=== PATIENT | male | born 1985 | race American Indian/Alaskan Native ===

== ENCOUNTER 2016-09-18 06:46 | Inpatient (IN) | payer OTHER ==
[2016-09-18] MEDS ORDERED: NACL 0.9% 1000 ML 1,000 ML IV ONE ×3 (07:58→08:48)
[2016-09-18 08:32] LABS: Hemoglobin 17.2 gm/dl (11.8-15.2); Mean Corpuscular HGB Conc 33 % (32-34); Mean Corpuscular Volume 79 fl (84-94); Platelet Count 262 K/mm3 (140-440); Red Blood Count 6.72 M/mm3 (3.65-5.03)
[2016-09-18 08:34] LABS: Mean Corpuscular Hemoglobin 26 pg (28-32); White Blood Count 23.6 K/mm3 (4.5-11.0)
[2016-09-18 08:44] LABS: Albumin 4.9 g/dL (3.9-5); Albumin/Globulin Ratio 1.2 %; BUN/Creatinine Ratio 4.68; Bilirubin,Total 0.2 mg/dL (0.1-1.2); Calcium 7.3 mg/dL (8.4-10.2)
[2016-09-18 08:48] LABS: Potassium 8.4 mmol/L (3.6-5.0)
[2016-09-18] MEDS ORDERED: CALCIUM GLUCONATE 1,000 MG in NACL 0.9% 100 ML IV ONE (08:48)
[2016-09-18] MEDS ORDERED: D50W (25GM) IV ONE (08:48)
--- NOTE | 2016-09-18 09:19 | Emergency Department Report ---
ED General Adult HPI - General Chief complaint: Altered Mental Status Stated complaint: WEAKNESS, POSSIBLE STROKE Time Seen by Provider: 09/18/16 07:57 Source: patient, EMS Mode of arrival: Stretcher Limitations: Other - History of Present Illness Initial comments: 31-year-old male presents to the emergency department via EMS after being found on the floor of his bathroom this morning by his roommate. Patient states that "I had a stroke last night". Patient states that he was not able to move his arms or his legs. He states he was lying on the floor all night. At this time, the patient states he is able to move all his extremities. He is complaining of pain in his right thigh. He denies taking any medications. There are no other complaints. -: Gradual, During the night Location: right, lower extremity Radiation: non-radiation Severity scale (0 -10): 10 Quality: aching Consistency: constant Improves with: none Worsens with: none Associated Symptoms: denies other symptoms Treatments Prior to Arrival: none - Related Data Home Medications Medication Instructions Recorded Confirmed Last Taken Benztropine [Cogentin] 2 mg PO DAILY 09/18/16 09/18/16 Unknown Haloperidol [Haldol] 2 mg PO DAILY 09/18/16 09/18/16 Unknown Hydroxyzine HCl [hydrOXYzine] 50 mg PO DAILY 09/18/16 09/18/16 Unknown Allergies Allergy/AdvReac Type Severity Reaction Status Date / Time No Known Allergies Allergy Unverified 09/18/16 07:50 ED Review of Systems ROS: Stated complaint: WEAKNESS, POSSIBLE STROKE Other details as noted in HPI Comment: All other systems reviewed and negative Musculoskeletal: as per HPI, myalgia ED Past Medical Hx - Past Medical History Previous Medical History?: Yes Hx Psychiatric Treatment: Yes (BIPOLAR SCHIZOPHRENIC) - Surgical History Past Surgical History?: No - Family History Family history: no significant - Social History Smoking Status: Current Every Day Smoker Substance Use Type: None - Medications Home Medications: Home Medications Medication Instructions Recorded Confirmed Last Taken Type Benztropine [Cogentin] 2 mg PO DAILY 09/18/16 09/18/16 Unknown History Haloperidol [Haldol] 2 mg PO DAILY 09/18/16 09/18/16 Unknown History Hydroxyzine HCl [hydrOXYzine] 50 mg PO DAILY 12/28/16 12/28/16 Unknown History ED Physical Exam - General Limitations: Other General appearance: alert, in no apparent distress - Head Head exam: Present: atraumatic, normocephalic - Eye Eye exam: Present: normal appearance, PERRL, EOMI - ENT ENT exam: Present: normal exam, normal orophraynx, mucous membranes moist - Neck Neck exam: Present: normal inspection, full ROM. Absent: tenderness - Respiratory Respiratory exam: Present: normal lung sounds bilaterally. Absent: respiratory distress - Cardiovascular Cardiovascular Exam: Present: regular rate, normal rhythm, normal heart sounds - GI/Abdominal GI/Abdominal exam: Present: soft, normal bowel sounds. Absent: distended, tenderness - Extremities Exam Extremities exam: Present: normal inspection, full ROM. Absent: tenderness - Back Exam Back exam: Present: normal inspection, full ROM. Absent: tenderness - Neurological Exam Neurological exam: Present: alert, oriented X3. Absent: motor sensory deficit - Skin Skin exam: Present: warm, dry, intact ED Course Vital Signs 09/18/16 09/18/16 09/18/16 07:44 08:00 09:12 Temperature 98.2 F Pulse Rate 89 88 Respiratory 16 16 Rate Blood Pressure 97/63 Blood Pressure 119/74 [Left] O2 Sat by Pulse 89 97 97 Oximetry ED Medical Decision Making - Lab Data Result diagrams: 09/18/16 08:08 09/18/16 08:08 - EKG Data -: EKG Interpreted by Me EKG shows normal: sinus rhythm, axis, intervals, QRS complexes, ST-T waves Rate: tachycardia - EKG Data When compared to previous EKG there are: previous EKG unavailable Interpretation: other (sinus tachycardia otherwise normal ECG) - Medical Decision Making Laboratory results reviewed and discussed with the patient. Patient appears to be in rhabdomyolysis with acute renal failure and hyperkalemia. Patient has been given IV calcium, IV insulin/glucose, and additional IV fluids. I have spoken with Dr. Avelar, nephrology. Vascular surgery will be consulted for Vas-Cath placement. Patient is to be admitted by the hospitalist. - Differential Diagnosis bipolar disorder, drug intoxication, rhabdomyolysis Critical Care Time: Yes Critical care time in (mins) excluding proc time.: 45 Critical care attestation.: If time is entered above; I have spent that time in minutes in the direct care of this critically ill patient, excluding procedure time. Critical Care Time: The high probability of a clinically significant, sudden or life threatening deterioration of the renal system(s) required my full and direct attention, intervention and personal management. The aggregate critical care time was 45 minutes. This time is in addition to time spent performing reported procedures but includes the following: [x] Data Review and interpretation [x] Patient assessment and monitoring of vital signs [x] Documentation [x] Medication orders and management ED Disposition Clinical Impression: Acute renal failure due to rhabdomyolysis, Hyperkalemia Rhabdomyolysis Qualifiers: Rhabdomyolysis type: non-traumatic Qualified Code(s): M62.82 - Rhabdomyolysis Disposition: OP ADMITTED IP TO THIS HOSP Is pt being admited?: Yes Condition: Stable Time of Disposition: 09:05
--- NOTE | 2016-09-18 09:39 | Admit Criteria Form ---
Admission Criteria Documentation: HYPONATREMIA; HYPERNATREMIA; HYPOKALEMIA; HYPERKALEMIA; HYPOCALCEMIA; HYPERCALCEMIA Clinical Indications for Inpatient Care (Place 'X' for any and all applicable criteria): Ongoing inpatient care may be indicated for ANY ONE of the following [G](1)(2)(3 )(5): [ ]I. Hyponatremia with ANY ONE of the following: [ ]a) Sodium less than 130 mEq/L (mmol/L) (new) (6)(22) [ ]b) Sodium less than 135 mEq/L (mmol/L) with ANY ONE of the following: [ ]i) Severe medical etiology requiring inpatient management (eg, heart failure, hypovolemia) [ ]ii) Altered mental status [ ]iii) Seizures [ ]II. Hypernatremia with ANY ONE of the following: [ ]a) Sodium greater than 155 mEq/L (mmol/L) [ ]b) Sodium greater than 150 mEq/L (mmol/L) with ANY ONE of the following: [ ] i) Altered mental status [ ]ii) Seizures [ ]iii) Severe medical etiology (eg, hypovolemia, diabetes insipidus) [ ]iv) Severe weakness [ ]v) Severe medical etiology (eg, hemolysis, infection, drug overdose) [ ]III. Hypokalemia with ANY ONE of the following: [ ]a) Potassium less than 2.5 mEq/L (mmol/L) despite outpatient and emergency treatment [ ]b) Potassium less than 3.0 mEq/L (mmol/L) with ANY ONE of the following: [ ]i) Weakness [ ]ii) Cardiac abnormality (eg, arrhythmia, conduction disturbance) [ ]iii) Cardiac ischemia [ ]iv) Ileus [ ]v) Ongoing medical cause requiring inpatient management. ( e.g., acute renal wasting, SIADH) [ ]vi) Other severe symptoms [ X] IV. Hyperkalemia with ANY ONE of the following: [X ]a) Potassium greater than 6.5 mEq/L (mmol/L) [ ]b) Potassium greater than 5 mEq/L (mmol/L) with ANY ONE of the following: [ ]i) Severe ECG findings [H] [ ]ii) Acute worsening of renal failure (creatinine greater than 2.5 mg/dL (221 micromoles/L) or significant elevation for age and size) [ ] V. Hypocalcemia with ANY ONE of the following: [ ]a) Calcium less than 7 mg/dL (1.75 mmol/L) despite outpatient and emergency treatment(19) [ ]b) Calcium less than 8 mg/dL (2 mmol/L) with significant symptoms or findings; examples include: [ ]i) Cardiac abnormality (eg, arrhythmia or conduction disturbance) [ ]ii) Altered mental status [ ]iii) Seizures [ ]iv) Breathing difficulty [ ]v) Muscle spasms [ ]. Hypercalcemia with ANY ONE of the following: [ ]a) Calcium greater than 14 mg/dL (3.5 mmol/L) [ ]b) Calcium greater than 12 mg/dL (3 mmol/L) with ANY ONE of the following: [ ]i) Significant dehydration or hypovolemia as indicated by ANY ONE of the following(2): [ ]1. Clinically significant dehydration as indicated by ANY ONE of the following: [ ]A. Acute loss of weight from baseline (5% of body weight in adults, 9% in pediatric patients) [ ]B. Hemodynamic instability [ ]C. Acute renal failure [ ]D. Serum sodium greater than 150 mEq/L (mmol/L) [ ]2) Dehydration that is persistent indicated by ALL of the following: [ ]A. Oral rehydration therapy not tolerated or insufficient to adequately correct dehydration [ ]B. Appropriate intravenous treatment (eg, fluids ) does not readily correct dehydration ie, after 12 to 24 hours of treatment) [ ]ii) Significant symptoms or findings; examples include: [ ]1) Altered mental status [ ]2) Cardiac abnormality (eg, arrhythmia, conduction disturbance) [ ]3) Cardiac abnormality (eg, arrhythmia, conduction disturbance) The original [employer] [facility] content created by [employer] has been revised. The portions of the content which have been revised are identified through the use of italic text or in bold, and [facility] has neither reviewed nor approved the modified material. All other unmodified content is copyright [facility] [employer] Please see references footnoted in the original [facility] [employer] edition 2016 Admission Criteria Met: Yes
[2016-09-18] MEDS ORDERED: DULCOLAX PR PRN (10:12)
[2016-09-18 10:42] LABS: Basophils % (Manual) 0 % (0.0-1.8); Blastocytes % (Manual) 0 %; Eosinophils % (Manual) 0 % (0.0-4.3)
[2016-09-18 10:43] LABS: Diff Status Complete; RBC Morphology Normal
[2016-09-18] MEDS ORDERED: NACL 0.9% 1000 ML 1,000 ML IV SCH (11:00)
[2016-09-18] MEDS ORDERED: NACL 0.9% 1000 ML 1,000 ML ONE (11:07)
--- NOTE | 2016-09-18 11:33 | Cat Scan Report ---
CT HEAD WITHOUT CONTRAST: HISTORY: Right lower extremity weakness, CVA. Serial contiguous axial images were obtained through the cranium. Intravenous contrast material was not administered. The ventricles are normal in size and appearance. There is no mass effect or midline shift. No areas of abnormally increased or decreased attenuation are seen. No mass lesion is seen. The mastoid air cells and visualized portions of the sinuses are normal. IMPRESSION: Cranial CT scan within normal limits. If CVA is highly suspected, MRI is recommended.
[2016-09-18] MEDS ORDERED: NACL 0.9% 1000 ML 100 ML IV PRN ×2 (12:35→15:36)
--- NOTE | 2016-09-18 12:47 | Consultation ---
History of Present Illness - Reason for Consult Consult date: 09/18/16 acute renal failure, hyperkalemia, metabolic acidosis Requesting physician: BETHEL DREW - History of Present Illness 31-year-old male presents to the emergency department via EMS after being found on the floor of his bathroom this morning by his roommate. Patient states that "I had a stroke last night". Patient states that he was not able to move his arms or his legs. He states he was lying on the floor all night. At this time, the patient states he is able to move all his extremities. He is complaining of pain in his right thigh. He denies taking any medications. There are no other complaints. Past History Past Medical History: other (schizophrenia) Past Surgical History: No surgical history Social history: lives with family Family history: no significant family history Medications and Allergies Allergies Allergy/AdvReac Type Severity Reaction Status Date / Time No Known Allergies Allergy Unverified 09/18/16 07:50 Home Medications Medication Instructions Recorded Confirmed Last Taken Type Benztropine [Cogentin] 2 mg PO DAILY 09/18/16 09/18/16 Unknown History Haloperidol [Haldol] 2 mg PO DAILY 09/18/16 09/18/16 Unknown History Hydroxyzine HCl [hydrOXYzine] 50 mg PO DAILY 09/18/16 09/18/16 Unknown History Active Meds: Active Medications Bisacodyl (Dulcolax) 10 mg NE QDAY PRN PRN Reason: Constipation unrelieved by MOM Sodium Chloride (Nacl 0.9% 1000 Ml) 1,000 mls @ 250 mls/hr IV ONCE ONE Stop: 09/18/16 12:47 Last Admin: 09/18/16 11:44 Dose: 250 mls/hr Sodium Chloride (Nacl 0.9% 1000 Ml) 100 mls @ 999 mls/hr IV TINA PRN PRN Reason: Hypotension Sodium Bicarbonate 150 meq/ (Dextrose) 1,150 mls @ 125 mls/hr IV DIRECT SY Ondansetron HCl (Zofran) 4 mg IV Q4H PRN PRN Reason: N/V unrelieved by Reglan Review of Systems Constitutional: fatigue, weakness, malaise Musculoskeletal: low back pain, leg numbness/tingling, muscle weakness, muscle cramps, myalgias Exam - Vital Signs Vital signs: Vital Signs Temp Pulse Resp BP Pulse Ox 98.2 F 89 16 97/63 89 09/18/16 07:44 09/18/16 07:44 09/18/16 07:44 09/18/16 07:44 09/18/16 07:44 - Physical Exam Narrative exam: - General Limitations: Other General appearance: alert, in no apparent distress - Head Head exam: Present: atraumatic, normocephalic - Eye Eye exam: Present: normal appearance, PERRL, EOMI - ENT ENT exam: Present: normal exam, normal orophraynx, mucous membranes moist - Neck Neck exam: Present: normal inspection, full ROM. Absent: tenderness - Respiratory Respiratory exam: Present: normal lung sounds bilaterally. Absent: respiratory distress - Cardiovascular Cardiovascular Exam: Present: regular rate, normal rhythm, normal heart sounds - GI/Abdominal GI/Abdominal exam: Present: soft, normal bowel sounds. Absent: distended, tenderness - Extremities Exam Extremities exam: Present: normal inspection, decrease ROM. diffuse tenderness - Back Exam Back exam: Present: normal inspection, full ROM. Absent: tenderness - Neurological Exam Neurological exam: Present: alert, oriented X3. Absent: motor sensory deficit - Skin Skin exam: Present: warm, dry, intact Results - Lab Results 09/18/16 08:08 09/18/16 08:08 Most recent lab results Calcium 7.3 mg/dL (8.4-10.2) L 09/18/16 08:08 Assessment and Plan Impression: * Hyperkalemia * Acute Rhabdo * Muscle weakness * Elevated LFTS * Acidosis * Schizophrenia Plan: * place in ICU * emergent hemodailysis * Low k bath with dialysis * lytes daily * add bicarbonate gtt * daily ck levels and monitor renal function * strict i/os * avoid nephrotoxins * critical care one hr
[2016-09-18] MEDS ORDERED: HEPARIN 10,000 UNITS/10 ML ONE (13:20)
[2016-09-18] MEDS ORDERED: ANCEF/STERILE WATER 2 GM/20 ML 20 ML IV ONE (13:20)
[2016-09-18] MEDS ORDERED: SUBLIMAZE ONE (13:20)
[2016-09-18] MEDS ORDERED: VERSED ONE (13:20)
[2016-09-18] MEDS ORDERED: HEPARIN/NS 5000 UNIT/500ML(CATH LAB) 500 ML IR ONE (13:20)
[2016-09-18] MEDS ORDERED: XYLOCAINE 2% INFILTRATI ONE (13:21)
--- NOTE | 2016-09-18 14:20 | Event Note ---
Date: 09/18/16 31 year old male with rhabdomyloysis with request for vascath for dialysis. Brought to animal laboratory technician for vascath placement.
--- NOTE | 2016-09-18 14:38 | Operative Report ---
Operative Report Operative Report: Operative note: Date: 09/18/2016 Preoperative diagnosis: Rhabdomyolysis Postoperative diagnosis: Same. Operation: Right internal jugular Vas-Cath insertion Surgeon: Yue Guzman. Asst.: None Anesthesia: Local with moderate sedation EBL: Minimal Findings: None Indications: 31-year-old male with history of schizophrenia, thin with his rhabdomyolysis and blood work showing CPK of more than 100,000, blood potassium of 8. Patient was explained risks and benefits of placing a dialysis catheter and he chose to proceed. Operative details: Patient was brought to the Hearing Aid Assembly Supervisor, prepped and draped right neck in a sterile fashion. After timeout performed and all team members in the agreement right femoral vein was accessed under ultrasound guidance with micropuncture needle and exchanged for micropuncture sheath. J wire was advanced in the right internal jugular vein and advanced into IVC under fluoroscopic guidance. Skin incision was made with 11 blade and serially dilated with subsequent insertion of Vas-Cath catheter 11.5 Fr 15cm in length. Ports were checked for good flow, flushed with saline and locked with 1.4 mL of heparin. Catheter was secured in place with 3-0 silk stitches and sterile dressing applied. He tolerated the procedure well.
[2016-09-18 15:31] LABS: Calcium 6.6 mg/dL (8.4-10.2); Chloride 99.9 mmol/L (98-107)
--- NOTE | 2016-09-18 15:32 | History and Physical Report ---
History of Present Illness Date of examination: 09/18/16 Date of admission: 09/18/16 10:12 Chief complaint: I think I had a stroke History of present illness: Patient is a 31-year-old male with past medical history significant for bipolar disorder, who presents to the emergency department via EMS after being found on the floor of his bathroom this morning by his roommate. Patient states that "I had a stroke last night". Patient states that he was not able to move his arms or his legs. He states he was lying on the floor all night. Initially it appears he was unable to move his right lower extremity was subsequently this improved. He is unable to give me any information as to his medical history except that he states he takes some bipolar medication but does not recall the medicines. He does not recall events that led him to the floor. He denies any alcohol or tobacco use. Although later subsequent he said he sometimes drinks. He denies any seizure- like activity. But again is unable to state how he got to the floor. No other family members available to give any more information. In the ER was noted to have a significantly elevated potassium and creatinine kinase are positive for emergency dialysis required. At this time again as stated he is able to move all his extremities. At this time denies any nausea, chest pain, diarrhea, fever, chills, melena bright red blood per rectum. He denies taking any medications. There are no other complaints. ROS Constitutional: No fever, fatigue or weight loss. Skin: No rash. Eyes: No recent vision problems or eye pain. ENT: No congestion, ear pain, or sore throat. Endocrine: No thyroid problems. Cardiovascular: No chest pain. Respiratory: No cough, shortness of breath, congestion, or wheezing. Gastrointestinal: No abdominal pain, nausea, vomiting, or diarrhea. Genitourinary: No dysuria. Musculoskeletal: No joint swelling. Neurologic: No seizures. But initially in the legs and then it was the right leg. Hematologic: No unusual bruising or bleeding. Psychiatric: No psychiatric problems, hallucinations or depression. All other systems reviewed and otherwise negative. Past History Past Medical History: other (schizophrenia) Past Surgical History: No surgical history Social history: lives with family Family history: no significant family history Medications and Allergies Allergies Allergy/AdvReac Type Severity Reaction Status Date / Time No Known Allergies Allergy Unverified 09/18/16 07:50 Home Medications Medication Instructions Recorded Confirmed Last Taken Type Benztropine [Cogentin] 2 mg PO DAILY 09/18/16 09/18/16 Unknown History Haloperidol [Haldol] 2 mg PO DAILY 09/18/16 09/18/16 Unknown History Hydroxyzine HCl [hydrOXYzine] 50 mg PO DAILY 09/18/16 09/18/16 Unknown History Active Meds: Active Medications Bisacodyl (Dulcolax) [address] QDAY PRN PRN Reason: Constipation unrelieved by MOM Sodium Chloride (Nacl 0.9% 1000 Ml) 100 mls @ 999 mls/hr IV TINA PRN PRN Reason: Hypotension Sodium Bicarbonate 150 meq/ (Dextrose) 1,150 mls @ 125 mls/hr IV DIRECT SY Ondansetron HCl (Zofran) 4 mg IV Q4H PRN PRN Reason: N/V unrelieved by Reglan Exam - Physical Exam Narrative exam: VITAL SIGNS: Reviewed. GENERAL: The patient appeared well nourished and normally developed. Vital signs as documented. HEAD: No signs of head trauma. EYES: Pupils are equal. Extraocular motions intact. EARS: Hearing grossly intact. MOUTH: Oropharynx is normal. NECK: No adenopathy, no JVD. CHEST: Chest with clear breath sounds bilaterally. No wheezes, rales, or rhonchi. CARDIAC: Regular rate and rhythm. S1 and S2, without murmurs, gallops, or rubs. VASCULAR: No Edema. Peripheral pulses normal and equal in all extremities. ABDOMEN: Soft, without detectable tenderness. No sign of distention. No rebound or guarding, and no masses palpated. Bowel Sounds normal. MUSCULOSKELETAL: Good range of motion of all major joints. Extremities without clubbing, cyanosis or edema. NEUROLOGIC EXAM: Alert and oriented x 3. No focal sensory or strength deficits. Speech normal. Follows commands. PSYCHIATRIC: Mood normal. SKIN: No rash or lesions. - Constitutional Vitals: Temp Pulse Resp BP Pulse Ox 97.0 F L 79 23 126/97 91 09/18/16 14:30 09/18/16 14:30 09/18/16 14:30 09/18/16 14:30 09/18/16 14:30 Results - Labs CBC & Chem 7: 09/19/16 05:30 09/19/16 04:30 Labs: Laboratory Last Values WBC 23.6 K/mm3 (4.5-11.0) H 09/18/16 08:08 RBC 6.72 M/mm3 (3.65-5.03) H 09/18/16 08:08 Hgb 17.2 gm/dl (11.8-15.2) H 09/18/16 08:08 Hct 53.0 % (35.5-45.6) H 09/18/16 08:08 MCV 79 fl (84-94) L 09/18/16 08:08 MCH 26 pg (28-32) L 09/18/16 08:08 MCHC 33 % (32-34) 09/18/16 08:08 RDW 15.0 % (13.2-15.2) 09/18/16 08:08 Plt Count 262 K/mm3 (140-440) 09/18/16 08:08 Add Manual Diff Complete 09/18/16 08:08 Total Counted 100 09/18/16 08:08 Seg Neuts % (Manual) 86.0 % (40.0-70.0) H 09/18/16 08:08 Band Neutrophils % 10.0 % 09/18/16 08:08 Lymphocytes % (Manual) 1.0 % (13.4-35.0) L 09/18/16 08:08 Reactive Lymphs % (Man) 0 % 09/18/16 08:08 Monocytes % (Manual) 3.0 % (0.0-7.3) 09/18/16 08:08 Eosinophils % (Manual) 0 % (0.0-4.3) 09/18/16 08:08 Basophils % (Manual) 0 % (0.0-1.8) 09/18/16 08:08 Metamyelocytes % 0 % 09/18/16 08:08 Myelocytes % 0 % 09/18/16 08:08 Promyelocytes % 0 % 09/18/16 08:08 Blast Cells % 0 % 09/18/16 08:08 Nucleated RBC % Not Reportable 09/18/16 08:08 Seg Neutrophils # Man 20.3 K/mm3 (1.8-7.7) H 09/18/16 08:08 Band Neutrophils # 2.4 K/mm3 09/18/16 08:08 Lymphocytes # (Manual) 0.2 K/mm3 (1.2-5.4) L 09/18/16 08:08 Abs React Lymphs (Man) 0.0 K/mm3 09/18/16 08:08 Monocytes # (Manual) 0.7 K/mm3 (0.0-0.8) 09/18/16 08:08 Eosinophils # (Manual) 0.0 K/mm3 (0.0-0.4) 09/18/16 08:08 Basophils # (Manual) 0.0 K/mm3 (0.0-0.1) 09/18/16 08:08 Metamyelocytes # 0.0 K/mm3 09/18/16 08:08 Myelocytes # 0.0 K/mm3 09/18/16 08:08 Promyelocytes # 0.0 K/mm3 09/18/16 08:08 Blast Cells # 0.0 K/mm3 09/18/16 08:08 WBC Morphology Not Reportable 09/18/16 08:08 Hypersegmented Neuts Not Reportable 09/18/16 08:08 Hyposegmented Neuts Not Reportable 09/18/16 08:08 Hypogranular Neuts Not Reportable 09/18/16 08:08 Smudge Cells Not Reportable 09/18/16 08:08 Toxic Granulation Not Reportable 09/18/16 08:08 Toxic Vacuolation Not Reportable 09/18/16 08:08 Dohle Bodies Not Reportable 09/18/16 08:08 Pelger-Huet Anomaly Not Reportable 09/18/16 08:08 Laila Rods Not Reportable 09/18/16 08:08 Platelet Estimate Not Reportable 09/18/16 08:08 Clumped Platelets Not Reportable 09/18/16 08:08 Plt Clumps, EDTA Not Reportable 09/18/16 08:08 Large Platelets Not Reportable 09/18/16 08:08 Giant Platelets Not Reportable 09/18/16 08:08 Platelet Satelliting Not Reportable 09/18/16 08:08 Plt Morphology Comment Not Reportable 09/18/16 08:08 RBC Morphology Normal 09/18/16 08:08 Dimorphic RBCs Not Reportable 09/18/16 08:08 Polychromasia Not Reportable 09/18/16 08:08 Hypochromasia Not Reportable 09/18/16 08:08 Poikilocytosis Not Reportable 09/18/16 08:08 Anisocytosis Not Reportable 09/18/16 08:08 Microcytosis Not Reportable 09/18/16 08:08 Macrocytosis Not Reportable 09/18/16 08:08 Spherocytes Not Reportable 09/18/16 08:08 Pappenheimer Bodies Not Reportable 09/18/16 08:08 Sickle Cells Not Reportable 09/18/16 08:08 Target Cells Not Reportable 09/18/16 08:08 Tear Drop Cells Not Reportable 09/18/16 08:08 Ovalocytes Not Reportable 09/18/16 08:08 Helmet Cells Not Reportable 09/18/16 08:08 Brandt-[place] Bodies Not Reportable 09/18/16 08:08 [place] Rings Not Reportable 09/18/16 08:08 [place] Cells Not Reportable 09/18/16 08:08 Bite Cells Not Reportable 09/18/16 08:08 Crenated Cell Not Reportable 09/18/16 08:08 Elliptocytes Not Reportable 09/18/16 08:08 Acanthocytes (Spur) Not Reportable 09/18/16 08:08 Rouleaux Not Reportable 09/18/16 08:08 Hemoglobin C Crystals Not Reportable 09/18/16 08:08 Schistocytes Not Reportable 09/18/16 08:08 Malaria parasites Not Reportable 09/18/16 08:08 Suhail Bodies Not Reportable 09/18/16 08:08 Hem Pathologist Commnt No 09/18/16 08:08 Sodium 134 mmol/L (137-145) L 09/18/16 08:08 Potassium 8.4 mmol/L (3.6-5.0) H* 09/18/16 08:08 Chloride 96.0 mmol/L (98-107) L 09/18/16 08:08 Carbon Dioxide 17 mmol/L (22-30) L 09/18/16 08:08 Anion Gap 29 mmol/L 09/18/16 08:08 BUN 15 mg/dL (9-20) 09/18/16 08:08 Creatinine 3.2 mg/dL (0.8-1.5) H 09/18/16 08:08 Estimated GFR 27 ml/min 09/18/16 08:08 BUN/Creatinine Ratio 4.68 % 09/18/16 08:08 Glucose 134 mg/dL (75-100) H 09/18/16 08:08 POC Glucose 115 (70-105) H 09/18/16 07:56 Lactic Acid 4.4 mmol/L (0.7-2.0) H* 09/18/16 08:08 Calcium 7.3 mg/dL (8.4-10.2) L 09/18/16 08:08 Total Bilirubin 0.2 mg/dL (0.1-1.2) 09/18/16 08:08 AST 744 units/L (5-40) H 09/18/16 08:08 ALT 153 units/L (7-56) H 09/18/16 08:08 Alkaline Phosphatase 59 units/L (35-129) 09/18/16 08:08 Total Creatine Kinase 652054 units/L (55-170) H 09/18/16 08:08 Total Protein 9.0 g/dL (6.3-8.2) H 09/18/16 08:08 Albumin 4.9 g/dL (3.9-5) 09/18/16 08:08 Albumin/Globulin Ratio 1.2 % 09/18/16 08:08 Salicylates < 0.3 mg/dL (2.8-20.0) L 09/18/16 08:08 Acetaminophen < 15.0 ug/mL (10.0-30.0) 09/18/16 08:08 Plasma/Serum Alcohol < 0.01 gm% (0-0.07) 09/18/16 08:08 - Imaging and Cardiology CT Scan - head: image reviewed (no acute pathology noted on my personal review) Assessment and Plan Assessment and plan: Patient is a 31-year-old male with past medical history significant for bipolar disorder, who presents to the emergency department via EMS after being found on the floor of his bathroom this morning by his roommate. Patient states that "I had a stroke last night". Patient states that he was not able to move his arms or his legs. He states he was lying on the floor all night. Initially it appears he was unable to move his right lower extremity was subsequently this improved. He is unable to give me any information as to his medical history except that he states he takes some bipolar medication but does not recall the medicines. He does not recall events that led him to the floor. He denies any alcohol or tobacco use. Although later subsequent he said he sometimes drinks. He denies any seizure- like activity. But again is unable to state how he got to the floor. No other family members available to give any more information. In the ER was noted to have a significantly elevated potassium and creatinine kinase are positive for emergency dialysis required. At this time again as stated he is able to move all his extremities. At this time denies any nausea, chest pain, diarrhea, fever, chills, melena bright red blood per rectum. He denies taking any medications. There are no other complaints. * Acute rhabdomyolysis-present on admission * Severe hyperkalemia-present on admission * Metabolic encephalopathy-resolved * Generalized muscle weakness * Elevated LFTs questionable hepatitis * Metabolic acidosis * Rule out seizure * Acute kidney injury likely secondary to rhabdomyolysis versus some of the nephropathy * Dehydration * Metabolic acidosis-with elevated lactates but doubt sepsis * Leukocytosis-likely reactive in nature no evidence of infection at this point. Plan: * Admit patient to ICU for emergent dialysis * Repeat lactate level and monitor EKG and * Was not visualized grossly fluid emergent hemodailysis * add bicarbonate gtt * strict i/os * avoid nephrotoxins * We'll check a CT brain to rule out any type of stroke pathology. * Although I doubt this was a seizure activity will nevertheless order an EEG. This patient did have what could be considered a postictal state. * DVT and GI prophylaxis * No improvement in liver function will obtain ultrasound of the liver. * Case discussed with mobility developer and pad assembler The high probability of a clinically significant, sudden or life threatening deterioration of the [musculoskeletal Taylor, liver] system(s) required my full and direct attention, intervention and personal management. The aggregate critical care time was [45] minutes. This time is in addition to time spent performing reported procedures but includes the following: [x] Data Review and interpretation [x] Patient assessment and monitoring of vital signs [x] Documentation [x] Medication orders and management Advance Directives: Yes Plan of care discussed with patient/family: Yes
[2016-09-18 15:34] LABS: Potassium 8.2 mmol/L (3.6-5.0)
[2016-09-18] MEDS: ZOFRAN IV PRN ×2 (16:44→21:16)
[2016-09-18] MEDS: SODIUM BICARBONATE 150 MEQ in D5W 1,000 ML IV SCH (16:44)
[2016-09-18] MEDS: HEPARIN IV PRN (18:19)
[2016-09-19] MEDS: TYLENOL PO PRN (04:45)
[2016-09-19] MEDS: SODIUM BICARBONATE 150 MEQ in D5W 1,000 ML IV SCH ×3 (05:24→16:27)
[2016-09-19 05:50] LABS: Hematocrit TNR % (35.5-45.6); Hemoglobin TNR gm/dl (11.8-15.2); Mean Corpuscular HGB Conc TNR % (32-34); Mean Corpuscular Hemoglobin TNR pg (28-32); Mean Corpuscular Volume TNR fl (84-94); Mean Platelet Volume TNR fl (6-12); Platelet Count TNR K/mm3 (140-440); Red Blood Count TNR M/mm3 (3.65-5.03); Red Cell Distribution Width TNR % (13.2-15.2); White Blood Count TNR K/mm3 (4.5-11.0)
[2016-09-19 05:51] LABS: Basophils % (Auto) TNR % (0.0-1.8); Eosinophils % (Auto) TNR % (0.0-4.3)
[2016-09-19 05:52] LABS: Diff Status TNR
[2016-09-19 06:07] LABS: Potassium TNR mmol/L (3.6-5.0); Sodium TNR mmol/L (137-145)
[2016-09-19 06:08] LABS: Hematocrit 48.3 % (35.5-45.6); Mean Corpuscular HGB Conc 33 % (32-34); Mean Corpuscular Hemoglobin 25 pg (28-32); Mean Corpuscular Volume 76 fl (84-94); Platelet Count 191 K/mm3 (140-440); Red Blood Count 6.38 M/mm3 (3.65-5.03); White Blood Count 20.4 K/mm3 (4.5-11.0)
[2016-09-19 06:08] LABS: Anion Gap TNR mmol/L; BUN/Creatinine Ratio TNR; Blood Urea Nitrogen TNR mg/dL (9-20); Carbon Dioxide TNR mmol/L (22-30); Chloride TNR mmol/L (98-107); Glucose TNR mg/dL (75-100)
[2016-09-19 06:09] LABS: Calcium TNR mg/dL (8.4-10.2)
[2016-09-19 06:54] LABS: BUN/Creatinine Ratio 3.72; Calcium 6.6 mg/dL (8.4-10.2); Chloride 90.8 mmol/L (98-107)
[2016-09-19 06:56] LABS: Alanine Aminotransferase 238 units/L (7-56); Albumin 3.1 g/dL (3.9-5); Albumin/Globulin Ratio 0.9 %; Alkaline Phosphatase 57 units/L (35-129); Bilirubin,Total 0.2 mg/dL (0.1-1.2); Total Protein 6.4 g/dL (6.3-8.2)
[2016-09-19 06:57] LABS: Potassium 4.3 mmol/L (3.6-5.0)
[2016-09-19 07:09] LABS: Bilirubin,Direct < 0.2 mg/dL (0-0.2)
[2016-09-19 07:28] LABS: Blastocytes % (Manual) 0 %
[2016-09-19 07:29] LABS: Anisocytosis 1+; Basophils % (Manual) 0 % (0.0-1.8); Elliptocytes Rare; Eosinophils % (Manual) 0 % (0.0-4.3); Microcytosis 1+; Ovalocytes Rare; Poikilocytosis 1+; Polychromasia 1+; Stomatocytes Few; Target Cells Few; Tear Drop Cells Rare
[2016-09-19 07:30] LABS: Diff Status Complete; Large Platelets Few
[2016-09-19 07:39] LABS: Creatine Kinase MB 292.8 ng/mL (0.0-4.0)
--- NOTE | 2016-09-19 09:07 | Progress Note ---
Assessment and Plan Assessment and plan: 1. Acute rhabdomyolysis. Patient status post emergent hemodialysis. Continue to monitor serial CKs. Continue hemodialysis per nephrology. 2. Severe hyperkalemia. Resolved. Status post emergent hemodialysis. 3. Acute renal failure. Etiology is secondary to #1. Continue to monitor renal function. Strict I&O's and avoid nephrotoxins. Nephrology following. 4. Metabolic acidosis. Patient with bicarbonate drip. Continue per nephrology. 5. ? Seizure disorder. CT scan of the head was negative. Follow-up EEG. 6. Elevated LFTs. Follow-up hepatitis panel. 7. DVT and GI prophylaxis. The high probability of a clinically significant, sudden or life threatening deterioration of the [renal] system(s) required my full and direct attention, intervention and personal management. The aggregate critical care time was [31] minutes. This time is in addition to time spent performing reported procedures but includes the following: [x] Data Review and interpretation [x] Patient assessment and monitoring of vital signs [x] Documentation [x] Medication orders and management History Interval history: 31-year-old male admitted with acute rhabdomyolysis, generalized weakness and acute renal failure requiring emergent hemodialysis. No new issues overnight. No complaints of chest pain shortness of breath. Hospitalist Physical - Constitutional Vitals: Temp Pulse Resp BP Pulse Ox 98.2 F 89 10 L 122/91 97 09/19/16 08:00 09/19/16 08:15 09/19/16 08:15 09/19/16 08:00 09/19/16 08:15 General appearance: Present: no acute distress, well-nourished - EENT Eyes: Present: PERRL, EOM intact ENT: hearing intact, clear oral mucosa, dentition normal - Neck Neck: Present: supple, normal ROM - Respiratory Respiratory effort: normal Respiratory: bilateral: diminished - Cardiovascular Rhythm: regular Heart Sounds: Present: S1 & S2. Absent: gallop, rub - Extremities Extremities: no ischemia, No edema, Full ROM - Abdominal General gastrointestinal: soft, non-tender, non-distended, normal bowel sounds - Integumentary Integumentary: Present: clear, warm, dry - Neurologic Neurologic: CNII-XII intact, moves all extremities Results - Labs CBC & Chem 7: 09/19/16 05:30 09/19/16 06:16 Labs: Laboratory Last Values WBC 20.4 K/mm3 (4.5-11.0) H 09/19/16 05:30 RBC 6.38 M/mm3 (3.65-5.03) H 09/19/16 05:30 Hgb 16.0 gm/dl (11.8-15.2) H 09/19/16 05:30 Hct 48.3 % (35.5-45.6) H 09/19/16 05:30 MCV 76 fl (84-94) L D 09/19/16 05:30 MCH 25 pg (28-32) L 09/19/16 05:30 MCHC 33 % (32-34) 09/19/16 05:30 RDW 15.0 % (13.2-15.2) 09/19/16 05:30 Plt Count 191 K/mm3 (140-440) 09/19/16 05:30 Lymph % (Auto) TNR 09/19/16 04:30 [place] % (Auto) TNR 09/19/16 04:30 Eos % (Auto) TNR 09/19/16 04:30 Baso % (Auto) TNR 09/19/16 04:30 Lymph # TNR 09/19/16 04:30 [place] # TNR 09/19/16 04:30 Eos # TNR 09/19/16 04:30 Baso # TNR 09/19/16 04:30 Add Manual Diff Complete 09/19/16 05:30 Total Counted 100 09/19/16 05:30 Seg Neutrophils % TNR 09/19/16 04:30 Seg Neuts % (Manual) 84.0 % (40.0-70.0) H 09/19/16 05:30 Band Neutrophils % 2.0 % 09/19/16 05:30 Lymphocytes % (Manual) 8.0 % (13.4-35.0) L 09/19/16 05:30 Reactive Lymphs % (Man) 0 % 09/19/16 05:30 Monocytes % (Manual) 6.0 % (0.0-7.3) 09/19/16 05:30 Eosinophils % (Manual) 0 % (0.0-4.3) 09/19/16 05:30 Basophils % (Manual) 0 % (0.0-1.8) 09/19/16 05:30 Metamyelocytes % 0 % 09/19/16 05:30 Myelocytes % 0 % 09/19/16 05:30 Promyelocytes % 0 % 09/19/16 05:30 Blast Cells % 0 % 09/19/16 05:30 Nucleated RBC % Not Reportable 09/19/16 05:30 Seg Neutrophils # TNR 09/19/16 04:30 Seg Neutrophils # Man 17.1 K/mm3 (1.8-7.7) H 09/19/16 05:30 Band Neutrophils # 0.4 K/mm3 09/19/16 05:30 Lymphocytes # (Manual) 1.6 K/mm3 (1.2-5.4) 09/19/16 05:30 Abs React Lymphs (Man) 0.0 K/mm3 09/19/16 05:30 Monocytes # (Manual) 1.2 K/mm3 (0.0-0.8) H 09/19/16 05:30 Eosinophils # (Manual) 0.0 K/mm3 (0.0-0.4) 09/19/16 05:30 Basophils # (Manual) 0.0 K/mm3 (0.0-0.1) 09/19/16 05:30 Metamyelocytes # 0.0 K/mm3 09/19/16 05:30 Myelocytes # 0.0 K/mm3 09/19/16 05:30 Promyelocytes # 0.0 K/mm3 09/19/16 05:30 Blast Cells # 0.0 K/mm3 09/19/16 05:30 WBC Morphology Not Reportable 09/19/16 05:30 Hypersegmented Neuts Not Reportable 09/19/16 05:30 Hyposegmented Neuts Not Reportable 09/19/16 05:30 Hypogranular Neuts Not Reportable 09/19/16 05:30 Smudge Cells Not Reportable 09/19/16 05:30 Toxic Granulation Not Reportable 09/19/16 05:30 Toxic Vacuolation Not Reportable 09/19/16 05:30 Dohle Bodies Not Reportable 09/19/16 05:30 Pelger-Huet Anomaly Not Reportable 09/19/16 05:30 Laila Rods Not Reportable 09/19/16 05:30 Platelet Estimate Appears normal 09/19/16 05:30 Clumped Platelets Not Reportable 09/19/16 05:30 Plt Clumps, EDTA Not Reportable 09/19/16 05:30 Large Platelets Few 09/19/16 05:30 Giant Platelets Not Reportable 09/19/16 05:30 Platelet Satelliting Not Reportable 09/19/16 05:30 Plt Morphology Comment Not Reportable 09/19/16 05:30 RBC Morphology Not Reportable 09/19/16 05:30 Dimorphic RBCs Not Reportable 09/19/16 05:30 Polychromasia 1+ 09/19/16 05:30 Hypochromasia Not Reportable 09/19/16 05:30 Poikilocytosis 1+ 09/19/16 05:30 Anisocytosis 1+ 09/19/16 05:30 Microcytosis 1+ 09/19/16 05:30 Macrocytosis Not Reportable 09/19/16 05:30 Spherocytes Not Reportable 09/19/16 05:30 Pappenheimer Bodies Not Reportable 09/19/16 05:30 Sickle Cells Not Reportable 09/19/16 05:30 Target Cells Few 09/19/16 05:30 Tear Drop Cells Rare 09/19/16 05:30 Ovalocytes Rare 09/19/16 05:30 Stomatocytes Few 09/19/16 05:30 Helmet Cells Not Reportable 09/19/16 05:30 Brandt-[place] Bodies Not Reportable 09/19/16 05:30 [place] Rings Not Reportable 09/19/16 05:30 [place] Cells Not Reportable 09/19/16 05:30 Bite Cells Not Reportable 09/19/16 05:30 Crenated Cell Not Reportable 09/19/16 05:30 Elliptocytes Rare 09/19/16 05:30 Acanthocytes (Spur) Not Reportable 09/19/16 05:30 Rouleaux Not Reportable 09/19/16 05:30 Hemoglobin C Crystals Not Reportable 09/19/16 05:30 Schistocytes Not Reportable 09/19/16 05:30 Malaria parasites Not Reportable 09/19/16 05:30 Suhail Bodies Not Reportable 09/19/16 05:30 Hem Pathologist Commnt No 09/19/16 05:30 Sodium 134 mmol/L (137-145) L 09/19/16 06:16 Potassium 4.3 mmol/L (3.6-5.0) D 09/19/16 06:16 Chloride 90.8 mmol/L (98-107) L 09/19/16 06:16 Carbon Dioxide 23 mmol/L (22-30) 09/19/16 06:16 Anion Gap 25 mmol/L 09/19/16 06:16 BUN 19 mg/dL (9-20) 09/19/16 06:16 Creatinine 5.1 mg/dL (0.8-1.5) H 09/19/16 06:16 Estimated GFR 16 ml/min 09/19/16 06:16 BUN/Creatinine Ratio 3.72 % 09/19/16 06:16 Glucose 162 mg/dL (75-100) H 09/19/16 06:16 POC Glucose 115 (70-105) H 09/18/16 07:56 Lactic Acid 4.4 mmol/L (0.7-2.0) H* 09/18/16 08:08 Calcium 6.6 mg/dL (8.4-10.2) L 09/19/16 06:16 Total Bilirubin 0.2 mg/dL (0.1-1.2) 09/19/16 06:20 Direct Bilirubin < 0.2 mg/dL (0-0.2) 09/19/16 06:20 Indirect Bilirubin 0.0 mg/dL 09/19/16 06:20 AST 1264 units/L (5-40) H 09/19/16 06:20 ALT 238 units/L (7-56) H 09/19/16 06:20 Alkaline Phosphatase 57 units/L (35-129) 09/19/16 06:20 Total Creatine Kinase 56552 units/L (55-170) H 09/19/16 06:17 CK-MB (CK-2) 292.8 ng/mL (0.0-4.0) H 09/19/16 06:17 CK-MB (CK-2) Rel Index 0.3 (0-4) 09/19/16 06:17 Total Protein 6.4 g/dL (6.3-8.2) D 09/19/16 06:20 Albumin 3.1 g/dL (3.9-5) L 09/19/16 06:20 Albumin/Globulin Ratio 0.9 % 09/19/16 06:20 Salicylates < 0.3 mg/dL (2.8-20.0) L 09/18/16 08:08 Acetaminophen < 15.0 ug/mL (10.0-30.0) 09/18/16 08:08 Plasma/Serum Alcohol < 0.01 gm% (0-0.07) 09/18/16 08:08 Hep Bs Antigen Non-reactive (Negative) 09/18/16 14:56 Hepatitis C Antibody Non-reactive (NonReactive) 09/18/16 14:57
--- NOTE | 2016-09-19 10:11 | Consultation ---
History of Present Illness Consult date: 09/19/16 Requesting physician: ÓSCAR PERALTA Reason for consult: other (GERALDINE; Hyperkalemia) History of present illness: PULMONARY CONSULT NOTE (Full dictation # [id number]) Please see dictated notes for full details Past History Past Medical History: other (schizophrenia) Past Surgical History: No surgical history Social history: lives with family Family history: no significant family history Medications and Allergies Allergies Allergy/AdvReac Type Severity Reaction Status Date / Time No Known Allergies Allergy Unverified 09/18/16 07:50 Home Medications Medication Instructions Recorded Confirmed Last Taken Type Benztropine [Cogentin] 2 mg PO DAILY 09/18/16 09/18/16 Unknown History Haloperidol [Haldol] 2 mg PO DAILY 09/18/16 09/18/16 Unknown History Hydroxyzine HCl [hydrOXYzine] 50 mg PO DAILY 09/18/16 09/18/16 Unknown History Active Meds: Active Medications Acetaminophen (Tylenol) 650 mg PO Q6H PRN PRN Reason: Pain, Mild (1-3) Last Admin: 09/19/16 04:45 Dose: 650 mg Bisacodyl (Dulcolax) 10 mg [place] QDAY PRN PRN Reason: Constipation unrelieved by MOM Heparin Sodium (Porcine) (Heparin) 5,000 unit IV TINA PRN PRN Reason: hemodialysis Last Admin: 09/18/16 18:19 Dose: 5,000 unit Sodium Chloride (Nacl 0.9% 1000 Ml) 100 mls @ 999 mls/hr IV TINA PRN PRN Reason: Hypotension Sodium Bicarbonate 150 meq/ (Dextrose) 1,150 mls @ 125 mls/hr IV DIRECT SY Last Admin: 09/19/16 05:25 Dose: 125 mls/hr Sodium Chloride (Nacl 0.9% 1000 Ml) 100 mls @ 999 mls/hr IV TINA PRN PRN Reason: Hypotension Ondansetron HCl (Zofran) 4 mg IV Q4H PRN PRN Reason: N/V unrelieved by Reglan Last Admin: 09/18/16 21:16 Dose: 4 mg Physical Examination Vital signs: Vital Signs Temp Pulse Resp BP Pulse Ox 98.2 F 89 16 97/63 89 09/18/16 07:44 09/18/16 07:44 09/18/16 07:44 09/18/16 07:44 09/18/16 07:44 Results - Laboratory Findings CBC and BMP: 09/22/16 06:26 09/22/16 06:26 Abnormal lab findings: Abnormal Labs 09/18/16 09/18/16 09/18/16 14:48 14:57 17:20 WBC RBC Hgb Hct MCV MCH Seg Neuts % (Manual) Lymphocytes % (Manual) Seg Neutrophils # Man Monocytes # (Manual) Sodium 135 L Potassium 8.2 H* Chloride Carbon Dioxide 18 L Creatinine 3.8 H Glucose 134 H Calcium 6.6 L AST ALT Total Creatine Kinase 30278 H 69431 H CK-MB (CK-2) Albumin 09/19/16 09/19/16 09/19/16 00:21 05:30 06:16 WBC 20.4 H RBC 6.38 H Hgb 16.0 H Hct 48.3 H MCV 76 L D MCH 25 L Seg Neuts % (Manual) 84.0 H Lymphocytes % (Manual) 8.0 L Seg Neutrophils # Man 17.1 H Monocytes # (Manual) 1.2 H Sodium 134 L Potassium Chloride 90.8 L Carbon Dioxide Creatinine 5.1 H Glucose 162 H Calcium 6.6 L AST ALT Total Creatine Kinase 76361 H CK-MB (CK-2) Albumin 09/19/16 09/19/16 06:17 06:20 WBC RBC Hgb Hct MCV MCH Seg Neuts % (Manual) Lymphocytes % (Manual) Seg Neutrophils # Man Monocytes # (Manual) Sodium Potassium Chloride Carbon Dioxide Creatinine Glucose Calcium AST 1264 H ALT 238 H Total Creatine Kinase 35805 H CK-MB (CK-2) 292.8 H Albumin 3.1 L
--- NOTE | 2016-09-19 11:02 | Progress Note ---
Assessment and Plan Impression: * Anuric GERALDINE secondary to ATN due to rhabdo * Hyperkalemia * Rhabdomyolysis * Muscle weakness * Tranaminitis secondary to #2 * Acidosis * Schizophrenia Plan: * Bladder scan today - no urine * Continue bicarb gtt - Decrease IV rate to 70ml/hour * Hemodialysis today * Reassess daily for HD need * Daily CK; monitor lytes closely * Avoid nephrotoxins Subjective Date of service: 09/19/16 Interval history: Patient is s/p emergent HD yesterday due to hyperkalemia. Objective - Vital Signs Vital signs: Vital Signs - 12hr 09/19/16 09/19/16 09/19/16 00:00 01:00 02:00 Temperature 98.3 F Pulse Rate 95 H 92 H 89 Pulse Rate [ From Monitor] Respiratory 14 28 H 21 Rate Blood Pressure 115/78 121/79 126/88 O2 Sat by Pulse 100 96 98 Oximetry 09/19/16 09/19/16 09/19/16 03:00 03:12 03:30 Temperature Pulse Rate 88 85 97 H Pulse Rate [ From Monitor] Respiratory 20 14 14 Rate Blood Pressure 120/86 120/86 120/96 O2 Sat by Pulse 99 99 98 Oximetry 09/19/16 09/19/16 09/19/16 03:38 04:00 04:05 Temperature Pulse Rate 98 H 96 H 94 H Pulse Rate [ From Monitor] Respiratory 27 H 24 24 Rate Blood Pressure 119/86 119/88 119/88 O2 Sat by Pulse 97 98 97 Oximetry 09/19/16 09/19/16 09/19/16 04:28 05:00 06:00 Temperature 97.4 F L Pulse Rate 96 H 89 Pulse Rate [ From Monitor] Respiratory 20 21 Rate Blood Pressure 130/84 126/80 O2 Sat by Pulse 98 99 Oximetry 09/19/16 09/19/16 09/19/16 06:18 07:00 07:54 Temperature Pulse Rate 95 H 90 83 Pulse Rate [ From Monitor] Respiratory 11 L 15 15 Rate Blood Pressure 120/89 121/85 121/85 O2 Sat by Pulse 99 98 99 Oximetry 09/19/16 09/19/16 09/19/16 08:00 08:14 08:15 Temperature 98.2 F Pulse Rate 87 Pulse Rate [ 89 From Monitor] Respiratory 13 10 L Rate Blood Pressure 122/91 O2 Sat by Pulse 99 99 97 Oximetry 09/19/16 09/19/16 09/19/16 08:24 09:00 10:00 Temperature Pulse Rate 81 91 H 94 H Pulse Rate [ From Monitor] Respiratory 14 15 24 Rate Blood Pressure 121/84 125/92 128/87 O2 Sat by Pulse 99 99 98 Oximetry - General Appearance General appearance: well-developed, well-nourished EENT: ATNC Respiratory: Present: Decreased Breath Sounds Cardiology: regular, S1S2 Gastrointestinal: normal, no tenderness, no distended Integumentary: no rash Musculoskeletal: other (no edema) Psychiatric: cooperative - Lab 09/19/16 05:30 09/19/16 06:16 Most recent lab results Calcium 6.6 mg/dL (8.4-10.2) L 09/19/16 06:16
[2016-09-19] MEDS: PERCOCET 5/325 PO PRN ×2 (11:32→18:27)
[2016-09-19] MEDS ORDERED: NACL 0.9% 1000 ML 100 ML IV PRN ×2 (13:47→14:56)
[2016-09-19] MEDS: HEPARIN IV PRN (22:20)
[2016-09-20] MEDS: PERCOCET 5/325 PO PRN ×2 (00:55→20:49)
[2016-09-20 07:31] LABS: Basophils % (Auto) 0.3 % (0.0-1.8); Eosinophils % (Auto) 0.2 % (0.0-4.3); Hematocrit 43.4 % (35.5-45.6); Hemoglobin 14.2 gm/dl (11.8-15.2); Mean Corpuscular HGB Conc 33 % (32-34); Mean Corpuscular Volume 76 fl (84-94); Platelet Count 152 K/mm3 (140-440); Red Cell Distribution Width 14.8 % (13.2-15.2); White Blood Count 13.8 K/mm3 (4.5-11.0)
[2016-09-20 07:36] LABS: Mean Corpuscular Hemoglobin 25 pg (28-32)
[2016-09-20 07:48] LABS: BUN/Creatinine Ratio 3.12; Calcium 7.4 mg/dL (8.4-10.2); Chloride 90.1 mmol/L (98-107); Potassium 3.9 mmol/L (3.6-5.0)
--- NOTE | 2016-09-20 08:03 | Progress Note ---
Assessment and Plan Impression: * bryn with ATN due to acute rhabdomyolysis * Hyperkalemia * Acute Rhabdo * Muscle weakness * Elevated LFTS * Acidosis * Schizophrenia Plan: * dialysis q ththsat * lytes daily * continue bicarbonate gtt * daily ck levels and monitor renal function * strict i/os * avoid nephrotoxins Subjective Date of service: 09/20/16 Principal diagnosis: bryn, rhabdo Interval history: resting well in bed today Objective - Exam Narrative Exam: - General Limitations: Other General appearance: alert, in no apparent distress - Head Head exam: Present: atraumatic, normocephalic - Eye Eye exam: Present: normal appearance, PERRL, EOMI - ENT ENT exam: Present: normal exam, normal orophraynx, mucous membranes moist - Neck Neck exam: Present: normal inspection, full ROM. Absent: tenderness - Respiratory Respiratory exam: Present: normal lung sounds bilaterally. Absent: respiratory distress - Cardiovascular Cardiovascular Exam: Present: regular rate, normal rhythm, normal heart sounds - GI/Abdominal GI/Abdominal exam: Present: soft, normal bowel sounds. Absent: distended, tenderness - Extremities Exam Extremities exam: Present: normal inspection, decrease ROM. diffuse tenderness - Back Exam Back exam: Present: normal inspection, full ROM. Absent: tenderness - Neurological Exam Neurological exam: Present: alert, oriented X3. Absent: motor sensory deficit - Skin Skin exam: Present: warm, dry, intact - Vital Signs Vital signs: Vital Signs - 12hr 09/19/16 09/19/16 09/19/16 20:15 20:30 20:45 Temperature Pulse Rate 68 84 75 Pulse Rate [ Right Radial] Respiratory Rate Blood Pressure 142/77 133/82 126/85 Blood Pressure [Right Arm] O2 Sat by Pulse Oximetry 09/19/16 09/19/16 09/19/16 21:00 21:15 21:30 Temperature Pulse Rate 66 84 86 Pulse Rate [ Right Radial] Respiratory Rate Blood Pressure 126/80 119/81 129/55 Blood Pressure [Right Arm] O2 Sat by Pulse Oximetry 09/19/16 09/19/16 09/19/16 21:45 22:00 22:09 Temperature 98.4 F Pulse Rate 88 84 84 Pulse Rate [ Right Radial] Respiratory 18 Rate Blood Pressure 126/78 115/64 115/69 Blood Pressure [Right Arm] O2 Sat by Pulse Oximetry 09/19/16 09/20/16 23:22 07:30 Temperature 98.9 F 99.2 F Pulse Rate Pulse Rate [ 75 89 Right Radial] Respiratory 18 20 Rate Blood Pressure Blood Pressure 124/82 122/86 [Right Arm] O2 Sat by Pulse 97 93 Oximetry - Lab 09/20/16 06:26 09/20/16 06:26 Most recent lab results Calcium 7.4 mg/dL (8.4-10.2) L 09/20/16 06:26
[2016-09-20] MEDS: ZOFRAN IV PRN ×2 (11:49→20:50)
--- NOTE | 2016-09-20 13:30 | Consultation ---
History of Present Illness - Reason for Consult Consult date: 09/20/16 ams - History of Present Illness patient is seen and assessed c/o right foot pain and he is confused at this point suspect metabolic factors see elevated creatinine monitor for seizures rec'ed Past History Past Medical History: other (schizophrenia) Past Surgical History: No surgical history Social history: lives with family Family history: no significant family history Medications and Allergies Allergies Allergy/AdvReac Type Severity Reaction Status Date / Time No Known Allergies Allergy Unverified 09/18/16 07:50 Home Medications Medication Instructions Recorded Confirmed Last Taken Type Benztropine [Cogentin] 2 mg PO DAILY 09/18/16 09/18/16 Unknown History Haloperidol [Haldol] 2 mg PO DAILY 09/18/16 09/18/16 Unknown History Hydroxyzine HCl [hydrOXYzine] 50 mg PO DAILY 09/18/16 09/18/16 Unknown History Active Meds: Active Medications Acetaminophen (Tylenol) 650 mg PO Q6H PRN PRN Reason: Pain, Mild (1-3) Last Admin: 09/19/16 04:45 Dose: 650 mg Bisacodyl (Dulcolax) 10 mg RI QDAY PRN PRN Reason: Constipation unrelieved by MOM Heparin Sodium (Porcine) (Heparin) 5,000 unit IV TINA PRN PRN Reason: hemodialysis Last Admin: 09/19/16 22:20 Dose: 5,000 unit Sodium Chloride (Nacl 0.9% 1000 Ml) 100 mls @ 999 mls/hr IV TINA PRN PRN Reason: Hypotension Sodium Bicarbonate 150 meq/ (Dextrose) 1,150 mls @ 70 mls/hr IV DIRECT SY Last Admin: 09/19/16 16:27 Dose: 70 mls/hr Ondansetron HCl (Zofran) 4 mg IV Q4H PRN PRN Reason: N/V unrelieved by Reglan Last Admin: 09/20/16 11:49 Dose: 4 mg Oxycodone/Acetaminophen (Percocet 5/325) 1 tab PO Q6H PRN PRN Reason: Pain, Moderate (4-6) Last Admin: 09/20/16 00:55 Dose: 1 tab Exam - Constitutional Vitals: Temp Pulse Resp BP Pulse Ox 98.5 F 91 H 20 124/85 93 09/20/16 11:38 09/20/16 11:38 09/20/16 11:38 09/20/16 11:38 09/20/16 07:30 Results - Labs CBC & Chem 7: 09/20/16 06:26 09/20/16 06:26 Labs: Abnormal lab results 09/20/16 09/20/16 09/20/16 Range/Units 05:00 06:26 06:26 WBC 13.8 H (4.5-11.0) K/mm3 RBC 5.70 H (3.65-5.03) M/mm3 MCV 76 L (84-94) fl MCH 25 L (28-32) pg [place] % (Auto) 8.8 H (0.0-7.3) % [place] # 1.2 H (0.0-0.8) K/mm3 Seg Neutrophils % 76.9 H (40.0-70.0) % Seg Neutrophils # 10.6 H (1.8-7.7) K/mm3 Sodium 136 L (137-145) mmol/L Chloride 90.1 L (98-107) mmol/L Creatinine 6.4 H (0.8-1.5) mg/dL Glucose 101 H (75-100) mg/dL Calcium 7.4 L (8.4-10.2) mg/dL Total Creatine Kinase 013699 H (55-170) units/L
--- NOTE | 2016-09-20 15:15 | Progress Note ---
Assessment and Plan Assessment and plan: Patient is a 31-year-old male with past medical history significant for bipolar disorder, who presents to the emergency department via EMS after being found on the floor of his bathroom this morning by his roommate. Patient states that "I had a stroke last night". Patient states that he was not able to move his arms or his legs. He states he was lying on the floor all night. Initially it appears he was unable to move his right lower extremity was subsequently this improved. He is unable to give me any information as to his medical history except that he states he takes some bipolar medication but does not recall the medicines. He does not recall events that led him to the floor. He denies any alcohol or tobacco use. Although later subsequent he said he sometimes drinks. He denies any seizure- like activity. But again is unable to state how he got to the floor. No other family members available to give any more information. In the ER was noted to have a significantly elevated potassium and creatinine kinase are positive for emergency dialysis required. At this time again as stated he is able to move all his extremities. At this time denies any nausea, chest pain, diarrhea, fever, chills, melena bright red blood per rectum. He denies taking any medications. There are no other complaints. * Acute rhabdomyolysis-present on admission- fluctuating ?med induced. * Severe hyperkalemia-present on admission-RESOLVED * Metabolic encephalopathy-resolved * Generalized muscle weakness * Elevated LFTs questionable hepatitis * Metabolic acidosis * Rule out seizure * Acute kidney injury likely secondary to rhabdomyolysis versus some of the nephropathy * Dehydration * Metabolic acidosis-with elevated lactates but doubt sepsis * Leukocytosis-likely reactive in nature no evidence of infection at this point. -resolved Plan: * transferred to the floor. * Neurology consulted also Psych * Was not visualized grossly fluid emergent hemodailysis * Continue Bicarb drip * Nephrology input noted * strict i/o * avoid nephrotoxins * MRI pending. * Although I doubt this was a seizure activity will nevertheless order an EEG. This patient did have what could be considered a postictal state. * DVT and GI prophylaxis History Interval history: Patient seen and examined in no acute distress. still complaining of weakness on the right lower ext and the left upper ext. otherwise denies any chest pain, nausea or vomiting. Hospitalist Physical - Physical exam Narrative exam: VITAL SIGNS: Reviewed. GENERAL: The patient appeared well nourished and normally developed. Vital signs as documented. HEAD: No signs of head trauma. EYES: Pupils are equal. Extraocular motions intact. EARS: Hearing grossly intact. MOUTH: Oropharynx is normal. NECK: No adenopathy, no JVD. CHEST: Chest with clear breath sounds bilaterally. No wheezes, rales, or rhonchi. CARDIAC: Regular rate and rhythm. S1 and S2, without murmurs, gallops, or rubs. VASCULAR: No Edema. Peripheral pulses normal and equal in all extremities. ABDOMEN: Soft, without detectable tenderness. No sign of distention. No rebound or guarding, and no masses palpated. Bowel Sounds normal. MUSCULOSKELETAL: Good range of motion of all major joints. Extremities without clubbing, cyanosis or edema. NEUROLOGIC EXAM: Alert and oriented x 3. No focal sensory or strength deficits. Speech normal. Follows commands. PSYCHIATRIC: Mood normal. SKIN: No rash or lesions. - Constitutional Vitals: Temp Pulse Resp BP Pulse Ox 98.5 F 91 H 20 124/85 93 09/20/16 11:38 09/20/16 11:38 09/20/16 11:38 09/20/16 11:38 09/20/16 07:30 General appearance: Present: no acute distress, well-nourished Results - Labs CBC & Chem 7: 09/20/16 06:26 09/20/16 06:26 Labs: Laboratory Last Values WBC 13.8 K/mm3 (4.5-11.0) H 09/20/16 06:26 RBC 5.70 M/mm3 (3.65-5.03) H 09/20/16 06:26 Hgb 14.2 gm/dl (11.8-15.2) 09/20/16 06:26 Hct 43.4 % (35.5-45.6) 09/20/16 06:26 MCV 76 fl (84-94) L 09/20/16 06:26 MCH 25 pg (28-32) L 09/20/16 06:26 MCHC 33 % (32-34) 09/20/16 06:26 RDW 14.8 % (13.2-15.2) 09/20/16 06:26 Plt Count 152 K/mm3 (140-440) 09/20/16 06:26 Lymph % (Auto) 13.8 % (13.4-35.0) 09/20/16 06:26 [place] % (Auto) 8.8 % (0.0-7.3) H 09/20/16 06:26 Eos % (Auto) 0.2 % (0.0-4.3) 09/20/16 06:26 Baso % (Auto) 0.3 % (0.0-1.8) 09/20/16 06:26 Lymph # 1.9 K/mm3 (1.2-5.4) 09/20/16 06:26 [place] # 1.2 K/mm3 (0.0-0.8) H 09/20/16 06:26 Eos # 0.0 K/mm3 (0.0-0.4) 09/20/16 06:26 Baso # 0.0 K/mm3 (0.0-0.1) 09/20/16 06:26 Add Manual Diff Complete 09/19/16 05:30 Total Counted 100 09/19/16 05:30 Seg Neutrophils % 76.9 % (40.0-70.0) H 09/20/16 06:26 Seg Neuts % (Manual) 84.0 % (40.0-70.0) H 09/19/16 05:30 Band Neutrophils % 2.0 % 09/19/16 05:30 Lymphocytes % (Manual) 8.0 % (13.4-35.0) L 09/19/16 05:30 Reactive Lymphs % (Man) 0 % 09/19/16 05:30 Monocytes % (Manual) 6.0 % (0.0-7.3) 09/19/16 05:30 Eosinophils % (Manual) 0 % (0.0-4.3) 09/19/16 05:30 Basophils % (Manual) 0 % (0.0-1.8) 09/19/16 05:30 Metamyelocytes % 0 % 09/19/16 05:30 Myelocytes % 0 % 09/19/16 05:30 Promyelocytes % 0 % 09/19/16 05:30 Blast Cells % 0 % 09/19/16 05:30 Nucleated RBC % Not Reportable 09/19/16 05:30 Seg Neutrophils # 10.6 K/mm3 (1.8-7.7) H 09/20/16 06:26 Seg Neutrophils # Man 17.1 K/mm3 (1.8-7.7) H 09/19/16 05:30 Band Neutrophils # 0.4 K/mm3 09/19/16 05:30 Lymphocytes # (Manual) 1.6 K/mm3 (1.2-5.4) 09/19/16 05:30 Abs React Lymphs (Man) 0.0 K/mm3 09/19/16 05:30 Monocytes # (Manual) 1.2 K/mm3 (0.0-0.8) H 09/19/16 05:30 Eosinophils # (Manual) 0.0 K/mm3 (0.0-0.4) 09/19/16 05:30 Basophils # (Manual) 0.0 K/mm3 (0.0-0.1) 09/19/16 05:30 Metamyelocytes # 0.0 K/mm3 09/19/16 05:30 Myelocytes # 0.0 K/mm3 09/19/16 05:30 Promyelocytes # 0.0 K/mm3 09/19/16 05:30 Blast Cells # 0.0 K/mm3 09/19/16 05:30 WBC Morphology Not Reportable 09/19/16 05:30 Hypersegmented Neuts Not Reportable 09/19/16 05:30 Hyposegmented Neuts Not Reportable 09/19/16 05:30 Hypogranular Neuts Not Reportable 09/19/16 05:30 Smudge Cells Not Reportable 09/19/16 05:30 Toxic Granulation Not Reportable 09/19/16 05:30 Toxic Vacuolation Not Reportable 09/19/16 05:30 Dohle Bodies Not Reportable 09/19/16 05:30 Pelger-Huet Anomaly Not Reportable 09/19/16 05:30 Laila Rods Not Reportable 09/19/16 05:30 Platelet Estimate Appears normal 09/19/16 05:30 Clumped Platelets Not Reportable 09/19/16 05:30 Plt Clumps, EDTA Not Reportable 09/19/16 05:30 Large Platelets Few 09/19/16 05:30 Giant Platelets Not Reportable 09/19/16 05:30 Platelet Satelliting Not Reportable 09/19/16 05:30 Plt Morphology Comment Not Reportable 09/19/16 05:30 RBC Morphology Not Reportable 09/19/16 05:30 Dimorphic RBCs Not Reportable 09/19/16 05:30 Polychromasia 1+ 09/19/16 05:30 Hypochromasia Not Reportable 09/19/16 05:30 Poikilocytosis 1+ 09/19/16 05:30 Anisocytosis 1+ 09/19/16 05:30 Microcytosis 1+ 09/19/16 05:30 Macrocytosis Not Reportable 09/19/16 05:30 Spherocytes Not Reportable 09/19/16 05:30 Pappenheimer Bodies Not Reportable 09/19/16 05:30 Sickle Cells Not Reportable 09/19/16 05:30 Target Cells Few 09/19/16 05:30 Tear Drop Cells Rare 09/19/16 05:30 Ovalocytes Rare 09/19/16 05:30 Stomatocytes Few 09/19/16 05:30 Helmet Cells Not Reportable 09/19/16 05:30 Brandt-Antlers Bodies Not Reportable 09/19/16 05:30 [place] Rings Not Reportable 09/19/16 05:30 [place] Cells Not Reportable 09/19/16 05:30 Bite Cells Not Reportable 09/19/16 05:30 Crenated Cell Not Reportable 09/19/16 05:30 Elliptocytes Rare 09/19/16 05:30 Acanthocytes (Spur) Not Reportable 09/19/16 05:30 Rouleaux Not Reportable 09/19/16 05:30 Hemoglobin C Crystals Not Reportable 09/19/16 05:30 Schistocytes Not Reportable 09/19/16 05:30 Malaria parasites Not Reportable 09/19/16 05:30 Suhail Bodies Not Reportable 09/19/16 05:30 Hem Pathologist Commnt No 09/19/16 05:30 Sodium 136 mmol/L (137-145) L 09/20/16 06:26 Potassium 3.9 mmol/L (3.6-5.0) 09/20/16 06:26 Chloride 90.1 mmol/L (98-107) L 09/20/16 06:26 Carbon Dioxide 29 mmol/L (22-30) 09/20/16 06:26 Anion Gap 21 mmol/L 09/20/16 06:26 BUN 20 mg/dL (9-20) 09/20/16 06:26 Creatinine 6.4 mg/dL (0.8-1.5) H 09/20/16 06:26 Estimated GFR 12 ml/min 09/20/16 06:26 BUN/Creatinine Ratio 3.12 % 09/20/16 06:26 Glucose 101 mg/dL (75-100) H 09/20/16 06:26 POC Glucose 115 (70-105) H 09/18/16 07:56 Lactic Acid 1.4 mmol/L (0.7-2.0) 09/20/16 12:12 Calcium 7.4 mg/dL (8.4-10.2) L 09/20/16 06:26 Total Bilirubin 0.2 mg/dL (0.1-1.2) 09/19/16 06:20 Direct Bilirubin < 0.2 mg/dL (0-0.2) 09/19/16 06:20 Indirect Bilirubin 0.0 mg/dL 09/19/16 06:20 AST 1264 units/L (5-40) H 09/19/16 06:20 ALT 238 units/L (7-56) H 09/19/16 06:20 Alkaline Phosphatase 57 units/L (35-129) 09/19/16 06:20 Total Creatine Kinase 753303 units/L (55-170) H 09/20/16 05:00 CK-MB (CK-2) 292.8 ng/mL (0.0-4.0) H 09/19/16 06:17 CK-MB (CK-2) Rel Index 0.3 (0-4) 09/19/16 06:17 Total Protein 6.4 g/dL (6.3-8.2) D 09/19/16 06:20 Albumin 3.1 g/dL (3.9-5) L 09/19/16 06:20 Albumin/Globulin Ratio 0.9 % 09/19/16 06:20 Salicylates < 0.3 mg/dL (2.8-20.0) L 09/18/16 08:08 Acetaminophen < 15.0 ug/mL (10.0-30.0) 09/18/16 08:08 Plasma/Serum Alcohol < 0.01 gm% (0-0.07) 09/18/16 08:08 Hep Bs Antigen Non-reactive (Negative) 09/18/16 14:56 Hepatitis C Antibody Non-reactive (NonReactive) 09/18/16 14:57 - Imaging and Cardiology MRI - head: pending (ordered )
--- NOTE | 2016-09-20 21:02 | Progress Note ---
Assessment and Plan Patient resting on 3 litres O2. O2 satuaration 98% No acute respiratory distress.Patient complaining pain and swelling of right leg. Obtaining venous doppler studies of legs. - Patient Problems (1) Acute renal failure due to rhabdomyolysis Current Visit: Yes Status: Acute Plan to address problem: Mnagement as per nephrology. Subjective Date of service: 09/20/16 Principal diagnosis: bryn, rhabdo Interval history: Patient resting on 2 litres O2. O2 satuaration 98%. No acute respiratory distress.Patient complaining pain and swelling of right leg. Obtaining venous doppler studies of legs. Objective Vital Signs - 12hr 09/20/16 09/20/16 09/20/16 10:00 11:38 16:00 Temperature 98.5 F 98.3 F Pulse Rate [ 89 From Monitor] Pulse Rate [ 91 H Right Radial] Respiratory 20 20 Rate Blood Pressure 124/85 125/84 [Right Arm] O2 Sat by Pulse 99 99 Oximetry 09/20/16 09/20/16 20:49 20:54 Temperature Pulse Rate [ From Monitor] Pulse Rate [ Right Radial] Respiratory 18 Rate Blood Pressure [Right Arm] O2 Sat by Pulse 98 Oximetry CBC and BMP: 09/20/16 06:26 09/20/16 06:26 Abnormal lab findings: Abnormal Labs 09/18/16 09/18/16 09/18/16 14:48 14:57 17:20 WBC RBC Hgb Hct MCV MCH [place] % (Auto) [place] # Seg Neutrophils % Seg Neuts % (Manual) Lymphocytes % (Manual) Seg Neutrophils # Seg Neutrophils # Man Monocytes # (Manual) Sodium 135 L Potassium 8.2 H* Chloride Carbon Dioxide 18 L Creatinine 3.8 H Glucose 134 H Lactic Acid Calcium 6.6 L AST ALT Total Creatine Kinase 49758 H 23635 H CK-MB (CK-2) Albumin 09/19/16 09/19/16 09/19/16 00:21 05:30 06:16 WBC 20.4 H RBC 6.38 H Hgb 16.0 H Hct 48.3 H MCV 76 L D MCH 25 L [place] % (Auto) [place] # Seg Neutrophils % Seg Neuts % (Manual) 84.0 H Lymphocytes % (Manual) 8.0 L Seg Neutrophils # Seg Neutrophils # Man 17.1 H Monocytes # (Manual) 1.2 H Sodium 134 L Potassium Chloride 90.8 L Carbon Dioxide Creatinine 5.1 H Glucose 162 H Lactic Acid Calcium 6.6 L AST ALT Total Creatine Kinase 18251 H CK-MB (CK-2) Albumin 09/19/16 09/19/16 09/19/16 06:17 06:20 10:28 WBC RBC Hgb Hct MCV MCH [place] % (Auto) [place] # Seg Neutrophils % Seg Neuts % (Manual) Lymphocytes % (Manual) Seg Neutrophils # Seg Neutrophils # Man Monocytes # (Manual) Sodium Potassium Chloride Carbon Dioxide Creatinine Glucose Lactic Acid 2.6 H* Calcium AST 1264 H ALT 238 H Total Creatine Kinase 10885 H CK-MB (CK-2) 292.8 H Albumin 3.1 L 09/20/16 09/20/16 09/20/16 05:00 06:26 06:26 WBC 13.8 H RBC 5.70 H Hgb Hct MCV 76 L MCH 25 L [place] % (Auto) 8.8 H [place] # 1.2 H Seg Neutrophils % 76.9 H Seg Neuts % (Manual) Lymphocytes % (Manual) Seg Neutrophils # 10.6 H Seg Neutrophils # Man Monocytes # (Manual) Sodium 136 L Potassium Chloride 90.1 L Carbon Dioxide Creatinine 6.4 H Glucose 101 H Lactic Acid Calcium 7.4 L AST ALT Total Creatine Kinase 545280 H CK-MB (CK-2) Albumin
[2016-09-20] MEDS: HEPARIN SUB-Q SCH (23:17)
[2016-09-21] MEDS: SODIUM BICARBONATE 150 MEQ in D5W 1,000 ML IV SCH ×2 (01:36→19:04)
--- NOTE | 2016-09-21 07:37 | Progress Note ---
Assessment and Plan Impression: * bryn with ATN due to acute rhabdomyolysis * Hyperkalemia * Acute Rhabdo * Muscle weakness * Elevated LFTS * Acidosis * Schizophrenia Plan: * dialysis q ththsat * lytes daily * continue bicarbonate gtt * daily ck levels noted, still rising and monitor renal function * strict i/os * avoid nephrotoxins Subjective Date of service: 09/21/16 Principal diagnosis: bryn, rhabdo Interval history: resting well in bed today Objective - Exam Narrative Exam: - General Limitations: Other General appearance: alert, in no apparent distress - Head Head exam: Present: atraumatic, normocephalic - Eye Eye exam: Present: normal appearance, PERRL, EOMI - ENT ENT exam: Present: normal exam, normal orophraynx, mucous membranes moist - Neck Neck exam: Present: normal inspection, full ROM. Absent: tenderness - Respiratory Respiratory exam: Present: normal lung sounds bilaterally. Absent: respiratory distress - Cardiovascular Cardiovascular Exam: Present: regular rate, normal rhythm, normal heart sounds - GI/Abdominal GI/Abdominal exam: Present: soft, normal bowel sounds. Absent: distended, tenderness - Extremities Exam Extremities exam: Present: normal inspection, decrease ROM. diffuse tenderness - Back Exam Back exam: Present: normal inspection, full ROM. Absent: tenderness - Neurological Exam Neurological exam: Present: alert, oriented X3. Absent: motor sensory deficit - Skin Skin exam: Present: warm, dry, intact - Vital Signs Vital signs: Vital Signs - 12hr 09/20/16 09/20/16 09/20/16 20:49 20:54 21:49 Temperature Pulse Rate [ From Monitor] Respiratory 18 18 Rate Respiratory Rate [ Generalized] Blood Pressure [Right Arm] O2 Sat by Pulse 98 Oximetry 09/20/16 09/20/16 22:00 22:20 Temperature 97.9 F Pulse Rate [ 89 From Monitor] Respiratory 18 20 Rate Respiratory 18 Rate [ Generalized] Blood Pressure 119/79 [Right Arm] O2 Sat by Pulse 100 Oximetry - Lab 09/20/16 06:26 09/20/16 06:26 Most recent lab results Calcium 7.4 mg/dL (8.4-10.2) L 09/20/16 06:26
[2016-09-21 09:48] LABS: Basophils % (Auto) 0.2 % (0.0-1.8); Eosinophils % (Auto) 0.1 % (0.0-4.3); Hematocrit 35.3 % (35.5-45.6); Hemoglobin 11.7 gm/dl (11.8-15.2); Mean Corpuscular HGB Conc 33 % (32-34); Mean Corpuscular Volume 74 fl (84-94); Platelet Count 131 K/mm3 (140-440); Red Blood Count 4.74 M/mm3 (3.65-5.03); Red Cell Distribution Width 14.5 % (13.2-15.2); White Blood Count 10.5 K/mm3 (4.5-11.0)
[2016-09-21 09:49] LABS: Mean Corpuscular Hemoglobin 25 pg (28-32)
[2016-09-21 10:12] LABS: BUN/Creatinine Ratio 3.68; Calcium 6.8 mg/dL (8.4-10.2); Chloride 85.3 mmol/L (98-107); Potassium 3.6 mmol/L (3.6-5.0)
[2016-09-21] MEDS: HEPARIN SUB-Q SCH (10:13)
--- NOTE | 2016-09-21 11:08 | Progress Note ---
Assessment and Plan - Patient Problems (1) Acute renal failure due to rhabdomyolysis Current Visit: Yes Status: Acute Plan to address problem: - s/p HD/UF - continue alkalanized fluids - per nephrology otherwise (2) Hyperkalemia Current Visit: Yes Status: Acute Plan to address problem: - resolved (3) Rhabdomyolysis Current Visit: Yes Status: Acute Qualifiers: Rhabdomyolysis type: non-traumatic Qualified Code(s): M62.82 - Rhabdomyolysis Plan to address problem: - improved - continue alkalanized fluids and trend ck ....can transfer out of ICU Subjective Date of service: 09/21/16 Principal diagnosis: bryn, rhabdo Interval history: Seen and examined at bedside; 24 hour events reviewed; nursing and respiratory care staff consulted; no adverse overnight events reported to me; resting peacefully; feels better Objective Vital Signs - 12hr 09/21/16 07:30 Temperature 98.2 F Pulse Rate [ 77 Left Radial] Respiratory 16 Rate Blood Pressure 115/74 [Left Arm] O2 Sat by Pulse 100 Oximetry Constitutional: no acute distress Eyes: non-icteric ENT: oropharynx moist Neck: supple, no lymphadenopathy Effort: normal Ascultation: Bilateral: clear Cardiovascular: regular rate and rhythm Gastrointestinal: normoactive bowel sounds, soft, non-tender, non-distended Integumentary: normal Extremities: no cyanosis, no edema, pulses normal, no ischemia or petechiae Neurologic: normal mental status, non-focal exam, motor strength normal and Psychiatric: other (schizophrenic) CBC and BMP: 09/22/16 06:26 09/22/16 06:26 Abnormal lab findings: Abnormal Labs 09/18/16 09/18/16 09/18/16 14:48 14:57 17:20 WBC RBC Hgb Hct MCV MCH Plt Count Lymph % (Auto) [place] % (Auto) [place] # Seg Neutrophils % Seg Neuts % (Manual) Lymphocytes % (Manual) Seg Neutrophils # Seg Neutrophils # Man Monocytes # (Manual) Sodium 135 L Potassium 8.2 H* Chloride Carbon Dioxide 18 L BUN Creatinine 3.8 H Glucose 134 H Lactic Acid Calcium 6.6 L AST ALT Total Creatine Kinase 87558 H 27697 H CK-MB (CK-2) Albumin 09/19/16 09/19/16 09/19/16 00:21 05:30 06:16 WBC 20.4 H RBC 6.38 H Hgb 16.0 H Hct 48.3 H MCV 76 L D MCH 25 L Plt Count Lymph % (Auto) [place] % (Auto) [place] # Seg Neutrophils % Seg Neuts % (Manual) 84.0 H Lymphocytes % (Manual) 8.0 L Seg Neutrophils # Seg Neutrophils # Man 17.1 H Monocytes # (Manual) 1.2 H Sodium 134 L Potassium Chloride 90.8 L Carbon Dioxide BUN Creatinine 5.1 H Glucose 162 H Lactic Acid Calcium 6.6 L AST ALT Total Creatine Kinase 54100 H CK-MB (CK-2) Albumin 09/19/16 09/19/16 09/19/16 06:17 06:20 10:28 WBC RBC Hgb Hct MCV MCH Plt Count Lymph % (Auto) [place] % (Auto) [place] # Seg Neutrophils % Seg Neuts % (Manual) Lymphocytes % (Manual) Seg Neutrophils # Seg Neutrophils # Man Monocytes # (Manual) Sodium Potassium Chloride Carbon Dioxide BUN Creatinine Glucose Lactic Acid 2.6 H* Calcium AST 1264 H ALT 238 H Total Creatine Kinase 00719 H CK-MB (CK-2) 292.8 H Albumin 3.1 L 09/20/16 09/20/16 09/20/16 05:00 06:26 06:26 WBC 13.8 H RBC 5.70 H Hgb Hct MCV 76 L MCH 25 L Plt Count Lymph % (Auto) [place] % (Auto) 8.8 H [place] # 1.2 H Seg Neutrophils % 76.9 H Seg Neuts % (Manual) Lymphocytes % (Manual) Seg Neutrophils # 10.6 H Seg Neutrophils # Man Monocytes # (Manual) Sodium 136 L Potassium Chloride 90.1 L Carbon Dioxide BUN Creatinine 6.4 H Glucose 101 H Lactic Acid Calcium 7.4 L AST ALT Total Creatine Kinase 156021 H CK-MB (CK-2) Albumin 09/21/16 09/21/16 09:10 09:10 WBC RBC Hgb 11.7 L Hct 35.3 L D MCV 74 L MCH 25 L Plt Count 131 L Lymph % (Auto) 11.8 L [place] % (Auto) [place] # Seg Neutrophils % 81.0 H Seg Neuts % (Manual) Lymphocytes % (Manual) Seg Neutrophils # 8.5 H Seg Neutrophils # Man Monocytes # (Manual) Sodium 133 L Potassium Chloride 85.3 L Carbon Dioxide 34 H BUN 38 H Creatinine 10.3 H D Glucose 114 H Lactic Acid Calcium 6.8 L AST ALT Total Creatine Kinase 31333 H CK-MB (CK-2) Albumin
[2016-09-21] MEDS ORDERED: NACL 0.9 (PRIMING MACHINE ONLY DIALYSIS) MC ONE (13:07)
[2016-09-21 13:48] LABS: Albumin 3.9 g/dL (3.8-4.8); Gamma Globulin 1.3 g/dL (0.8-1.7)
--- NOTE | 2016-09-21 13:54 | Progress Note ---
Assessment and Plan Assessment and plan: Patient is a 31-year-old male with past medical history significant for bipolar disorder, who presents to the emergency department via EMS after being found on the floor of his bathroom this morning by his roommate. Patient states that "I had a stroke last night". Patient states that he was not able to move his arms or his legs. He states he was lying on the floor all night. Initially it appears he was unable to move his right lower extremity was subsequently this improved. He is unable to give me any information as to his medical history except that he states he takes some bipolar medication but does not recall the medicines. He does not recall events that led him to the floor. He denies any alcohol or tobacco use. Although later subsequent he said he sometimes drinks. He denies any seizure- like activity. But again is unable to state how he got to the floor. No other family members available to give any more information. In the ER was noted to have a significantly elevated potassium and creatinine kinase are positive for emergency dialysis required. At this time again as stated he is able to move all his extremities. At this time denies any nausea, chest pain, diarrhea, fever, chills, melena bright red blood per rectum. He denies taking any medications. There are no other complaints. * Acute rhabdomyolysis-present on admission- fluctuating ?med induced. * Severe hyperkalemia-present on admission-RESOLVED * Metabolic encephalopathy-resolved * Generalized muscle weakness * Elevated LFTs questionable hepatitis * Metabolic acidosis * Rule out seizure * Acute kidney injury likely secondary to rhabdomyolysis versus some of the nephropathy * Dehydration * Metabolic acidosis-with elevated lactates but doubt sepsis * Leukocytosis-likely reactive in nature no evidence of infection at this point. -resolved Plan: * Continues with dialysis * Neurology consulted also Psych * Was not visualized grossly fluid emergent hemodailysis * Continue Bicarb drip * Nephrology input noted * strict i/o * avoid nephrotoxins * MRI pending. * Mental health evaluation still pending * Although I doubt this was a seizure activity will nevertheless order an EEG. This patient did have what could be considered a postictal state. * DVT and GI prophylaxis History Interval history: Patient seen and examined in no acute distress. still complaining of weakness on the right lower ext and the left upper ext. otherwise denies any chest pain, nausea or vomiting. Having dialysis today he was seen during dialysis Hospitalist Physical - Physical exam Narrative exam: VITAL SIGNS: Reviewed. GENERAL: The patient appeared well nourished and normally developed. Vital signs as documented. HEAD: No signs of head trauma. EYES: Pupils are equal. Extraocular motions intact. EARS: Hearing grossly intact. MOUTH: Oropharynx is normal. NECK: No adenopathy, no JVD. CHEST: Chest with clear breath sounds bilaterally. No wheezes, rales, or rhonchi. CARDIAC: Regular rate and rhythm. S1 and S2, without murmurs, gallops, or rubs. VASCULAR: No Edema. Peripheral pulses normal and equal in all extremities. ABDOMEN: Soft, without detectable tenderness. No sign of distention. No rebound or guarding, and no masses palpated. Bowel Sounds normal. MUSCULOSKELETAL: Good range of motion of all major joints. Although some weakness of the right lower extremity much improved compared to yesterday. Extremities without clubbing, cyanosis or edema. NEUROLOGIC EXAM: Alert and oriented x 3. No focal sensory or strength deficits. Speech normal. Follows commands. PSYCHIATRIC: Mood normal. SKIN: No rash or lesions. - Constitutional Vitals: Temp Pulse Resp BP Pulse Ox 98.4 F 61 20 142/88 100 09/21/16 11:00 09/21/16 12:15 09/21/16 11:00 09/21/16 12:15 09/21/16 07:30 General appearance: Present: no acute distress, well-nourished Results - Labs CBC & Chem 7: 09/21/16 09:10 09/21/16 09:10 Labs: Laboratory Last Values WBC 10.5 K/mm3 (4.5-11.0) 09/21/16 09:10 RBC 4.74 M/mm3 (3.65-5.03) 09/21/16 09:10 Hgb 11.7 gm/dl (11.8-15.2) L 09/21/16 09:10 Hct 35.3 % (35.5-45.6) L D 09/21/16 09:10 MCV 74 fl (84-94) L 09/21/16 09:10 MCH 25 pg (28-32) L 09/21/16 09:10 MCHC 33 % (32-34) 09/21/16 09:10 RDW 14.5 % (13.2-15.2) 09/21/16 09:10 Plt Count 131 K/mm3 (140-440) L 09/21/16 09:10 Lymph % (Auto) 11.8 % (13.4-35.0) L 09/21/16 09:10 [place] % (Auto) 6.9 % (0.0-7.3) 09/21/16 09:10 Eos % (Auto) 0.1 % (0.0-4.3) 09/21/16 09:10 Baso % (Auto) 0.2 % (0.0-1.8) 09/21/16 09:10 Lymph # 1.2 K/mm3 (1.2-5.4) 09/21/16 09:10 [place] # 0.7 K/mm3 (0.0-0.8) 09/21/16 09:10 Eos # 0.0 K/mm3 (0.0-0.4) 09/21/16 09:10 Baso # 0.0 K/mm3 (0.0-0.1) 09/21/16 09:10 Add Manual Diff Complete 09/19/16 05:30 Total Counted 100 09/19/16 05:30 Seg Neutrophils % 81.0 % (40.0-70.0) H 09/21/16 09:10 Seg Neuts % (Manual) 84.0 % (40.0-70.0) H 09/19/16 05:30 Band Neutrophils % 2.0 % 09/19/16 05:30 Lymphocytes % (Manual) 8.0 % (13.4-35.0) L 09/19/16 05:30 Reactive Lymphs % (Man) 0 % 09/19/16 05:30 Monocytes % (Manual) 6.0 % (0.0-7.3) 09/19/16 05:30 Eosinophils % (Manual) 0 % (0.0-4.3) 09/19/16 05:30 Basophils % (Manual) 0 % (0.0-1.8) 09/19/16 05:30 Metamyelocytes % 0 % 09/19/16 05:30 Myelocytes % 0 % 09/19/16 05:30 Promyelocytes % 0 % 09/19/16 05:30 Blast Cells % 0 % 09/19/16 05:30 Nucleated RBC % Not Reportable 09/19/16 05:30 Seg Neutrophils # 8.5 K/mm3 (1.8-7.7) H 09/21/16 09:10 Seg Neutrophils # Man 17.1 K/mm3 (1.8-7.7) H 09/19/16 05:30 Band Neutrophils # 0.4 K/mm3 09/19/16 05:30 Lymphocytes # (Manual) 1.6 K/mm3 (1.2-5.4) 09/19/16 05:30 Abs React Lymphs (Man) 0.0 K/mm3 09/19/16 05:30 Monocytes # (Manual) 1.2 K/mm3 (0.0-0.8) H 09/19/16 05:30 Eosinophils # (Manual) 0.0 K/mm3 (0.0-0.4) 09/19/16 05:30 Basophils # (Manual) 0.0 K/mm3 (0.0-0.1) 09/19/16 05:30 Metamyelocytes # 0.0 K/mm3 09/19/16 05:30 Myelocytes # 0.0 K/mm3 09/19/16 05:30 Promyelocytes # 0.0 K/mm3 09/19/16 05:30 Blast Cells # 0.0 K/mm3 09/19/16 05:30 WBC Morphology Not Reportable 09/19/16 05:30 Hypersegmented Neuts Not Reportable 09/19/16 05:30 Hyposegmented Neuts Not Reportable 09/19/16 05:30 Hypogranular Neuts Not Reportable 09/19/16 05:30 Smudge Cells Not Reportable 09/19/16 05:30 Toxic Granulation Not Reportable 09/19/16 05:30 Toxic Vacuolation Not Reportable 09/19/16 05:30 Dohle Bodies Not Reportable 09/19/16 05:30 Pelger-Huet Anomaly Not Reportable 09/19/16 05:30 Laila Rods Not Reportable 09/19/16 05:30 Platelet Estimate Appears normal 09/19/16 05:30 Clumped Platelets Not Reportable 09/19/16 05:30 Plt Clumps, EDTA Not Reportable 09/19/16 05:30 Large Platelets Few 09/19/16 05:30 Giant Platelets Not Reportable 09/19/16 05:30 Platelet Satelliting Not Reportable 09/19/16 05:30 Plt Morphology Comment Not Reportable 09/19/16 05:30 RBC Morphology Not Reportable 09/19/16 05:30 Dimorphic RBCs Not Reportable 09/19/16 05:30 Polychromasia 1+ 09/19/16 05:30 Hypochromasia Not Reportable 09/19/16 05:30 Poikilocytosis 1+ 09/19/16 05:30 Anisocytosis 1+ 09/19/16 05:30 Microcytosis 1+ 09/19/16 05:30 Macrocytosis Not Reportable 09/19/16 05:30 Spherocytes Not Reportable 09/19/16 05:30 Pappenheimer Bodies Not Reportable 09/19/16 05:30 Sickle Cells Not Reportable 09/19/16 05:30 Target Cells Few 09/19/16 05:30 Tear Drop Cells Rare 09/19/16 05:30 Ovalocytes Rare 09/19/16 05:30 Stomatocytes Few 09/19/16 05:30 Helmet Cells Not Reportable 09/19/16 05:30 [place] Bodies Not Reportable 09/19/16 05:30 [place] Rings Not Reportable 09/19/16 05:30 [place] Cells Not Reportable 09/19/16 05:30 Bite Cells Not Reportable 09/19/16 05:30 Crenated Cell Not Reportable 09/19/16 05:30 Elliptocytes Rare 09/19/16 05:30 Acanthocytes (Spur) Not Reportable 09/19/16 05:30 Rouleaux Not Reportable 09/19/16 05:30 Hemoglobin C Crystals Not Reportable 09/19/16 05:30 Schistocytes Not Reportable 09/19/16 05:30 Malaria parasites Not Reportable 09/19/16 05:30 Suhail Bodies Not Reportable 09/19/16 05:30 Hem Pathologist Commnt No 09/19/16 05:30 Sodium 133 mmol/L (137-145) L 09/21/16 09:10 Potassium 3.6 mmol/L (3.6-5.0) 09/21/16 09:10 Chloride 85.3 mmol/L (98-107) L 09/21/16 09:10 Carbon Dioxide 34 mmol/L (22-30) H 09/21/16 09:10 Anion Gap 17 mmol/L 09/21/16 09:10 BUN 38 mg/dL (9-20) H 09/21/16 09:10 Creatinine 10.3 mg/dL (0.8-1.5) H D 09/21/16 09:10 Estimated GFR 7 ml/min 09/21/16 09:10 BUN/Creatinine Ratio 3.68 % 09/21/16 09:10 Glucose 114 mg/dL (75-100) H 09/21/16 09:10 POC Glucose 115 (70-105) H 09/18/16 07:56 Lactic Acid 1.4 mmol/L (0.7-2.0) 09/20/16 12:12 Calcium 6.8 mg/dL (8.4-10.2) L 09/21/16 09:10 Total Bilirubin 0.2 mg/dL (0.1-1.2) 09/19/16 06:20 Direct Bilirubin < 0.2 mg/dL (0-0.2) 09/19/16 06:20 Indirect Bilirubin 0.0 mg/dL 09/19/16 06:20 AST 1264 units/L (5-40) H 09/19/16 06:20 ALT 238 units/L (7-56) H 09/19/16 06:20 Alkaline Phosphatase 57 units/L (35-129) 09/19/16 06:20 Total Creatine Kinase 46646 units/L (55-170) H 09/21/16 09:10 CK-MB (CK-2) 292.8 ng/mL (0.0-4.0) H 09/19/16 06:17 CK-MB (CK-2) Rel Index 0.3 (0-4) 09/19/16 06:17 Serum Total Protein 7.3 g/dL (6.1-8.1) 09/18/16 14:48 Total Protein 6.4 g/dL (6.3-8.2) D 09/19/16 06:20 Albumin 3.1 g/dL (3.9-5) L 09/19/16 06:20 Albumin/Globulin Ratio 0.9 % 09/19/16 06:20 Nnfix-0-Vomezrdpx 0.3 g/dL (0.2-0.3) 09/18/16 14:48 Onkgr-6-Duzjjhqgl 0.9 g/dL (0.5-0.9) 09/18/16 14:48 Beta Globulins 0.5 g/dL (0.2-0.5) 09/18/16 14:48 Gamma Globulins 1.3 g/dL (0.8-1.7) 09/18/16 14:48 Abnorm Protein Band 1 see below (()) 09/18/16 14:48 PEP Interpretation see below (()) 09/18/16 14:48 Salicylates < 0.3 mg/dL (2.8-20.0) L 09/18/16 08:08 Acetaminophen < 15.0 ug/mL (10.0-30.0) 09/18/16 08:08 Plasma/Serum Alcohol < 0.01 gm% (0-0.07) 09/18/16 08:08 Hep Bs Antigen Non-reactive (Negative) 09/18/16 14:56 Hepatitis C Antibody Non-reactive (NonReactive) 09/18/16 14:57
[2016-09-21] MEDS: HEPARIN IV PRN (14:33)
[2016-09-21] MEDS ORDERED: LOVENOX SUB-Q SCH (22:00)
--- NOTE | 2016-09-21 23:35 | Magnetic Resonance Report ---
FINAL REPORT PROCEDURE: MRI brain without contrast. TECHNIQUE: Magnetic resonance imaging of the brain was performed without contrast material. HISTORY: Cerebral vascular accident. COMPARISON: No prior studies are available for comparison. FINDINGS: The ventricles are normal in size. There is abnormal increased T2 and FLAIR signal intensity within the globus pallidus bilaterally. There is also restricted diffusion within the globus pallidus bilaterally. This restricted diffusion is confirmed on the ADC map images. The findings are consistent with acute infarcts of the globus pallidus. This suggests possible carbon monoxide poisoning. Other etiologies include methanol or cyanide poisoning as well as chronic liver disease. Clinical correlation is recommended. There are no mass lesions. There is no intracranial hemorrhage. The mastoid air cells and paranasal sinuses are grossly clear. IMPRESSION: Bilateral signal abnormality in the globus pallidus as discussed above. Carbon monoxide poisoning is a likely etiology.
[2016-09-21] MEDS: PERCOCET 5/325 PO PRN (23:42)
[2016-09-22] MEDS: PERCOCET 5/325 PO PRN ×2 (06:17→19:45)
[2016-09-22 07:31] LABS: Basophils % (Auto) 0.4 % (0.0-1.8); Eosinophils % (Auto) 0.7 % (0.0-4.3); Hematocrit 34.8 % (35.5-45.6); Hemoglobin 11.6 gm/dl (11.8-15.2); Mean Corpuscular HGB Conc 33 % (32-34); Mean Corpuscular Volume 75 fl (84-94); Platelet Count 139 K/mm3 (140-440); Red Blood Count 4.64 M/mm3 (3.65-5.03); Red Cell Distribution Width 14.3 % (13.2-15.2); White Blood Count 11.8 K/mm3 (4.5-11.0)
[2016-09-22 07:36] LABS: Mean Corpuscular Hemoglobin 25 pg (28-32)
[2016-09-22 08:21] LABS: BUN/Creatinine Ratio 3.19; Calcium 8.1 mg/dL (8.4-10.2); Chloride 89.7 mmol/L (98-107)
--- NOTE | 2016-09-22 09:01 | Progress Note ---
Assessment and Plan Assessment and plan: Patient is a 31-year-old male with past medical history significant for bipolar disorder, who presents to the emergency department via EMS after being found on the floor of his bathroom this morning by his roommate. Patient states that "I had a stroke last night". Patient states that he was not able to move his arms or his legs. He states he was lying on the floor all night. Initially it appears he was unable to move his right lower extremity was subsequently this improved. He is unable to give me any information as to his medical history except that he states he takes some bipolar medication but does not recall the medicines. He does not recall events that led him to the floor. He denies any alcohol or tobacco use. Although later subsequent he said he sometimes drinks. He denies any seizure- like activity. But again is unable to state how he got to the floor. No other family members available to give any more information. In the ER was noted to have a significantly elevated potassium and creatinine kinase are positive for emergency dialysis required. At this time again as stated he is able to move all his extremities. At this time denies any nausea, chest pain, diarrhea, fever, chills, melena bright red blood per rectum. He denies taking any medications. There are no other complaints. * Acute rhabdomyolysis-present on admission- fluctuating ?med induced. * Severe hyperkalemia-present on admission-RESOLVED * Metabolic encephalopathy-resolved * Right lower extremity hemiparesis * Right lower extremity DVT * Left upper extremity hemiparesis improved * Nicotine abuse * Elevated LFTs questionable hepatitis * Metabolic acidosis * Rule out seizure * Acute kidney injury likely secondary to rhabdomyolysis versus some of the nephropathy * Dehydration * Metabolic acidosis-with elevated lactates but doubt sepsis * Leukocytosis-likely reactive in nature no evidence of infection at this point. -resolved Plan: * Continues with dialysis * We'll reconsult neurology as MRI that I ordered confirms a globus pallidus and stroke * Patient started on Lovenox will check with nephrology considering doesn't considering acute kidney injury. * Was not visualized grossly fluid emergent hemodailysis * We'll check echocardiogram, carotid ultrasound. I did discuss possibility of , monoxide poisoning with the patient he declines any possibility of that. * Extensive counseling provided on tobacco cessation. * Continue Bicarb drip * Nephrology input noted * I discussed the timeline again with the patient, he remembers going to the bathroom but remembers waking up on the floor and stated that he was there all night. * Continue rehabilitation assessments will also consult fighter pilot for evaluation. * Physical and occupational therapy evaluation. * strict i/o * avoid nephrotoxins * Mental health evaluation still pending * No seizure activity noted within the EEG. * DVT and GI prophylaxis History Interval history: Patient seen and examined in no acute distress. still complaining of weakness on the right lower ext and unable to move it and the left upper ext. otherwise denies any chest pain, nausea or vomiting. Hospitalist Physical - Physical exam Narrative exam: VITAL SIGNS: Reviewed. GENERAL: The patient appeared well nourished and normally developed. Vital signs as documented. HEAD: No signs of head trauma. EYES: Pupils are equal. Extraocular motions intact. EARS: Hearing grossly intact. MOUTH: Oropharynx is normal. NECK: No adenopathy, no JVD. CHEST: Chest with clear breath sounds bilaterally. No wheezes, rales, or rhonchi. CARDIAC: Regular rate and rhythm. S1 and S2, without murmurs, gallops, or rubs. VASCULAR: No Edema. Peripheral pulses normal and equal in all extremities. ABDOMEN: Soft, without detectable tenderness. No sign of distention. No rebound or guarding, and no masses palpated. Bowel Sounds normal. MUSCULOSKELETAL: Good range of motion of all major joints. still with inability to move right lower extremity much improved compared to yesterday. Extremities without clubbing, cyanosis or edema. NEUROLOGIC EXAM: Alert and oriented x 3. No focal sensory or strength deficits. Speech normal. Follows commands. PSYCHIATRIC: Mood normal. SKIN: No rash or lesions. - Constitutional Vitals: Temp Pulse Resp BP Pulse Ox 97.5 F L 68 16 124/87 100 09/22/16 04:00 09/22/16 04:00 09/22/16 06:17 09/22/16 04:00 09/22/16 04:00 General appearance: Present: no acute distress, well-nourished Results - Labs CBC & Chem 7: 09/22/16 06:26 09/22/16 06:26 Labs: Laboratory Last Values WBC 11.8 K/mm3 (4.5-11.0) H 09/22/16 06:26 RBC 4.64 M/mm3 (3.65-5.03) 09/22/16 06:26 Hgb 11.6 gm/dl (11.8-15.2) L 09/22/16 06:26 Hct 34.8 % (35.5-45.6) L 09/22/16 06:26 MCV 75 fl (84-94) L 09/22/16 06:26 MCH 25 pg (28-32) L 09/22/16 06:26 MCHC 33 % (32-34) 09/22/16 06:26 RDW 14.3 % (13.2-15.2) 09/22/16 06:26 Plt Count 139 K/mm3 (140-440) L 09/22/16 06:26 Lymph % (Auto) 15.9 % (13.4-35.0) 09/22/16 06:26 [place] % (Auto) 7.1 % (0.0-7.3) 09/22/16 06:26 Eos % (Auto) 0.7 % (0.0-4.3) 09/22/16 06:26 Baso % (Auto) 0.4 % (0.0-1.8) 09/22/16 06:26 Lymph # 1.9 K/mm3 (1.2-5.4) 09/22/16 06:26 [place] # 0.8 K/mm3 (0.0-0.8) 09/22/16 06:26 Eos # 0.1 K/mm3 (0.0-0.4) 09/22/16 06:26 Baso # 0.0 K/mm3 (0.0-0.1) 09/22/16 06:26 Add Manual Diff Complete 09/19/16 05:30 Total Counted 100 09/19/16 05:30 Seg Neutrophils % 75.9 % (40.0-70.0) H 09/22/16 06:26 Seg Neuts % (Manual) 84.0 % (40.0-70.0) H 09/19/16 05:30 Band Neutrophils % 2.0 % 09/19/16 05:30 Lymphocytes % (Manual) 8.0 % (13.4-35.0) L 09/19/16 05:30 Reactive Lymphs % (Man) 0 % 09/19/16 05:30 Monocytes % (Manual) 6.0 % (0.0-7.3) 09/19/16 05:30 Eosinophils % (Manual) 0 % (0.0-4.3) 09/19/16 05:30 Basophils % (Manual) 0 % (0.0-1.8) 09/19/16 05:30 Metamyelocytes % 0 % 09/19/16 05:30 Myelocytes % 0 % 09/19/16 05:30 Promyelocytes % 0 % 09/19/16 05:30 Blast Cells % 0 % 09/19/16 05:30 Nucleated RBC % Not Reportable 09/19/16 05:30 Seg Neutrophils # 9.0 K/mm3 (1.8-7.7) H 09/22/16 06:26 Seg Neutrophils # Man 17.1 K/mm3 (1.8-7.7) H 09/19/16 05:30 Band Neutrophils # 0.4 K/mm3 09/19/16 05:30 Lymphocytes # (Manual) 1.6 K/mm3 (1.2-5.4) 09/19/16 05:30 Abs React Lymphs (Man) 0.0 K/mm3 09/19/16 05:30 Monocytes # (Manual) 1.2 K/mm3 (0.0-0.8) H 09/19/16 05:30 Eosinophils # (Manual) 0.0 K/mm3 (0.0-0.4) 09/19/16 05:30 Basophils # (Manual) 0.0 K/mm3 (0.0-0.1) 09/19/16 05:30 Metamyelocytes # 0.0 K/mm3 09/19/16 05:30 Myelocytes # 0.0 K/mm3 09/19/16 05:30 Promyelocytes # 0.0 K/mm3 09/19/16 05:30 Blast Cells # 0.0 K/mm3 09/19/16 05:30 WBC Morphology Not Reportable 09/19/16 05:30 Hypersegmented Neuts Not Reportable 09/19/16 05:30 Hyposegmented Neuts Not Reportable 09/19/16 05:30 Hypogranular Neuts Not Reportable 09/19/16 05:30 Smudge Cells Not Reportable 09/19/16 05:30 Toxic Granulation Not Reportable 09/19/16 05:30 Toxic Vacuolation Not Reportable 09/19/16 05:30 Dohle Bodies Not Reportable 09/19/16 05:30 Pelger-Huet Anomaly Not Reportable 09/19/16 05:30 Laila Rods Not Reportable 09/19/16 05:30 Platelet Estimate Appears normal 09/19/16 05:30 Clumped Platelets Not Reportable 09/19/16 05:30 Plt Clumps, EDTA Not Reportable 09/19/16 05:30 Large Platelets Few 09/19/16 05:30 Giant Platelets Not Reportable 09/19/16 05:30 Platelet Satelliting Not Reportable 09/19/16 05:30 Plt Morphology Comment Not Reportable 09/19/16 05:30 RBC Morphology Not Reportable 09/19/16 05:30 Dimorphic RBCs Not Reportable 09/19/16 05:30 Polychromasia 1+ 09/19/16 05:30 Hypochromasia Not Reportable 09/19/16 05:30 Poikilocytosis 1+ 09/19/16 05:30 Anisocytosis 1+ 09/19/16 05:30 Microcytosis 1+ 09/19/16 05:30 Macrocytosis Not Reportable 09/19/16 05:30 Spherocytes Not Reportable 09/19/16 05:30 Pappenheimer Bodies Not Reportable 09/19/16 05:30 Sickle Cells Not Reportable 09/19/16 05:30 Target Cells Few 09/19/16 05:30 Tear Drop Cells Rare 09/19/16 05:30 Ovalocytes Rare 09/19/16 05:30 Stomatocytes Few 09/19/16 05:30 Helmet Cells Not Reportable 09/19/16 05:30 Brandt-Noank Bodies Not Reportable 09/19/16 05:30 [place] Rings Not Reportable 09/19/16 05:30 [place] Cells Not Reportable 09/19/16 05:30 Bite Cells Not Reportable 09/19/16 05:30 Crenated Cell Not Reportable 09/19/16 05:30 Elliptocytes Rare 09/19/16 05:30 Acanthocytes (Spur) Not Reportable 09/19/16 05:30 Rouleaux Not Reportable 09/19/16 05:30 Hemoglobin C Crystals Not Reportable 09/19/16 05:30 Schistocytes Not Reportable 09/19/16 05:30 Malaria parasites Not Reportable 09/19/16 05:30 Suhail Bodies Not Reportable 09/19/16 05:30 Hem Pathologist Commnt No 09/19/16 05:30 Sodium 133 mmol/L (137-145) L 09/22/16 06:26 Potassium 4.0 mmol/L (3.6-5.0) 09/22/16 06:26 Chloride 89.7 mmol/L (98-107) L 09/22/16 06:26 Carbon Dioxide 30 mmol/L (22-30) 09/22/16 06:26 Anion Gap 17 mmol/L 09/22/16 06:26 BUN 31 mg/dL (9-20) H 09/22/16 06:26 Creatinine 9.7 mg/dL (0.8-1.5) H 09/22/16 06:26 Estimated GFR 8 ml/min 09/22/16 06:26 BUN/Creatinine Ratio 3.19 % 09/22/16 06:26 Glucose 89 mg/dL (75-100) 09/22/16 06:26 POC Glucose 115 (70-105) H 09/18/16 07:56 Lactic Acid 1.4 mmol/L (0.7-2.0) 09/20/16 12:12 Calcium 8.1 mg/dL (8.4-10.2) L D 09/22/16 06:26 Total Bilirubin 0.2 mg/dL (0.1-1.2) 09/19/16 06:20 Direct Bilirubin < 0.2 mg/dL (0-0.2) 09/19/16 06:20 Indirect Bilirubin 0.0 mg/dL 09/19/16 06:20 AST 1264 units/L (5-40) H 09/19/16 06:20 ALT 238 units/L (7-56) H 09/19/16 06:20 Alkaline Phosphatase 57 units/L (35-129) 09/19/16 06:20 Total Creatine Kinase 20800 units/L (55-170) H 09/22/16 06:26 CK-MB (CK-2) 292.8 ng/mL (0.0-4.0) H 09/19/16 06:17 CK-MB (CK-2) Rel Index 0.3 (0-4) 09/19/16 06:17 Serum Total Protein 7.3 g/dL (6.1-8.1) 09/18/16 14:48 Total Protein 6.4 g/dL (6.3-8.2) D 09/19/16 06:20 Albumin 3.1 g/dL (3.9-5) L 09/19/16 06:20 Albumin/Globulin Ratio 0.9 % 09/19/16 06:20 Msdhr-7-Knqjybirb 0.3 g/dL (0.2-0.3) 09/18/16 14:48 Nopzv-2-Rrhbsxqmt 0.9 g/dL (0.5-0.9) 09/18/16 14:48 Beta Globulins 0.5 g/dL (0.2-0.5) 09/18/16 14:48 Gamma Globulins 1.3 g/dL (0.8-1.7) 09/18/16 14:48 Abnorm Protein Band 1 see below (()) 09/18/16 14:48 PEP Interpretation see below (()) 09/18/16 14:48 Salicylates < 0.3 mg/dL (2.8-20.0) L 09/18/16 08:08 Acetaminophen < 15.0 ug/mL (10.0-30.0) 09/18/16 08:08 Plasma/Serum Alcohol < 0.01 gm% (0-0.07) 09/18/16 08:08 Complement C3 141 mg/dL (90-180) 09/18/16 14:48 Complement C4 62 mg/dL (16-47) H 09/18/16 14:48 Hep Bs Antigen Non-reactive (Negative) 09/18/16 14:56 Hepatitis C Antibody Non-reactive (NonReactive) 09/18/16 14:57 - Imaging and Cardiology MRI - head: image reviewed (globus pallidum stroke)
--- NOTE | 2016-09-22 11:52 | Consultation ---
History of Present Illness - Reason for Consult Consult date: 09/22/16 right leg pain - History of Present Illness still c/o severe right leg pain and weakness .... not able to get accurate hx as to when this begain still feel this is metabolic relayed may need pelvic CT as I have seen retro peritoneal process causes lumbar plexitis otherwise exam is no focal I am inclined to think this is peripheral Past History Past Medical History: other (schizophrenia) Past Surgical History: No surgical history Social history: lives with family Family history: no significant family history Medications and Allergies Allergies Allergy/AdvReac Type Severity Reaction Status Date / Time No Known Allergies Allergy Unverified 09/18/16 07:50 Home Medications Medication Instructions Recorded Confirmed Last Taken Type Benztropine [Cogentin] 2 mg PO DAILY 09/18/16 09/18/16 Unknown History Haloperidol [Haldol] 2 mg PO DAILY 09/18/16 09/18/16 Unknown History Hydroxyzine HCl [hydrOXYzine] 50 mg PO DAILY 09/18/16 09/18/16 Unknown History Active Meds: Active Medications Acetaminophen (Tylenol) 650 mg PO Q6H PRN PRN Reason: Pain, Mild (1-3) Last Admin: 09/19/16 04:45 Dose: 650 mg Bisacodyl (Dulcolax) 10 mg LA QDAY PRN PRN Reason: Constipation unrelieved by MOM Enoxaparin Sodium (Lovenox) 110 mg SUB-Q Q24HR@2200 SY Heparin Sodium (Porcine) (Heparin) 5,000 unit IV TINA PRN PRN Reason: hemodialysis Last Admin: 09/21/16 14:33 Dose: 5,000 unit Sodium Chloride (Nacl 0.9% 1000 Ml) 100 mls @ 999 mls/hr IV TINA PRN PRN Reason: Hypotension Sodium Bicarbonate 150 meq/ (Dextrose) 1,150 mls @ 70 mls/hr IV DIRECT SY Last Admin: 09/21/16 19:04 Dose: 70 mls/hr Ondansetron HCl (Zofran) 4 mg IV Q4H PRN PRN Reason: N/V unrelieved by Reglan Last Admin: 09/20/16 20:50 Dose: 4 mg Oxycodone/Acetaminophen (Percocet 5/325) 1 tab PO Q6H PRN PRN Reason: Pain, Moderate (4-6) Last Admin: 09/22/16 06:17 Dose: 1 tab Exam - Constitutional Vitals: Temp Pulse Resp BP Pulse Ox 98.3 F 75 15 119/77 96 09/22/16 08:10 09/22/16 08:10 09/22/16 08:10 09/22/16 08:10 09/22/16 09:03 Results - Labs CBC & Chem 7: 09/22/16 06:26 09/22/16 06:26 Labs: Abnormal lab results 09/18/16 09/22/16 09/22/16 Range/Units 14:48 06:26 06:26 WBC 11.8 H (4.5-11.0) K/mm3 Hgb 11.6 L (11.8-15.2) gm/dl Hct 34.8 L (35.5-45.6) % MCV 75 L (84-94) fl MCH 25 L (28-32) pg Plt Count 139 L (140-440) K/mm3 Seg Neutrophils % 75.9 H (40.0-70.0) % Seg Neutrophils # 9.0 H (1.8-7.7) K/mm3 Sodium 133 L (137-145) mmol/L Chloride 89.7 L (98-107) mmol/L BUN 31 H (9-20) mg/dL Creatinine 9.7 H (0.8-1.5) mg/dL Calcium 8.1 L D (8.4-10.2) mg/dL Total Creatine Kinase 83732 H (55-170) units/L Complement C4 62 H (16-47) mg/dL
--- NOTE | 2016-09-22 13:23 | Progress Note ---
Assessment and Plan Impression: * bryn with ATN due to acute rhabdomyolysis * Hyperkalemia * Acute Rhabdo * Muscle weakness * Elevated LFTS * Acidosis * Schizophrenia * seizure disorder * DVT Plan: * dialysis q MWF * lytes daily * stop bicarbonate gtt * daily ck levels noted, improving * strict i/os * avoid nephrotoxins Subjective Date of service: 09/22/16 Principal diagnosis: bryn, rhabdo Interval history: resting well in bed today Objective - Exam Narrative Exam: - General Limitations: Other General appearance: alert, in no apparent distress - Head Head exam: Present: atraumatic, normocephalic - Eye Eye exam: Present: normal appearance, PERRL, EOMI - ENT ENT exam: Present: normal exam, normal orophraynx, mucous membranes moist - Neck Neck exam: Present: normal inspection, full ROM. Absent: tenderness - Respiratory Respiratory exam: Present: normal lung sounds bilaterally. Absent: respiratory distress - Cardiovascular Cardiovascular Exam: Present: regular rate, normal rhythm, normal heart sounds - GI/Abdominal GI/Abdominal exam: Present: soft, normal bowel sounds. Absent: distended, tenderness - Extremities Exam Extremities exam: Present: normal inspection, decrease ROM. diffuse tenderness - Back Exam Back exam: Present: normal inspection, full ROM. Absent: tenderness - Neurological Exam Neurological exam: Present: alert, oriented X3. Absent: motor sensory deficit - Skin Skin exam: Present: warm, dry, intact - Vital Signs Vital signs: Vital Signs - 12hr 09/22/16 09/22/16 09/22/16 04:00 06:17 08:10 Temperature 97.5 F L 98.3 F Pulse Rate [ 68 75 Left Radial] Respiratory 18 16 15 Rate Blood Pressure 124/87 119/77 [Left Arm] O2 Sat by Pulse 100 97 Oximetry 09/22/16 09:03 Temperature Pulse Rate [ Left Radial] Respiratory Rate Blood Pressure [Left Arm] O2 Sat by Pulse 96 Oximetry - Lab 09/22/16 06:26 09/22/16 06:26 Most recent lab results Calcium 8.1 mg/dL (8.4-10.2) L D 09/22/16 06:26
--- NOTE | 2016-09-22 13:48 | Event Note ---
Date: 09/22/16 Doing much better; will see prn at this point
[2016-09-22] MEDS: LOVENOX SUB-Q SCH (21:39)
[2016-09-22] MEDS ORDERED: LOVENOX SUB-Q SCH (22:00)
--- NOTE | 2016-09-23 02:13 | Consultation ---
CHIEF COMPLAINT AND HISTORY OF PRESENT ILLNESS: The patient is a 31-year-old -[place] male with past medical history significant for bipolar disorder, came into the Emergency Room after he was found on the floor of his bathroom by his roommate. The patient was mentioning that he had a stroke the night before. He was really incoherent and rumbling at times. At that time, he was found he was unable to move his right lower extremity, but that was better. In the Emergency Room, he was evaluated and found to have a significantly elevated potassium as well as elevated creatinine kinase. Emergency dialysis was needed. He was admission to the Intensive Care Unit for emergency dialysis and placement of a Vascath. When I stopped by to see him, he had finished receiving dialysis. He was feeling better, but again difficult to get a history because of the bipolar disorder. That really is as much of the history of presentation as I have. PAST MEDICAL HISTORY: Bipolar, schizophrenia. PAST SURGICAL HISTORY: Unknown. MEDICATIONS: He was on at the time I stopped by to see him, according to the medication administration record included the following: Tylenol 650 mg p.o. q. 6 hours p.r.n., p.r.n. Dulcolax, heparin 5000 units received with dialysis. He was on a bicarbonate drip D5W with 3 amps of sodium bicarbonate per liter at 125 mL per hour, Zofran 4 mg IV q. 4 hours p.r.n. ALLERGIES: No known drug allergies. DIET: Well-built gentleman, acute weight loss or gain history is unknown. FAMILY AND SOCIAL HISTORY: Apparently lived in the community, reportedly lived with family. Alcohol, tobacco, or illicit drug use or abuse history is unknown. REVIEW OF SYSTEMS: Difficult to obtain secondary to his medical and mental status. Since he has been here, no gross hematochezia or melena, no gross hematuria, no witnessed seizures, no loss of consciousness. PHYSICAL EXAMINATION: VITAL SIGNS: At initial presentation in the Emergency Room revealed vital signs shows that he was afebrile, temperature 98.2, pulse 89, respiratory rate 16, blood pressure 97/63, oxygen sats were 97%, inspired oxygen concentration was not recorded. HEENT: Pupils are equal, round, about 3 mm, reactive to light. Extraocular muscle movements appeared intact. Grossly, there were no palpable lymph nodes in the supraclavicular or submandibular lymph node chains. LUNGS: Auscultation of both lung jama was unremarkable. Lungs were clear bilaterally. HEART: Heart sounds 1 and 2 are heard. There were regular rate and rhythm at the time of my evaluation. ABDOMEN: Soft, flat. Bowel sounds are positive, nontender. EXTREMITIES: Without overt digital clubbing, cyanosis, or pedal edema. NEUROLOGIC: The exam was grossly nonfocal, although he felt otherwise. LABORATORY DATA: From my review are as follows: Admission white count 23,600 with a hemoglobin of 17.2, hematocrit of 53.0, platelets 262. Serum sodium 134, potassium was 8.4, chloride was 96, bicarbonate was 17, BUN 15, creatinine 3.2, glucose 134. Lactic acid level was 4.4. AST was 744, ALT 153, creatinine kinase was 112,715. Alcohol, Tylenol, and aspirin levels within normal limits. CT scan of the brain was negative. ASSESSMENT AND PLAN: We have a young gentleman found on the floor. It is unclear how long he has been down for him to have develop this amount of rhabdomyolysis, especially with him reportedly been at home. Whatever the case, he has received emergent dialysis appropriately. He is doing much better clinically, not in overt respiratory distress. We will follow him in the intensive care unit overnight post-dialysis. Once, he is more stable, he will be transferred to the medical floor. Aspiration precautions will be maintained. Alkalized IV fluids will be continued to while the rhabdomyolysis resolves. He will be on GI and DVT prophylaxis. Flu and pneumonia vaccination will be per protocol. Thank you very much for the consult Dr. Dunham. We will follow along. We will make further recommendations as picture progresses/becomes clearer. JOB# [id number] ERNST/MARIANN
[2016-09-23] MEDS: PERCOCET 5/325 PO PRN ×2 (02:30→14:02)
[2016-09-23] MEDS: TYLENOL PO PRN (05:54)
[2016-09-23 06:33] LABS: Basophils % (Auto) 0.3 % (0.0-1.8); Eosinophils % (Auto) 0.8 % (0.0-4.3); Hemoglobin 11.6 gm/dl (11.8-15.2); Mean Corpuscular HGB Conc 34 % (32-34); Mean Corpuscular Volume 74 fl (84-94); Platelet Count 147 K/mm3 (140-440); Red Blood Count 4.59 M/mm3 (3.65-5.03); Red Cell Distribution Width 14.3 % (13.2-15.2); White Blood Count 11.6 K/mm3 (4.5-11.0)
[2016-09-23 06:39] LABS: Mean Corpuscular Hemoglobin 25 pg (28-32)
[2016-09-23 06:49] LABS: BUN/Creatinine Ratio 4.18; Calcium 7.8 mg/dL (8.4-10.2); Chloride 87.6 mmol/L (98-107); Potassium 3.9 mmol/L (3.6-5.0)
--- NOTE | 2016-09-23 08:52 | Progress Note ---
Assessment and Plan Impression: * bryn with ATN due to acute rhabdomyolysis * Hyperkalemia * Acute Rhabdo * Muscle weakness * Elevated LFTS * Acidosis * Schizophrenia * seizure disorder * DVT Plan: * dialysis q MWF * lytes daily * stop bicarbonate gtt * daily ck levels noted, improving * strict i/os * avoid nephrotoxins Subjective Date of service: 09/23/16 Principal diagnosis: bryn, rhabdo Interval history: resting well in bed today Objective - Exam Narrative Exam: - General Limitations: Other General appearance: alert, in no apparent distress - Head Head exam: Present: atraumatic, normocephalic - Eye Eye exam: Present: normal appearance, PERRL, EOMI - ENT ENT exam: Present: normal exam, normal orophraynx, mucous membranes moist - Neck Neck exam: Present: normal inspection, full ROM. Absent: tenderness - Respiratory Respiratory exam: Present: normal lung sounds bilaterally. Absent: respiratory distress - Cardiovascular Cardiovascular Exam: Present: regular rate, normal rhythm, normal heart sounds - GI/Abdominal GI/Abdominal exam: Present: soft, normal bowel sounds. Absent: distended, tenderness - Extremities Exam Extremities exam: Present: normal inspection, decrease ROM. diffuse tenderness - Back Exam Back exam: Present: normal inspection, full ROM. Absent: tenderness - Neurological Exam Neurological exam: Present: alert, oriented X3. Absent: motor sensory deficit - Skin Skin exam: Present: warm, dry, intact - Vital Signs Vital signs: Vital Signs - 12hr 09/22/16 09/23/16 09/23/16 22:00 00:04 01:00 Temperature 97.7 F Pulse Rate [ From Monitor] Pulse Rate [ 79 Left Radial] Pulse Rate [ 88 Right Radial] Respiratory 20 18 Rate Respiratory 20 Rate [ Generalized] Blood Pressure 134/86 [Left Arm] O2 Sat by Pulse 100 Oximetry 09/23/16 09/23/16 09/23/16 02:30 05:00 05:54 Temperature 98.9 F Pulse Rate [ From Monitor] Pulse Rate [ 75 Left Radial] Pulse Rate [ Right Radial] Respiratory 22 18 20 Rate Respiratory Rate [ Generalized] Blood Pressure 122/81 [Left Arm] O2 Sat by Pulse 100 Oximetry 09/23/16 08:25 Temperature 98.7 F Pulse Rate [ 76 From Monitor] Pulse Rate [ Left Radial] Pulse Rate [ Right Radial] Respiratory 16 Rate Respiratory Rate [ Generalized] Blood Pressure 127/76 [Left Arm] O2 Sat by Pulse 98 Oximetry - Lab 09/23/16 06:16 09/23/16 06:16 Most recent lab results Calcium 7.8 mg/dL (8.4-10.2) L 09/23/16 06:16
--- NOTE | 2016-09-23 09:07 | Progress Note ---
Assessment and Plan Assessment and plan: Patient is a 31-year-old male with past medical history significant for bipolar disorder, who presents to the emergency department via EMS after being found on the floor of his bathroom this morning by his roommate. Patient states that "I had a stroke last night". Patient states that he was not able to move his arms or his legs. He states he was lying on the floor all night. Initially it appears he was unable to move his right lower extremity was subsequently this improved. He is unable to give me any information as to his medical history except that he states he takes some bipolar medication but does not recall the medicines. He does not recall events that led him to the floor. He denies any alcohol or tobacco use. Although later subsequent he said he sometimes drinks. He denies any seizure- like activity. But again is unable to state how he got to the floor. No other family members available to give any more information. In the ER was noted to have a significantly elevated potassium and creatinine kinase are positive for emergency dialysis required. At this time again as stated he is able to move all his extremities. At this time denies any nausea, chest pain, diarrhea, fever, chills, melena bright red blood per rectum. He denies taking any medications. There are no other complaints. * CVA involving the globus pallidus * Acute rhabdomyolysis-present on admission- fluctuating ?med induced.- Improving mildly * Severe hyperkalemia-present on admission-RESOLVED * Metabolic encephalopathy-resolved * Right lower extremity hemiparesis * Right lower extremity DVT * Left upper extremity hemiparesis improved * Muscle weakness * Hyponatremia * Nicotine abuse * Elevated LFTs questionable hepatitis * Metabolic acidosis * Rule out seizure * Acute kidney injury likely secondary to rhabdomyolysis versus some of the nephropathy * Dehydration-resolving * Metabolic acidosis-with elevated lactates but doubt sepsis * Leukocytosis-likely reactive in nature no evidence of infection at this point. -resolved Plan: * Continues with dialysis * Still awaiting neurology as MRI that I ordered confirms a globus pallidus and stroke * Patient started on Lovenox will check with nephrology considering doesn't considering acute kidney injury. * Was not visualized grossly fluid emergent hemodailysis * We'll check echocardiogram, carotid ultrasound. I did discuss possibility of , monoxide poisoning with the patient he declines any possibility of that. * Extensive counseling provided on tobacco cessation. * Bicarbonate stopped * Nephrology input noted * I discussed the timeline again with the patient, he remembers going to the bathroom but remembers waking up on the floor and stated that he was there all night. 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 * Physical and occupational therapy evaluation. * strict i/o * avoid nephrotoxins * Mental health evaluation still pending * No seizure activity noted within the EEG. * DVT and GI prophylaxis History Interval history: Patient seen and examined in no acute distress. still complaining of weakness on the right lower ext and unable to move it and the left upper ext. otherwise denies any chest pain, nausea or vomiting. Hospitalist Physical - Physical exam Narrative exam: VITAL SIGNS: Reviewed. GENERAL: The patient appeared well nourished and normally developed. Vital signs as documented. HEAD: No signs of head trauma. EYES: Pupils are equal. Extraocular motions intact. EARS: Hearing grossly intact. MOUTH: Oropharynx is normal. NECK: No adenopathy, no JVD. CHEST: Chest with clear breath sounds bilaterally. No wheezes, rales, or rhonchi. CARDIAC: Regular rate and rhythm. S1 and S2, without murmurs, gallops, or rubs. VASCULAR: No Edema. Peripheral pulses normal and equal in all extremities. ABDOMEN: Soft, without detectable tenderness. No sign of distention. No rebound or guarding, and no masses palpated. Bowel Sounds normal. MUSCULOSKELETAL: Good range of motion of all major joints. still with inability to move right lower extremity much improved compared to yesterday. Extremities without clubbing, cyanosis or edema. NEUROLOGIC EXAM: Alert and oriented x 3. No focal sensory or strength deficits. Speech normal. Follows commands. PSYCHIATRIC: Mood normal. SKIN: No rash or lesions. - Constitutional Vitals: Temp Pulse Resp BP Pulse Ox 98.7 F 76 16 127/76 98 09/23/16 08:25 09/23/16 08:25 09/23/16 08:25 09/23/16 08:25 09/23/16 08:25 General appearance: Present: no acute distress, well-nourished Results - Labs CBC & Chem 7: 09/23/16 06:16 09/23/16 06:16 Labs: Laboratory Last Values WBC 11.6 K/mm3 (4.5-11.0) H 09/23/16 06:16 RBC 4.59 M/mm3 (3.65-5.03) 09/23/16 06:16 Hgb 11.6 gm/dl (11.8-15.2) L 09/23/16 06:16 Hct 34.0 % (35.5-45.6) L 09/23/16 06:16 MCV 74 fl (84-94) L 09/23/16 06:16 MCH 25 pg (28-32) L 09/23/16 06:16 MCHC 34 % (32-34) 09/23/16 06:16 RDW 14.3 % (13.2-15.2) 09/23/16 06:16 Plt Count 147 K/mm3 (140-440) 09/23/16 06:16 Lymph % (Auto) 15.7 % (13.4-35.0) 09/23/16 06:16 [place] % (Auto) 7.9 % (0.0-7.3) H 09/23/16 06:16 Eos % (Auto) 0.8 % (0.0-4.3) 09/23/16 06:16 Baso % (Auto) 0.3 % (0.0-1.8) 09/23/16 06:16 Lymph # 1.8 K/mm3 (1.2-5.4) 09/23/16 06:16 [place] # 0.9 K/mm3 (0.0-0.8) H 09/23/16 06:16 Eos # 0.1 K/mm3 (0.0-0.4) 09/23/16 06:16 Baso # 0.0 K/mm3 (0.0-0.1) 09/23/16 06:16 Add Manual Diff Complete 09/19/16 05:30 Total Counted 100 09/19/16 05:30 Seg Neutrophils % 75.3 % (40.0-70.0) H 09/23/16 06:16 Seg Neuts % (Manual) 84.0 % (40.0-70.0) H 09/19/16 05:30 Band Neutrophils % 2.0 % 09/19/16 05:30 Lymphocytes % (Manual) 8.0 % (13.4-35.0) L 09/19/16 05:30 Reactive Lymphs % (Man) 0 % 09/19/16 05:30 Monocytes % (Manual) 6.0 % (0.0-7.3) 09/19/16 05:30 Eosinophils % (Manual) 0 % (0.0-4.3) 09/19/16 05:30 Basophils % (Manual) 0 % (0.0-1.8) 09/19/16 05:30 Metamyelocytes % 0 % 09/19/16 05:30 Myelocytes % 0 % 09/19/16 05:30 Promyelocytes % 0 % 09/19/16 05:30 Blast Cells % 0 % 09/19/16 05:30 Nucleated RBC % Not Reportable 09/19/16 05:30 Seg Neutrophils # 8.7 K/mm3 (1.8-7.7) H 09/23/16 06:16 Seg Neutrophils # Man 17.1 K/mm3 (1.8-7.7) H 09/19/16 05:30 Band Neutrophils # 0.4 K/mm3 09/19/16 05:30 Lymphocytes # (Manual) 1.6 K/mm3 (1.2-5.4) 09/19/16 05:30 Abs React Lymphs (Man) 0.0 K/mm3 09/19/16 05:30 Monocytes # (Manual) 1.2 K/mm3 (0.0-0.8) H 09/19/16 05:30 Eosinophils # (Manual) 0.0 K/mm3 (0.0-0.4) 09/19/16 05:30 Basophils # (Manual) 0.0 K/mm3 (0.0-0.1) 09/19/16 05:30 Metamyelocytes # 0.0 K/mm3 09/19/16 05:30 Myelocytes # 0.0 K/mm3 09/19/16 05:30 Promyelocytes # 0.0 K/mm3 09/19/16 05:30 Blast Cells # 0.0 K/mm3 09/19/16 05:30 WBC Morphology Not Reportable 09/19/16 05:30 Hypersegmented Neuts Not Reportable 09/19/16 05:30 Hyposegmented Neuts Not Reportable 09/19/16 05:30 Hypogranular Neuts Not Reportable 09/19/16 05:30 Smudge Cells Not Reportable 09/19/16 05:30 Toxic Granulation Not Reportable 09/19/16 05:30 Toxic Vacuolation Not Reportable 09/19/16 05:30 Dohle Bodies Not Reportable 09/19/16 05:30 Pelger-Huet Anomaly Not Reportable 09/19/16 05:30 Laila Rods Not Reportable 09/19/16 05:30 Platelet Estimate Appears normal 09/19/16 05:30 Clumped Platelets Not Reportable 09/19/16 05:30 Plt Clumps, EDTA Not Reportable 09/19/16 05:30 Large Platelets Few 09/19/16 05:30 Giant Platelets Not Reportable 09/19/16 05:30 Platelet Satelliting Not Reportable 09/19/16 05:30 Plt Morphology Comment Not Reportable 09/19/16 05:30 RBC Morphology Not Reportable 09/19/16 05:30 Dimorphic RBCs Not Reportable 09/19/16 05:30 Polychromasia 1+ 09/19/16 05:30 Hypochromasia Not Reportable 09/19/16 05:30 Poikilocytosis 1+ 09/19/16 05:30 Anisocytosis 1+ 09/19/16 05:30 Microcytosis 1+ 09/19/16 05:30 Macrocytosis Not Reportable 09/19/16 05:30 Spherocytes Not Reportable 09/19/16 05:30 Pappenheimer Bodies Not Reportable 09/19/16 05:30 Sickle Cells Not Reportable 09/19/16 05:30 Target Cells Few 09/19/16 05:30 Tear Drop Cells Rare 09/19/16 05:30 Ovalocytes Rare 09/19/16 05:30 Stomatocytes Few 09/19/16 05:30 Helmet Cells Not Reportable 09/19/16 05:30 [place] Bodies Not Reportable 09/19/16 05:30 [place] Rings Not Reportable 09/19/16 05:30 [place] Cells Not Reportable 09/19/16 05:30 Bite Cells Not Reportable 09/19/16 05:30 Crenated Cell Not Reportable 09/19/16 05:30 Elliptocytes Rare 09/19/16 05:30 Acanthocytes (Spur) Not Reportable 09/19/16 05:30 Rouleaux Not Reportable 09/19/16 05:30 Hemoglobin C Crystals Not Reportable 09/19/16 05:30 Schistocytes Not Reportable 09/19/16 05:30 Malaria parasites Not Reportable 09/19/16 05:30 Suhail Bodies Not Reportable 09/19/16 05:30 Hem Pathologist Commnt No 09/19/16 05:30 Sodium 133 mmol/L (137-145) L 09/23/16 06:16 Potassium 3.9 mmol/L (3.6-5.0) 09/23/16 06:16 Chloride 87.6 mmol/L (98-107) L 09/23/16 06:16 Carbon Dioxide 31 mmol/L (22-30) H 09/23/16 06:16 Anion Gap 18 mmol/L 09/23/16 06:16 BUN 49 mg/dL (9-20) H 09/23/16 06:16 Creatinine 11.7 mg/dL (0.8-1.5) H 09/23/16 06:16 Estimated GFR 6 ml/min 09/23/16 06:16 BUN/Creatinine Ratio 4.18 % 09/23/16 06:16 Glucose 107 mg/dL (75-100) H 09/23/16 06:16 POC Glucose 115 (70-105) H 09/18/16 07:56 Lactic Acid 1.4 mmol/L (0.7-2.0) 09/20/16 12:12 Calcium 7.8 mg/dL (8.4-10.2) L 09/23/16 06:16 Total Bilirubin 0.2 mg/dL (0.1-1.2) 09/19/16 06:20 Direct Bilirubin < 0.2 mg/dL (0-0.2) 09/19/16 06:20 Indirect Bilirubin 0.0 mg/dL 09/19/16 06:20 AST 1264 units/L (5-40) H 09/19/16 06:20 ALT 238 units/L (7-56) H 09/19/16 06:20 Alkaline Phosphatase 57 units/L (35-129) 09/19/16 06:20 Total Creatine Kinase 30068 units/L (55-170) H 09/23/16 06:16 CK-MB (CK-2) 292.8 ng/mL (0.0-4.0) H 09/19/16 06:17 CK-MB (CK-2) Rel Index 0.3 (0-4) 09/19/16 06:17 Serum Total Protein 7.3 g/dL (6.1-8.1) 09/18/16 14:48 Total Protein 6.4 g/dL (6.3-8.2) D 09/19/16 06:20 Albumin 3.1 g/dL (3.9-5) L 09/19/16 06:20 Albumin/Globulin Ratio 0.9 % 09/19/16 06:20 Ujxyd-7-Rdiqsoaol 0.3 g/dL (0.2-0.3) 09/18/16 14:48 Geqjf-6-Akmqtfdib 0.9 g/dL (0.5-0.9) 09/18/16 14:48 Beta Globulins 0.5 g/dL (0.2-0.5) 09/18/16 14:48 Gamma Globulins 1.3 g/dL (0.8-1.7) 09/18/16 14:48 Abnorm Protein Band 1 see below (()) 09/18/16 14:48 PEP Interpretation see below (()) 09/18/16 14:48 Salicylates < 0.3 mg/dL (2.8-20.0) L 09/18/16 08:08 Acetaminophen < 15.0 ug/mL (10.0-30.0) 09/18/16 08:08 Plasma/Serum Alcohol < 0.01 gm% (0-0.07) 09/18/16 08:08 Complement C3 141 mg/dL (90-180) 09/18/16 14:48 Complement C4 62 mg/dL (16-47) H 09/18/16 14:48 Hep Bs Antigen Non-reactive (Negative) 09/18/16 14:56 Hepatitis C Antibody Non-reactive (NonReactive) 09/18/16 14:57
--- NOTE | 2016-09-23 14:17 | Consultation ---
History of Present Illness - Reason for Consult Consult date: 09/23/16 Evaluate for Acute IRU - History of Present Illness 31 y.o. male, with history of bipolar disorder and schizophrenia, who presented to the ED after being found on the floor in his home. Pt was unable to move his extremities; admitted to r/o CVA. Initial CT scan of brain noted to be negative; F/U MRI showed acute infarcts at the globus pallidus; ? secondary to metabolic disorder. Acute care course was also notable for acute rhabdomyolysis , severe hyperkalemia, acute renal failure requiring emergent HD; metabolic encephalopathy. Pt continues with flaccid RLE. Mental health consult is pending. Rehab consult placed for post acute placement recommendations. Past History Past Medical History: other (schizophrenia, bipolar d/o) Past Surgical History: No surgical history Social history: Lives alone Family history: no significant family history Medications and Allergies Allergies Allergy/AdvReac Type Severity Reaction Status Date / Time No Known Allergies Allergy Unverified 09/18/16 07:50 Home Medications Medication Instructions Recorded Confirmed Last Taken Type Benztropine [Cogentin] 2 mg PO DAILY 09/18/16 09/18/16 Unknown History Haloperidol [Haldol] 2 mg PO DAILY 09/18/16 09/18/16 Unknown History Hydroxyzine HCl [hydrOXYzine] 50 mg PO DAILY 09/18/16 09/18/16 Unknown History Active Meds: Active Medications Acetaminophen (Tylenol) 650 mg PO Q6H PRN PRN Reason: Pain, Mild (1-3) Last Admin: 09/23/16 05:54 Dose: 650 mg Bisacodyl (Dulcolax) 10 mg [place] QDAY PRN PRN Reason: Constipation unrelieved by MOM Enoxaparin Sodium (Lovenox) 110 mg SUB-Q Q24HR@2200 SY Last Admin: 09/22/16 21:39 Dose: 110 mg Heparin Sodium (Porcine) (Heparin) 5,000 unit IV TINA PRN PRN Reason: hemodialysis Last Admin: 09/21/16 14:33 Dose: 5,000 unit Sodium Chloride (Nacl 0.9% 1000 Ml) 100 mls @ 999 mls/hr IV TINA PRN PRN Reason: Hypotension Ondansetron HCl (Zofran) 4 mg IV Q4H PRN PRN Reason: N/V unrelieved by Reglan Last Admin: 09/20/16 20:50 Dose: 4 mg Oxycodone/Acetaminophen (Percocet 5/325) 1 tab PO Q6H PRN PRN Reason: Pain, Moderate (4-6) Last Admin: 09/23/16 14:02 Dose: 1 tab Review of Systems All systems: negative Ears, nose, mouth and throat: no headache Cardiovascular: no chest pain, no lightheadedness Respiratory: no cough, no shortness of breath Gastrointestinal: constipation, no nausea, no vomiting Neurological: weakness (RLE), parathesias (RLE) Exam - Constitutional Vitals: Vital Signs - 12hr 09/23/16 09/23/16 09/23/16 02:30 05:00 05:54 Temperature 98.9 F Pulse Rate [ From Monitor] Pulse Rate [ 75 Left Radial] Respiratory 22 18 20 Rate Blood Pressure 122/81 [Left Arm] O2 Sat by Pulse 100 Oximetry 09/23/16 09/23/16 08:25 09:31 Temperature 98.7 F Pulse Rate [ 76 From Monitor] Pulse Rate [ Left Radial] Respiratory 16 Rate Blood Pressure 127/76 [Left Arm] O2 Sat by Pulse 98 97 Oximetry General appearance: no acute distress, other (sitting up in bed) - EENT Eyes: EOM intact ENT: hearing intact - Neck Neck: supple, normal ROM - Respiratory Respiratory effort: normal Respiratory: bilateral: CTA - Cardiovascular Rhythm: regular Heart Sounds: Present: S1 & S2 - Extremities Extremity abnormal: edema (RLE) - Gastrointestinal General gastrointestinal: Present: soft, non-tender, non-distended, normal bowel sounds - Integumentary Integumentary: Present: clear - Musculoskeletal Musculoskeletal: right sided weakness (RLE- no active movement; no tone on passive ROM; 4/5 strength in remaining extremities) - Neurologic Neurologic: CNII-XII intact - Psychiatric Psychiatric: appropriate mood/affect, cooperative, other (flat affect, however, follows commands) - Labs CBC & Chem 7: 09/24/16 05:35 09/24/16 05:35 Labs: Laboratory Results - last 72 hr 09/18/16 09/18/16 09/18/16 14:48 14:48 14:48 WBC RBC Hgb Hct MCV MCH MCHC RDW Plt Count Lymph % (Auto) [place] % (Auto) Eos % (Auto) Baso % (Auto) Lymph # [place] # Eos # Baso # Seg Neutrophils % Seg Neutrophils # Sodium Potassium Chloride Carbon Dioxide Anion Gap BUN Creatinine Estimated GFR BUN/Creatinine Ratio Glucose Calcium Total Creatine Kinase Serum Total Protein 7.3 Albumin 3.9 Rlgty-5-Uagdsyvwo 0.3 Iuxlb-1-Uykjtacui 0.9 Beta Globulins 0.5 Gamma Globulins 1.3 Abnorm Protein Band 1 see below PEP Interpretation see below Complement C3 141 Complement C4 62 H 09/21/16 09/21/16 09/22/16 09:10 09:10 06:26 WBC 10.5 11.8 H RBC 4.74 4.64 Hgb 11.7 L 11.6 L Hct 35.3 L D 34.8 L MCV 74 L 75 L MCH 25 L 25 L MCHC 33 33 RDW 14.5 14.3 Plt Count 131 L 139 L Lymph % (Auto) 11.8 L 15.9 [place] % (Auto) 6.9 7.1 Eos % (Auto) 0.1 0.7 Baso % (Auto) 0.2 0.4 Lymph # 1.2 1.9 [place] # 0.7 0.8 Eos # 0.0 0.1 Baso # 0.0 0.0 Seg Neutrophils % 81.0 H 75.9 H Seg Neutrophils # 8.5 H 9.0 H Sodium 133 L Potassium 3.6 Chloride 85.3 L Carbon Dioxide 34 H Anion Gap 17 BUN 38 H Creatinine 10.3 H D Estimated GFR 7 BUN/Creatinine Ratio 3.68 Glucose 114 H Calcium 6.8 L Total Creatine Kinase 21720 H Serum Total Protein Albumin Cuzro-7-Jbhhdojge Yyzba-1-Mqedxqulw Beta Globulins Gamma Globulins Abnorm Protein Band 1 PEP Interpretation Complement C3 Complement C4 09/22/16 09/23/16 09/23/16 06:26 06:16 06:16 WBC 11.6 H RBC 4.59 Hgb 11.6 L Hct 34.0 L MCV 74 L MCH 25 L MCHC 34 RDW 14.3 Plt Count 147 Lymph % (Auto) 15.7 [place] % (Auto) 7.9 H Eos % (Auto) 0.8 Baso % (Auto) 0.3 Lymph # 1.8 [place] # 0.9 H Eos # 0.1 Baso # 0.0 Seg Neutrophils % 75.3 H Seg Neutrophils # 8.7 H Sodium 133 L 133 L Potassium 4.0 3.9 Chloride 89.7 L 87.6 L Carbon Dioxide 30 31 H Anion Gap 17 18 BUN 31 H 49 H Creatinine 9.7 H 11.7 H Estimated GFR 8 6 BUN/Creatinine Ratio 3.19 4.18 Glucose 89 107 H Calcium 8.1 L D 7.8 L Total Creatine Kinase 68456 H 25660 H Serum Total Protein Albumin Vpybp-0-Kkubbqoxl Pudrd-6-[place] Beta Globulins Gamma Globulins Abnorm Protein Band 1 PEP Interpretation Complement C3 Complement C4 Assessment and Plan Patient was assessed and evaluated for Acute Inpatient Rehab Unit. 31 y.o.male with acute infarcts of the globus pallidus, ?metabolic disorder; RLE weakness. Rehab options were discussed with patient. PT/OT evaluations are pending. Pt reports that he lives alone and has no family support locally. Will need to determine functional deficits after therapy evaluations have been completed; pt will likely require some support at discharge due to noted weakness. Ongoing medical management for acute renal failure; pending mental health evaluation due to history of bipolar disorder and schizophrenia. Will continue to follow progress. Thank you for consultation. - Patient Problems (1) Debility Current Visit: Yes Status: Acute (2) Neurologic gait dysfunction Current Visit: Yes Status: Acute (3) Acute renal failure due to rhabdomyolysis Current Visit: Yes Status: Acute (4) Schizophrenia Current Visit: Yes Status: Acute (5) Bipolar disorder Current Visit: Yes Status: Acute
--- NOTE | 2016-09-23 18:22 | Consultation ---
History of Present Illness - Reason for Consult Consult date: 09/23/16 leg pain - History of Present Illness spoke with Dr. Dunham via phone on the review I made of the CT and MRI this seems more to represent metabolic disorder as opposed to carbon monoxide--- carbon monoxide does not fit the clinical picture... in cases I have dealt with such extensive changes in the GP always produce coma... still feel this is peripheral process see mt extensive dicated noted..... also the initial CT of the brain shows very subtle punctate areas of calcification in the medial globus pallidus and this is seen in metabolic derangements... since it was POA this strongly points against CO intoxication went over the management plan Past History Past Medical History: other (schizophrenia) Past Surgical History: No surgical history Social history: lives with family Family history: no significant family history Medications and Allergies Allergies Allergy/AdvReac Type Severity Reaction Status Date / Time No Known Allergies Allergy Unverified 09/18/16 07:50 Home Medications Medication Instructions Recorded Confirmed Last Taken Type Benztropine [Cogentin] 2 mg PO DAILY 09/18/16 09/18/16 Unknown History Haloperidol [Haldol] 2 mg PO DAILY 09/18/16 09/18/16 Unknown History Hydroxyzine HCl [hydrOXYzine] 50 mg PO DAILY 09/18/16 09/18/16 Unknown History Active Meds: Active Medications Acetaminophen (Tylenol) 650 mg PO Q6H PRN PRN Reason: Pain, Mild (1-3) Last Admin: 09/23/16 05:54 Dose: 650 mg Bisacodyl (Dulcolax) 10 mg [place] QDAY PRN PRN Reason: Constipation unrelieved by MOM Enoxaparin Sodium (Lovenox) 110 mg SUB-Q Q24HR@2200 SY Last Admin: 09/22/16 21:39 Dose: 110 mg Heparin Sodium (Porcine) (Heparin) 5,000 unit IV TINA PRN PRN Reason: hemodialysis Last Admin: 09/21/16 14:33 Dose: 5,000 unit Sodium Chloride (Nacl 0.9% 1000 Ml) 100 mls @ 999 mls/hr IV TINA PRN PRN Reason: Hypotension Ondansetron HCl (Zofran) 4 mg IV Q4H PRN PRN Reason: N/V unrelieved by Reglan Last Admin: 09/20/16 20:50 Dose: 4 mg Oxycodone/Acetaminophen (Percocet 5/325) 1 tab PO Q6H PRN PRN Reason: Pain, Moderate (4-6) Last Admin: 09/23/16 14:02 Dose: 1 tab Exam - Constitutional Vitals: Temp Pulse Resp BP Pulse Ox 97 F L 64 16 140/80 97 09/23/16 17:11 09/23/16 17:15 09/23/16 17:11 09/23/16 17:15 09/23/16 09:31 Results - Labs CBC & Chem 7: 09/23/16 06:16 09/23/16 06:16 Labs: Abnormal lab results 09/23/16 09/23/16 Range/Units 06:16 06:16 WBC 11.6 H (4.5-11.0) K/mm3 Hgb 11.6 L (11.8-15.2) gm/dl Hct 34.0 L (35.5-45.6) % MCV 74 L (84-94) fl MCH 25 L (28-32) pg [place] % (Auto) 7.9 H (0.0-7.3) % [place] # 0.9 H (0.0-0.8) K/mm3 Seg Neutrophils % 75.3 H (40.0-70.0) % Seg Neutrophils # 8.7 H (1.8-7.7) K/mm3 Sodium 133 L (137-145) mmol/L Chloride 87.6 L (98-107) mmol/L Carbon Dioxide 31 H (22-30) mmol/L BUN 49 H (9-20) mg/dL Creatinine 11.7 H (0.8-1.5) mg/dL Glucose 107 H (75-100) mg/dL Calcium 7.8 L (8.4-10.2) mg/dL Total Creatine Kinase 49917 H (55-170) units/L
[2016-09-23] MEDS: HEPARIN IV PRN (22:00)
[2016-09-23] MEDS: LOVENOX SUB-Q SCH (22:49)
--- NOTE | 2016-09-24 00:30 | Consultation ---
HISTORY OF PRESENT ILLNESS: This is a 31-year-old black male that enters [facility] with an admission on 09/18/2016. The patient was initially seen in the Emergency Room after being found on the floor in his bathroom by his roommate. He states that he was not able to move either his arms or his legs. He has been lying in the floor the entire night, but at the time of being seen in the Emergency Room, he was able to move all his extremities, but was complaining of pain in his right thigh. He was not previously taking any medication, but had been taking previously Haldol 2 mg daily and Cogentin and hydroxyzine. The patient was thought to have rhabdomyolysis with acute renal failure and hyperkalemia, was given IV calcium, IV insulin and glucose, additional IV fluids and was admitted to the service of the hospitalist. The patient at the time of being seen in the Emergency Room had a CT scan of the head, which was within normal limits and did not show any abnormalities. Subsequently on followup review of the CT scan, I would agree with this interpretation. I spoke with Dr. Dunham about my review of the patient's past medical history, which is complicated by his lack of any established history of the onset of this disorder. I note that he has been taking Cogentin and Haldol, which indicates he has had history of schizophrenia or atypical psychosis. The onset of weakness certainly could have been due to acute rhabdomyolysis with the CPK and the range of over 100,000. This is highly suspicious of this being acute rhabdomyolysis due to antipsychotics, although typically this occurs in the context of the patient is being hyperthermic. I have reviewed his CT scan of the head. I do not see any indication that he has had a stroke. On reviewing his MRI scan, there is a mention made by the interpreting radiologist, this is being suspicious for carbon monoxide poisoning. This is not at all representing history, as with this level of change in the CT, MRI scan when typically expects coma or lack of responsivity if carbon monoxide poisoning is present. Therefore, this is not in my opinion a likely diagnosis and in addition, I would state that there is on independent review of the CT scan, calcific changes in the medial portion of the globus pallidus, which to me indicate some type of underlying metabolic disorder as calcium is not expected in this area and differential diagnosis of this is metabolic disorder. In the interval, the patient has also had complaining of right leg pain. Has been on heparin and his examination is more suggestive of a vascular compromise, but in addition typically with major rhabdomyolysis, there is a deep compartment syndrome in the thigh, retroperitoneal structures, which complicates matters and typically cases like this have vascular compromise in the deep structures of the retroperitoneal space. I think this is more likely the cause of his leg pain or leg weakness as opposed to [employer] cause, i.e., the changes seen within the globus pallidus. I planned to go over the films with the radiologist both the CT scan and the MRI scan, but I do think the differential of carbon monoxide poisoning would be my list of probabilities. This conversation was held with Dr. Dunham today. JOB# [id number] FREDO/MARIANN
[2016-09-24] MEDS: PERCOCET 5/325 PO PRN ×2 (02:09→16:17)
[2016-09-24 06:55] LABS: Basophils % (Auto) 0.3 % (0.0-1.8); Mean Corpuscular HGB Conc 33 % (32-34); Mean Corpuscular Volume 75 fl (84-94); Platelet Count 143 K/mm3 (140-440); Red Blood Count 4.79 M/mm3 (3.65-5.03); Red Cell Distribution Width 14.5 % (13.2-15.2); White Blood Count 13.5 K/mm3 (4.5-11.0)
[2016-09-24 06:57] LABS: Mean Corpuscular Hemoglobin 25 pg (28-32)
[2016-09-24 07:18] LABS: BUN/Creatinine Ratio 4.27; Calcium 8.6 mg/dL (8.4-10.2); Chloride 89.1 mmol/L (98-107); Potassium 4.3 mmol/L (3.6-5.0)
--- NOTE | 2016-09-24 08:50 | Progress Note ---
Assessment and Plan Assessment and plan: Patient is a 31-year-old male with past medical history significant for bipolar disorder, who presents to the emergency department via EMS after being found on the floor of his bathroom this morning by his roommate. Patient states that "I had a stroke last night". Patient states that he was not able to move his arms or his legs. He states he was lying on the floor all night. Initially it appears he was unable to move his right lower extremity was subsequently this improved. He is unable to give me any information as to his medical history except that he states he takes some bipolar medication but does not recall the medicines. He does not recall events that led him to the floor. He denies any alcohol or tobacco use. Although later subsequent he said he sometimes drinks. He denies any seizure- like activity. But again is unable to state how he got to the floor. No other family members available to give any more information. In the ER was noted to have a significantly elevated potassium and creatinine kinase are positive for emergency dialysis required. At this time again as stated he is able to move all his extremities. At this time denies any nausea, chest pain, diarrhea, fever, chills, melena bright red blood per rectum. He denies taking any medications. There are no other complaints. * R/O Neuroleptic malignant syndrome * Acute rhabdomyolysis-present on admission- fluctuating ?med induced.- Improving mildly * Severe hyperkalemia-present on admission-RESOLVED * Metabolic encephalopathy-resolved * Right lower extremity hemiparesis- ?CVA per MRI, vs CO2 poisoning. Per Neurology neither fits the picture. More towards metabolic * Right lower extremity DVT * Left upper extremity hemiparesis improved * Muscle weakness * Hyponatremia * Nicotine abuse * Elevated LFTs questionable hepatitis * Metabolic acidosis * Rule out seizure * Acute kidney injury likely secondary to rhabdomyolysis versus some of the nephropathy * Dehydration-resolving * Metabolic acidosis-with elevated lactates but doubt sepsis * Leukocytosis-likely reactive in nature no evidence of infection at this point. -resolved Plan: * Continues with dialysis. * ? Question of a 4 witness is some form of neuroleptic malignant syndrome. Patient did not have any high fevers except for the rhabdomyolysis. He does take haloperidol, Cogentin and hydroxyzine at a facility. I did finally speak to someone by the name of Lyn Graham who manages a psych facility called [facility] he states that the patient is a resident there for schizophrenia and bipolar. Also states that the patient called out stating that he fell and could not move in the bathtub the day before. * Discussed with neurology. Back doubts that this is a CVA feels there is more for peripheral component to this rather than central brain. Noted effect on MRI per Neurology is also in the CT scan and may be more of calcification rather than CVA. unfortunately we do not have any old imaging for comparison We'll continue to review. May repeat MRI once metabolic factors addressed Inputs from Dr. 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 * Patient started on Lovenox will check with nephrology considering doesn't considering acute kidney injury. * Continue with dialysis per leasing associate * We'll check echocardiogram, carotid ultrasound. I did discuss possibility of , monoxide poisoning with the patient he declines any possibility of that. * Extensive counseling provided on tobacco cessation. * Bicarbonate stopped * Nephrology input noted * I discussed the timeline again with the patient, he remembers going to the bathroom but remembers waking up on the floor and stated that he was there all night. * Physical and occupational therapy evaluation. * strict i/o * avoid nephrotoxins * Mental health evaluation still pending * No seizure activity noted within the EEG. * DVT and GI prophylaxis History Interval history: Patient seen and examined in no acute distress. still complaining of weakness on the right lower ext although improved on the left upper extremity. otherwise denies any chest pain, nausea or vomiting. Hospitalist Physical - Physical exam Narrative exam: VITAL SIGNS: Reviewed. GENERAL: The patient appeared well nourished and normally developed. Vital signs as documented. HEAD: No signs of head trauma. EYES: Pupils are equal. Extraocular motions intact. EARS: Hearing grossly intact. MOUTH: Oropharynx is normal. NECK: No adenopathy, no JVD. CHEST: Chest with clear breath sounds bilaterally. No wheezes, rales, or rhonchi. CARDIAC: Regular rate and rhythm. S1 and S2, without murmurs, gallops, or rubs. VASCULAR: No Edema. Peripheral pulses normal and equal in all extremities. ABDOMEN: Soft, without detectable tenderness. No sign of distention. No rebound or guarding, and no masses palpated. Bowel Sounds normal. MUSCULOSKELETAL: Good range of motion of all major joints. still with inability to move right lower extremity much improved compared to yesterday. Extremities without clubbing, cyanosis or edema, Thigh is non tender and not tensed. NEUROLOGIC EXAM: Alert and oriented 3 speech is normal, although sometimes acts confused and slow to respond. Forgetful. No focal sensory or strength deficits. Follows commands. PSYCHIATRIC: Mood flat. SKIN: No rash or lesions. - Constitutional Vitals: Temp Pulse Resp BP Pulse Ox 97.7 F 78 14 129/83 96 09/24/16 07:15 09/24/16 07:15 09/24/16 07:15 09/24/16 07:15 09/24/16 07:15 General appearance: Present: no acute distress, other (sitting up in bed) Results - Labs CBC & Chem 7: 09/24/16 05:35 09/24/16 05:35 Labs: Laboratory Last Values WBC 13.5 K/mm3 (4.5-11.0) H 09/24/16 05:35 RBC 4.79 M/mm3 (3.65-5.03) 09/24/16 05:35 Hgb 12.0 gm/dl (11.8-15.2) 09/24/16 05:35 Hct 36.0 % (35.5-45.6) 09/24/16 05:35 MCV 75 fl (84-94) L 09/24/16 05:35 MCH 25 pg (28-32) L 09/24/16 05:35 MCHC 33 % (32-34) 09/24/16 05:35 RDW 14.5 % (13.2-15.2) 09/24/16 05:35 Plt Count 143 K/mm3 (140-440) 09/24/16 05:35 Lymph % (Auto) 12.9 % (13.4-35.0) L 09/24/16 05:35 [place] % (Auto) 9.6 % (0.0-7.3) H 09/24/16 05:35 Eos % (Auto) 1.0 % (0.0-4.3) 09/24/16 05:35 Baso % (Auto) 0.3 % (0.0-1.8) 09/24/16 05:35 Lymph # 1.7 K/mm3 (1.2-5.4) 09/24/16 05:35 [place] # 1.3 K/mm3 (0.0-0.8) H 09/24/16 05:35 Eos # 0.1 K/mm3 (0.0-0.4) 09/24/16 05:35 Baso # 0.0 K/mm3 (0.0-0.1) 09/24/16 05:35 Add Manual Diff Complete 09/19/16 05:30 Total Counted 100 09/19/16 05:30 Seg Neutrophils % 76.2 % (40.0-70.0) H 09/24/16 05:35 Seg Neuts % (Manual) 84.0 % (40.0-70.0) H 09/19/16 05:30 Band Neutrophils % 2.0 % 09/19/16 05:30 Lymphocytes % (Manual) 8.0 % (13.4-35.0) L 09/19/16 05:30 Reactive Lymphs % (Man) 0 % 09/19/16 05:30 Monocytes % (Manual) 6.0 % (0.0-7.3) 09/19/16 05:30 Eosinophils % (Manual) 0 % (0.0-4.3) 09/19/16 05:30 Basophils % (Manual) 0 % (0.0-1.8) 09/19/16 05:30 Metamyelocytes % 0 % 09/19/16 05:30 Myelocytes % 0 % 09/19/16 05:30 Promyelocytes % 0 % 09/19/16 05:30 Blast Cells % 0 % 09/19/16 05:30 Nucleated RBC % Not Reportable 09/19/16 05:30 Seg Neutrophils # 10.3 K/mm3 (1.8-7.7) H 09/24/16 05:35 Seg Neutrophils # Man 17.1 K/mm3 (1.8-7.7) H 09/19/16 05:30 Band Neutrophils # 0.4 K/mm3 09/19/16 05:30 Lymphocytes # (Manual) 1.6 K/mm3 (1.2-5.4) 09/19/16 05:30 Abs React Lymphs (Man) 0.0 K/mm3 09/19/16 05:30 Monocytes # (Manual) 1.2 K/mm3 (0.0-0.8) H 09/19/16 05:30 Eosinophils # (Manual) 0.0 K/mm3 (0.0-0.4) 09/19/16 05:30 Basophils # (Manual) 0.0 K/mm3 (0.0-0.1) 09/19/16 05:30 Metamyelocytes # 0.0 K/mm3 09/19/16 05:30 Myelocytes # 0.0 K/mm3 09/19/16 05:30 Promyelocytes # 0.0 K/mm3 09/19/16 05:30 Blast Cells # 0.0 K/mm3 09/19/16 05:30 WBC Morphology Not Reportable 09/19/16 05:30 Hypersegmented Neuts Not Reportable 09/19/16 05:30 Hyposegmented Neuts Not Reportable 09/19/16 05:30 Hypogranular Neuts Not Reportable 09/19/16 05:30 Smudge Cells Not Reportable 09/19/16 05:30 Toxic Granulation Not Reportable 09/19/16 05:30 Toxic Vacuolation Not Reportable 09/19/16 05:30 Dohle Bodies Not Reportable 09/19/16 05:30 Pelger-Huet Anomaly Not Reportable 09/19/16 05:30 Laila Rods Not Reportable 09/19/16 05:30 Platelet Estimate Appears normal 09/19/16 05:30 Clumped Platelets Not Reportable 09/19/16 05:30 Plt Clumps, EDTA Not Reportable 09/19/16 05:30 Large Platelets Few 09/19/16 05:30 Giant Platelets Not Reportable 09/19/16 05:30 Platelet Satelliting Not Reportable 09/19/16 05:30 Plt Morphology Comment Not Reportable 09/19/16 05:30 RBC Morphology Not Reportable 09/19/16 05:30 Dimorphic RBCs Not Reportable 09/19/16 05:30 Polychromasia 1+ 09/19/16 05:30 Hypochromasia Not Reportable 09/19/16 05:30 Poikilocytosis 1+ 09/19/16 05:30 Anisocytosis 1+ 09/19/16 05:30 Microcytosis 1+ 09/19/16 05:30 Macrocytosis Not Reportable 09/19/16 05:30 Spherocytes Not Reportable 09/19/16 05:30 Pappenheimer Bodies Not Reportable 09/19/16 05:30 Sickle Cells Not Reportable 09/19/16 05:30 Target Cells Few 09/19/16 05:30 Tear Drop Cells Rare 09/19/16 05:30 Ovalocytes Rare 09/19/16 05:30 Stomatocytes Few 09/19/16 05:30 Helmet Cells Not Reportable 09/19/16 05:30 [place] Bodies Not Reportable 09/19/16 05:30 [place] Rings Not Reportable 09/19/16 05:30 [place] Cells Not Reportable 09/19/16 05:30 Bite Cells Not Reportable 09/19/16 05:30 Crenated Cell Not Reportable 09/19/16 05:30 Elliptocytes Rare 09/19/16 05:30 Acanthocytes (Spur) Not Reportable 09/19/16 05:30 Rouleaux Not Reportable 09/19/16 05:30 Hemoglobin C Crystals Not Reportable 09/19/16 05:30 Schistocytes Not Reportable 09/19/16 05:30 Malaria parasites Not Reportable 09/19/16 05:30 Suhail Bodies Not Reportable 09/19/16 05:30 Hem Pathologist Commnt No 09/19/16 05:30 Sodium 133 mmol/L (137-145) L 09/24/16 05:35 Potassium 4.3 mmol/L (3.6-5.0) 09/24/16 05:35 Chloride 89.1 mmol/L (98-107) L 09/24/16 05:35 Carbon Dioxide 27 mmol/L (22-30) 09/24/16 05:35 Anion Gap 21 mmol/L 09/24/16 05:35 BUN 50 mg/dL (9-20) H 09/24/16 05:35 Creatinine 11.7 mg/dL (0.8-1.5) H 09/24/16 05:35 Estimated GFR 6 ml/min 09/24/16 05:35 BUN/Creatinine Ratio 4.27 % 09/24/16 05:35 Glucose 125 mg/dL (75-100) H 09/24/16 05:35 POC Glucose 115 (70-105) H 09/18/16 07:56 Lactic Acid 1.4 mmol/L (0.7-2.0) 09/20/16 12:12 Calcium 8.6 mg/dL (8.4-10.2) 09/24/16 05:35 Total Bilirubin 0.2 mg/dL (0.1-1.2) 09/19/16 06:20 Direct Bilirubin < 0.2 mg/dL (0-0.2) 09/19/16 06:20 Indirect Bilirubin 0.0 mg/dL 09/19/16 06:20 AST 1264 units/L (5-40) H 09/19/16 06:20 ALT 238 units/L (7-56) H 09/19/16 06:20 Alkaline Phosphatase 57 units/L (35-129) 09/19/16 06:20 Total Creatine Kinase 74272 units/L (55-170) H 09/24/16 05:35 CK-MB (CK-2) 292.8 ng/mL (0.0-4.0) H 09/19/16 06:17 CK-MB (CK-2) Rel Index 0.3 (0-4) 09/19/16 06:17 Serum Total Protein 7.3 g/dL (6.1-8.1) 09/18/16 14:48 Total Protein 6.4 g/dL (6.3-8.2) D 09/19/16 06:20 Albumin 3.1 g/dL (3.9-5) L 09/19/16 06:20 Albumin/Globulin Ratio 0.9 % 09/19/16 06:20 Qfnze-9-Vlpngbjrt 0.3 g/dL (0.2-0.3) 09/18/16 14:48 Fgzlh-8-Gisfxbhwa 0.9 g/dL (0.5-0.9) 09/18/16 14:48 Beta Globulins 0.5 g/dL (0.2-0.5) 09/18/16 14:48 Gamma Globulins 1.3 g/dL (0.8-1.7) 09/18/16 14:48 Abnorm Protein Band 1 see below (()) 09/18/16 14:48 PEP Interpretation see below (()) 09/18/16 14:48 Salicylates < 0.3 mg/dL (2.8-20.0) L 09/18/16 08:08 Acetaminophen < 15.0 ug/mL (10.0-30.0) 09/18/16 08:08 Plasma/Serum Alcohol < 0.01 gm% (0-0.07) 09/18/16 08:08 Complement C3 141 mg/dL (90-180) 09/18/16 14:48 Complement C4 62 mg/dL (16-47) H 09/18/16 14:48 Hepatitis A IgM Ab -1 (NonReactive) 09/23/16 21:00 Hep Bs Antigen Non-reactive (Negative) 09/23/16 21:00 Hep B Core IgM Ab Non-reactive (NonReactive) 09/23/16 21:00 Hepatitis C Antibody Non-reactive (NonReactive) 09/23/16 21:00
--- NOTE | 2016-09-24 09:53 | Progress Note ---
Assessment and Plan Impression: * bryn with ATN due to acute rhabdomyolysis * Hyperkalemia * Acute Rhabdo * Muscle weakness * Elevated LFTS * Acidosis * Schizophrenia * seizure disorder * DVT Plan: * No evidence of renal recovery at this time. Uneventful hemodialysis yesterday * Continue dialysis q MWF * lytes daily * Currently off bicarbonate gtt * daily ck levels noted, improving * strict i/os * avoid nephrotoxins Subjective Date of service: 09/24/16 Principal diagnosis: bryn, rhabdo Interval history: Patient is comfortable today. Denies any chest pain or shortness of breath. No nausea or vomiting Objective - Vital Signs Vital signs: Vital Signs - 12hr 09/23/16 09/24/16 09/24/16 22:00 00:00 02:09 Temperature 98.9 F Pulse Rate [ 72 82 From Monitor] Respiratory 20 20 22 Rate Blood Pressure 122/79 [Left Arm] O2 Sat by Pulse 97 97 Oximetry 09/24/16 07:15 Temperature 97.7 F Pulse Rate [ 78 From Monitor] Respiratory 14 Rate Blood Pressure 129/83 [Left Arm] O2 Sat by Pulse 96 Oximetry - General Appearance General appearance: well-developed, well-nourished, appears stated age EENT: PERRL, mucous membranes moist Neck: no JVD, no thyromegaly, no carotid bruit, supple, other (right IJ Vas- Cath in place) Respiratory: Present: Clear to Ascultation Cardiology: regular, normal heart rate, S1S2, no murmurs Gastrointestinal: normal, normoactive bowel sounds Integumentary: no rash, warm and dry Neurologic: no focal deficit - Lab 09/24/16 05:35 09/24/16 05:35 Most recent lab results Calcium 8.6 mg/dL (8.4-10.2) 09/24/16 05:35
--- NOTE | 2016-09-24 17:35 | Echocardiography Report ---
Transthoracic Echocardiogram Indication: CVA BP: 129/83 HR: 75 Conclusions *There is trace mitral regurgitation. *The left ventricular chamber size is normal. *Mild concentric left ventricular hypertrophy is observed. *Global left ventricular systolic function is normal. *The estimated ejection fraction is 55-60%. *The right ventricular chamber size and systolic function are within normal limits. Findings Procedure Info: The study quality is good. Left Ventricle: The left ventricular chamber size is normal. Mild concentric left ventricular hypertrophy is observed. Global left ventricular wall motion and contractility are within normal limits. Global left ventricular systolic function is normal. The estimated ejection fraction is 55-60%. Normal left ventricular diastolic filling is observed. Left Atrium: The left atrial chamber size is normal. Right Ventricle: The right ventricular chamber size and systolic function are within normal limits. Right Atrium: A patent foramen ovale is not demonstrated by color Doppler. Aortic Valve: The aortic valve is trileaflet. There is no evidence of aortic regurgitation. There is no evidence of aortic stenosis. The peak instantaneous gradient of the aortic valve is 6 mmHg. The aortic valve area, by peak velocities, is calculated at 3.32 cm2. Mitral Valve: The mitral valve leaflets appear normal. There is trace of mitral regurgitation. There is no evidence of mitral stenosis. Tricuspid Valve: The tricuspid valve is not well visualized. There is trace tricuspid regurgitation. The right ventricular systolic pressure is calculated at 32 mmHg. There is no tricuspid stenosis. Pulmonic Valve: The pulmonic valve is not well visualized. There is trace pulmonic regurgitation. There is no pulmonic stenosis. Pericardium: There is no pericardial effusion. No pleural effusion is present. Aorta: The aorta appears normal. There is no dilatation of the ascending aorta. There is no dilatation of the aortic root. Pulmonary Artery: The main pulmonary artery is not well visualized. Venous: The inferior vena cava appears normal in size. There is less than 50% respiratory change in the inferior vena cava dimension. Contrast: Intravenous agitated saline contrast was used to assess intracardiac shunting. Measurements Chambers MM Name Value Normal Range IVSd (MM) 0.82 cm (0.6 - 1.1) LVPWd (MM) 0.78 cm (0.6 - 1.1) IVS:LVPW ratio 1.05 ratio - LVIDd (MM) 5.11 cm (3.7 - 5.6) LVIDs (MM) 3.15 cm (2 - 2.8) LV FS (Teichholz) (MM) 38.4 % - LV FS (cube) (MM) 38.4 % - EF Teichholz (MM) 68.2 % - Ao root diameter (MM) 3.5 cm (2 - 3.7) LA dimension (AP) MM 3.3 cm (1.9 - 4) LA:Ao ratio (MM) 0.94 ratio - AV cusp separation (MM) 2 cm (1.5 - 2.6) Chambers 2D Name Value Normal Range IVSd (2D) 1.05 cm (0.6 - 1.1) LVPWd 1.2 cm - LVPWd (2D) 1.22 cm (0.6 - 1.1) IVS:LVPW ratio (2D) 0.86 ratio - LVIDd 4.5 cm - LVIDs 3.1 cm - LVIDd (2D) 4.48 cm (3.7 - 5.6) LVIDs (2D) 3.08 cm (2 - 3.8) LV FS (Teichholz) (2D) 31.3 % - LV FS (cube) (2D) 31.3 % - LV EF (2D) 59 % - EF Teichholz (2D) 59.2 % - LA dimension 2.6 cm - Ao root diameter (2D) 3.7 cm (2 - 3.7) LA dimension (AP) 2D 2.6 cm (1.9 - 4) LA:Ao ratio (2D) 0.7 ratio - Volumes/Mass Name Value Normal Range LA ESV SP 4CH (MOD) 34 ml - LV EDV SP 4CH (MOD) 60 ml - LV ESV SP 4CH (MOD) 21 ml - EF SP 4CH (MOD) 65 % - Diastolic/Systolic Function Name Value Normal Range MV E-wave Vmax 0.71 m/sec - MV deceleration time 289 msec - MV A-wave Vmax 0.84 m/sec - MV E:A ratio 0.8 ratio - LV septal e' Vmax 0.12 m/sec - LV lateral e' Vmax 0.14 m/sec - LV E:e' septal ratio 5.7 ratio - LV E:e' lateral ratio 4.9 ratio - Aortic Valve Name Value Normal Range AV Vmax 1.24 m/sec - AV peak gradient 6 mmHg - LVOT diameter 2.1 cm - LVOT Vmax 1.19 m/sec - LVOT peak gradient 6 mmHg - TERRI (continuity Vmax) 3.32 cm2 - Tricuspid Valve Name Value Normal Range TR Vmax 2.7 m/sec - TR peak gradient 29 mmHg - RAP 3 mmHg - RVSP 32 mmHg - Pulmonic Valve/Qp:Qs Name Value Normal Range PV Vmax 0.87 m/sec - PV peak gradient 3 mmHg - PV acceleration time 162 msec -
[2016-09-24] MEDS: LOVENOX SUB-Q SCH (22:04)
[2016-09-25] MEDS: FLEXERIL PO PRN ×3 (01:13→23:21)
[2016-09-25] MEDS: PERCOCET 5/325 PO PRN ×4 (05:19→18:55)
[2016-09-25 06:39] LABS: Basophils % (Auto) 0.5 % (0.0-1.8); Eosinophils % (Auto) 0.9 % (0.0-4.3); Hematocrit 33.7 % (35.5-45.6); Hemoglobin 11.3 gm/dl (11.8-15.2); Mean Corpuscular HGB Conc 34 % (32-34); Mean Corpuscular Volume 73 fl (84-94); Platelet Count 129 K/mm3 (140-440); Red Blood Count 4.59 M/mm3 (3.65-5.03); Red Cell Distribution Width 14.5 % (13.2-15.2); White Blood Count 17.2 K/mm3 (4.5-11.0)
[2016-09-25 06:54] LABS: BUN/Creatinine Ratio 5.07; Calcium 8.2 mg/dL (8.4-10.2); Chloride 84.3 mmol/L (98-107); Potassium 4.6 mmol/L (3.6-5.0)
[2016-09-25 06:55] LABS: Mean Corpuscular Hemoglobin 25 pg (28-32)
--- NOTE | 2016-09-25 09:02 | Progress Note ---
Assessment and Plan Impression: * bryn with ATN due to acute rhabdomyolysis * Hyperkalemia * Acute Rhabdo * Muscle weakness * Elevated LFTS * Acidosis * Schizophrenia * seizure disorder * DVT Plan: * No evidence of renal recovery at this time. * Patient is scheduled for hemodialysis today * Continue dialysis q MWF * Recommend converting his Vas-Cath to PermCath at this point * Recommend consulting case management for outpatient dialysis arrangements * daily ck levels noted, improving * strict i/os * avoid nephrotoxins Subjective Date of service: 09/25/16 Principal diagnosis: bryn, rhabdo Interval history: Patient is awake and alert. Complains of some leg pain. No nausea or vomiting Objective - Vital Signs Vital signs: Vital Signs - 12hr 09/24/16 09/24/16 09/24/16 22:00 22:04 23:00 Temperature Pulse Rate 84 Pulse Rate [ From Monitor] Pulse Rate [ Left Radial] Respiratory 20 Rate Respiratory 18 Rate [Right Thigh] Blood Pressure [Left Arm] O2 Sat by Pulse 95 Oximetry 09/25/16 09/25/16 09/25/16 00:00 01:00 04:00 Temperature 98.7 F 98.7 F Pulse Rate Pulse Rate [ 84 84 From Monitor] Pulse Rate [ Left Radial] Respiratory 20 18 20 Rate Respiratory Rate [Right Thigh] Blood Pressure 132/85 132/85 [Left Arm] O2 Sat by Pulse Oximetry 09/25/16 09/25/16 09/25/16 05:19 06:00 07:15 Temperature 98.4 F Pulse Rate 84 Pulse Rate [ From Monitor] Pulse Rate [ 86 Left Radial] Respiratory 18 16 Rate Respiratory Rate [Right Thigh] Blood Pressure 136/88 [Left Arm] O2 Sat by Pulse 96 Oximetry - General Appearance General appearance: well-developed, well-nourished, appears stated age EENT: PERRL, mucous membranes moist Neck: no JVD, no thyromegaly, no carotid bruit, supple, other (right IJ Vas- Cath in place) Respiratory: Present: Clear to Ascultation Cardiology: regular, normal heart rate, S1S2, no murmurs Gastrointestinal: normal, normoactive bowel sounds Integumentary: no rash Neurologic: no focal deficit, alert and oriented x3 - Lab 09/25/16 05:36 09/25/16 05:36 Most recent lab results Calcium 8.2 mg/dL (8.4-10.2) L 09/25/16 05:36
--- NOTE | 2016-09-25 11:50 | XRay Report ---
AP chest x-ray. Findings: The heart and pulmonary vessels are normal. There is subsegmental atelectasis in the left lower lobe with elevation of the left hemidiaphragm. Otherwise the lungs are clear. A Vas-Cath terminates at the cavoatrial junction, and there is no evidence of pneumothorax. Impression: Subsegmental left lower lobe atelectasis.
--- NOTE | 2016-09-25 13:19 | Progress Note ---
Assessment and Plan Assessment and plan: Patient is a 31-year-old male with past medical history significant for bipolar disorder, who presents to the emergency department via EMS after being found on the floor of his bathroom this morning by his roommate. Patient states that "I had a stroke last night". Patient states that he was not able to move his arms or his legs. He states he was lying on the floor all night. Initially it appears he was unable to move his right lower extremity was subsequently this improved. He is unable to give me any information as to his medical history except that he states he takes some bipolar medication but does not recall the medicines. He does not recall events that led him to the floor. He denies any alcohol or tobacco use. Although later subsequent he said he sometimes drinks. He denies any seizure- like activity. But again is unable to state how he got to the floor. No other family members available to give any more information. In the ER was noted to have a significantly elevated potassium and creatinine kinase are positive for emergency dialysis required. At this time again as stated he is able to move all his extremities. At this time denies any nausea, chest pain, diarrhea, fever, chills, melena bright red blood per rectum. He denies taking any medications. There are no other complaints. * R/O Neuroleptic malignant syndrome * Acute rhabdomyolysis-present on admission- fluctuating ?med induced.- Improving mildly * Severe hyperkalemia-present on admission-RESOLVED * Metabolic encephalopathy-resolved * Right lower extremity hemiparesis- ?CVA per MRI, vs CO2 poisoning. Per Neurology neither fits the picture. More towards metabolic * Right lower extremity DVT * Left upper extremity hemiparesis improved * Muscle weakness * Hyponatremia * Nicotine abuse * Elevated LFTs questionable hepatitis * Metabolic acidosis * Rule out seizure * Acute kidney injury likely secondary to rhabdomyolysis versus some of the nephropathy * Dehydration-resolving * Metabolic acidosis-with elevated lactates but doubt sepsis * Leukocytosis-likely reactive in nature no evidence of infection at this point. -resolved Plan: * Continues with dialysis. We'll consult vascular for permacath placement. As application packager feels it will probably be on dialysis for some time. * ? Question of a 4 witness is some form of neuroleptic malignant syndrome. Patient did not have any high fevers except for the rhabdomyolysis. He does take haloperidol, Cogentin and hydroxyzine at a facility. I did finally speak to someone by the name of Lyn Godinezitris who manages a psych facility [facility] he states that the patient is a resident there for schizophrenia and bipolar. Also states that the patient called out stating that he fell and could not move in the bathtub the day before. * Discussed with neurology. Back doubts that this is a CVA feels there is more for peripheral component to this rather than central brain. Noted effect on MRI per Neurology is also in the CT scan and may be more of calcification rather than CVA. unfortunately we do not have any old imaging for comparison We'll continue to review. May repeat MRI once metabolic factors addressed Inputs from Dr. Mckeon- director of admissions noted. * Patient started on Lovenox will check with nephrology considering doesn't considering acute kidney injury. * Continue with dialysis per application packager * We'll check echocardiogram, carotid ultrasound. I did discuss possibility of , monoxide poisoning with the patient he declines any possibility of that. * Extensive counseling provided on tobacco cessation. * Bicarbonate stopped * Nephrology input noted * I discussed the timeline again with the patient, he remembers going to the bathroom but remembers waking up on the floor and stated that he was there all night. * Physical and occupational therapy evaluation. * strict i/o * avoid nephrotoxins * Mental health evaluation still pending * No seizure activity noted within the EEG. * DVT and GI prophylaxis History Interval history: Patient seen and examined in no acute distress. still complaining of weakness on the right lower ext. otherwise denies any chest pain, nausea or vomiting. Asking me the same information about 3 times at different times.. Hospitalist Physical - Physical exam Narrative exam: VITAL SIGNS: Reviewed. GENERAL: The patient appeared well nourished and normally developed. Vital signs as documented. HEAD: No signs of head trauma. EYES: Pupils are equal. Extraocular motions intact. EARS: Hearing grossly intact. MOUTH: Oropharynx is normal. NECK: No adenopathy, no JVD. CHEST: Chest with clear breath sounds bilaterally. No wheezes, rales, or rhonchi. CARDIAC: Regular rate and rhythm. S1 and S2, without murmurs, gallops, or rubs. VASCULAR: No Edema. Peripheral pulses normal and equal in all extremities. ABDOMEN: Soft, without detectable tenderness. No sign of distention. No rebound or guarding, and no masses palpated. Bowel Sounds normal. MUSCULOSKELETAL: Good range of motion of all major joints. still with inability to move right lower extremity much improved compared to yesterday. Extremities without clubbing, cyanosis or edema, Thigh is non tender and not tensed. NEUROLOGIC EXAM: Alert and oriented 3 speech is normal, although sometimes acts confused and slow to respond. Forgetful. No focal sensory or strength deficits. Follows commands. PSYCHIATRIC: Mood flat. SKIN: No rash or lesions. - Constitutional Vitals: Temp Pulse Resp BP Pulse Ox 98.4 F 86 16 136/88 96 09/25/16 07:15 09/25/16 07:15 09/25/16 07:15 09/25/16 07:15 09/25/16 07:15 General appearance: Present: no acute distress, other (sitting up in bed) Results - Labs CBC & Chem 7: 09/25/16 05:36 09/25/16 05:36 Labs: Laboratory Last Values WBC 17.2 K/mm3 (4.5-11.0) H 09/25/16 05:36 RBC 4.59 M/mm3 (3.65-5.03) 09/25/16 05:36 Hgb 11.3 gm/dl (11.8-15.2) L 09/25/16 05:36 Hct 33.7 % (35.5-45.6) L 09/25/16 05:36 MCV 73 fl (84-94) L 09/25/16 05:36 MCH 25 pg (28-32) L 09/25/16 05:36 MCHC 34 % (32-34) 09/25/16 05:36 RDW 14.5 % (13.2-15.2) 09/25/16 05:36 Plt Count 129 K/mm3 (140-440) L 09/25/16 05:36 Lymph % (Auto) 11.4 % (13.4-35.0) L 09/25/16 05:36 [place] % (Auto) 12.0 % (0.0-7.3) H 09/25/16 05:36 Eos % (Auto) 0.9 % (0.0-4.3) 09/25/16 05:36 Baso % (Auto) 0.5 % (0.0-1.8) 09/25/16 05:36 Lymph # 2.0 K/mm3 (1.2-5.4) 09/25/16 05:36 [place] # 2.1 K/mm3 (0.0-0.8) H 09/25/16 05:36 Eos # 0.2 K/mm3 (0.0-0.4) 09/25/16 05:36 Baso # 0.1 K/mm3 (0.0-0.1) 09/25/16 05:36 Add Manual Diff Complete 09/19/16 05:30 Total Counted 100 09/19/16 05:30 Seg Neutrophils % 75.2 % (40.0-70.0) H 09/25/16 05:36 Seg Neuts % (Manual) 84.0 % (40.0-70.0) H 09/19/16 05:30 Band Neutrophils % 2.0 % 09/19/16 05:30 Lymphocytes % (Manual) 8.0 % (13.4-35.0) L 09/19/16 05:30 Reactive Lymphs % (Man) 0 % 09/19/16 05:30 Monocytes % (Manual) 6.0 % (0.0-7.3) 09/19/16 05:30 Eosinophils % (Manual) 0 % (0.0-4.3) 09/19/16 05:30 Basophils % (Manual) 0 % (0.0-1.8) 09/19/16 05:30 Metamyelocytes % 0 % 09/19/16 05:30 Myelocytes % 0 % 09/19/16 05:30 Promyelocytes % 0 % 09/19/16 05:30 Blast Cells % 0 % 09/19/16 05:30 Nucleated RBC % Not Reportable 09/19/16 05:30 Seg Neutrophils # 12.9 K/mm3 (1.8-7.7) H 09/25/16 05:36 Seg Neutrophils # Man 17.1 K/mm3 (1.8-7.7) H 09/19/16 05:30 Band Neutrophils # 0.4 K/mm3 09/19/16 05:30 Lymphocytes # (Manual) 1.6 K/mm3 (1.2-5.4) 09/19/16 05:30 Abs React Lymphs (Man) 0.0 K/mm3 09/19/16 05:30 Monocytes # (Manual) 1.2 K/mm3 (0.0-0.8) H 09/19/16 05:30 Eosinophils # (Manual) 0.0 K/mm3 (0.0-0.4) 09/19/16 05:30 Basophils # (Manual) 0.0 K/mm3 (0.0-0.1) 09/19/16 05:30 Metamyelocytes # 0.0 K/mm3 09/19/16 05:30 Myelocytes # 0.0 K/mm3 09/19/16 05:30 Promyelocytes # 0.0 K/mm3 09/19/16 05:30 Blast Cells # 0.0 K/mm3 09/19/16 05:30 WBC Morphology Not Reportable 09/19/16 05:30 Hypersegmented Neuts Not Reportable 09/19/16 05:30 Hyposegmented Neuts Not Reportable 09/19/16 05:30 Hypogranular Neuts Not Reportable 09/19/16 05:30 Smudge Cells Not Reportable 09/19/16 05:30 Toxic Granulation Not Reportable 09/19/16 05:30 Toxic Vacuolation Not Reportable 09/19/16 05:30 Dohle Bodies Not Reportable 09/19/16 05:30 Pelger-Huet Anomaly Not Reportable 09/19/16 05:30 Laila Rods Not Reportable 09/19/16 05:30 Platelet Estimate Appears normal 09/19/16 05:30 Clumped Platelets Not Reportable 09/19/16 05:30 Plt Clumps, EDTA Not Reportable 09/19/16 05:30 Large Platelets Few 09/19/16 05:30 Giant Platelets Not Reportable 09/19/16 05:30 Platelet Satelliting Not Reportable 09/19/16 05:30 Plt Morphology Comment Not Reportable 09/19/16 05:30 RBC Morphology Not Reportable 09/19/16 05:30 Dimorphic RBCs Not Reportable 09/19/16 05:30 Polychromasia 1+ 09/19/16 05:30 Hypochromasia Not Reportable 09/19/16 05:30 Poikilocytosis 1+ 09/19/16 05:30 Anisocytosis 1+ 09/19/16 05:30 Microcytosis 1+ 09/19/16 05:30 Macrocytosis Not Reportable 09/19/16 05:30 Spherocytes Not Reportable 09/19/16 05:30 Pappenheimer Bodies Not Reportable 09/19/16 05:30 Sickle Cells Not Reportable 09/19/16 05:30 Target Cells Few 09/19/16 05:30 Tear Drop Cells Rare 09/19/16 05:30 Ovalocytes Rare 09/19/16 05:30 Stomatocytes Few 09/19/16 05:30 Helmet Cells Not Reportable 09/19/16 05:30 Brandt-Blanco Bodies Not Reportable 09/19/16 05:30 Pelsor Rings Not Reportable 09/19/16 05:30 Marbin Cells Not Reportable 09/19/16 05:30 Bite Cells Not Reportable 09/19/16 05:30 Crenated Cell Not Reportable 09/19/16 05:30 Elliptocytes Rare 09/19/16 05:30 Acanthocytes (Spur) Not Reportable 09/19/16 05:30 Rouleaux Not Reportable 09/19/16 05:30 Hemoglobin C Crystals Not Reportable 09/19/16 05:30 Schistocytes Not Reportable 09/19/16 05:30 Malaria parasites Not Reportable 09/19/16 05:30 Suhail Bodies Not Reportable 09/19/16 05:30 Hem Pathologist Commnt No 09/19/16 05:30 Sodium 129 mmol/L (137-145) L 09/25/16 05:36 Potassium 4.6 mmol/L (3.6-5.0) 09/25/16 05:36 Chloride 84.3 mmol/L (98-107) L 09/25/16 05:36 Carbon Dioxide 25 mmol/L (22-30) 09/25/16 05:36 Anion Gap 24 mmol/L 09/25/16 05:36 BUN 72 mg/dL (9-20) H 09/25/16 05:36 Creatinine 14.2 mg/dL (0.8-1.5) H 09/25/16 05:36 Estimated GFR 5 ml/min 09/25/16 05:36 BUN/Creatinine Ratio 5.07 % 09/25/16 05:36 Glucose 95 mg/dL (75-100) 09/25/16 05:36 POC Glucose 115 (70-105) H 09/18/16 07:56 Lactic Acid 1.4 mmol/L (0.7-2.0) 09/20/16 12:12 Calcium 8.2 mg/dL (8.4-10.2) L 09/25/16 05:36 Total Bilirubin 0.2 mg/dL (0.1-1.2) 09/19/16 06:20 Direct Bilirubin < 0.2 mg/dL (0-0.2) 09/19/16 06:20 Indirect Bilirubin 0.0 mg/dL 09/19/16 06:20 AST 1264 units/L (5-40) H 09/19/16 06:20 ALT 238 units/L (7-56) H 09/19/16 06:20 Alkaline Phosphatase 57 units/L (35-129) 09/19/16 06:20 Total Creatine Kinase 09948 units/L (55-170) H 09/25/16 05:36 CK-MB (CK-2) 292.8 ng/mL (0.0-4.0) H 09/19/16 06:17 CK-MB (CK-2) Rel Index 0.3 (0-4) 09/19/16 06:17 Serum Total Protein 7.3 g/dL (6.1-8.1) 09/18/16 14:48 Total Protein 6.4 g/dL (6.3-8.2) D 09/19/16 06:20 Albumin 3.1 g/dL (3.9-5) L 09/19/16 06:20 Albumin/Globulin Ratio 0.9 % 09/19/16 06:20 Cgous-8-Dldvjqjhx 0.3 g/dL (0.2-0.3) 09/18/16 14:48 Kacsx-7-Kqzwykqul 0.9 g/dL (0.5-0.9) 09/18/16 14:48 Beta Globulins 0.5 g/dL (0.2-0.5) 09/18/16 14:48 Gamma Globulins 1.3 g/dL (0.8-1.7) 09/18/16 14:48 Abnorm Protein Band 1 see below (()) 09/18/16 14:48 PEP Interpretation see below (()) 12/28/16 14:48 Salicylates < 0.3 mg/dL (2.8-20.0) L 09/18/16 08:08 Acetaminophen < 15.0 ug/mL (10.0-30.0) 09/18/16 08:08 Plasma/Serum Alcohol < 0.01 gm% (0-0.07) 09/18/16 08:08 Complement C3 141 mg/dL (90-180) 09/18/16 14:48 Complement C4 62 mg/dL (16-47) H 09/18/16 14:48 Hepatitis A IgM Ab -1 (NonReactive) 09/23/16 21:00 Hep Bs Antigen Non-reactive (Negative) 09/23/16 21:00 Hep B Core IgM Ab Non-reactive (NonReactive) 09/23/16 21:00 Hepatitis C Antibody Non-reactive (NonReactive) 09/23/16 21:00
--- NOTE | 2016-09-25 13:25 | Consultation ---
History of Present Illness - Reason for Consult Consult date: 09/25/16 leg pain - History of Present Illness CPK continues to fall and around 19,000 the changes on the CT/ MRI are metabolic in my opinion and not fro stroke elg pain from effective of the myositis which may have been triggered by the antipsychotics Past History Past Medical History: other (schizophrenia, bipolar d/o) Past Surgical History: No surgical history Social history: Lives alone Family history: no significant family history Medications and Allergies Allergies Allergy/AdvReac Type Severity Reaction Status Date / Time No Known Allergies Allergy Unverified 09/18/16 07:50 Home Medications Medication Instructions Recorded Confirmed Last Taken Type Benztropine [Cogentin] 2 mg PO DAILY 09/18/16 09/18/16 Unknown History Haloperidol [Haldol] 2 mg PO DAILY 09/18/16 09/18/16 Unknown History Hydroxyzine HCl [hydrOXYzine] 50 mg PO DAILY 09/18/16 09/18/16 Unknown History Active Meds: Active Medications Acetaminophen (Tylenol) 650 mg PO Q6H PRN PRN Reason: Pain, Mild (1-3) Last Admin: 09/23/16 05:54 Dose: 650 mg Bisacodyl (Dulcolax) 10 mg FL QDAY PRN PRN Reason: Constipation unrelieved by MOM Cefazolin Sodium (Ancef/Sterile Water 2 Gm/20 Ml) 2 gm IV PREOP NR Stop: 09/26/16 08:01 Cyclobenzaprine HCl (Flexeril) 5 mg PO Q8H PRN PRN Reason: Muscle Spasm Last Admin: 09/25/16 10:00 Dose: 5 mg Enoxaparin Sodium (Lovenox) 110 mg SUB-Q Q24HR@2200 SY Last Admin: 09/24/16 22:04 Dose: 110 mg Heparin Sodium (Porcine) (Heparin) 5,000 unit IV TINA PRN PRN Reason: hemodialysis Last Admin: 09/23/16 22:00 Dose: 5,000 unit Sodium Chloride (Nacl 0.9% 1000 Ml) 100 mls @ 999 mls/hr IV TINA PRN PRN Reason: Hypotension Ondansetron HCl (Zofran) 4 mg IV Q4H PRN PRN Reason: N/V unrelieved by Reglan Last Admin: 09/20/16 20:50 Dose: 4 mg Oxycodone/Acetaminophen (Percocet 5/325) 1 tab PO Q6H PRN PRN Reason: Pain, Moderate (4-6) Last Admin: 09/25/16 10:01 Dose: 1 tab Exam - Constitutional Vitals: Temp Pulse Resp BP Pulse Ox 98.4 F 86 16 136/88 96 09/25/16 07:15 09/25/16 07:15 09/25/16 07:15 09/25/16 07:15 09/25/16 07:15 Results - Labs CBC & Chem 7: 09/25/16 05:36 09/25/16 05:36 Labs: Abnormal lab results 09/25/16 09/25/16 Range/Units 05:36 05:36 WBC 17.2 H (4.5-11.0) K/mm3 Hgb 11.3 L (11.8-15.2) gm/dl Hct 33.7 L (35.5-45.6) % MCV 73 L (84-94) fl MCH 25 L (28-32) pg Plt Count 129 L (140-440) K/mm3 Lymph % (Auto) 11.4 L (13.4-35.0) % [place] % (Auto) 12.0 H (0.0-7.3) % [place] # 2.1 H (0.0-0.8) K/mm3 Seg Neutrophils % 75.2 H (40.0-70.0) % Seg Neutrophils # 12.9 H (1.8-7.7) K/mm3 Sodium 129 L (137-145) mmol/L Chloride 84.3 L (98-107) mmol/L BUN 72 H (9-20) mg/dL Creatinine 14.2 H (0.8-1.5) mg/dL Calcium 8.2 L (8.4-10.2) mg/dL Total Creatine Kinase 44053 H (55-170) units/L
--- NOTE | 2016-09-25 16:39 | Event Note ---
Date: 09/25/16 Asked to eval pt, and arrange for Perma-cath placement. JAIME, discussed with patient. He states understanding and agrees to proceed. Will make npo after mn, and schedule in the labelling machine operator tomorrow.
[2016-09-25] MEDS: HEPARIN IV PRN (17:45)
[2016-09-25] MEDS: LOVENOX SUB-Q SCH (21:57)
[2016-09-26 06:21] LABS: Hematocrit 32.5 % (35.5-45.6); Hemoglobin 10.9 gm/dl (11.8-15.2); Mean Corpuscular HGB Conc 33 % (32-34); Mean Corpuscular Volume 74 fl (84-94); Platelet Count 129 K/mm3 (140-440); Red Cell Distribution Width 14.6 % (13.2-15.2); White Blood Count 17.5 K/mm3 (4.5-11.0)
[2016-09-26 06:28] LABS: Mean Corpuscular Hemoglobin 25 pg (28-32)
[2016-09-26 06:33] LABS: BUN/Creatinine Ratio 5.52; Chloride 89.8 mmol/L (98-107); Potassium 5.1 mmol/L (3.6-5.0)
[2016-09-26] MEDS ORDERED: ANCEF/STERILE WATER 2 GM/20 ML IV NR (08:00)
--- NOTE | 2016-09-26 08:17 | Vascular Lab Report ---
MISCELLANEOUS VESSEL IDENTIFICATION: COMMENTS ON THE SCAN: The right internal jugular vein was identified and under real-time ultrasound guidance was cannulated. IMPRESSION: Successful ultrasound guided vein cannulation.
[2016-09-26] MEDS ORDERED: HEPARIN/NS 5000 UNIT/500ML(CATH LAB) 500 ML IR ONE (08:24)
[2016-09-26] MEDS ORDERED: NACL 0.9% 250ML 250 ML ONE (08:25)
[2016-09-26] MEDS ORDERED: ANCEF/STERILE WATER 2 GM/20 ML 20 ML IV ONE (08:25)
--- NOTE | 2016-09-26 08:33 | Vascular Lab Report ---
LOWER EXTREMITY VENOUS DUPLEX: REASON FOR EXAM: Pain and swelling of the lower extremities. COMMENTS ON THE RIGHT: Deep venous thrombosis noted in the peroneal vein. The remaining veins visualized are freely compressible without evidence of internal echogenicity. Spontaneous and phasic flow is present proximally. COMMENTS ON THE LEFT: All veins visualized are freely compressible without evidence of internal echogenicity. Flow is spontaneous and phasic throughout. IMPRESSION: Deep venous thrombosis in the right lower extremity below knee
[2016-09-26] MEDS: SUBLIMAZE ONE ×2 (08:37→08:49)
[2016-09-26] MEDS: VERSED ONE ×2 (08:37→08:49)
[2016-09-26] MEDS: XYLOCAINE 1%/ EPI 1:100,000 INFILTRATI ONE ×2 (08:38→08:45)
--- NOTE | 2016-09-26 08:46 | Event Note ---
Date: 09/26/16 IPR F/U, RLE weakness, gait dysfunction. Weakness not thought to be secondary to CVA. Pt is pending Psych evaluation. Continues to require min-modA for transfers and gait; ambulating with RW. Pt will likely not be able to return home alone due to functional deficits. CM following. Pending Perma-cath placement on today as pt still requires HD.
[2016-09-26] MEDS: HEPARIN 10,000 UNITS/10 ML ONE ×2 (08:50→09:00)
[2016-09-26 08:53] LABS: Anisocytosis 1+; Basophils % (Manual) 0 % (0.0-1.8); Blastocytes % (Manual) 0 %; Hypochromasia 1+
[2016-09-26 08:54] LABS: Diff Status Complete; Platelet Estimate Appears Decreased; Poikilocytosis Few
--- NOTE | 2016-09-26 09:14 | Progress Note ---
Assessment and Plan Impression: * bryn with ATN due to acute rhabdomyolysis * Hyperkalemia * Acute Rhabdo * Muscle weakness * Elevated LFTS * Acidosis * Schizophrenia * seizure disorder * DVT Plan: * No evidence of renal recovery at this time. * Patient had uneventful hemodialysis yesterday * Continue dialysis q MWF * Patient is scheduled for conversion of his Vas-Cath to PermCath today * Recommend consulting case management for outpatient dialysis arrangements * daily ck levels noted, improving * strict i/os * avoid nephrotoxins * His right thigh does appear to be more swollen and somewhat tender. Shall check a CT scan of his thigh Subjective Date of service: 09/26/16 Principal diagnosis: bryn, rhabdo Interval history: Patient is comfortable. He does complain of some pain in his right thigh. Denies any shortness of breath. No nausea or vomiting Objective - Vital Signs Vital signs: Vital Signs - 12hr 09/25/16 23:20 Temperature 98.9 F Pulse Rate [ 85 From Monitor] Respiratory 18 Rate Blood Pressure 129/88 [Left Arm] O2 Sat by Pulse 96 Oximetry - General Appearance General appearance: well-developed, well-nourished, appears stated age EENT: PERRL, mucous membranes moist Neck: no JVD, no thyromegaly, no carotid bruit, supple, other (right IJ Vas- Cath in place) Respiratory: Present: Clear to Ascultation Cardiology: regular, normal heart rate, S1S2, no murmurs Gastrointestinal: normal, normoactive bowel sounds Integumentary: no rash, other (right eye appears to be more swollen compared to left. Mild tenderness) - Lab 09/26/16 05:40 09/26/16 05:40 Most recent lab results Calcium 9.0 mg/dL (8.4-10.2) 09/26/16 05:40
--- NOTE | 2016-09-26 09:16 | Operative Report ---
Operative Report Operative Report: EXAM: 1. Fluoroscopic-guided conversion of a right internal jugular non-tunneled non- cuffed hemodialysis catheter to a tunneled cuffed hemodialysis catheter. DATE:09/26/16 INDICATION: Acute renal failure requiring prolonged hemodialysis access. MEDICATIONS: Please see nursing report for full details. DEVICES: 23 cm tip to cuff dual lumen hemodialysis catheter MANAGER CATEGORY: MIKAL ALARCON MD CONTRAST: None PROCEDURE: The risks, benefits, and alternatives were discussed and informed consent was obtained. The patient was transported to the angiography suite in satisfactory/ stable condition and was transported onto the angiography table. The patient was prepped and draped in a sterile fashion. The existing vascath was prepped and draped in a sterile fashion. Suture was cut. 0.035 inch wire was advanced through the Vas-Cath into the IVC. Vas-Cath was removed. The wire was cleaned with ChloraPrep. Over the 0.035 inch wire, serial dilatation was performed with ultimate placement of a peel-away sheath. Reverse tunneled PermCath was inserted to the peel-away sheath and positioned in the right atrium. Peel-away sheath removed. A suitable exit site was identified on the patient's chest inferior and lateral to the venotomy. The site was anesthetized with local anesthetic and the track was anesthetized. Dermatotomy was made. Reverse tunneler was then tunneled from dermatotomy to the venotomy site/catheter. The PermCath was attached to the tunneling device and reverse tunneled between the dermatotomy to the venotomy. The catheter was reassembled. 4-0 Vicryl suture was used to close the venotomy and Dermabond was then applied. 2-0 Ethilon suture was used to secure the catheter at the dermatotomy. The catheter was charged with heparin 1000 units/mL space. The patient was transferred from the angiography suite back to the floor in stable condition. FINDINGS: 1. Excellent flow was obtained through the dialysis catheter with 20 mL syringes. 2. The catheter tip is in the right atrium. IMPRESSION: 1. Fluoroscopic-guided conversion of a right internal jugular non-tunneled non- cuffed hemodialysis catheter to a tunneled cuffed hemodialysis catheter.
--- NOTE | 2016-09-26 13:21 | Progress Note ---
Assessment and Plan - Patient Problems (1) Acute renal failure due to rhabdomyolysis Current Visit: Yes Status: Acute Plan to address problem: - s/p HD/UF - continue alkalanized fluids - per nephrology otherwise - remains dialysis dependent (2) Hyperkalemia Current Visit: Yes Status: Acute Plan to address problem: - resolved (3) Rhabdomyolysis Current Visit: Yes Status: Acute Qualifiers: Rhabdomyolysis type: non-traumatic Qualified Code(s): M62.82 - Rhabdomyolysis Plan to address problem: - resolving ....prn CXR's (4) Atelectasis Current Visit: Yes Status: Acute Plan to address problem: - small volume - incentive spirometry Subjective Date of service: 09/26/16 Principal diagnosis: bryn, rhabdo Interval history: Seen and examined at bedside; 24 hour events reviewed; nursing and respiratory care staff consulted; no adverse overnight events reported to me; resting peacefully; denies acute chest pains or increased SOB Objective Vital Signs - 12hr 09/26/16 07:50 Temperature 97.9 F Pulse Rate [ 97 H Left Radial] Respiratory 20 Rate Blood Pressure 132/79 [Left Arm] O2 Sat by Pulse 96 Oximetry Constitutional: no acute distress Eyes: non-icteric ENT: oropharynx moist Neck: supple, no lymphadenopathy Effort: normal Ascultation: Bilateral: clear Cardiovascular: regular rate and rhythm Gastrointestinal: normoactive bowel sounds, soft, non-tender, non-distended Integumentary: normal Extremities: no cyanosis, no edema, pulses normal, no ischemia or petechiae Neurologic: normal mental status, non-focal exam, motor strength normal and Psychiatric: other (schizophrenic) CBC and BMP: 09/27/16 08:19 09/27/16 08:19 Abnormal lab findings: Abnormal Labs 09/18/16 09/18/16 09/18/16 14:48 14:48 14:57 WBC RBC Hgb Hct MCV MCH Plt Count Lymph % (Auto) Lassen % (Auto) Lassen # Seg Neutrophils % Seg Neuts % (Manual) Lymphocytes % (Manual) Monocytes % (Manual) Seg Neutrophils # Seg Neutrophils # Man Monocytes # (Manual) Sodium 135 L Potassium 8.2 H* Chloride Carbon Dioxide 18 L BUN Creatinine 3.8 H Glucose 134 H Lactic Acid Calcium 6.6 L AST ALT Total Creatine Kinase 18173 H CK-MB (CK-2) Albumin Complement C4 62 H 09/18/16 09/19/16 09/19/16 17:20 00:21 05:30 WBC 20.4 H RBC 6.38 H Hgb 16.0 H Hct 48.3 H MCV 76 L D MCH 25 L Plt Count Lymph % (Auto) Lassen % (Auto) Lassen # Seg Neutrophils % Seg Neuts % (Manual) 84.0 H Lymphocytes % (Manual) 8.0 L Monocytes % (Manual) Seg Neutrophils # Seg Neutrophils # Man 17.1 H Monocytes # (Manual) 1.2 H Sodium Potassium Chloride Carbon Dioxide BUN Creatinine Glucose Lactic Acid Calcium AST ALT Total Creatine Kinase 42026 H 81076 H CK-MB (CK-2) Albumin Complement C4 09/19/16 09/19/16 09/19/16 06:16 06:17 06:20 WBC RBC Hgb Hct MCV MCH Plt Count Lymph % (Auto) Lassen % (Auto) Lassen # Seg Neutrophils % Seg Neuts % (Manual) Lymphocytes % (Manual) Monocytes % (Manual) Seg Neutrophils # Seg Neutrophils # Man Monocytes # (Manual) Sodium 134 L Potassium Chloride 90.8 L Carbon Dioxide BUN Creatinine 5.1 H Glucose 162 H Lactic Acid Calcium 6.6 L AST 1264 H ALT 238 H Total Creatine Kinase 01211 H CK-MB (CK-2) 292.8 H Albumin 3.1 L Complement C4 09/19/16 09/20/16 09/20/16 10:28 05:00 06:26 WBC 13.8 H RBC 5.70 H Hgb Hct MCV 76 L MCH 25 L Plt Count Lymph % (Auto) Lassen % (Auto) 8.8 H Lassen # 1.2 H Seg Neutrophils % 76.9 H Seg Neuts % (Manual) Lymphocytes % (Manual) Monocytes % (Manual) Seg Neutrophils # 10.6 H Seg Neutrophils # Man Monocytes # (Manual) Sodium Potassium Chloride Carbon Dioxide BUN Creatinine Glucose Lactic Acid 2.6 H* Calcium AST ALT Total Creatine Kinase 843801 H CK-MB (CK-2) Albumin Complement C4 09/20/16 09/21/16 09/21/16 06:26 09:10 09:10 WBC RBC Hgb 11.7 L Hct 35.3 L D MCV 74 L MCH 25 L Plt Count 131 L Lymph % (Auto) 11.8 L Lassen % (Auto) Lassen # Seg Neutrophils % 81.0 H Seg Neuts % (Manual) Lymphocytes % (Manual) Monocytes % (Manual) Seg Neutrophils # 8.5 H Seg Neutrophils # Man Monocytes # (Manual) Sodium 136 L 133 L Potassium Chloride 90.1 L 85.3 L Carbon Dioxide 34 H BUN 38 H Creatinine 6.4 H 10.3 H D Glucose 101 H 114 H Lactic Acid Calcium 7.4 L 6.8 L AST ALT Total Creatine Kinase 84858 H CK-MB (CK-2) Albumin Complement C4 09/22/16 09/22/16 09/23/16 06:26 06:26 06:16 WBC 11.8 H 11.6 H RBC Hgb 11.6 L 11.6 L Hct 34.8 L 34.0 L MCV 75 L 74 L MCH 25 L 25 L Plt Count 139 L Lymph % (Auto) Lassen % (Auto) 7.9 H Lassen # 0.9 H Seg Neutrophils % 75.9 H 75.3 H Seg Neuts % (Manual) Lymphocytes % (Manual) Monocytes % (Manual) Seg Neutrophils # 9.0 H 8.7 H Seg Neutrophils # Man Monocytes # (Manual) Sodium 133 L Potassium Chloride 89.7 L Carbon Dioxide BUN 31 H Creatinine 9.7 H Glucose Lactic Acid Calcium 8.1 L D AST ALT Total Creatine Kinase 36611 H CK-MB (CK-2) Albumin Complement C4 09/23/16 09/24/16 09/24/16 06:16 05:35 05:35 WBC 13.5 H RBC Hgb Hct MCV 75 L MCH 25 L Plt Count Lymph % (Auto) 12.9 L Lassen % (Auto) 9.6 H Lassen # 1.3 H Seg Neutrophils % 76.2 H Seg Neuts % (Manual) Lymphocytes % (Manual) Monocytes % (Manual) Seg Neutrophils # 10.3 H Seg Neutrophils # Man Monocytes # (Manual) Sodium 133 L 133 L Potassium Chloride 87.6 L 89.1 L Carbon Dioxide 31 H BUN 49 H 50 H Creatinine 11.7 H 11.7 H Glucose 107 H 125 H Lactic Acid Calcium 7.8 L AST ALT Total Creatine Kinase 10885 H 86370 H CK-MB (CK-2) Albumin Complement C4 09/25/16 09/25/16 09/26/16 05:36 05:36 05:40 WBC 17.2 H RBC Hgb 11.3 L Hct 33.7 L MCV 73 L MCH 25 L Plt Count 129 L Lymph % (Auto) 11.4 L Lassen % (Auto) 12.0 H Lassen # 2.1 H Seg Neutrophils % 75.2 H Seg Neuts % (Manual) Lymphocytes % (Manual) Monocytes % (Manual) Seg Neutrophils # 12.9 H Seg Neutrophils # Man Monocytes # (Manual) Sodium 129 L 130 L Potassium 5.1 H Chloride 84.3 L 89.8 L Carbon Dioxide BUN 72 H 69 H Creatinine 14.2 H 12.5 H Glucose Lactic Acid Calcium 8.2 L AST ALT Total Creatine Kinase 28158 H 9221 H CK-MB (CK-2) Albumin Complement C4 09/26/16 05:40 WBC 17.5 H RBC Hgb 10.9 L Hct 32.5 L MCV 74 L MCH 25 L Plt Count 129 L Lymph % (Auto) Lassen % (Auto) Lassen # Seg Neutrophils % Seg Neuts % (Manual) 76.0 H Lymphocytes % (Manual) 11.0 L Monocytes % (Manual) 10.0 H Seg Neutrophils # Seg Neutrophils # Man 13.3 H Monocytes # (Manual) 1.8 H Sodium Potassium Chloride Carbon Dioxide BUN Creatinine Glucose Lactic Acid Calcium AST ALT Total Creatine Kinase CK-MB (CK-2) Albumin Complement C4 Chest x-ray: image reviewed (LLL platelike atelectasis and dilated bowel loops in LUQ)
[2016-09-26] MEDS: PERCOCET 5/325 PO PRN ×2 (14:14→22:23)
--- NOTE | 2016-09-26 16:45 | Cat Scan Report ---
CT OF THE RIGHT THIGH WITHOUT CONTRAST. HISTORY: Edema/evaluate for compartment syndrome. PROCEDURE: Helical acquisition with axial reconstructed images, sagittal and coronal reformatted images were obtained without contrast. FINDINGS: There is extensive subcutaneous emphysema throughout the thigh and the portion of the pelvis which is imaged on this study. There is a thin crescentic rim of fluid adjacent to the lateral margin of the right thigh muscles measuring approximately 1.8 cm in maximum diameter. This extends to a level just below the knee joint. There is no definite evidence of focal muscular edema; however, MRI is the modality of choice for evaluating the presence of compartment syndrome. IMPRESSION: Extensive subcutaneous edema throughout the thigh with no other specific findings. Compartment syndrome cannot be excluded on the basis of this study. MRI of the thigh is recommended for definitive evaluation.
--- NOTE | 2016-09-26 18:53 | Progress Note ---
Assessment and Plan Assessment and plan: Patient is a 31-year-old male with past medical history significant for bipolar disorder, who presents to the emergency department via EMS after being found on the floor of his bathroom this morning by his roommate. Patient states that "I had a stroke last night". Patient states that he was not able to move his arms or his legs. He states he was lying on the floor all night. Initially it appears he was unable to move his right lower extremity was subsequently this improved. He is unable to give me any information as to his medical history except that he states he takes some bipolar medication but does not recall the medicines. He does not recall events that led him to the floor. He denies any alcohol or tobacco use. Although later subsequent he said he sometimes drinks. He denies any seizure- like activity. But again is unable to state how he got to the floor. No other family members available to give any more information. In the ER was noted to have a significantly elevated potassium and creatinine kinase are positive for emergency dialysis required. At this time again as stated he is able to move all his extremities. At this time denies any nausea, chest pain, diarrhea, fever, chills, melena bright red blood per rectum. He denies taking any medications. There are no other complaints. * R/O Neuroleptic malignant syndrome * Right thigh edema doubt compartment syndrome MRI. * Acute rhabdomyolysis-present on admission- fluctuating ?med induced.- Improving mildly * Severe hyperkalemia-present on admission-RESOLVED * Metabolic encephalopathy-resolved * Right lower extremity hemiparesis- ?CVA per MRI, vs CO2 poisoning. Per Neurology neither fits the picture. More towards metabolic * Right lower extremity DVT * Left upper extremity hemiparesis improved * Muscle weakness * Hyponatremia * Nicotine abuse * Elevated LFTs questionable hepatitis * Metabolic acidosis * Rule out seizure * Acute kidney injury likely secondary to rhabdomyolysis versus some of the nephropathy * Dehydration-resolving * Metabolic acidosis-with elevated lactates but doubt sepsis * Leukocytosis-likely reactive in nature no evidence of infection at this point. -resolved Plan: * Continues with dialysis. Permacath placed today As cafeteria monitor feels it will probably be on dialysis for some time. * ? Question of a 4 witness is some form of neuroleptic malignant syndrome. Patient did not have any high fevers except for the rhabdomyolysis. He does take haloperidol, Cogentin and hydroxyzine at a facility. I did finally speak to someone by the name of Lyn Graham who manages a psych facility [facility] he states that the patient is a resident there for schizophrenia and bipolar. Also states that the patient called out stating that he fell and could not move in the bathtub the day before. * Discussed with neurology. Back doubts that this is a CVA feels there is more for peripheral component to this rather than central brain. Noted effect on MRI per Neurology is also in the CT scan and may be more of calcification rather than CVA. unfortunately we do not have any old imaging for comparison We'll continue to review. May repeat MRI once metabolic factors addressed Inputs from Dr. 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 * Patient started on Lovenox will check with nephrology considering doesn't considering acute kidney injury. * Continue with dialysis per cafeteria monitor * We'll get MRI of the right thigh to rule out compartment syndrome * Extensive counseling provided on tobacco cessation. * Physical and occupational therapy evaluation. * strict i/o * avoid nephrotoxins * Mental health evaluation still pending * DVT and GI prophylaxis History Interval history: Patient seen and examined this morning in no acute distress, still complains of right leg pain and inability to move it. Denies any chest pain, nausea, vomiting, diarrhea No fever noted blood pressure controlled No adverse events reported to me by nursing staff Hospitalist Physical - Physical exam Narrative exam: VITAL SIGNS: Reviewed. GENERAL: The patient appeared well nourished and normally developed. Vital signs as documented. HEAD: No signs of head trauma. EYES: Pupils are equal. Extraocular motions intact. EARS: Hearing grossly intact. MOUTH: Oropharynx is normal. NECK: No adenopathy, no JVD. CHEST: Chest with clear breath sounds bilaterally. No wheezes, rales, or rhonchi. CARDIAC: Regular rate and rhythm. S1 and S2, without murmurs, gallops, or rubs. VASCULAR: No Edema. Peripheral pulses normal and equal in all extremities. ABDOMEN: Soft, without detectable tenderness. No sign of distention. No rebound or guarding, and no masses palpated. Bowel Sounds normal. MUSCULOSKELETAL: still with inability to move right lower extremity, much more swollen than the left. Extremities without clubbing, cyanosis or edema, Thigh is non tender and not tensed. NEUROLOGIC EXAM: Alert and oriented 3 speech is normal, although sometimes acts confused and slow to respond. Forgetful. No focal sensory or strength deficits. Follows commands. PSYCHIATRIC: Mood flat. SKIN: No rash or lesions. - Constitutional Vitals: Temp Pulse Resp BP Pulse Ox 99.1 F 92 H 15 131/82 96 09/26/16 15:45 09/26/16 15:45 09/26/16 15:45 09/26/16 15:45 09/26/16 07:50 General appearance: Present: no acute distress, other (sitting up in bed) Results - Labs CBC & Chem 7: 09/26/16 05:40 09/26/16 05:40 Labs: Laboratory Last Values WBC 17.5 K/mm3 (4.5-11.0) H 09/26/16 05:40 RBC 4.40 M/mm3 (3.65-5.03) 09/26/16 05:40 Hgb 10.9 gm/dl (11.8-15.2) L 09/26/16 05:40 Hct 32.5 % (35.5-45.6) L 09/26/16 05:40 MCV 74 fl (84-94) L 09/26/16 05:40 MCH 25 pg (28-32) L 09/26/16 05:40 MCHC 33 % (32-34) 09/26/16 05:40 RDW 14.6 % (13.2-15.2) 09/26/16 05:40 Plt Count 129 K/mm3 (140-440) L 09/26/16 05:40 Lymph % (Auto) 11.4 % (13.4-35.0) L 09/25/16 05:36 [place] % (Auto) 12.0 % (0.0-7.3) H 09/25/16 05:36 Eos % (Auto) 0.9 % (0.0-4.3) 09/25/16 05:36 Baso % (Auto) 0.5 % (0.0-1.8) 09/25/16 05:36 Lymph # 2.0 K/mm3 (1.2-5.4) 09/25/16 05:36 [place] # 2.1 K/mm3 (0.0-0.8) H 09/25/16 05:36 Eos # 0.2 K/mm3 (0.0-0.4) 09/25/16 05:36 Baso # 0.1 K/mm3 (0.0-0.1) 09/25/16 05:36 Add Manual Diff Complete 09/26/16 05:40 Total Counted 100 09/26/16 05:40 Seg Neutrophils % 75.2 % (40.0-70.0) H 09/25/16 05:36 Seg Neuts % (Manual) 76.0 % (40.0-70.0) H 09/26/16 05:40 Band Neutrophils % 1.0 % 09/26/16 05:40 Lymphocytes % (Manual) 11.0 % (13.4-35.0) L 09/26/16 05:40 Reactive Lymphs % (Man) 0 % 09/26/16 05:40 Monocytes % (Manual) 10.0 % (0.0-7.3) H 09/26/16 05:40 Eosinophils % (Manual) 1.0 % (0.0-4.3) 09/26/16 05:40 Basophils % (Manual) 0 % (0.0-1.8) 09/26/16 05:40 Metamyelocytes % 1.0 % 09/26/16 05:40 Myelocytes % 0 % 09/26/16 05:40 Promyelocytes % 0 % 09/26/16 05:40 Blast Cells % 0 % 09/26/16 05:40 Nucleated RBC % Not Reportable 09/26/16 05:40 Seg Neutrophils # 12.9 K/mm3 (1.8-7.7) H 09/25/16 05:36 Seg Neutrophils # Man 13.3 K/mm3 (1.8-7.7) H 09/26/16 05:40 Band Neutrophils # 0.2 K/mm3 09/26/16 05:40 Lymphocytes # (Manual) 1.9 K/mm3 (1.2-5.4) 09/26/16 05:40 Abs React Lymphs (Man) 0.0 K/mm3 09/26/16 05:40 Monocytes # (Manual) 1.8 K/mm3 (0.0-0.8) H 09/26/16 05:40 Eosinophils # (Manual) 0.2 K/mm3 (0.0-0.4) 09/26/16 05:40 Basophils # (Manual) 0.0 K/mm3 (0.0-0.1) 09/26/16 05:40 Metamyelocytes # 0.2 K/mm3 09/26/16 05:40 Myelocytes # 0.0 K/mm3 09/26/16 05:40 Promyelocytes # 0.0 K/mm3 09/26/16 05:40 Blast Cells # 0.0 K/mm3 09/26/16 05:40 WBC Morphology Not Reportable 09/26/16 05:40 Hypersegmented Neuts Not Reportable 09/26/16 05:40 Hyposegmented Neuts Not Reportable 09/26/16 05:40 Hypogranular Neuts Not Reportable 09/26/16 05:40 Smudge Cells Not Reportable 09/26/16 05:40 Toxic Granulation Not Reportable 09/26/16 05:40 Toxic Vacuolation Not Reportable 09/26/16 05:40 Dohle Bodies Not Reportable 09/26/16 05:40 Pelger-Huet Anomaly Not Reportable 09/26/16 05:40 Laila Rods Not Reportable 09/26/16 05:40 Platelet Estimate Appears decreased 09/26/16 05:40 Clumped Platelets Not Reportable 09/26/16 05:40 Plt Clumps, EDTA Not Reportable 09/26/16 05:40 Large Platelets Not Reportable 09/26/16 05:40 Giant Platelets Not Reportable 09/26/16 05:40 Platelet Satelliting Not Reportable 09/26/16 05:40 Plt Morphology Comment Not Reportable 09/26/16 05:40 RBC Morphology Not Reportable 09/26/16 05:40 Dimorphic RBCs Not Reportable 09/26/16 05:40 Polychromasia Not Reportable 09/26/16 05:40 Hypochromasia 1+ 09/26/16 05:40 Poikilocytosis Few 09/26/16 05:40 Anisocytosis 1+ 09/26/16 05:40 Microcytosis Not Reportable 09/26/16 05:40 Macrocytosis Not Reportable 09/26/16 05:40 Spherocytes Not Reportable 09/26/16 05:40 Pappenheimer Bodies Not Reportable 09/26/16 05:40 Sickle Cells Not Reportable 09/26/16 05:40 Target Cells Not Reportable 09/26/16 05:40 Tear Drop Cells Not Reportable 09/26/16 05:40 Ovalocytes Not Reportable 09/26/16 05:40 Stomatocytes Few 09/19/16 05:30 Helmet Cells Not Reportable 09/26/16 05:40 Brandt-Garnet Bodies Not Reportable 09/26/16 05:40 Prescott Rings Not Reportable 09/26/16 05:40 Odon Cells Not Reportable 09/26/16 05:40 Bite Cells Not Reportable 09/26/16 05:40 Crenated Cell Not Reportable 09/26/16 05:40 Elliptocytes Not Reportable 09/26/16 05:40 Acanthocytes (Spur) Not Reportable 09/26/16 05:40 Rouleaux Not Reportable 09/26/16 05:40 Hemoglobin C Crystals Not Reportable 09/26/16 05:40 Schistocytes Not Reportable 09/26/16 05:40 Malaria parasites Not Reportable 09/26/16 05:40 Suhail Bodies Not Reportable 09/26/16 05:40 Hem Pathologist Commnt No 09/26/16 05:40 Sodium 130 mmol/L (137-145) L 09/26/16 05:40 Potassium 5.1 mmol/L (3.6-5.0) H 09/26/16 05:40 Chloride 89.8 mmol/L (98-107) L 09/26/16 05:40 Carbon Dioxide 24 mmol/L (22-30) 09/26/16 05:40 Anion Gap 21 mmol/L 09/26/16 05:40 BUN 69 mg/dL (9-20) H 09/26/16 05:40 Creatinine 12.5 mg/dL (0.8-1.5) H 09/26/16 05:40 Estimated GFR 6 ml/min 09/26/16 05:40 BUN/Creatinine Ratio 5.52 % 09/26/16 05:40 Glucose 99 mg/dL (75-100) 09/26/16 05:40 POC Glucose 115 (70-105) H 09/18/16 07:56 Lactic Acid 1.4 mmol/L (0.7-2.0) 09/20/16 12:12 Calcium 9.0 mg/dL (8.4-10.2) 09/26/16 05:40 Total Bilirubin 0.2 mg/dL (0.1-1.2) 09/19/16 06:20 Direct Bilirubin < 0.2 mg/dL (0-0.2) 09/19/16 06:20 Indirect Bilirubin 0.0 mg/dL 09/19/16 06:20 AST 1264 units/L (5-40) H 09/19/16 06:20 ALT 238 units/L (7-56) H 09/19/16 06:20 Alkaline Phosphatase 57 units/L (35-129) 09/19/16 06:20 Total Creatine Kinase 9221 units/L (55-170) H 09/26/16 05:40 CK-MB (CK-2) 292.8 ng/mL (0.0-4.0) H 09/19/16 06:17 CK-MB (CK-2) Rel Index 0.3 (0-4) 09/19/16 06:17 Serum Total Protein 7.3 g/dL (6.1-8.1) 09/18/16 14:48 Total Protein 6.4 g/dL (6.3-8.2) D 09/19/16 06:20 Albumin 3.1 g/dL (3.9-5) L 09/19/16 06:20 Albumin/Globulin Ratio 0.9 % 09/19/16 06:20 Nivsb-6-Axzvdwexw 0.3 g/dL (0.2-0.3) 09/18/16 14:48 Dwtxu-2-Wwrwuhqmq 0.9 g/dL (0.5-0.9) 09/18/16 14:48 Beta Globulins 0.5 g/dL (0.2-0.5) 09/18/16 14:48 Gamma Globulins 1.3 g/dL (0.8-1.7) 09/18/16 14:48 Abnorm Protein Band 1 see below (()) 09/18/16 14:48 PEP Interpretation see below (()) 09/18/16 14:48 Salicylates < 0.3 mg/dL (2.8-20.0) L 09/18/16 08:08 Acetaminophen < 15.0 ug/mL (10.0-30.0) 09/18/16 08:08 Plasma/Serum Alcohol < 0.01 gm% (0-0.07) 09/18/16 08:08 Complement C3 141 mg/dL (90-180) 09/18/16 14:48 Complement C4 62 mg/dL (16-47) H 09/18/16 14:48 Hepatitis A IgM Ab -1 (NonReactive) 09/23/16 21:00 Hep Bs Antigen Non-reactive (Negative) 09/23/16 21:00 Hep B Core IgM Ab Non-reactive (NonReactive) 09/23/16 21:00 Hepatitis C Antibody Non-reactive (NonReactive) 09/23/16 21:00 - Imaging and Cardiology Imaging and Cardiology: CT of the right thigh performed another exclude compartment syndrome MRI suggested and this has been ordered by me
[2016-09-26] MEDS: LOVENOX SUB-Q SCH (22:23)
[2016-09-26] MEDS: FLEXERIL PO PRN (22:24)
--- NOTE | 2016-09-27 07:27 | Vascular Lab Report ---
CAROTID DUPLEX STUDY: RIGHT PSVEDV CCA PROX:[id number] CCA DIST:[id number] ICA PROX: 7025 ICA MID: 9837 ICA DIST: 8839 ECA: 9617 VERT: 53 15 LEFT PSVEDV CCA PROX:[id number] CCA DIST: 9219 ICA PROX: 6214 ICA MID: 7924 ICA DIST: 8127 ECA: 23332 VERT: 62 21 REASON FOR EXAM: CVA. COMMENTS ON THE RIGHT: Doppler frequency analysis is consistent with 16 to 49 percent diameter reduction of the internal carotid artery. Minimal amount of plaque is seen. The common carotid artery is patent. The external carotid artery is patent. The vertebral artery has antegrade flow. COMMENTS ON THE LEFT: Doppler frequency analysis is consistent with 16 to 49 percent diameter reduction of the internal carotid artery. Minimal amount of plaque is seen. The common carotid artery is patent. The external carotid artery is patent. The vertebral artery has antegrade flow. IMPRESSION: Less than 50% diameter reduction in the internal carotid arteries bilaterally. Consider repeat carotid artery duplex in 12 months.
[2016-09-27 08:59] LABS: Hematocrit 29.9 % (35.5-45.6); Mean Corpuscular HGB Conc 34 % (32-34); Mean Corpuscular Volume 74 fl (84-94); Platelet Count 138 K/mm3 (140-440); Red Blood Count 4.03 M/mm3 (3.65-5.03); Red Cell Distribution Width 14.7 % (13.2-15.2); White Blood Count 17.9 K/mm3 (4.5-11.0)
[2016-09-27 09:13] LABS: Mean Corpuscular Hemoglobin 25 pg (28-32)
[2016-09-27 09:16] LABS: BUN/Creatinine Ratio 5.82; Calcium 8.3 mg/dL (8.4-10.2); Chloride 85.7 mmol/L (98-107); Potassium 4.9 mmol/L (3.6-5.0)
[2016-09-27 10:18] LABS: Anisocytosis 1+; Basophils % (Manual) 0 % (0.0-1.8); Blastocytes % (Manual) 0 %; Hypochromasia 1+; Total Cells Counted Percent 7.1
[2016-09-27 10:21] LABS: Diff Status Complete; Polychromasia Few; Schistocytes Rare
[2016-09-27] MEDS: FLEXERIL PO PRN ×2 (11:13→17:50)
[2016-09-27] MEDS: PERCOCET 5/325 PO PRN ×2 (11:14→17:50)
--- NOTE | 2016-09-27 13:22 | Progress Note ---
Assessment and Plan Assessment and plan: Admitted 09/18/16: Patient is a 31-year-old black man with a past medical history significant for schizophrenia and watch year he had to change bandage area bipolar disorder, who presents to the emergency department via EMS after being found on the floor of his bathroom this morning by his roommate. Patient states that "I had a stroke last night". Patient states that he was not able to move his arms or his legs. He states he was lying on the floor all night. Initially it appears he was unable to move his right lower extremity was subsequently this improved. He is unable to give me any information as to his medical history except that he states he takes some bipolar medication but does not recall the medicines. He does not recall events that led him to the floor. He denies any alcohol or tobacco use. Although later subsequent he said he sometimes drinks. He denies any seizure-like activity. But again is unable to state how he got to the floor. No other family members available to give any more information. In the ER was noted to have a significantly elevated potassium and creatinine kinase are positive for emergency dialysis required. At this time again as stated he is able to move all his extremities. At this time denies any nausea, chest pain , diarrhea, fever, chills, melena bright red blood per rectum. He denies taking any medications. There are no other complaints. R/O Neuroleptic malignant syndrome Right thigh edema doubt compartment syndrome MRI. Acute rhabdomyolysis-present on admission- fluctuating ?med induced.- Improving, continue to do serial CPK Severe hyperkalemia-present on admission-RESOLVED Metabolic encephalopathy-resolved Right lower extremity hemiparesis- ?CVA per MRI, vs CO2 poisoning. Per Neurology neither fits the picture. More towards metabolic vs psychogenic with functional quadplegia, poa Right lower extremity DVT Left upper extremity hemiparesis improved Muscle weakness Hyponatremia Nicotine abuse Elevated LFTs questionable hepatitis Metabolic acidosis Rule out seizure Acute kidney injury likely secondary to rhabdomyolysis with tubular necrosis , poa most likely Dehydration-resolving Metabolic acidosis-with elevated lactates but doubt sepsis Leukocytosis-likely reactive in nature no evidence of infection at this point.-resolved Plan: Continues with dialysis. Permacath placed today As executive relations specialist feels it will probably be on dialysis for some time. Patient did not have any high fevers except for the rhabdomyolysis. He does take haloperidol, Cogentin and hydroxyzine at a facility. Dr. Dunham did finally speak to someone by the name of Nicholsonmike Graham who manages a psych facility [facility] he states that the patient is a resident there for schizophrenia and bipolar. Also states that the patient called out stating that he fell and could not move in the bathtub the day before. Patient started on Lovenox will check with nephrology considering doesn't considering acute kidney injury. Continue with dialysis per executive relations specialist We'll get MRI of the right thigh to rule out compartment syndrome Extensive counseling provided on tobacco cessation. Physical and occupational therapy evaluation. strict i/o avoid nephrotoxins Mental health evaluation still pending DVT and GI prophylaxis 09/13/2016 MRI of the brain without contrast: Bilateral signal abnormality in the globus pallidus as discussed above. Carbon monoxide poisoning is a likely etiology. Operative Report: EXAM: 1. Fluoroscopic-guided conversion of a right internal jugular non-tunneled non- cuffed hemodialysis catheter to a tunneled cuffed hemodialysis catheter. DATE:09/26/16 INDICATION: Acute renal failure requiring prolonged hemodialysis access. MEDICATIONS: Please see nursing report for full details. DEVICES: 23 cm tip to cuff dual lumen hemodialysis catheter PHARMACY RETAIL SUPPORT SPECIALIST: MIKAL ALARCON MD CONTRAST: None PROCEDURE: The risks, benefits, and alternatives were discussed and informed consent was obtained. The patient was transported to the angiography suite in satisfactory/ stable condition and was transported onto the angiography table. The patient was prepped and draped in a sterile fashion. The existing vascath was prepped and draped in a sterile fashion. Suture was cut. 0.035 inch wire was advanced through the Vas-Cath into the IVC. Vas-Cath was removed. The wire was cleaned with ChloraPrep. Over the 0.035 inch wire, serial dilatation was performed with ultimate placement of a peel-away sheath. Reverse tunneled PermCath was inserted to the peel-away sheath and positioned in the right atrium. Peel-away sheath removed. A suitable exit site was identified on the patient's chest inferior and lateral to the venotomy. The site was anesthetized with local anesthetic and the track was anesthetized. Dermatotomy was made. Reverse tunneler was then tunneled from dermatotomy to the venotomy site/catheter. The PermCath was attached to the tunneling device and reverse tunneled between the dermatotomy to the venotomy. The catheter was reassembled. 4-0 Vicryl suture was used to close the venotomy and Dermabond was then applied. 2-0 Ethilon suture was used to secure the catheter at the dermatotomy. The catheter was charged with heparin 1000 units/mL space. The patient was transferred from the angiography suite back to the floor in stable condition. FINDINGS: 1. Excellent flow was obtained through the dialysis catheter with 20 mL syringes. 2. The catheter tip is in the right atrium. IMPRESSION: 1. Fluoroscopic-guided conversion of a right internal jugular non-tunneled non- cuffed hemodialysis catheter to a tunneled cuffed hemodialysis catheter. Disposition: continue inpatient care, outpt hemodialysis setup History Interval history: Patient seen and examined. Follow up on right leg weakness which is still an issue. Patient states he cannot move his right leg; however, he is able to wiggle his right toes. Overnight uneventful. No cp, sob, n/v or severe headaches. Imaging, old records, testing, labs, nursing notes reviewed. Hospitalist Physical - Physical exam Narrative exam: GEN: WDWN, NAD, AWAKE, ALERT, ORIENTATED 3 HEENT: NCAT, PERRL, EOMI, OP CLEAR NECK: SUPPLE, NO THYROMEGALY, NO JVD, NO LAD CVS: RRR, NORMAL S1S2 LUNGS/CHEST: CTA B, NORMAL CHEST EXPANSION B, GOOD AIR ENTRY B ABD: SOFT NTND, GBS, NO REBOUND OR GUARDING EXT/SKIN: NO SIGNIFICANT EDEMA OR RASH MSK: functional right leg quadriplegia NEURO: CN 2-12 GROSSLY INTACT, NO new FOCAL DEFICITS PSY: withdrawn - Constitutional Vitals: Temp Pulse Resp BP Pulse Ox 97.7 F 97 H 20 117/85 98 09/27/16 08:49 09/27/16 08:49 09/27/16 08:49 09/27/16 08:49 09/27/16 08:49 General appearance: Present: no acute distress Results - Labs CBC & Chem 7: 09/27/16 08:19 09/27/16 08:19 Labs: Laboratory Last Values WBC 17.9 K/mm3 (4.5-11.0) H 09/27/16 08:19 RBC 4.03 M/mm3 (3.65-5.03) 09/27/16 08:19 Hgb 10.0 gm/dl (11.8-15.2) L 09/27/16 08:19 Hct 29.9 % (35.5-45.6) L 09/27/16 08:19 MCV 74 fl (84-94) L 09/27/16 08:19 MCH 25 pg (28-32) L 09/27/16 08:19 MCHC 34 % (32-34) 09/27/16 08:19 RDW 14.7 % (13.2-15.2) 09/27/16 08:19 Plt Count 138 K/mm3 (140-440) L 09/27/16 08:19 Lymph % (Auto) 11.4 % (13.4-35.0) L 09/25/16 05:36 Traverse % (Auto) 12.0 % (0.0-7.3) H 09/25/16 05:36 Eos % (Auto) 0.9 % (0.0-4.3) 09/25/16 05:36 Baso % (Auto) 0.5 % (0.0-1.8) 09/25/16 05:36 Lymph # 2.0 K/mm3 (1.2-5.4) 09/25/16 05:36 Traverse # 2.1 K/mm3 (0.0-0.8) H 09/25/16 05:36 Eos # 0.2 K/mm3 (0.0-0.4) 09/25/16 05:36 Baso # 0.1 K/mm3 (0.0-0.1) 09/25/16 05:36 Add Manual Diff Complete 09/27/16 08:19 Total Counted 99 09/27/16 08:19 Seg Neutrophils % 75.2 % (40.0-70.0) H 09/25/16 05:36 Seg Neuts % (Manual) 75.8 % (40.0-70.0) H 09/27/16 08:19 Band Neutrophils % 9.1 % 09/27/16 08:19 Lymphocytes % (Manual) 8.1 % (13.4-35.0) L 09/27/16 08:19 Reactive Lymphs % (Man) 0 % 09/27/16 08:19 Monocytes % (Manual) 6.1 % (0.0-7.3) 09/27/16 08:19 Eosinophils % (Manual) 1.0 % (0.0-4.3) 09/27/16 08:19 Basophils % (Manual) 0 % (0.0-1.8) 09/27/16 08:19 Metamyelocytes % 0 % 09/27/16 08:19 Myelocytes % 0 % 09/27/16 08:19 Promyelocytes % 0 % 09/27/16 08:19 Blast Cells % 0 % 09/27/16 08:19 Nucleated RBC % Not Reportable 09/27/16 08:19 Seg Neutrophils # 12.9 K/mm3 (1.8-7.7) H 09/25/16 05:36 Seg Neutrophils # Man 13.6 K/mm3 (1.8-7.7) H 09/27/16 08:19 Band Neutrophils # 1.6 K/mm3 09/27/16 08:19 Lymphocytes # (Manual) 1.4 K/mm3 (1.2-5.4) 09/27/16 08:19 Abs React Lymphs (Man) 0.0 K/mm3 09/27/16 08:19 Monocytes # (Manual) 1.1 K/mm3 (0.0-0.8) H 09/27/16 08:19 Eosinophils # (Manual) 0.2 K/mm3 (0.0-0.4) 09/27/16 08:19 Basophils # (Manual) 0.0 K/mm3 (0.0-0.1) 09/27/16 08:19 Metamyelocytes # 0.0 K/mm3 09/27/16 08:19 Myelocytes # 0.0 K/mm3 09/27/16 08:19 Promyelocytes # 0.0 K/mm3 09/27/16 08:19 Blast Cells # 0.0 K/mm3 09/27/16 08:19 WBC Morphology Not Reportable 09/27/16 08:19 Hypersegmented Neuts Not Reportable 09/27/16 08:19 Hyposegmented Neuts Not Reportable 09/27/16 08:19 Hypogranular Neuts Not Reportable 09/27/16 08:19 Smudge Cells Not Reportable 09/27/16 08:19 Toxic Granulation Not Reportable 09/27/16 08:19 Toxic Vacuolation Not Reportable 09/27/16 08:19 Dohle Bodies Not Reportable 09/27/16 08:19 Pelger-Huet Anomaly Not Reportable 09/27/16 08:19 Laila Rods Not Reportable 09/27/16 08:19 Platelet Estimate Not Reportable 09/27/16 08:19 Clumped Platelets Not Reportable 09/27/16 08:19 Plt Clumps, EDTA Not Reportable 09/27/16 08:19 Large Platelets Not Reportable 09/27/16 08:19 Giant Platelets Not Reportable 09/27/16 08:19 Platelet Satelliting Not Reportable 09/27/16 08:19 Plt Morphology Comment Not Reportable 09/27/16 08:19 RBC Morphology Not Reportable 09/27/16 08:19 Dimorphic RBCs Not Reportable 09/27/16 08:19 Polychromasia Few 09/27/16 08:19 Hypochromasia 1+ 09/27/16 08:19 Poikilocytosis Not Reportable 09/27/16 08:19 Anisocytosis 1+ 09/27/16 08:19 Microcytosis Not Reportable 09/27/16 08:19 Macrocytosis Not Reportable 09/27/16 08:19 Spherocytes Not Reportable 09/27/16 08:19 Pappenheimer Bodies Not Reportable 09/27/16 08:19 Sickle Cells Not Reportable 09/27/16 08:19 Target Cells Not Reportable 09/27/16 08:19 Tear Drop Cells Not Reportable 09/27/16 08:19 Ovalocytes Not Reportable 09/27/16 08:19 Stomatocytes Few 09/19/16 05:30 Helmet Cells Not Reportable 09/27/16 08:19 Brandt-Lincroft Bodies Not Reportable 09/27/16 08:19 Massena Rings Not Reportable 09/27/16 08:19 Harris Cells Not Reportable 09/27/16 08:19 Bite Cells Not Reportable 09/27/16 08:19 Crenated Cell Not Reportable 09/27/16 08:19 Elliptocytes Not Reportable 09/27/16 08:19 Acanthocytes (Spur) Not Reportable 09/27/16 08:19 Rouleaux Not Reportable 09/27/16 08:19 Hemoglobin C Crystals Not Reportable 09/27/16 08:19 Schistocytes Rare 09/27/16 08:19 Malaria parasites Not Reportable 09/27/16 08:19 Suhail Bodies Not Reportable 09/27/16 08:19 Hem Pathologist Commnt No 09/27/16 08:19 Sodium 129 mmol/L (137-145) L 09/27/16 08:19 Potassium 4.9 mmol/L (3.6-5.0) 09/27/16 08:19 Chloride 85.7 mmol/L (98-107) L 09/27/16 08:19 Carbon Dioxide 21 mmol/L (22-30) L 09/27/16 08:19 Anion Gap 27 mmol/L 09/27/16 08:19 BUN 95 mg/dL (9-20) H 09/27/16 08:19 Creatinine 16.3 mg/dL (0.8-1.5) H 09/27/16 08:19 Estimated GFR 4 ml/min 09/27/16 08:19 BUN/Creatinine Ratio 5.82 % 09/27/16 08:19 Glucose 86 mg/dL (75-100) 09/27/16 08:19 POC Glucose 115 (70-105) H 09/18/16 07:56 Lactic Acid 1.4 mmol/L (0.7-2.0) 09/20/16 12:12 Calcium 8.3 mg/dL (8.4-10.2) L 09/27/16 08:19 Total Bilirubin 0.2 mg/dL (0.1-1.2) 09/19/16 06:20 Direct Bilirubin < 0.2 mg/dL (0-0.2) 09/19/16 06:20 Indirect Bilirubin 0.0 mg/dL 09/19/16 06:20 AST 1264 units/L (5-40) H 09/19/16 06:20 ALT 238 units/L (7-56) H 09/19/16 06:20 Alkaline Phosphatase 57 units/L (35-129) 09/19/16 06:20 Total Creatine Kinase 5564 units/L (55-170) H 09/27/16 08:19 CK-MB (CK-2) 292.8 ng/mL (0.0-4.0) H 09/19/16 06:17 CK-MB (CK-2) Rel Index 0.3 (0-4) 09/19/16 06:17 Serum Total Protein 7.3 g/dL (6.1-8.1) 09/18/16 14:48 Total Protein 6.4 g/dL (6.3-8.2) D 09/19/16 06:20 Albumin 3.1 g/dL (3.9-5) L 09/19/16 06:20 Albumin/Globulin Ratio 0.9 % 09/19/16 06:20 Fucvl-1-Wrwrzfnvh 0.3 g/dL (0.2-0.3) 09/18/16 14:48 Qanyt-2-Iqclsvsfd 0.9 g/dL (0.5-0.9) 09/18/16 14:48 Beta Globulins 0.5 g/dL (0.2-0.5) 09/18/16 14:48 Gamma Globulins 1.3 g/dL (0.8-1.7) 09/18/16 14:48 Abnorm Protein Band 1 see below (()) 09/18/16 14:48 PEP Interpretation see below (()) 09/18/16 14:48 Salicylates < 0.3 mg/dL (2.8-20.0) L 09/18/16 08:08 Acetaminophen < 15.0 ug/mL (10.0-30.0) 09/18/16 08:08 Plasma/Serum Alcohol < 0.01 gm% (0-0.07) 09/18/16 08:08 Complement C3 141 mg/dL (90-180) 09/18/16 14:48 Complement C4 62 mg/dL (16-47) H 09/18/16 14:48 Hepatitis A IgM Ab -1 (NonReactive) 09/23/16 21:00 Hep Bs Antigen Non-reactive (Negative) 09/23/16 21:00 Hep B Core IgM Ab Non-reactive (NonReactive) 09/23/16 21:00 Hepatitis C Antibody Non-reactive (NonReactive) 09/23/16 21:00 - Imaging and Cardiology MRI - head: report reviewed
[2016-09-27] MEDS: HEPARIN IV PRN (16:49)
--- NOTE | 2016-09-27 19:51 | Progress Note ---
Assessment and Plan acute kidney injury patient is currently dialysis dependent He will need to be dialyzed at least 3-4 times a week Patient was seen and supervised on hemodialysis Ultrafiltration goal was reduced today monitor dialysis related labs serial CPK Monitor for recovery of renal function Avoid any follow-up nephrotoxic medications We'll continue to follow and make recommendations from renal standpoint All renal-related questions were answered Subjective Principal diagnosis: bryn, rhabdo Interval history: patient was seen today for follow-up on multiple renal related issues He was also seen and supervised on hemodialysis as well Events of this hospitalization were noted patient seems to be tolerating dialysis treatment well Time of evaluation is around 1:15 in the afternoon Objective - Vital Signs Vital signs: Vital Signs - 12hr 09/27/16 09/27/16 09/27/16 08:49 12:45 13:00 Temperature 97.7 F 98.5 F Pulse Rate 91 H 92 H Pulse Rate [ 97 H Right Radial] Respiratory 20 22 Rate Blood Pressure 141/85 142/84 Blood Pressure 117/85 [Right Arm] O2 Sat by Pulse 98 Oximetry 09/27/16 09/27/16 09/27/16 13:15 13:30 13:45 Temperature Pulse Rate 95 H 96 H 97 H Pulse Rate [ Right Radial] Respiratory Rate Blood Pressure 140/84 139/81 141/86 Blood Pressure [Right Arm] O2 Sat by Pulse Oximetry 09/27/16 09/27/16 09/27/16 14:00 14:15 14:30 Temperature Pulse Rate 96 H 90 91 H Pulse Rate [ Right Radial] Respiratory Rate Blood Pressure 135/84 142/80 141/86 Blood Pressure [Right Arm] O2 Sat by Pulse Oximetry 09/27/16 09/27/16 09/27/16 14:45 15:00 15:15 Temperature Pulse Rate 93 H 93 H 93 H Pulse Rate [ Right Radial] Respiratory Rate Blood Pressure 146/79 138/83 131/86 Blood Pressure [Right Arm] O2 Sat by Pulse Oximetry 09/27/16 09/27/16 09/27/16 15:30 15:45 16:00 Temperature Pulse Rate 94 H 96 H 93 H Pulse Rate [ Right Radial] Respiratory Rate Blood Pressure 128/84 132/87 134/76 Blood Pressure [Right Arm] O2 Sat by Pulse Oximetry 09/27/16 09/27/16 09/27/16 16:15 16:30 17:00 Temperature 98.8 F Pulse Rate 95 H 96 H 103 H Pulse Rate [ Right Radial] Respiratory 22 Rate Blood Pressure 133/81 139/82 141/54 Blood Pressure [Right Arm] O2 Sat by Pulse Oximetry - General Appearance General appearance: well-developed EENT: mucous membranes moist Neck: no JVD (Central venous catheter site unremarkable) Respiratory: Present: Clear to Ascultation Cardiology: regular Integumentary: other (right leg still continues to have 1+ edema) - Lab 09/27/16 08:19 09/27/16 08:19 Most recent lab results Calcium 8.3 mg/dL (8.4-10.2) L 09/27/16 08:19
[2016-09-27] MEDS: LOVENOX SUB-Q SCH (23:01)
[2016-09-28] MEDS: FLEXERIL PO PRN ×3 (00:05→22:40)
[2016-09-28] MEDS: PERCOCET 5/325 PO PRN ×3 (00:06→18:16)
--- NOTE | 2016-09-28 11:23 | Progress Note ---
Assessment and Plan - Patient Problems (1) Acute renal failure due to rhabdomyolysis Current Visit: Yes Status: Acute Plan to address problem: - s/p HD/UF - continue alkalanized fluids - per nephrology otherwise - remains dialysis dependent (2) Hyperkalemia Current Visit: Yes Status: Acute Plan to address problem: - resolved - continue HD/UF (3) Rhabdomyolysis Current Visit: Yes Status: Acute Qualifiers: Rhabdomyolysis type: non-traumatic Qualified Code(s): M62.82 - Rhabdomyolysis Plan to address problem: - resolving - CT leg equivocal; re: compartment syndrome - follow MRI report (4) Atelectasis Current Visit: Yes Status: Acute Plan to address problem: - small volume - incentive spirometry - prn CXR's (5) VTE (venous thromboembolism) Current Visit: Yes Status: Acute Plan to address problem: on anticoagulation Subjective Date of service: 09/28/16 Principal diagnosis: Severe Hyperkalemia; Rhabdomyolysis; GERALDINE on Hemodialysis Interval history: seen and examined at bedside; 24hour events reviewed; nursing and respiratory care staff consulted; no adverse overnight events reported to me; resting peacefully; no N/V/F/C; remains dialysis dependent Objective Vital Signs - 12hr 09/28/16 09/28/16 09/28/16 00:00 01:29 06:29 Temperature 97.4 F L Pulse Rate 109 H Pulse Rate [ 99 H From Monitor] Pulse Rate [ 99 H Left Radial] Respiratory 18 Rate Blood Pressure 122/80 [Left Arm] O2 Sat by Pulse 98 Oximetry 09/28/16 08:00 Temperature 98.3 F Pulse Rate Pulse Rate [ 100 H From Monitor] Pulse Rate [ Left Radial] Respiratory 20 Rate Blood Pressure 138/60 [Left Arm] O2 Sat by Pulse 98 Oximetry Constitutional: no acute distress Eyes: non-icteric ENT: oropharynx moist Neck: supple, no lymphadenopathy Effort: normal Ascultation: Bilateral: clear Cardiovascular: regular rate and rhythm Gastrointestinal: normoactive bowel sounds, soft, non-tender, non-distended Integumentary: normal Extremities: no cyanosis, pulses normal, no ischemia or petechiae, edema (Right lower ext) Neurologic: normal mental status, pupils equal and round, CN II-XII normal Psychiatric: other (schizophrenia historyt) CBC and BMP: 09/29/16 07:45 09/29/16 07:45 Abnormal lab findings: Abnormal Labs 09/18/16 09/18/16 09/18/16 14:48 14:48 14:57 WBC RBC Hgb Hct MCV MCH Plt Count Lymph % (Auto) Harding % (Auto) Harding # Seg Neutrophils % Seg Neuts % (Manual) Lymphocytes % (Manual) Monocytes % (Manual) Seg Neutrophils # Seg Neutrophils # Man Monocytes # (Manual) Sodium 135 L Potassium 8.2 H* Chloride Carbon Dioxide 18 L BUN Creatinine 3.8 H Glucose 134 H Lactic Acid Calcium 6.6 L AST ALT Total Creatine Kinase 55282 H CK-MB (CK-2) Albumin Complement C4 62 H 09/18/16 09/19/16 09/19/16 17:20 00:21 05:30 WBC 20.4 H RBC 6.38 H Hgb 16.0 H Hct 48.3 H MCV 76 L D MCH 25 L Plt Count Lymph % (Auto) Hard[place] % (Auto) Harding # Seg Neutrophils % Seg Neuts % (Manual) 84.0 H Lymphocytes % (Manual) 8.0 L Monocytes % (Manual) Seg Neutrophils # Seg Neutrophils # Man 17.1 H Monocytes # (Manual) 1.2 H Sodium Potassium Chloride Carbon Dioxide BUN Creatinine Glucose Lactic Acid Calcium AST ALT Total Creatine Kinase 64293 H 17378 H CK-MB (CK-2) Albumin Complement C4 09/19/16 09/19/16 09/19/16 06:16 06:17 06:20 WBC RBC Hgb Hct MCV MCH Plt Count Lymph % (Auto) Harding % (Auto) Harding # Seg Neutrophils % Seg Neuts % (Manual) Lymphocytes % (Manual) Monocytes % (Manual) Seg Neutrophils # Seg Neutrophils # Man Monocytes # (Manual) Sodium 134 L Potassium Chloride 90.8 L Carbon Dioxide BUN Creatinine 5.1 H Glucose 162 H Lactic Acid Calcium 6.6 L AST 1264 H ALT 238 H Total Creatine Kinase 92587 H CK-MB (CK-2) 292.8 H Albumin 3.1 L Complement C4 09/19/16 09/20/16 09/20/16 10:28 05:00 06:26 WBC 13.8 H RBC 5.70 H Hgb Hct MCV 76 L MCH 25 L Plt Count Lymph % (Auto) Harding % (Auto) 8.8 H Harding # 1.2 H Seg Neutrophils % 76.9 H Seg Neuts % (Manual) Lymphocytes % (Manual) Monocytes % (Manual) Seg Neutrophils # 10.6 H Seg Neutrophils # Man Monocytes # (Manual) Sodium Potassium Chloride Carbon Dioxide BUN Creatinine Glucose Lactic Acid 2.6 H* Calcium AST ALT Total Creatine Kinase 258608 H CK-MB (CK-2) Albumin Complement C4 09/20/16 09/21/16 09/21/16 06:26 09:10 09:10 WBC RBC Hgb 11.7 L Hct 35.3 L D MCV 74 L MCH 25 L Plt Count 131 L Lymph % (Auto) 11.8 L Harding % (Auto) Harding # Seg Neutrophils % 81.0 H Seg Neuts % (Manual) Lymphocytes % (Manual) Monocytes % (Manual) Seg Neutrophils # 8.5 H Seg Neutrophils # Man Monocytes # (Manual) Sodium 136 L 133 L Potassium Chloride 90.1 L 85.3 L Carbon Dioxide 34 H BUN 38 H Creatinine 6.4 H 10.3 H D Glucose 101 H 114 H Lactic Acid Calcium 7.4 L 6.8 L AST ALT Total Creatine Kinase 49109 H CK-MB (CK-2) Albumin Complement C4 09/22/16 09/22/16 09/23/16 06:26 06:26 06:16 WBC 11.8 H 11.6 H RBC Hgb 11.6 L 11.6 L Hct 34.8 L 34.0 L MCV 75 L 74 L MCH 25 L 25 L Plt Count 139 L Lymph % (Auto) Harding % (Auto) 7.9 H Harding # 0.9 H Seg Neutrophils % 75.9 H 75.3 H Seg Neuts % (Manual) Lymphocytes % (Manual) Monocytes % (Manual) Seg Neutrophils # 9.0 H 8.7 H Seg Neutrophils # Man Monocytes # (Manual) Sodium 133 L Potassium Chloride 89.7 L Carbon Dioxide BUN 31 H Creatinine 9.7 H Glucose Lactic Acid Calcium 8.1 L D AST ALT Total Creatine Kinase 73510 H CK-MB (CK-2) Albumin Complement C4 09/23/16 09/24/16 09/24/16 06:16 05:35 05:35 WBC 13.5 H RBC Hgb Hct MCV 75 L MCH 25 L Plt Count Lymph % (Auto) 12.9 L Harding % (Auto) 9.6 H Harding # 1.3 H Seg Neutrophils % 76.2 H Seg Neuts % (Manual) Lymphocytes % (Manual) Monocytes % (Manual) Seg Neutrophils # 10.3 H Seg Neutrophils # Man Monocytes # (Manual) Sodium 133 L 133 L Potassium Chloride 87.6 L 89.1 L Carbon Dioxide 31 H BUN 49 H 50 H Creatinine 11.7 H 11.7 H Glucose 107 H 125 H Lactic Acid Calcium 7.8 L AST ALT Total Creatine Kinase 93173 H 75383 H CK-MB (CK-2) Albumin Complement C4 09/25/16 09/25/16 09/26/16 05:36 05:36 05:40 WBC 17.2 H RBC Hgb 11.3 L Hct 33.7 L MCV 73 L MCH 25 L Plt Count 129 L Lymph % (Auto) 11.4 L Harding % (Auto) 12.0 H Harding # 2.1 H Seg Neutrophils % 75.2 H Seg Neuts % (Manual) Lymphocytes % (Manual) Monocytes % (Manual) Seg Neutrophils # 12.9 H Seg Neutrophils # Man Monocytes # (Manual) Sodium 129 L 130 L Potassium 5.1 H Chloride 84.3 L 89.8 L Carbon Dioxide BUN 72 H 69 H Creatinine 14.2 H 12.5 H Glucose Lactic Acid Calcium 8.2 L AST ALT Total Creatine Kinase 63337 H 9221 H CK-MB (CK-2) Albumin Complement C4 09/26/16 09/27/16 09/27/16 05:40 08:19 08:19 WBC 17.5 H 17.9 H RBC Hgb 10.9 L 10.0 L Hct 32.5 L 29.9 L MCV 74 L 74 L MCH 25 L 25 L Plt Count 129 L 138 L Lymph % (Auto) Harding % (Auto) Harding # Seg Neutrophils % Seg Neuts % (Manual) 76.0 H 75.8 H Lymphocytes % (Manual) 11.0 L 8.1 L Monocytes % (Manual) 10.0 H Seg Neutrophils # Seg Neutrophils # Man 13.3 H 13.6 H Monocytes # (Manual) 1.8 H 1.1 H Sodium 129 L Potassium Chloride 85.7 L Carbon Dioxide 21 L BUN 95 H Creatinine 16.3 H Glucose Lactic Acid Calcium 8.3 L AST ALT Total Creatine Kinase 5564 H CK-MB (CK-2) Albumin Complement C4
--- NOTE | 2016-09-28 11:49 | Progress Note ---
Assessment and Plan Assessment and plan: Admitted 09/18/16: Patient is a 31-year-old black man with a past medical history significant for schizophrenia and watch year he had to change bandage area bipolar disorder, who presents to the emergency department via EMS after being found on the floor of his bathroom this morning by his roommate. Patient states that "I had a stroke last night". Patient states that he was not able to move his arms or his legs. He states he was lying on the floor all night. Initially it appears he was unable to move his right lower extremity was subsequently this improved. He is unable to give me any information as to his medical history except that he states he takes some bipolar medication but does not recall the medicines. He does not recall events that led him to the floor. He denies any alcohol or tobacco use. Although later subsequent he said he sometimes drinks. He denies any seizure-like activity. But again is unable to state how he got to the floor. No other family members available to give any more information. In the ER was noted to have a significantly elevated potassium and creatinine kinase are positive for emergency dialysis required. At this time again as stated he is able to move all his extremities. At this time denies any nausea, chest pain , diarrhea, fever, chills, melena bright red blood per rectum. He denies taking any medications. There are no other complaints. R/O Neuroleptic malignant syndrome Right thigh edema doubt compartment syndrome MRI. Acute rhabdomyolysis-present on admission- fluctuating ?med induced.- Improving, continue to do serial CPK Severe hyperkalemia-present on admission-RESOLVED Metabolic encephalopathy-resolved Right lower extremity hemiparesis- ?CVA per MRI, vs CO2 poisoning. Per Neurology neither fits the picture. More towards metabolic vs psychogenic with functional quadplegia, poa Right lower extremity DVT Left upper extremity hemiparesis improved Muscle weakness Hyponatremia Nicotine abuse Elevated LFTs questionable hepatitis Metabolic acidosis Rule out seizure Acute kidney injury likely secondary to rhabdomyolysis with tubular necrosis , poa most likely Dehydration-resolving Metabolic acidosis-with elevated lactates but doubt sepsis Leukocytosis-likely reactive in nature no evidence of infection at this point.-resolved Plan: Continues with dialysis. Permacath placed today As finished cigar maker feels it will probably be on dialysis for some time. Patient did not have any high fevers except for the rhabdomyolysis. He does take haloperidol, Cogentin and hydroxyzine at a facility. Dr. Dunham did finally speak to someone by the name of Nicholsonmike Graham who manages a psych facility [facility] he states that the patient is a resident there for schizophrenia and bipolar. Also states that the patient called out stating that he fell and could not move in the bathtub the day before. Patient started on Lovenox will check with nephrology considering doesn't considering acute kidney injury. Continue with dialysis per finished cigar maker We'll get MRI of the right thigh to rule out compartment syndrome Extensive counseling provided on tobacco cessation. Physical and occupational therapy evaluation. strict i/o avoid nephrotoxins Mental health evaluation still pending DVT and GI prophylaxis 09/13/2016 MRI of the brain without contrast: Bilateral signal abnormality in the globus pallidus as discussed above. Carbon monoxide poisoning is a likely etiology. Operative Report: EXAM: 1. Fluoroscopic-guided conversion of a right internal jugular non-tunneled non- cuffed hemodialysis catheter to a tunneled cuffed hemodialysis catheter. DATE:09/26/16 INDICATION: Acute renal failure requiring prolonged hemodialysis access. MEDICATIONS: Please see nursing report for full details. DEVICES: 23 cm tip to cuff dual lumen hemodialysis catheter CANAL BOAT CAPTAIN: MIKAL ALARCON MD CONTRAST: None PROCEDURE: The risks, benefits, and alternatives were discussed and informed consent was obtained. The patient was transported to the angiography suite in satisfactory/ stable condition and was transported onto the angiography table. The patient was prepped and draped in a sterile fashion. The existing vascath was prepped and draped in a sterile fashion. Suture was cut. 0.035 inch wire was advanced through the Vas-Cath into the IVC. Vas-Cath was removed. The wire was cleaned with ChloraPrep. Over the 0.035 inch wire, serial dilatation was performed with ultimate placement of a peel-away sheath. Reverse tunneled PermCath was inserted to the peel-away sheath and positioned in the right atrium. Peel-away sheath removed. A suitable exit site was identified on the patient's chest inferior and lateral to the venotomy. The site was anesthetized with local anesthetic and the track was anesthetized. Dermatotomy was made. Reverse tunneler was then tunneled from dermatotomy to the venotomy site/catheter. The PermCath was attached to the tunneling device and reverse tunneled between the dermatotomy to the venotomy. The catheter was reassembled. 4-0 Vicryl suture was used to close the venotomy and Dermabond was then applied. 2-0 Ethilon suture was used to secure the catheter at the dermatotomy. The catheter was charged with heparin 1000 units/mL space. The patient was transferred from the angiography suite back to the floor in stable condition. FINDINGS: 1. Excellent flow was obtained through the dialysis catheter with 20 mL syringes. 2. The catheter tip is in the right atrium. IMPRESSION: 1. Fluoroscopic-guided conversion of a right internal jugular non-tunneled non- cuffed hemodialysis catheter to a tunneled cuffed hemodialysis catheter. Disposition: continue inpatient care, outpt hemodialysis setup I called the chemistry dept, s/p Julio to obtain labs. History Interval history: Patient seen and examined. Follow up on right leg weakness which is still an issue. Patient states he cannot move his right leg; however, he is able to wiggle his right toes. Overnight uneventful. No cp, sob, n/v or severe headaches. Imaging, old records, testing, labs, nursing notes reviewed. Hospitalist Physical - Physical exam Narrative exam: GEN: WDWN, NAD, AWAKE, ALERT, ORIENTATED 3 HEENT: NCAT, PERRL, EOMI, OP CLEAR NECK: SUPPLE, NO THYROMEGALY, NO JVD, NO LAD CVS: RRR, NORMAL S1S2 LUNGS/CHEST: CTA B, NORMAL CHEST EXPANSION B, GOOD AIR ENTRY B ABD: SOFT NTND, GBS, NO REBOUND OR GUARDING EXT/SKIN: NO SIGNIFICANT EDEMA OR RASH MSK: functional right leg quadriplegia NEURO: CN 2-12 GROSSLY INTACT, NO new FOCAL DEFICITS PSY: withdrawn - Constitutional Vitals: Temp Pulse Resp BP Pulse Ox 98.3 F 100 H 20 138/60 98 09/28/16 08:00 09/28/16 08:00 09/28/16 08:00 09/28/16 08:00 09/28/16 08:00 General appearance: Present: no acute distress Results - Labs CBC & Chem 7: 09/27/16 08:19 09/27/16 08:19 Labs: Laboratory Last Values WBC 17.9 K/mm3 (4.5-11.0) H 09/27/16 08:19 RBC 4.03 M/mm3 (3.65-5.03) 09/27/16 08:19 Hgb 10.0 gm/dl (11.8-15.2) L 09/27/16 08:19 Hct 29.9 % (35.5-45.6) L 09/27/16 08:19 MCV 74 fl (84-94) L 09/27/16 08:19 MCH 25 pg (28-32) L 09/27/16 08:19 MCHC 34 % (32-34) 09/27/16 08:19 RDW 14.7 % (13.2-15.2) 09/27/16 08:19 Plt Count 138 K/mm3 (140-440) L 09/27/16 08:19 Lymph % (Auto) 11.4 % (13.4-35.0) L 09/25/16 05:36 Major % (Auto) 12.0 % (0.0-7.3) H 09/25/16 05:36 Eos % (Auto) 0.9 % (0.0-4.3) 09/25/16 05:36 Baso % (Auto) 0.5 % (0.0-1.8) 09/25/16 05:36 Lymph # 2.0 K/mm3 (1.2-5.4) 09/25/16 05:36 Major # 2.1 K/mm3 (0.0-0.8) H 09/25/16 05:36 Eos # 0.2 K/mm3 (0.0-0.4) 09/25/16 05:36 Baso # 0.1 K/mm3 (0.0-0.1) 09/25/16 05:36 Add Manual Diff Complete 09/27/16 08:19 Total Counted 99 09/27/16 08:19 Seg Neutrophils % 75.2 % (40.0-70.0) H 09/25/16 05:36 Seg Neuts % (Manual) 75.8 % (40.0-70.0) H 09/27/16 08:19 Band Neutrophils % 9.1 % 09/27/16 08:19 Lymphocytes % (Manual) 8.1 % (13.4-35.0) L 09/27/16 08:19 Reactive Lymphs % (Man) 0 % 09/27/16 08:19 Monocytes % (Manual) 6.1 % (0.0-7.3) 09/27/16 08:19 Eosinophils % (Manual) 1.0 % (0.0-4.3) 09/27/16 08:19 Basophils % (Manual) 0 % (0.0-1.8) 09/27/16 08:19 Metamyelocytes % 0 % 09/27/16 08:19 Myelocytes % 0 % 09/27/16 08:19 Promyelocytes % 0 % 09/27/16 08:19 Blast Cells % 0 % 09/27/16 08:19 Nucleated RBC % Not Reportable 09/27/16 08:19 Seg Neutrophils # 12.9 K/mm3 (1.8-7.7) H 09/25/16 05:36 Seg Neutrophils # Man 13.6 K/mm3 (1.8-7.7) H 09/27/16 08:19 Band Neutrophils # 1.6 K/mm3 09/27/16 08:19 Lymphocytes # (Manual) 1.4 K/mm3 (1.2-5.4) 09/27/16 08:19 Abs React Lymphs (Man) 0.0 K/mm3 09/27/16 08:19 Monocytes # (Manual) 1.1 K/mm3 (0.0-0.8) H 09/27/16 08:19 Eosinophils # (Manual) 0.2 K/mm3 (0.0-0.4) 09/27/16 08:19 Basophils # (Manual) 0.0 K/mm3 (0.0-0.1) 09/27/16 08:19 Metamyelocytes # 0.0 K/mm3 09/27/16 08:19 Myelocytes # 0.0 K/mm3 09/27/16 08:19 Promyelocytes # 0.0 K/mm3 09/27/16 08:19 Blast Cells # 0.0 K/mm3 09/27/16 08:19 WBC Morphology Not Reportable 09/27/16 08:19 Hypersegmented Neuts Not Reportable 09/27/16 08:19 Hyposegmented Neuts Not Reportable 09/27/16 08:19 Hypogranular Neuts Not Reportable 09/27/16 08:19 Smudge Cells Not Reportable 09/27/16 08:19 Toxic Granulation Not Reportable 09/27/16 08:19 Toxic Vacuolation Not Reportable 09/27/16 08:19 Dohle Bodies Not Reportable 09/27/16 08:19 Pelger-Huet Anomaly Not Reportable 09/27/16 08:19 Laila Rods Not Reportable 09/27/16 08:19 Platelet Estimate Not Reportable 09/27/16 08:19 Clumped Platelets Not Reportable 09/27/16 08:19 Plt Clumps, EDTA Not Reportable 09/27/16 08:19 Large Platelets Not Reportable 09/27/16 08:19 Giant Platelets Not Reportable 09/27/16 08:19 Platelet Satelliting Not Reportable 09/27/16 08:19 Plt Morphology Comment Not Reportable 09/27/16 08:19 RBC Morphology Not Reportable 09/27/16 08:19 Dimorphic RBCs Not Reportable 09/27/16 08:19 Polychromasia Few 09/27/16 08:19 Hypochromasia 1+ 09/27/16 08:19 Poikilocytosis Not Reportable 09/27/16 08:19 Anisocytosis 1+ 09/27/16 08:19 Microcytosis Not Reportable 09/27/16 08:19 Macrocytosis Not Reportable 09/27/16 08:19 Spherocytes Not Reportable 09/27/16 08:19 Pappenheimer Bodies Not Reportable 09/27/16 08:19 Sickle Cells Not Reportable 09/27/16 08:19 Target Cells Not Reportable 09/27/16 08:19 Tear Drop Cells Not Reportable 09/27/16 08:19 Ovalocytes Not Reportable 09/27/16 08:19 Stomatocytes Few 09/19/16 05:30 Helmet Cells Not Reportable 09/27/16 08:19 Brandt-Waller Bodies Not Reportable 09/27/16 08:19 [place] Rings Not Reportable 09/27/16 08:19 [place] Cells Not Reportable 09/27/16 08:19 Bite Cells Not Reportable 09/27/16 08:19 Crenated Cell Not Reportable 09/27/16 08:19 Elliptocytes Not Reportable 09/27/16 08:19 Acanthocytes (Spur) Not Reportable 09/27/16 08:19 Rouleaux Not Reportable 09/27/16 08:19 Hemoglobin C Crystals Not Reportable 09/27/16 08:19 Schistocytes Rare 09/27/16 08:19 Malaria parasites Not Reportable 09/27/16 08:19 Suhail Bodies Not Reportable 09/27/16 08:19 Hem Pathologist Commnt No 09/27/16 08:19 Sodium 129 mmol/L (137-145) L 09/27/16 08:19 Potassium 4.9 mmol/L (3.6-5.0) 09/27/16 08:19 Chloride 85.7 mmol/L (98-107) L 09/27/16 08:19 Carbon Dioxide 21 mmol/L (22-30) L 09/27/16 08:19 Anion Gap 27 mmol/L 09/27/16 08:19 BUN 95 mg/dL (9-20) H 09/27/16 08:19 Creatinine 16.3 mg/dL (0.8-1.5) H 09/27/16 08:19 Estimated GFR 4 ml/min 09/27/16 08:19 BUN/Creatinine Ratio 5.82 % 09/27/16 08:19 Glucose 86 mg/dL (75-100) 09/27/16 08:19 POC Glucose 115 (70-105) H 09/18/16 07:56 Lactic Acid 1.4 mmol/L (0.7-2.0) 09/20/16 12:12 Calcium 8.3 mg/dL (8.4-10.2) L 09/27/16 08:19 Total Bilirubin 0.2 mg/dL (0.1-1.2) 09/19/16 06:20 Direct Bilirubin < 0.2 mg/dL (0-0.2) 09/19/16 06:20 Indirect Bilirubin 0.0 mg/dL 09/19/16 06:20 AST 1264 units/L (5-40) H 09/19/16 06:20 ALT 238 units/L (7-56) H 09/19/16 06:20 Alkaline Phosphatase 57 units/L (35-129) 09/19/16 06:20 Total Creatine Kinase 5564 units/L (55-170) H 09/27/16 08:19 CK-MB (CK-2) 292.8 ng/mL (0.0-4.0) H 09/19/16 06:17 CK-MB (CK-2) Rel Index 0.3 (0-4) 09/19/16 06:17 Serum Total Protein 7.3 g/dL (6.1-8.1) 09/18/16 14:48 Total Protein 6.4 g/dL (6.3-8.2) D 09/19/16 06:20 Albumin 3.1 g/dL (3.9-5) L 09/19/16 06:20 Albumin/Globulin Ratio 0.9 % 09/19/16 06:20 Bqswu-1-Bjvvhygog 0.3 g/dL (0.2-0.3) 09/18/16 14:48 Xxbga-8-Tbcbkhhok 0.9 g/dL (0.5-0.9) 09/18/16 14:48 Beta Globulins 0.5 g/dL (0.2-0.5) 09/18/16 14:48 Gamma Globulins 1.3 g/dL (0.8-1.7) 09/18/16 14:48 Abnorm Protein Band 1 see below (()) 09/18/16 14:48 PEP Interpretation see below (()) 09/18/16 14:48 Ceruloplasmin 24 mg/dL (18-36) 09/25/16 20:05 Salicylates < 0.3 mg/dL (2.8-20.0) L 09/18/16 08:08 Acetaminophen < 15.0 ug/mL (10.0-30.0) 09/18/16 08:08 Plasma/Serum Alcohol < 0.01 gm% (0-0.07) 09/18/16 08:08 Complement C3 141 mg/dL (90-180) 09/18/16 14:48 Complement C4 62 mg/dL (16-47) H 09/18/16 14:48 Hepatitis A IgM Ab -1 (NonReactive) 09/23/16 21:00 Hep Bs Antigen Non-reactive (Negative) 09/23/16 21:00 Hep B Core IgM Ab Non-reactive (NonReactive) 09/23/16 21:00 Hepatitis C Antibody Non-reactive (NonReactive) 09/23/16 21:00
[2016-09-28 12:32] LABS: Hematocrit 26.9 % (35.5-45.6); Hemoglobin 9.1 gm/dl (11.8-15.2); Mean Corpuscular HGB Conc 34 % (32-34); Mean Corpuscular Volume 75 fl (84-94); Platelet Count 177 K/mm3 (140-440); Red Cell Distribution Width 14.7 % (13.2-15.2); White Blood Count 17.2 K/mm3 (4.5-11.0)
[2016-09-28 12:42] LABS: Mean Corpuscular Hemoglobin 25 pg (28-32)
[2016-09-28 12:56] LABS: BUN/Creatinine Ratio 5.58; Calcium 7.9 mg/dL (8.4-10.2); Chloride 88.7 mmol/L (98-107); Potassium 4.7 mmol/L (3.6-5.0)
[2016-09-28] MEDS: LOVENOX SUB-Q SCH (22:41)
[2016-09-29] MEDS: PERCOCET 5/325 PO PRN ×2 (02:09→22:19)
[2016-09-29 08:11] LABS: Hematocrit 26.6 % (35.5-45.6); Hemoglobin 8.8 gm/dl (11.8-15.2); Mean Corpuscular HGB Conc 33 % (32-34); Mean Corpuscular Volume 74 fl (84-94); Platelet Count 219 K/mm3 (140-440)
[2016-09-29 08:19] LABS: Mean Corpuscular Hemoglobin 25 pg (28-32)
[2016-09-29 08:25] LABS: Calcium 8.1 mg/dL (8.4-10.2)
[2016-09-29 08:26] LABS: Chloride 84.8 mmol/L (98-107); Potassium 5.2 mmol/L (3.6-5.0)
[2016-09-29] MEDS ORDERED: MILK OF MAGNESIA PO ONE (10:00)
--- NOTE | 2016-09-29 11:09 | Progress Note ---
Assessment and Plan Assessment and plan: Admitted 09/18/16: Patient is a 31-year-old black man with a past medical history significant for schizophrenia and watch year he had to change bandage area bipolar disorder, who presents to the emergency department via EMS after being found on the floor of his bathroom this morning by his roommate. Patient states that "I had a stroke last night". Patient states that he was not able to move his arms or his legs. He states he was lying on the floor all night. Initially it appears he was unable to move his right lower extremity was subsequently this improved. He is unable to give me any information as to his medical history except that he states he takes some bipolar medication but does not recall the medicines. He does not recall events that led him to the floor. He denies any alcohol or tobacco use. Although later subsequent he said he sometimes drinks. He denies any seizure-like activity. But again is unable to state how he got to the floor. No other family members available to give any more information. In the ER was noted to have a significantly elevated potassium and creatinine kinase are positive for emergency dialysis required. At this time again as stated he is able to move all his extremities. At this time denies any nausea, chest pain , diarrhea, fever, chills, melena bright red blood per rectum. He denies taking any medications. There are no other complaints. R/O Neuroleptic malignant syndrome Right thigh edema doubt compartment syndrome MRI. Acute rhabdomyolysis-present on admission- fluctuating ?med induced.- Improving, continue to do serial CPK Severe hyperkalemia-present on admission-RESOLVED Metabolic encephalopathy-resolved Right lower extremity hemiparesis- ?CVA per MRI, vs CO2 poisoning. Per Neurology neither fits the picture. More towards metabolic vs psychogenic with functional quadplegia, poa Right lower extremity DVT Left upper extremity hemiparesis improved Muscle weakness Hyponatremia Nicotine abuse Elevated LFTs questionable hepatitis Metabolic acidosis Rule out seizure Acute kidney injury likely secondary to rhabdomyolysis with tubular necrosis , poa most likely Dehydration-resolving Metabolic acidosis-with elevated lactates but doubt sepsis Leukocytosis-likely reactive in nature no evidence of infection at this point.-resolved Plan: Continues with dialysis. Permacath placed today As undercollar maker feels it will probably be on dialysis for some time. Patient did not have any high fevers except for the rhabdomyolysis. He does take haloperidol, Cogentin and hydroxyzine at a facility. Dr. Dunham did finally speak to someone by the name of Nicholsonmike Graham who manages a psych facility [facility] he states that the patient is a resident there for schizophrenia and bipolar. Also states that the patient called out stating that he fell and could not move in the bathtub the day before. Patient started on Lovenox will check with nephrology considering doesn't considering acute kidney injury. Continue with dialysis per undercollar maker We'll get MRI of the right thigh to rule out compartment syndrome Extensive counseling provided on tobacco cessation. Physical and occupational therapy evaluation. strict i/o avoid nephrotoxins Mental health evaluation still pending DVT and GI prophylaxis 09/13/2016 MRI of the brain without contrast: Bilateral signal abnormality in the globus pallidus as discussed above. Carbon monoxide poisoning is a likely etiology. Operative Report: EXAM: 1. Fluoroscopic-guided conversion of a right internal jugular non-tunneled non- cuffed hemodialysis catheter to a tunneled cuffed hemodialysis catheter. DATE:09/26/16 INDICATION: Acute renal failure requiring prolonged hemodialysis access. MEDICATIONS: Please see nursing report for full details. DEVICES: 23 cm tip to cuff dual lumen hemodialysis catheter PHYSICAL THERAPY SUPERVISOR: MIKAL ALARCON MD CONTRAST: None PROCEDURE: The risks, benefits, and alternatives were discussed and informed consent was obtained. The patient was transported to the angiography suite in satisfactory/ stable condition and was transported onto the angiography table. The patient was prepped and draped in a sterile fashion. The existing vascath was prepped and draped in a sterile fashion. Suture was cut. 0.035 inch wire was advanced through the Vas-Cath into the IVC. Vas-Cath was removed. The wire was cleaned with ChloraPrep. Over the 0.035 inch wire, serial dilatation was performed with ultimate placement of a peel-away sheath. Reverse tunneled PermCath was inserted to the peel-away sheath and positioned in the right atrium. Peel-away sheath removed. A suitable exit site was identified on the patient's chest inferior and lateral to the venotomy. The site was anesthetized with local anesthetic and the track was anesthetized. Dermatotomy was made. Reverse tunneler was then tunneled from dermatotomy to the venotomy site/catheter. The PermCath was attached to the tunneling device and reverse tunneled between the dermatotomy to the venotomy. The catheter was reassembled. 4-0 Vicryl suture was used to close the venotomy and Dermabond was then applied. 2-0 Ethilon suture was used to secure the catheter at the dermatotomy. The catheter was charged with heparin 1000 units/mL space. The patient was transferred from the angiography suite back to the floor in stable condition. FINDINGS: 1. Excellent flow was obtained through the dialysis catheter with 20 mL syringes. 2. The catheter tip is in the right atrium. IMPRESSION: 1. Fluoroscopic-guided conversion of a right internal jugular non-tunneled non- cuffed hemodialysis catheter to a tunneled cuffed hemodialysis catheter. Disposition: continue inpatient care, outpt hemodialysis setup pending History Interval history: Patient seen and examined. Follow up on right leg weakness which is still an issue. Patient states he cannot move his right leg; however, he is able to wiggle his right toes. Overnight uneventful. No cp, sob, n/v or severe headaches. Imaging, old records, testing, labs, nursing notes reviewed. Hospitalist Physical - Physical exam Narrative exam: GEN: WDWN, NAD, AWAKE, ALERT, ORIENTATED 3 HEENT: NCAT, PERRL, EOMI, OP CLEAR NECK: SUPPLE, NO THYROMEGALY, NO JVD, NO LAD CVS: RRR, NORMAL S1S2 LUNGS/CHEST: CTA B, NORMAL CHEST EXPANSION B, GOOD AIR ENTRY B ABD: SOFT NTND, GBS, NO REBOUND OR GUARDING EXT/SKIN: NO SIGNIFICANT EDEMA OR RASH MSK: functional right leg quadriplegia NEURO: CN 2-12 GROSSLY INTACT, NO new FOCAL DEFICITS PSY: withdrawn - Constitutional Vitals: Temp Pulse Resp BP Pulse Ox 98.5 F 100 H 18 132/78 98 09/29/16 08:00 09/29/16 08:00 09/29/16 08:00 09/29/16 08:00 09/29/16 08:00 General appearance: Present: no acute distress Results - Labs CBC & Chem 7: 09/29/16 07:45 09/29/16 07:45 Labs: Laboratory Last Values WBC 19.0 K/mm3 (4.5-11.0) H 09/29/16 07:45 RBC 3.60 M/mm3 (3.65-5.03) L 09/29/16 07:45 Hgb 8.8 gm/dl (11.8-15.2) L 09/29/16 07:45 Hct 26.6 % (35.5-45.6) L 09/29/16 07:45 MCV 74 fl (84-94) L 09/29/16 07:45 MCH 25 pg (28-32) L 09/29/16 07:45 MCHC 33 % (32-34) 09/29/16 07:45 RDW 15.0 % (13.2-15.2) 09/29/16 07:45 Plt Count 219 K/mm3 (140-440) 09/29/16 07:45 Lymph % (Auto) 11.4 % (13.4-35.0) L 09/25/16 05:36 Roane % (Auto) 12.0 % (0.0-7.3) H 09/25/16 05:36 Eos % (Auto) 0.9 % (0.0-4.3) 09/25/16 05:36 Baso % (Auto) 0.5 % (0.0-1.8) 09/25/16 05:36 Lymph # 2.0 K/mm3 (1.2-5.4) 09/25/16 05:36 Roane # 2.1 K/mm3 (0.0-0.8) H 09/25/16 05:36 Eos # 0.2 K/mm3 (0.0-0.4) 09/25/16 05:36 Baso # 0.1 K/mm3 (0.0-0.1) 09/25/16 05:36 Add Manual Diff Complete 09/27/16 08:19 Total Counted 99 09/27/16 08:19 Seg Neutrophils % 75.2 % (40.0-70.0) H 09/25/16 05:36 Seg Neuts % (Manual) 75.8 % (40.0-70.0) H 09/27/16 08:19 Band Neutrophils % 9.1 % 09/27/16 08:19 Lymphocytes % (Manual) 8.1 % (13.4-35.0) L 09/27/16 08:19 Reactive Lymphs % (Man) 0 % 09/27/16 08:19 Monocytes % (Manual) 6.1 % (0.0-7.3) 09/27/16 08:19 Eosinophils % (Manual) 1.0 % (0.0-4.3) 09/27/16 08:19 Basophils % (Manual) 0 % (0.0-1.8) 09/27/16 08:19 Metamyelocytes % 0 % 09/27/16 08:19 Myelocytes % 0 % 09/27/16 08:19 Promyelocytes % 0 % 09/27/16 08:19 Blast Cells % 0 % 09/27/16 08:19 Nucleated RBC % Not Reportable 09/27/16 08:19 Seg Neutrophils # 12.9 K/mm3 (1.8-7.7) H 09/25/16 05:36 Seg Neutrophils # Man 13.6 K/mm3 (1.8-7.7) H 09/27/16 08:19 Band Neutrophils # 1.6 K/mm3 09/27/16 08:19 Lymphocytes # (Manual) 1.4 K/mm3 (1.2-5.4) 09/27/16 08:19 Abs React Lymphs (Man) 0.0 K/mm3 09/27/16 08:19 Monocytes # (Manual) 1.1 K/mm3 (0.0-0.8) H 09/27/16 08:19 Eosinophils # (Manual) 0.2 K/mm3 (0.0-0.4) 09/27/16 08:19 Basophils # (Manual) 0.0 K/mm3 (0.0-0.1) 09/27/16 08:19 Metamyelocytes # 0.0 K/mm3 09/27/16 08:19 Myelocytes # 0.0 K/mm3 09/27/16 08:19 Promyelocytes # 0.0 K/mm3 09/27/16 08:19 Blast Cells # 0.0 K/mm3 09/27/16 08:19 WBC Morphology Not Reportable 09/27/16 08:19 Hypersegmented Neuts Not Reportable 09/27/16 08:19 Hyposegmented Neuts Not Reportable 09/27/16 08:19 Hypogranular Neuts Not Reportable 09/27/16 08:19 Smudge Cells Not Reportable 09/27/16 08:19 Toxic Granulation Not Reportable 09/27/16 08:19 Toxic Vacuolation Not Reportable 09/27/16 08:19 Dohle Bodies Not Reportable 09/27/16 08:19 Pelger-Huet Anomaly Not Reportable 09/27/16 08:19 Laila Rods Not Reportable 09/27/16 08:19 Platelet Estimate Not Reportable 09/27/16 08:19 Clumped Platelets Not Reportable 09/27/16 08:19 Plt Clumps, EDTA Not Reportable 09/27/16 08:19 Large Platelets Not Reportable 09/27/16 08:19 Giant Platelets Not Reportable 09/27/16 08:19 Platelet Satelliting Not Reportable 09/27/16 08:19 Plt Morphology Comment Not Reportable 09/27/16 08:19 RBC Morphology Not Reportable 09/27/16 08:19 Dimorphic RBCs Not Reportable 09/27/16 08:19 Polychromasia Few 09/27/16 08:19 Hypochromasia 1+ 09/27/16 08:19 Poikilocytosis Not Reportable 09/27/16 08:19 Anisocytosis 1+ 09/27/16 08:19 Microcytosis Not Reportable 09/27/16 08:19 Macrocytosis Not Reportable 09/27/16 08:19 Spherocytes Not Reportable 09/27/16 08:19 Pappenheimer Bodies Not Reportable 09/27/16 08:19 Sickle Cells Not Reportable 09/27/16 08:19 Target Cells Not Reportable 09/27/16 08:19 Tear Drop Cells Not Reportable 09/27/16 08:19 Ovalocytes Not Reportable 09/27/16 08:19 Stomatocytes Few 09/19/16 05:30 Helmet Cells Not Reportable 09/27/16 08:19 Brand[place] Bodies Not Reportable 09/27/16 08:19 [place] Rings Not Reportable 09/27/16 08:19 Clanton Cells Not Reportable 09/27/16 08:19 Bite Cells Not Reportable 09/27/16 08:19 Crenated Cell Not Reportable 09/27/16 08:19 Elliptocytes Not Reportable 09/27/16 08:19 Acanthocytes (Spur) Not Reportable 09/27/16 08:19 Rouleaux Not Reportable 09/27/16 08:19 Hemoglobin C Crystals Not Reportable 09/27/16 08:19 Schistocytes Rare 09/27/16 08:19 Malaria parasites Not Reportable 09/27/16 08:19 Suhail Bodies Not Reportable 09/27/16 08:19 Hem Pathologist Commnt No 09/27/16 08:19 Sodium 127 mmol/L (137-145) L 09/29/16 07:45 Potassium 5.2 mmol/L (3.6-5.0) H 09/29/16 07:45 Chloride 84.8 mmol/L (98-107) L 09/29/16 07:45 Carbon Dioxide 24 mmol/L (22-30) 09/29/16 07:45 Anion Gap 23 mmol/L 09/29/16 07:45 BUN 81 mg/dL (9-20) H 09/29/16 07:45 Creatinine 13.5 mg/dL (0.8-1.5) H 09/29/16 07:45 Estimated GFR 5 ml/min 09/29/16 07:45 BUN/Creatinine Ratio 6.00 % 09/29/16 07:45 Glucose 96 mg/dL (75-100) 09/29/16 07:45 POC Glucose 115 (70-105) H 09/18/16 07:56 Lactic Acid 1.4 mmol/L (0.7-2.0) 09/20/16 12:12 Calcium 8.1 mg/dL (8.4-10.2) L 09/29/16 07:45 Total Bilirubin 0.2 mg/dL (0.1-1.2) 09/19/16 06:20 Direct Bilirubin < 0.2 mg/dL (0-0.2) 09/19/16 06:20 Indirect Bilirubin 0.0 mg/dL 09/19/16 06:20 AST 1264 units/L (5-40) H 09/19/16 06:20 ALT 238 units/L (7-56) H 09/19/16 06:20 Alkaline Phosphatase 57 units/L (35-129) 09/19/16 06:20 Total Creatine Kinase 2407 units/L (55-170) H 09/29/16 07:45 CK-MB (CK-2) 292.8 ng/mL (0.0-4.0) H 09/19/16 06:17 CK-MB (CK-2) Rel Index 0.3 (0-4) 09/19/16 06:17 Serum Total Protein 7.3 g/dL (6.1-8.1) 09/18/16 14:48 Total Protein 6.4 g/dL (6.3-8.2) D 09/19/16 06:20 Albumin 3.1 g/dL (3.9-5) L 09/19/16 06:20 Albumin/Globulin Ratio 0.9 % 09/19/16 06:20 Frvfo-1-Hdmudmzok 0.3 g/dL (0.2-0.3) 09/18/16 14:48 Qezas-9-Xhcmmstqv 0.9 g/dL (0.5-0.9) 09/18/16 14:48 Beta Globulins 0.5 g/dL (0.2-0.5) 09/18/16 14:48 Gamma Globulins 1.3 g/dL (0.8-1.7) 09/18/16 14:48 Abnorm Protein Band 1 see below (()) 09/18/16 14:48 PEP Interpretation see below (()) 09/18/16 14:48 Ceruloplasmin 24 mg/dL (18-36) 09/25/16 20:05 Salicylates < 0.3 mg/dL (2.8-20.0) L 09/18/16 08:08 Acetaminophen < 15.0 ug/mL (10.0-30.0) 09/18/16 08:08 Plasma/Serum Alcohol < 0.01 gm% (0-0.07) 09/18/16 08:08 Complement C3 141 mg/dL (90-180) 09/18/16 14:48 Complement C4 62 mg/dL (16-47) H 09/18/16 14:48 Hepatitis A IgM Ab -1 (NonReactive) 09/23/16 21:00 Hep Bs Antigen Non-reactive (Negative) 09/23/16 21:00 Hep B Core IgM Ab Non-reactive (NonReactive) 09/23/16 21:00 Hepatitis C Antibody Non-reactive (NonReactive) 09/23/16 21:00
--- NOTE | 2016-09-29 12:25 | Progress Note ---
Assessment and Plan - Patient Problems (1) Acute renal failure due to rhabdomyolysis Current Visit: Yes Status: Acute (2) Hyperkalemia Current Visit: Yes Status: Acute (3) Rhabdomyolysis Current Visit: Yes Status: Acute Qualifiers: Rhabdomyolysis type: non-traumatic Qualified Code(s): M62.82 - Rhabdomyolysis (4) Atelectasis Current Visit: Yes Status: Acute Subjective Date of service: 09/29/16 Principal diagnosis: Severe Hyperkalemia; Rhabdomyolysis; GERALDINE on Hemodialysis Interval history: seen and examined at bedside; 24hour events reviewed; nursing and respiratory care staff consulted; no adverse overnight events reported to me; Objective Vital Signs - 12hr 09/29/16 09/29/16 01:00 08:00 Temperature 98.5 F Pulse Rate [ 100 H From Monitor] Respiratory 20 18 Rate Blood Pressure 132/78 [Left Arm] O2 Sat by Pulse 98 Oximetry Constitutional: no acute distress Eyes: non-icteric ENT: oropharynx moist Neck: supple, no lymphadenopathy Effort: normal Ascultation: Bilateral: clear Cardiovascular: regular rate and rhythm Gastrointestinal: normoactive bowel sounds, soft, non-tender, non-distended Integumentary: normal Extremities: no cyanosis, no edema, pulses normal, no ischemia or petechiae Neurologic: normal mental status, non-focal exam, motor strength normal and Psychiatric: other (schizophrenic) CBC and BMP: 09/29/16 07:45 09/29/16 07:45 Abnormal lab findings: Abnormal Labs 09/18/16 09/18/16 09/18/16 14:48 14:48 14:57 WBC RBC Hgb Hct MCV MCH Plt Count Lymph % (Auto) Pender % (Auto) Pender # Seg Neutrophils % Seg Neuts % (Manual) Lymphocytes % (Manual) Monocytes % (Manual) Seg Neutrophils # Seg Neutrophils # Man Monocytes # (Manual) Sodium 135 L Potassium 8.2 H* Chloride Carbon Dioxide 18 L BUN Creatinine 3.8 H Glucose 134 H Lactic Acid Calcium 6.6 L AST ALT Total Creatine Kinase 11515 H CK-MB (CK-2) Albumin Complement C4 62 H 09/18/16 09/19/16 09/19/16 17:20 00:21 05:30 WBC 20.4 H RBC 6.38 H Hgb 16.0 H Hct 48.3 H MCV 76 L D MCH 25 L Plt Count Lymph % (Auto) Pender % (Auto) Pender # Seg Neutrophils % Seg Neuts % (Manual) 84.0 H Lymphocytes % (Manual) 8.0 L Monocytes % (Manual) Seg Neutrophils # Seg Neutrophils # Man 17.1 H Monocytes # (Manual) 1.2 H Sodium Potassium Chloride Carbon Dioxide BUN Creatinine Glucose Lactic Acid Calcium AST ALT Total Creatine Kinase 86864 H 48896 H CK-MB (CK-2) Albumin Complement C4 09/19/16 09/19/16 09/19/16 06:16 06:17 06:20 WBC RBC Hgb Hct MCV MCH Plt Count Lymph % (Auto) Pender % (Auto) Pender # Seg Neutrophils % Seg Neuts % (Manual) Lymphocytes % (Manual) Monocytes % (Manual) Seg Neutrophils # Seg Neutrophils # Man Monocytes # (Manual) Sodium 134 L Potassium Chloride 90.8 L Carbon Dioxide BUN Creatinine 5.1 H Glucose 162 H Lactic Acid Calcium 6.6 L AST 1264 H ALT 238 H Total Creatine Kinase 01495 H CK-MB (CK-2) 292.8 H Albumin 3.1 L Complement C4 09/19/16 09/20/16 09/20/16 10:28 05:00 06:26 WBC 13.8 H RBC 5.70 H Hgb Hct MCV 76 L MCH 25 L Plt Count Lymph % (Auto) Pender % (Auto) 8.8 H Pender # 1.2 H Seg Neutrophils % 76.9 H Seg Neuts % (Manual) Lymphocytes % (Manual) Monocytes % (Manual) Seg Neutrophils # 10.6 H Seg Neutrophils # Man Monocytes # (Manual) Sodium Potassium Chloride Carbon Dioxide BUN Creatinine Glucose Lactic Acid 2.6 H* Calcium AST ALT Total Creatine Kinase 950978 H CK-MB (CK-2) Albumin Complement C4 09/20/16 09/21/16 09/21/16 06:26 09:10 09:10 WBC RBC Hgb 11.7 L Hct 35.3 L D MCV 74 L MCH 25 L Plt Count 131 L Lymph % (Auto) 11.8 L Pender % (Auto) Pender # Seg Neutrophils % 81.0 H Seg Neuts % (Manual) Lymphocytes % (Manual) Monocytes % (Manual) Seg Neutrophils # 8.5 H Seg Neutrophils # Man Monocytes # (Manual) Sodium 136 L 133 L Potassium Chloride 90.1 L 85.3 L Carbon Dioxide 34 H BUN 38 H Creatinine 6.4 H 10.3 H D Glucose 101 H 114 H Lactic Acid Calcium 7.4 L 6.8 L AST ALT Total Creatine Kinase 58502 H CK-MB (CK-2) Albumin Complement C4 09/22/16 09/22/16 09/23/16 06:26 06:26 06:16 WBC 11.8 H 11.6 H RBC Hgb 11.6 L 11.6 L Hct 34.8 L 34.0 L MCV 75 L 74 L MCH 25 L 25 L Plt Count 139 L Lymph % (Auto) Pender % (Auto) 7.9 H Pender # 0.9 H Seg Neutrophils % 75.9 H 75.3 H Seg Neuts % (Manual) Lymphocytes % (Manual) Monocytes % (Manual) Seg Neutrophils # 9.0 H 8.7 H Seg Neutrophils # Man Monocytes # (Manual) Sodium 133 L Potassium Chloride 89.7 L Carbon Dioxide BUN 31 H Creatinine 9.7 H Glucose Lactic Acid Calcium 8.1 L D AST ALT Total Creatine Kinase 67965 H CK-MB (CK-2) Albumin Complement C4 09/23/16 09/24/16 09/24/16 06:16 05:35 05:35 WBC 13.5 H RBC Hgb Hct MCV 75 L MCH 25 L Plt Count Lymph % (Auto) 12.9 L Pender % (Auto) 9.6 H Pender # 1.3 H Seg Neutrophils % 76.2 H Seg Neuts % (Manual) Lymphocytes % (Manual) Monocytes % (Manual) Seg Neutrophils # 10.3 H Seg Neutrophils # Man Monocytes # (Manual) Sodium 133 L 133 L Potassium Chloride 87.6 L 89.1 L Carbon Dioxide 31 H BUN 49 H 50 H Creatinine 11.7 H 11.7 H Glucose 107 H 125 H Lactic Acid Calcium 7.8 L AST ALT Total Creatine Kinase 59973 H 56107 H CK-MB (CK-2) Albumin Complement C4 09/25/16 09/25/16 09/26/16 05:36 05:36 05:40 WBC 17.2 H RBC Hgb 11.3 L Hct 33.7 L MCV 73 L MCH 25 L Plt Count 129 L Lymph % (Auto) 11.4 L Pender % (Auto) 12.0 H Pender # 2.1 H Seg Neutrophils % 75.2 H Seg Neuts % (Manual) Lymphocytes % (Manual) Monocytes % (Manual) Seg Neutrophils # 12.9 H Seg Neutrophils # Man Monocytes # (Manual) Sodium 129 L 130 L Potassium 5.1 H Chloride 84.3 L 89.8 L Carbon Dioxide BUN 72 H 69 H Creatinine 14.2 H 12.5 H Glucose Lactic Acid Calcium 8.2 L AST ALT Total Creatine Kinase 22435 H 9221 H CK-MB (CK-2) Albumin Complement C4 09/26/16 09/27/16 09/27/16 05:40 08:19 08:19 WBC 17.5 H 17.9 H RBC Hgb 10.9 L 10.0 L Hct 32.5 L 29.9 L MCV 74 L 74 L MCH 25 L 25 L Plt Count 129 L 138 L Lymph % (Auto) Pender % (Auto) Pender # Seg Neutrophils % Seg Neuts % (Manual) 76.0 H 75.8 H Lymphocytes % (Manual) 11.0 L 8.1 L Monocytes % (Manual) 10.0 H Seg Neutrophils # Seg Neutrophils # Man 13.3 H 13.6 H Monocytes # (Manual) 1.8 H 1.1 H Sodium 129 L Potassium Chloride 85.7 L Carbon Dioxide 21 L BUN 95 H Creatinine 16.3 H Glucose Lactic Acid Calcium 8.3 L AST ALT Total Creatine Kinase 5564 H CK-MB (CK-2) Albumin Complement C4 09/28/16 09/28/16 09/29/16 12:02 12:02 07:45 WBC 17.2 H RBC 3.60 L Hgb 9.1 L Hct 26.9 L MCV 75 L MCH 25 L Plt Count Lymph % (Auto) Pender % (Auto) Pender # Seg Neutrophils % Seg Neuts % (Manual) Lymphocytes % (Manual) Monocytes % (Manual) Seg Neutrophils # Seg Neutrophils # Man Monocytes # (Manual) Sodium 132 L 127 L Potassium 5.2 H Chloride 88.7 L 84.8 L Carbon Dioxide BUN 67 H 81 H Creatinine 12.0 H 13.5 H Glucose Lactic Acid Calcium 7.9 L 8.1 L AST ALT Total Creatine Kinase 3011 H 2407 H CK-MB (CK-2) Albumin Complement C4 09/29/16 07:45 WBC 19.0 H RBC 3.60 L Hgb 8.8 L Hct 26.6 L MCV 74 L MCH 25 L Plt Count Lymph % (Auto) Pender % (Auto) Pender # Seg Neutrophils % Seg Neuts % (Manual) Lymphocytes % (Manual) Monocytes % (Manual) Seg Neutrophils # Seg Neutrophils # Man Monocytes # (Manual) Sodium Potassium Chloride Carbon Dioxide BUN Creatinine Glucose Lactic Acid Calcium AST ALT Total Creatine Kinase CK-MB (CK-2) Albumin Complement C4
--- NOTE | 2016-09-29 17:50 | Progress Note ---
Assessment and Plan acute kidney injury patient is currently dialysis dependent,patient will need to be dialyzed on Friday schedule Rhabdomyolysis monitor serial CPK currently stable at this time Monitor for recovery of renal function Ultrafiltration as tolerated during hemodialysis Swollen right lower extremity being followed by the primary team Overall avoid any form of nephrotoxic medication Patient is adequately counseled and educated regarding renal placement therapy needs strict intake and output monitoring Subjective Principal diagnosis: Severe Hyperkalemia; Rhabdomyolysis; GERALDINE on Hemodialysis Interval history: patient seen today for follow-up on multiple issues he was seen around 11:15 in the morning today patient has no complains of shortness of breath chest pain pressure Right leg swelling still continues to persist but better Objective - Vital Signs Vital signs: Vital Signs - 12hr 09/29/16 08:00 Temperature 98.5 F Pulse Rate [ 100 H From Monitor] Respiratory 18 Rate Blood Pressure 132/78 [Left Arm] O2 Sat by Pulse 98 Oximetry - General Appearance General appearance: appears stated age EENT: mucous membranes moist Neck: no thyromegaly Neurologic: other (alert and oriented) Musculoskeletal: other (swollen right lower extremity unchanged) Psychiatric: depressed - Lab 09/29/16 07:45 09/29/16 07:45 Most recent lab results Calcium 8.1 mg/dL (8.4-10.2) L 09/29/16 07:45
--- NOTE | 2016-09-29 21:07 | Magnetic Resonance Report ---
FINAL REPORT EXAM: MR FELIX NONJOINT RT WO CON HISTORY: eval for compartment syndrome TECHNIQUE: MRI was performed of the right thigh from just below hip joint to the distal femoral diaphysis using the following pulse sequences: Axial: T1, STIR Coronal: T1 and STIR Sagittal: T1 and STIR PRIORS: None. FINDINGS: There is abnormal edema signal throughout the muscles of the medial compartment, involving the adductor longus, adductor brevis, gracilis, adductor deb and proximal semimembranosus. There is a small amount of fluid in the superficial fascia. There also a small amount of edema signal in the fascia of the semitendinosis and semimembranosus muscles as well as the gracilis muscle. Otherwise, semitendinosis is normal in signal. There is edema signal in the proximal vastus lateralis muscle. There is fluid coursing deep to the iliotibial band. There is no deep fascial fluid. Around the hip, there is edema signal of the tensor fascia jose c and gluteus erick muscle. There is no evidence of fascial air. There is diffuse edema in the subcutaneous fat. The femur is normal in signal without focal lesions. IMPRESSION: Markedly abnormal thigh muscles especially in the medial compartment as described above associated with superficial fascial fluid and no fascial air. Findings are suggestive of medial compartment syndrome. Recommend correlation with compartment pressure measurements. Differential diagnosis includes compartment syndrome, posttraumatic rhabdomyolysis or infectious myositis/fasciitis/cellulitis. Necrotizing fasciitis would be expected to show fascial air and deep fascial fluid which is not present in this case.
[2016-09-29] MEDS: LOVENOX SUB-Q SCH (22:19)
[2016-09-29] MEDS: FLEXERIL PO PRN (22:20)
[2016-09-30 06:28] LABS: Hematocrit 24.1 % (35.5-45.6); Mean Corpuscular HGB Conc 33 % (32-34); Mean Corpuscular Volume 74 fl (84-94); Platelet Count 260 K/mm3 (140-440); Red Blood Count 3.27 M/mm3 (3.65-5.03); Red Cell Distribution Width 14.5 % (13.2-15.2); White Blood Count 17.6 K/mm3 (4.5-11.0)
[2016-09-30 06:29] LABS: Mean Corpuscular Hemoglobin 25 pg (28-32)
[2016-09-30 06:44] LABS: BUN/Creatinine Ratio 6.43; Chloride 82.4 mmol/L (98-107); Potassium 4.9 mmol/L (3.6-5.0)
[2016-09-30] MEDS: PERCOCET 5/325 PO PRN ×3 (07:18→21:14)
[2016-09-30] MEDS: FLEXERIL PO PRN (09:01)
--- NOTE | 2016-09-30 09:14 | Progress Note ---
Assessment and Plan - Patient Problems (1) Acute renal failure due to rhabdomyolysis Current Visit: Yes Status: Acute Plan to address problem: urine output poor. Remains dialysis dependent. HD today. Outpt HD to be made pending Insurance issues. check renal ultrasound if not done. Adjust meds per renal function. (2) Anemia Current Visit: Yes Status: Acute Plan to address problem: cgheck work up. (3) Leucocytosis Current Visit: Yes Status: Acute Plan to address problem: ? cause. Follow up on cultures. (4) DVT (deep venous thrombosis) Current Visit: Yes Status: Acute Plan to address problem: on Warfarin (5) Bipolar disorder Current Visit: Yes Status: Chronic (6) Physical deconditioning Current Visit: Yes Status: Acute Plan to address problem: consider PT/OT, rehab placement Subjective Date of service: 09/30/16 Principal diagnosis: Severe Hyperkalemia; Rhabdomyolysis; GERALDINE on Hemodialysis Interval history: pt is alert, denies CP or SOB or cramps. C/O pain in right leg with weakness Objective - Vital Signs Vital signs: Vital Signs - 12hr 09/29/16 09/30/16 09/30/16 23:38 05:37 08:02 Temperature 98.6 F 98.8 F 98.6 F Pulse Rate [ 99 H 94 H From Monitor] Pulse Rate [ 94 H Right Radial] Respiratory 18 20 18 Rate Blood Pressure 138/89 134/90 [Left Arm] Blood Pressure 132/81 [Right Arm] O2 Sat by Pulse 99 99 Oximetry - General Appearance General appearance: chronically ill EENT: mucous membranes moist Neck: no JVD Respiratory: Present: Clear to Ascultation Cardiology: S1S2 Gastrointestinal: normoactive bowel sounds Musculoskeletal: other (1+, weakness in lower extremities) - Lab 09/30/16 06:08 09/30/16 06:08 Most recent lab results Calcium 8.0 mg/dL (8.4-10.2) L 09/30/16 06:08
[2016-09-30] MEDS: HEPARIN IV PRN (13:43)
--- NOTE | 2016-09-30 14:07 | Progress Note ---
Assessment and Plan Assessment and plan: Patient is a 31-year-old black man with a past medical history significant for schizophrenia and watch year he had to change bandage area bipolar disorder, who presents to the emergency department via EMS after being found on the floor of his bathroom by his roommate. Acute rhabdomyolysis/tramautic continue IV, CK trending down, continue HD GERALDINE and hyperkalemia continue HD Will likely need prolonged renal replacement Right lower extremity and LUE hemiparesis MRI unrevealing, Per Neurology neither fits the picture. More towards metabolic vs psychogenic with functional quadplegia, poa, now resolved Right lower extremity DVT continue lovenox bridge and start coumadin Urinary Retention sp damon placement, will need outpatient urology fup for voiding studies and TOV History Interval history: continues to have R leg pain on and off, he complained of difficulty passing urine, RN placed damon and immediately yielded 1800cc of cranberry tinged urine Hospitalist Physical - Physical exam Narrative exam: General: Patient appears well in no distress HEENT: MMM, EOMI cardiac: S1-S2 heard lungs: clear to auscultation, abdomen: soft, nontender, nondistended bowel sounds positive extremities: RLE edema Skin: no rash or lesion Neuro: no focal deficit Psych: appropriate behavior and mood, cognition intact - Constitutional Vitals: Temp Pulse Resp BP Pulse Ox 98 F 89 18 148/88 99 09/30/16 10:23 09/30/16 13:30 09/30/16 10:23 09/30/16 13:30 09/30/16 08:02 General appearance: Present: no acute distress Results - Labs CBC & Chem 7: 09/30/16 06:08 09/30/16 06:08 Labs: Laboratory Last Values WBC 17.6 K/mm3 (4.5-11.0) H 09/30/16 06:08 RBC 3.27 M/mm3 (3.65-5.03) L 09/30/16 06:08 Hgb 8.0 gm/dl (11.8-15.2) L 09/30/16 06:08 Hct 24.1 % (35.5-45.6) L 09/30/16 06:08 MCV 74 fl (84-94) L 09/30/16 06:08 MCH 25 pg (28-32) L 09/30/16 06:08 MCHC 33 % (32-34) 09/30/16 06:08 RDW 14.5 % (13.2-15.2) 09/30/16 06:08 Plt Count 260 K/mm3 (140-440) 09/30/16 06:08 Lymph % (Auto) 11.4 % (13.4-35.0) L 09/25/16 05:36 [place] % (Auto) 12.0 % (0.0-7.3) H 09/25/16 05:36 Eos % (Auto) 0.9 % (0.0-4.3) 09/25/16 05:36 Baso % (Auto) 0.5 % (0.0-1.8) 09/25/16 05:36 Lymph # 2.0 K/mm3 (1.2-5.4) 09/25/16 05:36 [place] # 2.1 K/mm3 (0.0-0.8) H 09/25/16 05:36 Eos # 0.2 K/mm3 (0.0-0.4) 09/25/16 05:36 Baso # 0.1 K/mm3 (0.0-0.1) 09/25/16 05:36 Add Manual Diff Complete 09/27/16 08:19 Total Counted 99 09/27/16 08:19 Seg Neutrophils % 75.2 % (40.0-70.0) H 09/25/16 05:36 Seg Neuts % (Manual) 75.8 % (40.0-70.0) H 09/27/16 08:19 Band Neutrophils % 9.1 % 09/27/16 08:19 Lymphocytes % (Manual) 8.1 % (13.4-35.0) L 09/27/16 08:19 Reactive Lymphs % (Man) 0 % 09/27/16 08:19 Monocytes % (Manual) 6.1 % (0.0-7.3) 09/27/16 08:19 Eosinophils % (Manual) 1.0 % (0.0-4.3) 09/27/16 08:19 Basophils % (Manual) 0 % (0.0-1.8) 09/27/16 08:19 Metamyelocytes % 0 % 09/27/16 08:19 Myelocytes % 0 % 09/27/16 08:19 Promyelocytes % 0 % 09/27/16 08:19 Blast Cells % 0 % 09/27/16 08:19 Nucleated RBC % Not Reportable 09/27/16 08:19 Seg Neutrophils # 12.9 K/mm3 (1.8-7.7) H 09/25/16 05:36 Seg Neutrophils # Man 13.6 K/mm3 (1.8-7.7) H 09/27/16 08:19 Band Neutrophils # 1.6 K/mm3 09/27/16 08:19 Lymphocytes # (Manual) 1.4 K/mm3 (1.2-5.4) 09/27/16 08:19 Abs React Lymphs (Man) 0.0 K/mm3 09/27/16 08:19 Monocytes # (Manual) 1.1 K/mm3 (0.0-0.8) H 09/27/16 08:19 Eosinophils # (Manual) 0.2 K/mm3 (0.0-0.4) 09/27/16 08:19 Basophils # (Manual) 0.0 K/mm3 (0.0-0.1) 09/27/16 08:19 Metamyelocytes # 0.0 K/mm3 09/27/16 08:19 Myelocytes # 0.0 K/mm3 09/27/16 08:19 Promyelocytes # 0.0 K/mm3 09/27/16 08:19 Blast Cells # 0.0 K/mm3 09/27/16 08:19 WBC Morphology Not Reportable 09/27/16 08:19 Hypersegmented Neuts Not Reportable 09/27/16 08:19 Hyposegmented Neuts Not Reportable 09/27/16 08:19 Hypogranular Neuts Not Reportable 09/27/16 08:19 Smudge Cells Not Reportable 09/27/16 08:19 Toxic Granulation Not Reportable 09/27/16 08:19 Toxic Vacuolation Not Reportable 09/27/16 08:19 Dohle Bodies Not Reportable 09/27/16 08:19 Pelger-Huet Anomaly Not Reportable 09/27/16 08:19 Laila Rods Not Reportable 09/27/16 08:19 Platelet Estimate Not Reportable 09/27/16 08:19 Clumped Platelets Not Reportable 09/27/16 08:19 Plt Clumps, EDTA Not Reportable 09/27/16 08:19 Large Platelets Not Reportable 09/27/16 08:19 Giant Platelets Not Reportable 09/27/16 08:19 Platelet Satelliting Not Reportable 09/27/16 08:19 Plt Morphology Comment Not Reportable 09/27/16 08:19 RBC Morphology Not Reportable 09/27/16 08:19 Dimorphic RBCs Not Reportable 09/27/16 08:19 Polychromasia Few 09/27/16 08:19 Hypochromasia 1+ 09/27/16 08:19 Poikilocytosis Not Reportable 09/27/16 08:19 Anisocytosis 1+ 09/27/16 08:19 Microcytosis Not Reportable 09/27/16 08:19 Macrocytosis Not Reportable 09/27/16 08:19 Spherocytes Not Reportable 09/27/16 08:19 Pappenheimer Bodies Not Reportable 09/27/16 08:19 Sickle Cells Not Reportable 09/27/16 08:19 Target Cells Not Reportable 09/27/16 08:19 Tear Drop Cells Not Reportable 09/27/16 08:19 Ovalocytes Not Reportable 09/27/16 08:19 Stomatocytes Few 09/19/16 05:30 Helmet Cells Not Reportable 09/27/16 08:19 Brandt-[place] Bodies Not Reportable 09/27/16 08:19 [place] Rings Not Reportable 09/27/16 08:19 [place] Cells Not Reportable 09/27/16 08:19 Bite Cells Not Reportable 09/27/16 08:19 Crenated Cell Not Reportable 09/27/16 08:19 Elliptocytes Not Reportable 09/27/16 08:19 Acanthocytes (Spur) Not Reportable 09/27/16 08:19 Rouleaux Not Reportable 09/27/16 08:19 Hemoglobin C Crystals Not Reportable 09/27/16 08:19 Schistocytes Rare 09/27/16 08:19 Malaria parasites Not Reportable 09/27/16 08:19 Suhail Bodies Not Reportable 09/27/16 08:19 Hem Pathologist Commnt No 09/27/16 08:19 Sodium 127 mmol/L (137-145) L 09/30/16 06:08 Potassium 4.9 mmol/L (3.6-5.0) 09/30/16 06:08 Chloride 82.4 mmol/L (98-107) L 09/30/16 06:08 Carbon Dioxide 21 mmol/L (22-30) L 09/30/16 06:08 Anion Gap 29 mmol/L 09/30/16 06:08 BUN 92 mg/dL (9-20) H 09/30/16 06:08 Creatinine 14.3 mg/dL (0.8-1.5) H 09/30/16 06:08 Estimated GFR 5 ml/min 09/30/16 06:08 BUN/Creatinine Ratio 6.43 % 09/30/16 06:08 Glucose 85 mg/dL (75-100) 09/30/16 06:08 POC Glucose 115 (70-105) H 09/18/16 07:56 Lactic Acid 1.4 mmol/L (0.7-2.0) 09/20/16 12:12 Calcium 8.0 mg/dL (8.4-10.2) L 09/30/16 06:08 Total Bilirubin 0.2 mg/dL (0.1-1.2) 09/19/16 06:20 Direct Bilirubin < 0.2 mg/dL (0-0.2) 09/19/16 06:20 Indirect Bilirubin 0.0 mg/dL 09/19/16 06:20 AST 1264 units/L (5-40) H 09/19/16 06:20 ALT 238 units/L (7-56) H 09/19/16 06:20 Alkaline Phosphatase 57 units/L (35-129) 09/19/16 06:20 Total Creatine Kinase 1963 units/L (55-170) H 09/30/16 06:08 CK-MB (CK-2) 292.8 ng/mL (0.0-4.0) H 09/19/16 06:17 CK-MB (CK-2) Rel Index 0.3 (0-4) 09/19/16 06:17 Serum Total Protein 7.3 g/dL (6.1-8.1) 09/18/16 14:48 Total Protein 6.4 g/dL (6.3-8.2) D 09/19/16 06:20 Albumin 3.1 g/dL (3.9-5) L 09/19/16 06:20 Albumin/Globulin Ratio 0.9 % 09/19/16 06:20 Cpafk-9-Hpowgibkv 0.3 g/dL (0.2-0.3) 09/18/16 14:48 Fhgvw-8-Zizjtclqp 0.9 g/dL (0.5-0.9) 09/18/16 14:48 Beta Globulins 0.5 g/dL (0.2-0.5) 09/18/16 14:48 Gamma Globulins 1.3 g/dL (0.8-1.7) 09/18/16 14:48 Abnorm Protein Band 1 see below (()) 09/18/16 14:48 PEP Interpretation see below (()) 09/18/16 14:48 Ceruloplasmin 24 mg/dL (18-36) 09/25/16 20:05 Salicylates < 0.3 mg/dL (2.8-20.0) L 09/18/16 08:08 Acetaminophen < 15.0 ug/mL (10.0-30.0) 09/18/16 08:08 Plasma/Serum Alcohol < 0.01 gm% (0-0.07) 09/18/16 08:08 Complement C3 141 mg/dL (90-180) 09/18/16 14:48 Complement C4 62 mg/dL (16-47) H 09/18/16 14:48 Hepatitis A IgM Ab -1 (NonReactive) 09/23/16 21:00 Hep Bs Antigen Non-reactive (Negative) 09/23/16 21:00 Hep B Core IgM Ab Non-reactive (NonReactive) 09/23/16 21:00 Hepatitis C Antibody Non-reactive (NonReactive) 09/23/16 21:00
[2016-09-30 15:04] LABS: INR 1.54 (0.87-1.13)
[2016-09-30] MEDS ORDERED: COUMADIN PO SCH (17:00)
[2016-09-30] MEDS: LOVENOX SUB-Q SCH (21:17)
[2016-10-01 05:48] LABS: INR 2.19 (0.87-1.13)
[2016-10-01] MEDS: PERCOCET 5/325 PO PRN ×3 (06:25→17:43)
--- NOTE | 2016-10-01 08:08 | Progress Note ---
Assessment and Plan Assessment and plan: Patient is a 31-year-old black man with a past medical history significant for schizophrenia , bipolar disorder, who presents to the emergency department via EMS after being found on the floor of his bathroom by his roommate. Acute rhabdomyolysis/tramautic continue IVF, CK trending down, continue HD GERALDINE and hyperkalemia continue HD Will likely need prolonged renal replacement, needs outpatient HD set up Right lower extremity and LUE hemiparesis MRI unrevealing, Per Neurology neither fits the picture. More towards metabolic vs psychogenic with functional quadplegia, poa, now resolved Right lower extremity DVT continue coumadin and lovenox bridge Urinary Retention sp damon placement, will need outpatient urology fup for urodynamics studies and TOV History Interval history: continues to have R leg pain on and off, otherwise no complaints Hospitalist Physical - Physical exam Narrative exam: General: Patient appears well in no distress HEENT: MMM, EOMI cardiac: S1-S2 heard lungs: clear to auscultation, abdomen: soft, nontender, nondistended bowel sounds positive extremities: RLE edema Skin: no rash or lesion Neuro: no focal deficit Psych: appropriate behavior and mood, cognition intact - Constitutional Vitals: Temp Pulse Resp BP Pulse Ox 98.6 F 98 H 20 117/63 100 10/01/16 08:00 10/01/16 08:00 10/01/16 08:00 10/01/16 08:00 10/01/16 08:00 General appearance: Present: no acute distress Results - Labs CBC & Chem 7: 09/30/16 06:08 09/30/16 06:08 Labs: Laboratory Last Values WBC 17.6 K/mm3 (4.5-11.0) H 09/30/16 06:08 RBC 3.27 M/mm3 (3.65-5.03) L 09/30/16 06:08 Hgb 8.0 gm/dl (11.8-15.2) L 09/30/16 06:08 Hct 24.1 % (35.5-45.6) L 09/30/16 06:08 MCV 74 fl (84-94) L 09/30/16 06:08 MCH 25 pg (28-32) L 09/30/16 06:08 MCHC 33 % (32-34) 09/30/16 06:08 RDW 14.5 % (13.2-15.2) 09/30/16 06:08 Plt Count 260 K/mm3 (140-440) 09/30/16 06:08 Lymph % (Auto) 11.4 % (13.4-35.0) L 09/25/16 05:36 Saline % (Auto) 12.0 % (0.0-7.3) H 09/25/16 05:36 Eos % (Auto) 0.9 % (0.0-4.3) 09/25/16 05:36 Baso % (Auto) 0.5 % (0.0-1.8) 09/25/16 05:36 Lymph # 2.0 K/mm3 (1.2-5.4) 09/25/16 05:36 Saline # 2.1 K/mm3 (0.0-0.8) H 09/25/16 05:36 Eos # 0.2 K/mm3 (0.0-0.4) 09/25/16 05:36 Baso # 0.1 K/mm3 (0.0-0.1) 09/25/16 05:36 Add Manual Diff Complete 09/27/16 08:19 Total Counted 99 09/27/16 08:19 Seg Neutrophils % 75.2 % (40.0-70.0) H 09/25/16 05:36 Seg Neuts % (Manual) 75.8 % (40.0-70.0) H 09/27/16 08:19 Band Neutrophils % 9.1 % 09/27/16 08:19 Lymphocytes % (Manual) 8.1 % (13.4-35.0) L 09/27/16 08:19 Reactive Lymphs % (Man) 0 % 09/27/16 08:19 Monocytes % (Manual) 6.1 % (0.0-7.3) 09/27/16 08:19 Eosinophils % (Manual) 1.0 % (0.0-4.3) 09/27/16 08:19 Basophils % (Manual) 0 % (0.0-1.8) 09/27/16 08:19 Metamyelocytes % 0 % 09/27/16 08:19 Myelocytes % 0 % 09/27/16 08:19 Promyelocytes % 0 % 09/27/16 08:19 Blast Cells % 0 % 09/27/16 08:19 Nucleated RBC % Not Reportable 09/27/16 08:19 Seg Neutrophils # 12.9 K/mm3 (1.8-7.7) H 09/25/16 05:36 Seg Neutrophils # Man 13.6 K/mm3 (1.8-7.7) H 09/27/16 08:19 Band Neutrophils # 1.6 K/mm3 09/27/16 08:19 Lymphocytes # (Manual) 1.4 K/mm3 (1.2-5.4) 09/27/16 08:19 Abs React Lymphs (Man) 0.0 K/mm3 09/27/16 08:19 Monocytes # (Manual) 1.1 K/mm3 (0.0-0.8) H 09/27/16 08:19 Eosinophils # (Manual) 0.2 K/mm3 (0.0-0.4) 09/27/16 08:19 Basophils # (Manual) 0.0 K/mm3 (0.0-0.1) 09/27/16 08:19 Metamyelocytes # 0.0 K/mm3 09/27/16 08:19 Myelocytes # 0.0 K/mm3 09/27/16 08:19 Promyelocytes # 0.0 K/mm3 09/27/16 08:19 Blast Cells # 0.0 K/mm3 09/27/16 08:19 WBC Morphology Not Reportable 09/27/16 08:19 Hypersegmented Neuts Not Reportable 09/27/16 08:19 Hyposegmented Neuts Not Reportable 09/27/16 08:19 Hypogranular Neuts Not Reportable 09/27/16 08:19 Smudge Cells Not Reportable 09/27/16 08:19 Toxic Granulation Not Reportable 09/27/16 08:19 Toxic Vacuolation Not Reportable 09/27/16 08:19 Dohle Bodies Not Reportable 09/27/16 08:19 Pelger-Huet Anomaly Not Reportable 09/27/16 08:19 Laila Rods Not Reportable 09/27/16 08:19 Platelet Estimate Not Reportable 09/27/16 08:19 Clumped Platelets Not Reportable 09/27/16 08:19 Plt Clumps, EDTA Not Reportable 09/27/16 08:19 Large Platelets Not Reportable 09/27/16 08:19 Giant Platelets Not Reportable 09/27/16 08:19 Platelet Satelliting Not Reportable 09/27/16 08:19 Plt Morphology Comment Not Reportable 09/27/16 08:19 RBC Morphology Not Reportable 09/27/16 08:19 Dimorphic RBCs Not Reportable 09/27/16 08:19 Polychromasia Few 09/27/16 08:19 Hypochromasia 1+ 09/27/16 08:19 Poikilocytosis Not Reportable 09/27/16 08:19 Anisocytosis 1+ 09/27/16 08:19 Microcytosis Not Reportable 09/27/16 08:19 Macrocytosis Not Reportable 09/27/16 08:19 Spherocytes Not Reportable 09/27/16 08:19 Pappenheimer Bodies Not Reportable 09/27/16 08:19 Sickle Cells Not Reportable 09/27/16 08:19 Target Cells Not Reportable 09/27/16 08:19 Tear Drop Cells Not Reportable 09/27/16 08:19 Ovalocytes Not Reportable 09/27/16 08:19 Stomatocytes Few 09/19/16 05:30 Helmet Cells Not Reportable 09/27/16 08:19 Brandt-[place] Bodies Not Reportable 09/27/16 08:19 [place] Rings Not Reportable 09/27/16 08:19 [place] Cells Not Reportable 09/27/16 08:19 Bite Cells Not Reportable 09/27/16 08:19 Crenated Cell Not Reportable 09/27/16 08:19 Elliptocytes Not Reportable 09/27/16 08:19 Acanthocytes (Spur) Not Reportable 09/27/16 08:19 Rouleaux Not Reportable 09/27/16 08:19 Hemoglobin C Crystals Not Reportable 09/27/16 08:19 Schistocytes Rare 09/27/16 08:19 Malaria parasites Not Reportable 09/27/16 08:19 Suhail Bodies Not Reportable 09/27/16 08:19 Hem Pathologist Commnt No 09/27/16 08:19 PT 24.4 Sec. (12.2-14.9) H 10/01/16 05:18 INR 2.19 (0.87-1.13) H 10/01/16 05:18 Sodium 127 mmol/L (137-145) L 09/30/16 06:08 Potassium 4.9 mmol/L (3.6-5.0) 09/30/16 06:08 Chloride 82.4 mmol/L (98-107) L 09/30/16 06:08 Carbon Dioxide 21 mmol/L (22-30) L 09/30/16 06:08 Anion Gap 29 mmol/L 09/30/16 06:08 BUN 92 mg/dL (9-20) H 09/30/16 06:08 Creatinine 14.3 mg/dL (0.8-1.5) H 09/30/16 06:08 Estimated GFR 5 ml/min 09/30/16 06:08 BUN/Creatinine Ratio 6.43 % 09/30/16 06:08 Glucose 85 mg/dL (75-100) 09/30/16 06:08 POC Glucose 115 (70-105) H 09/18/16 07:56 Lactic Acid 1.4 mmol/L (0.7-2.0) 09/20/16 12:12 Calcium 8.0 mg/dL (8.4-10.2) L 09/30/16 06:08 Total Bilirubin 0.2 mg/dL (0.1-1.2) 09/19/16 06:20 Direct Bilirubin < 0.2 mg/dL (0-0.2) 09/19/16 06:20 Indirect Bilirubin 0.0 mg/dL 09/19/16 06:20 AST 1264 units/L (5-40) H 09/19/16 06:20 ALT 238 units/L (7-56) H 09/19/16 06:20 Alkaline Phosphatase 57 units/L (35-129) 09/19/16 06:20 Total Creatine Kinase 990 units/L (55-170) H 10/01/16 05:18 CK-MB (CK-2) 292.8 ng/mL (0.0-4.0) H 09/19/16 06:17 CK-MB (CK-2) Rel Index 0.3 (0-4) 09/19/16 06:17 Serum Total Protein 7.3 g/dL (6.1-8.1) 09/18/16 14:48 Total Protein 6.4 g/dL (6.3-8.2) D 09/19/16 06:20 Albumin 3.1 g/dL (3.9-5) L 09/19/16 06:20 Albumin/Globulin Ratio 0.9 % 09/19/16 06:20 Shmqt-3-Pvtpqfxqi 0.3 g/dL (0.2-0.3) 09/18/16 14:48 Axvle-2-Gzodgcfki 0.9 g/dL (0.5-0.9) 09/18/16 14:48 Beta Globulins 0.5 g/dL (0.2-0.5) 09/18/16 14:48 Gamma Globulins 1.3 g/dL (0.8-1.7) 09/18/16 14:48 Abnorm Protein Band 1 see below (()) 09/18/16 14:48 PEP Interpretation see below (()) 09/18/16 14:48 Ceruloplasmin 24 mg/dL (18-36) 09/25/16 20:05 Salicylates < 0.3 mg/dL (2.8-20.0) L 09/18/16 08:08 Acetaminophen < 15.0 ug/mL (10.0-30.0) 09/18/16 08:08 Plasma/Serum Alcohol < 0.01 gm% (0-0.07) 09/18/16 08:08 Complement C3 141 mg/dL (90-180) 09/18/16 14:48 Complement C4 62 mg/dL (16-47) H 09/18/16 14:48 Hepatitis A IgM Ab -1 (NonReactive) 09/23/16 21:00 Hep Bs Antigen Non-reactive (Negative) 09/23/16 21:00 Hep B Core IgM Ab Non-reactive (NonReactive) 09/23/16 21:00 Hepatitis C Antibody Non-reactive (NonReactive) 09/23/16 21:00
--- NOTE | 2016-10-01 09:23 | Progress Note ---
Assessment and Plan - Patient Problems (1) Acute renal failure due to rhabdomyolysis Current Visit: Yes Status: Acute Plan to address problem: GERALDINE with Rhabdomyolysis. Pt is noted to have urinary retention, output better with Weston-- monitor renal function. HD tomorrow if no improvement (2) Anemia Current Visit: Yes Status: Acute (3) Leucocytosis Current Visit: Yes Status: Acute (4) DVT (deep venous thrombosis) Current Visit: Yes Status: Acute Plan to address problem: on Warfarin (5) Bipolar disorder Current Visit: Yes Status: Chronic (6) Physical deconditioning Current Visit: Yes Status: Acute Subjective Date of service: 10/01/16 Principal diagnosis: Severe Hyperkalemia; Rhabdomyolysis; GERALDINE on Hemodialysis Interval history: alert, oriented, feels weak, has pain in right leg, can't move Objective - Vital Signs Vital signs: Vital Signs - 12hr 10/01/16 10/01/16 10/01/16 00:00 06:25 08:00 Temperature 98.9 F 98.6 F Pulse Rate [ 100 H From Monitor] Pulse Rate [ 98 H Right Radial] Respiratory 20 20 20 Rate Blood Pressure 125/80 [Left Arm] Blood Pressure 117/63 [Right Arm] O2 Sat by Pulse 97 100 Oximetry - General Appearance General appearance: chronically ill EENT: mucous membranes dry Neck: no JVD Respiratory: Present: Decreased Breath Sounds Cardiology: regular, systolic murmur Gastrointestinal: normoactive bowel sounds Musculoskeletal: other (1+edema, more prominent in right LE) - Lab 09/30/16 06:08 09/30/16 06:08 Most recent lab results Calcium 8.0 mg/dL (8.4-10.2) L 09/30/16 06:08
[2016-10-01] MEDS: FLEXERIL PO PRN (11:56)
--- NOTE | 2016-10-01 14:46 | Ultrasound Report ---
ULTRASOUND RENAL BILATERAL HISTORY: Acute renal failure. TECHNIQUE: transabdominal ultrasound with color Doppler interrogation. FINDINGS: The right kidney measures 13.3 x 5.6 x 6.8cm. Right renal cortex: 1.4cm. The left kidney measures 12.9 x 7.2 x 5.8cm. Left renal cortex: 2.3cm. Both kidneys are normal size, contour and position. There is increased cortical echotexture in both kidneys. No evidence for nephrolithiasis, cystic disease, mass or hydronephrosis. The bladder is empty and contains a Weston catheter. IMPRESSION: Echogenic kidneys consistent with medical renal disease or acute renal failure. No focal renal lesion or hydronephrosis.
[2016-10-01] MEDS ORDERED: COUMADIN PO SCH (17:00)
[2016-10-01] MEDS: LOVENOX SUB-Q SCH (21:11)
[2016-10-02] MEDS: PERCOCET 5/325 PO PRN ×4 (00:11→21:47)
[2016-10-02 07:56] LABS: BUN/Creatinine Ratio 5.33; Calcium 8.5 mg/dL (8.4-10.2); Chloride 92.1 mmol/L (98-107); Hematocrit 21.4 % (35.5-45.6); Hemoglobin 7.1 gm/dl (11.8-15.2); Mean Corpuscular HGB Conc 33 % (32-34); Mean Corpuscular Volume 75 fl (84-94); Platelet Count 355 K/mm3 (140-440); Potassium 4.9 mmol/L (3.6-5.0); Red Blood Count 2.86 M/mm3 (3.65-5.03); Red Cell Distribution Width 14.4 % (13.2-15.2)
[2016-10-02 07:59] LABS: Mean Corpuscular Hemoglobin 25 pg (28-32)
[2016-10-02 08:09] LABS: INR 4.44 (0.87-1.13)
[2016-10-02 09:17] LABS: Basophils % (Manual) 0 % (0.0-1.8); Blastocytes % (Manual) 0 %; Hypochromasia 1+
[2016-10-02 09:18] LABS: Diff Status Complete
--- NOTE | 2016-10-02 09:28 | Progress Note ---
Assessment and Plan - Patient Problems (1) Acute renal failure due to rhabdomyolysis Current Visit: Yes Status: Acute Plan to address problem: GERALDINE with Rhabdomyolysis. Pt is noted to have urinary retention, output better with Weston. HD today. Scr-11.8, [id number]/OT as ordered. Nutrition support. (2) Anemia Current Visit: Yes Status: Chronic Plan to address problem: noted drop inHb--? cause. Consider PRBC (3) Leucocytosis Current Visit: Yes Status: Acute Plan to address problem: ? cause. Follow up on cultures. (4) DVT (deep venous thrombosis) Current Visit: Yes Status: Acute (5) Bipolar disorder Current Visit: Yes Status: Chronic (6) Physical deconditioning Current Visit: Yes Status: Acute Subjective Date of service: 10/02/16 Principal diagnosis: Severe Hyperkalemia; Rhabdomyolysis; GERALDINE on Hemodialysis Interval history: alert, oriented, feels weak, still C/O pain in right leg, can't move, OT therapist is here Objective - Vital Signs Vital signs: Vital Signs - 12hr 10/02/16 10/02/16 10/02/16 00:00 00:11 04:00 Temperature 98.8 F 98.7 F Pulse Rate [ 104 H 98 H From Monitor] Respiratory 20 18 20 Rate Blood Pressure 131/78 132/82 [Left Arm] O2 Sat by Pulse Oximetry 10/02/16 10/02/16 07:32 08:33 Temperature 98.8 F Pulse Rate [ 102 H From Monitor] Respiratory 18 16 Rate Blood Pressure 148/75 [Left Arm] O2 Sat by Pulse 99 Oximetry - General Appearance General appearance: chronically ill EENT: mucous membranes moist Neck: no JVD Respiratory: Present: Clear to Ascultation Cardiology: regular, systolic murmur Gastrointestinal: normoactive bowel sounds Neurologic: alert and oriented x3 - Lab 10/02/16 06:45 10/02/16 06:45 Most recent lab results Calcium 8.5 mg/dL (8.4-10.2) 10/02/16 06:45
[2016-10-02] MEDS ORDERED: NACL 0.9% 500 ML 500 ML IV ONE (14:00)
[2016-10-02] MEDS: HEPARIN IV PRN (14:54)
--- NOTE | 2016-10-02 14:57 | Progress Note ---
Assessment and Plan Assessment and plan: Patient is a 31-year-old black man with a past medical history significant for schizophrenia , bipolar disorder, who presents to the emergency department via EMS after being found on the floor of his bathroom by his roommate. Acute rhabdomyolysis/tramautic continue IVF, CK trending down, continue HD GERALDINE and hyperkalemia continue HD Will likely need prolonged renal replacement, needs outpatient HD set up Right lower extremity and LUE hemiparesis MRI unrevealing, Per Neurology neither fits the picture. More towards metabolic vs psychogenic with functional quadplegia, poa, now resolved, Right lower extremity DVT continue coumadin and lovenox bridge Urinary Retention sp damon placement, will need outpatient urology fup for urodynamics studies and TOV History Interval history: continues to have R leg pain on and off, otherwise no complaints Hospitalist Physical - Physical exam Narrative exam: General: Patient appears well in no distress HEENT: MMM, EOMI cardiac: S1-S2 heard lungs: clear to auscultation, abdomen: soft, nontender, nondistended bowel sounds positive extremities: RLE edema Skin: no rash or lesion Neuro: no focal deficit Psych: appropriate behavior and mood, cognition intact - Constitutional Vitals: Temp Pulse Resp BP Pulse Ox 98.8 F 96 H 20 135/84 99 10/02/16 14:40 10/02/16 14:40 10/02/16 14:40 10/02/16 14:40 10/02/16 08:33 General appearance: Present: no acute distress Results - Labs CBC & Chem 7: 10/02/16 06:45 10/02/16 06:45 Labs: Laboratory Last Values WBC 19.0 K/mm3 (4.5-11.0) H 10/02/16 06:45 RBC 2.86 M/mm3 (3.65-5.03) L 10/02/16 06:45 Hgb 7.1 gm/dl (11.8-15.2) L 10/02/16 06:45 Hct 21.4 % (35.5-45.6) L 10/02/16 06:45 MCV 75 fl (84-94) L 10/02/16 06:45 MCH 25 pg (28-32) L 10/02/16 06:45 MCHC 33 % (32-34) 10/02/16 06:45 RDW 14.4 % (13.2-15.2) 10/02/16 06:45 Plt Count 355 K/mm3 (140-440) 10/02/16 06:45 Lymph % (Auto) 11.4 % (13.4-35.0) L 09/25/16 05:36 [place] % (Auto) 12.0 % (0.0-7.3) H 09/25/16 05:36 Eos % (Auto) 0.9 % (0.0-4.3) 09/25/16 05:36 Baso % (Auto) 0.5 % (0.0-1.8) 09/25/16 05:36 Lymph # 2.0 K/mm3 (1.2-5.4) 09/25/16 05:36 [place] # 2.1 K/mm3 (0.0-0.8) H 09/25/16 05:36 Eos # 0.2 K/mm3 (0.0-0.4) 09/25/16 05:36 Baso # 0.1 K/mm3 (0.0-0.1) 09/25/16 05:36 Add Manual Diff Complete 10/02/16 06:45 Total Counted 100 10/02/16 06:45 Seg Neutrophils % 75.2 % (40.0-70.0) H 09/25/16 05:36 Seg Neuts % (Manual) 83.0 % (40.0-70.0) H 10/02/16 06:45 Band Neutrophils % 0 % 10/02/16 06:45 Lymphocytes % (Manual) 8.0 % (13.4-35.0) L 10/02/16 06:45 Reactive Lymphs % (Man) 0 % 10/02/16 06:45 Monocytes % (Manual) 4.0 % (0.0-7.3) 10/02/16 06:45 Eosinophils % (Manual) 1.0 % (0.0-4.3) 10/02/16 06:45 Basophils % (Manual) 0 % (0.0-1.8) 10/02/16 06:45 Metamyelocytes % 3.0 % 10/02/16 06:45 Myelocytes % 1.0 % 10/02/16 06:45 Promyelocytes % 0 % 10/02/16 06:45 Blast Cells % 0 % 10/02/16 06:45 Nucleated RBC % Not Reportable 10/02/16 06:45 Seg Neutrophils # 12.9 K/mm3 (1.8-7.7) H 09/25/16 05:36 Seg Neutrophils # Man 15.8 K/mm3 (1.8-7.7) H 10/02/16 06:45 Band Neutrophils # 0.0 K/mm3 10/02/16 06:45 Lymphocytes # (Manual) 1.5 K/mm3 (1.2-5.4) 10/02/16 06:45 Abs React Lymphs (Man) 0.0 K/mm3 10/02/16 06:45 Monocytes # (Manual) 0.8 K/mm3 (0.0-0.8) 10/02/16 06:45 Eosinophils # (Manual) 0.2 K/mm3 (0.0-0.4) 10/02/16 06:45 Basophils # (Manual) 0.0 K/mm3 (0.0-0.1) 10/02/16 06:45 Metamyelocytes # 0.6 K/mm3 10/02/16 06:45 Myelocytes # 0.2 K/mm3 10/02/16 06:45 Promyelocytes # 0.0 K/mm3 10/02/16 06:45 Blast Cells # 0.0 K/mm3 10/02/16 06:45 WBC Morphology Not Reportable 10/02/16 06:45 Hypersegmented Neuts Not Reportable 10/02/16 06:45 Hyposegmented Neuts Not Reportable 10/02/16 06:45 Hypogranular Neuts Not Reportable 10/02/16 06:45 Smudge Cells Not Reportable 10/02/16 06:45 Toxic Granulation Not Reportable 10/02/16 06:45 Toxic Vacuolation Not Reportable 10/02/16 06:45 Dohle Bodies Not Reportable 10/02/16 06:45 Pelger-Huet Anomaly Not Reportable 10/02/16 06:45 Laila Rods Not Reportable 10/02/16 06:45 Platelet Estimate Appears normal 10/02/16 06:45 Clumped Platelets Not Reportable 10/02/16 06:45 Plt Clumps, EDTA Not Reportable 10/02/16 06:45 Large Platelets Not Reportable 10/02/16 06:45 Giant Platelets Not Reportable 10/02/16 06:45 Platelet Satelliting Not Reportable 10/02/16 06:45 Plt Morphology Comment Not Reportable 10/02/16 06:45 RBC Morphology Not Reportable 10/02/16 06:45 Dimorphic RBCs Not Reportable 10/02/16 06:45 Polychromasia Not Reportable 10/02/16 06:45 Hypochromasia 1+ 10/02/16 06:45 Poikilocytosis Not Reportable 10/02/16 06:45 Anisocytosis Not Reportable 10/02/16 06:45 Microcytosis Not Reportable 10/02/16 06:45 Macrocytosis Not Reportable 10/02/16 06:45 Spherocytes Not Reportable 10/02/16 06:45 Pappenheimer Bodies Not Reportable 10/02/16 06:45 Sickle Cells Not Reportable 10/02/16 06:45 Target Cells Not Reportable 10/02/16 06:45 Tear Drop Cells Not Reportable 10/02/16 06:45 Ovalocytes Not Reportable 10/02/16 06:45 Stomatocytes Few 09/19/16 05:30 Helmet Cells Not Reportable 10/02/16 06:45 [place] Bodies Not Reportable 10/02/16 06:45 [place] Rings Not Reportable 10/02/16 06:45 [place] Cells Not Reportable 10/02/16 06:45 Bite Cells Not Reportable 10/02/16 06:45 Crenated Cell Not Reportable 10/02/16 06:45 Elliptocytes Not Reportable 10/02/16 06:45 Acanthocytes (Spur) Not Reportable 10/02/16 06:45 Rouleaux Not Reportable 10/02/16 06:45 Hemoglobin C Crystals Not Reportable 10/02/16 06:45 Schistocytes Not Reportable 10/02/16 06:45 Malaria parasites Not Reportable 10/02/16 06:45 Suhail Bodies Not Reportable 10/02/16 06:45 Hem Pathologist Commnt No 10/02/16 06:45 PT 42.8 Sec. (12.2-14.9) H 10/02/16 06:45 INR 4.44 (0.87-1.13) H 10/02/16 06:45 Sodium 136 mmol/L (137-145) L D 10/02/16 06:45 Potassium 4.9 mmol/L (3.6-5.0) 10/02/16 06:45 Chloride 92.1 mmol/L (98-107) L 10/02/16 06:45 Carbon Dioxide 24 mmol/L (22-30) 10/02/16 06:45 Anion Gap 25 mmol/L 10/02/16 06:45 BUN 63 mg/dL (9-20) H 10/02/16 06:45 Creatinine 11.8 mg/dL (0.8-1.5) H 10/02/16 06:45 Estimated GFR 6 ml/min 10/02/16 06:45 BUN/Creatinine Ratio 5.33 % 10/02/16 06:45 Glucose 111 mg/dL (75-100) H 10/02/16 06:45 POC Glucose 115 (70-105) H 09/18/16 07:56 Lactic Acid 1.4 mmol/L (0.7-2.0) 09/20/16 12:12 Calcium 8.5 mg/dL (8.4-10.2) 10/02/16 06:45 Total Bilirubin 0.2 mg/dL (0.1-1.2) 09/19/16 06:20 Direct Bilirubin < 0.2 mg/dL (0-0.2) 09/19/16 06:20 Indirect Bilirubin 0.0 mg/dL 09/19/16 06:20 AST 1264 units/L (5-40) H 09/19/16 06:20 ALT 238 units/L (7-56) H 09/19/16 06:20 Alkaline Phosphatase 57 units/L (35-129) 09/19/16 06:20 Total Creatine Kinase 858 units/L (55-170) H 10/02/16 06:45 CK-MB (CK-2) 292.8 ng/mL (0.0-4.0) H 09/19/16 06:17 CK-MB (CK-2) Rel Index 0.3 (0-4) 09/19/16 06:17 Serum Total Protein 7.3 g/dL (6.1-8.1) 09/18/16 14:48 Total Protein 6.4 g/dL (6.3-8.2) D 09/19/16 06:20 Albumin 3.1 g/dL (3.9-5) L 09/19/16 06:20 Albumin/Globulin Ratio 0.9 % 09/19/16 06:20 Gjhlp-5-Rdbqgtzat 0.3 g/dL (0.2-0.3) 09/18/16 14:48 Jajhv-5-Otysrhhea 0.9 g/dL (0.5-0.9) 09/18/16 14:48 Beta Globulins 0.5 g/dL (0.2-0.5) 09/18/16 14:48 Gamma Globulins 1.3 g/dL (0.8-1.7) 09/18/16 14:48 Abnorm Protein Band 1 see below (()) 09/18/16 14:48 PEP Interpretation see below (()) 09/18/16 14:48 Ceruloplasmin 24 mg/dL (18-36) 09/25/16 20:05 Salicylates < 0.3 mg/dL (2.8-20.0) L 09/18/16 08:08 Acetaminophen < 15.0 ug/mL (10.0-30.0) 09/18/16 08:08 Plasma/Serum Alcohol < 0.01 gm% (0-0.07) 09/18/16 08:08 Complement C3 141 mg/dL (90-180) 09/18/16 14:48 Complement C4 62 mg/dL (16-47) H 09/18/16 14:48 Hepatitis A IgM Ab -1 (NonReactive) 09/23/16 21:00 Hep Bs Antigen Non-reactive (Negative) 09/23/16 21:00 Hep B Core IgM Ab Non-reactive (NonReactive) 09/23/16 21:00 Hepatitis C Antibody Non-reactive (NonReactive) 09/23/16 21:00 Blood Type O POSITIVE 10/02/16 12:41 Antibody Screen Negative 10/02/16 12:41 Crossmatch See Detail 10/02/16 12:41
[2016-10-02] MEDS ORDERED: COUMADIN NO DOSE TODAY PO ONE (17:00)
[2016-10-02] MEDS: LOVENOX SUB-Q SCH (21:46)
[2016-10-03 05:26] LABS: INR 2.1 (0.87-1.13)
[2016-10-03 05:38] LABS: Calcium 8.2 mg/dL (8.4-10.2); Chloride 94.7 mmol/L (98-107); Potassium 4.4 mmol/L (3.6-5.0)
[2016-10-03] MEDS: PERCOCET 5/325 PO PRN ×3 (06:02→19:35)
--- NOTE | 2016-10-03 08:01 | Progress Note ---
Assessment and Plan Assessment and plan: Patient is a 31-year-old black man with a past medical history significant for schizophrenia , bipolar disorder, who presents to the emergency department via EMS after being found on the floor of his bathroom by his roommate. Acute rhabdomyolysis/tramautic was treated IVF and HD GERALDINE and hyperkalemia continue HD Will need prolonged renal replacement, needs outpatient HD set up Right lower extremity and LUE hemiparesis MRI unrevealing, Per Neurology neither fits the picture. More towards metabolic vs psychogenic with functional quadplegia, poa, now resolved,, RLE weakness most likely due to RLE DVT Right lower extremity DVT continue coumadin Urinary Retention sp damon placement, will need outpatient urology fup for urodynamics studies and TOV Anemia No signs of active bleeding, likely anemia of chronic disease due to ESRD sp post blood transfusion Debility continue PT, needs placement History Interval history: continues to have R leg pain on and off, otherwise no complaints Hospitalist Physical - Physical exam Narrative exam: General: Patient appears well in no distress HEENT: MMM, EOMI cardiac: S1-S2 heard lungs: clear to auscultation, abdomen: soft, nontender, nondistended bowel sounds positive extremities: RLE edema Skin: no rash or lesion Neuro: no focal deficit Psych: appropriate behavior and mood, cognition intact - Constitutional Vitals: Temp Pulse Resp BP Pulse Ox 98.4 F 92 H 12 125/64 98 10/03/16 07:20 10/03/16 07:20 10/03/16 07:20 10/03/16 07:20 10/03/16 07:20 General appearance: Present: no acute distress Results - Labs CBC & Chem 7: 10/06/16 05:46 10/06/16 05:46 Labs: Laboratory Last Values WBC 19.0 K/mm3 (4.5-11.0) H 10/02/16 06:45 RBC 2.86 M/mm3 (3.65-5.03) L 10/02/16 06:45 Hgb 7.1 gm/dl (11.8-15.2) L 10/02/16 06:45 Hct 21.4 % (35.5-45.6) L 10/02/16 06:45 MCV 75 fl (84-94) L 10/02/16 06:45 MCH 25 pg (28-32) L 10/02/16 06:45 MCHC 33 % (32-34) 10/02/16 06:45 RDW 14.4 % (13.2-15.2) 10/02/16 06:45 Plt Count 355 K/mm3 (140-440) 10/02/16 06:45 Lymph % (Auto) 11.4 % (13.4-35.0) L 09/25/16 05:36 [place] % (Auto) 12.0 % (0.0-7.3) H 09/25/16 05:36 Eos % (Auto) 0.9 % (0.0-4.3) 09/25/16 05:36 Baso % (Auto) 0.5 % (0.0-1.8) 09/25/16 05:36 Lymph # 2.0 K/mm3 (1.2-5.4) 09/25/16 05:36 [place] # 2.1 K/mm3 (0.0-0.8) H 09/25/16 05:36 Eos # 0.2 K/mm3 (0.0-0.4) 09/25/16 05:36 Baso # 0.1 K/mm3 (0.0-0.1) 09/25/16 05:36 Add Manual Diff Complete 10/02/16 06:45 Total Counted 100 10/02/16 06:45 Seg Neutrophils % 75.2 % (40.0-70.0) H 09/25/16 05:36 Seg Neuts % (Manual) 83.0 % (40.0-70.0) H 10/02/16 06:45 Band Neutrophils % 0 % 10/02/16 06:45 Lymphocytes % (Manual) 8.0 % (13.4-35.0) L 10/02/16 06:45 Reactive Lymphs % (Man) 0 % 10/02/16 06:45 Monocytes % (Manual) 4.0 % (0.0-7.3) 10/02/16 06:45 Eosinophils % (Manual) 1.0 % (0.0-4.3) 10/02/16 06:45 Basophils % (Manual) 0 % (0.0-1.8) 10/02/16 06:45 Metamyelocytes % 3.0 % 10/02/16 06:45 Myelocytes % 1.0 % 10/02/16 06:45 Promyelocytes % 0 % 10/02/16 06:45 Blast Cells % 0 % 10/02/16 06:45 Nucleated RBC % Not Reportable 10/02/16 06:45 Seg Neutrophils # 12.9 K/mm3 (1.8-7.7) H 09/25/16 05:36 Seg Neutrophils # Man 15.8 K/mm3 (1.8-7.7) H 10/02/16 06:45 Band Neutrophils # 0.0 K/mm3 10/02/16 06:45 Lymphocytes # (Manual) 1.5 K/mm3 (1.2-5.4) 10/02/16 06:45 Abs React Lymphs (Man) 0.0 K/mm3 10/02/16 06:45 Monocytes # (Manual) 0.8 K/mm3 (0.0-0.8) 10/02/16 06:45 Eosinophils # (Manual) 0.2 K/mm3 (0.0-0.4) 10/02/16 06:45 Basophils # (Manual) 0.0 K/mm3 (0.0-0.1) 10/02/16 06:45 Metamyelocytes # 0.6 K/mm3 10/02/16 06:45 Myelocytes # 0.2 K/mm3 10/02/16 06:45 Promyelocytes # 0.0 K/mm3 10/02/16 06:45 Blast Cells # 0.0 K/mm3 10/02/16 06:45 WBC Morphology Not Reportable 10/02/16 06:45 Hypersegmented Neuts Not Reportable 10/02/16 06:45 Hyposegmented Neuts Not Reportable 10/02/16 06:45 Hypogranular Neuts Not Reportable 10/02/16 06:45 Smudge Cells Not Reportable 10/02/16 06:45 Toxic Granulation Not Reportable 10/02/16 06:45 Toxic Vacuolation Not Reportable 10/02/16 06:45 Dohle Bodies Not Reportable 10/02/16 06:45 Pel[place]uet Anomaly Not Reportable 10/02/16 06:45 Laila Rods Not Reportable 10/02/16 06:45 Platelet Estimate Appears normal 10/02/16 06:45 Clumped Platelets Not Reportable 10/02/16 06:45 Plt Clumps, EDTA Not Reportable 10/02/16 06:45 Large Platelets Not Reportable 10/02/16 06:45 Giant Platelets Not Reportable 10/02/16 06:45 Platelet Satelliting Not Reportable 10/02/16 06:45 Plt Morphology Comment Not Reportable 10/02/16 06:45 RBC Morphology Not Reportable 10/02/16 06:45 Dimorphic RBCs Not Reportable 10/02/16 06:45 Polychromasia Not Reportable 10/02/16 06:45 Hypochromasia 1+ 10/02/16 06:45 Poikilocytosis Not Reportable 10/02/16 06:45 Anisocytosis Not Reportable 10/02/16 06:45 Microcytosis Not Reportable 10/02/16 06:45 Macrocytosis Not Reportable 10/02/16 06:45 Spherocytes Not Reportable 10/02/16 06:45 Pappenheimer Bodies Not Reportable 10/02/16 06:45 Sickle Cells Not Reportable 10/02/16 06:45 Target Cells Not Reportable 10/02/16 06:45 Tear Drop Cells Not Reportable 10/02/16 06:45 Ovalocytes Not Reportable 10/02/16 06:45 Stomatocytes Few 09/19/16 05:30 Helmet Cells Not Reportable 10/02/16 06:45 [place] Bodies Not Reportable 10/02/16 06:45 [place] Rings Not Reportable 10/02/16 06:45 [place] Cells Not Reportable 10/02/16 06:45 Bite Cells Not Reportable 10/02/16 06:45 Crenated Cell Not Reportable 10/02/16 06:45 Elliptocytes Not Reportable 10/02/16 06:45 Acanthocytes (Spur) Not Reportable 10/02/16 06:45 Rouleaux Not Reportable 10/02/16 06:45 Hemoglobin C Crystals Not Reportable 10/02/16 06:45 Schistocytes Not Reportable 10/02/16 06:45 Malaria parasites Not Reportable 10/02/16 06:45 Suhail Bodies Not Reportable 10/02/16 06:45 Hem Pathologist Commnt No 10/02/16 06:45 PT 23.6 Sec. (12.2-14.9) H 10/03/16 04:42 INR 2.10 (0.87-1.13) H 10/03/16 04:42 Sodium 137 mmol/L (137-145) 10/03/16 04:42 Potassium 4.4 mmol/L (3.6-5.0) 10/03/16 04:42 Chloride 94.7 mmol/L (98-107) L 10/03/16 04:42 Carbon Dioxide 27 mmol/L (22-30) 10/03/16 04:42 Anion Gap 20 mmol/L 10/03/16 04:42 BUN 37 mg/dL (9-20) H 10/03/16 04:42 Creatinine 7.4 mg/dL (0.8-1.5) H 10/03/16 04:42 Estimated GFR 10 ml/min 10/03/16 04:42 BUN/Creatinine Ratio 5.00 % 10/03/16 04:42 Glucose 111 mg/dL (75-100) H 10/03/16 04:42 POC Glucose 115 (70-105) H 09/18/16 07:56 Lactic Acid 1.4 mmol/L (0.7-2.0) 09/20/16 12:12 Calcium 8.2 mg/dL (8.4-10.2) L 10/03/16 04:42 Total Bilirubin 0.2 mg/dL (0.1-1.2) 09/19/16 06:20 Direct Bilirubin < 0.2 mg/dL (0-0.2) 09/19/16 06:20 Indirect Bilirubin 0.0 mg/dL 09/19/16 06:20 AST 1264 units/L (5-40) H 09/19/16 06:20 ALT 238 units/L (7-56) H 09/19/16 06:20 Alkaline Phosphatase 57 units/L (35-129) 09/19/16 06:20 Total Creatine Kinase 816 units/L (55-170) H 10/03/16 04:42 CK-MB (CK-2) 292.8 ng/mL (0.0-4.0) H 09/19/16 06:17 CK-MB (CK-2) Rel Index 0.3 (0-4) 09/19/16 06:17 Serum Total Protein 7.3 g/dL (6.1-8.1) 09/18/16 14:48 Total Protein 6.4 g/dL (6.3-8.2) D 09/19/16 06:20 Albumin 3.1 g/dL (3.9-5) L 09/19/16 06:20 Albumin/Globulin Ratio 0.9 % 09/19/16 06:20 Dnegp-4-Ioffutlbm 0.3 g/dL (0.2-0.3) 09/18/16 14:48 Yquxg-1-Ycigoddra 0.9 g/dL (0.5-0.9) 09/18/16 14:48 Beta Globulins 0.5 g/dL (0.2-0.5) 09/18/16 14:48 Gamma Globulins 1.3 g/dL (0.8-1.7) 09/18/16 14:48 Abnorm Protein Band 1 see below (()) 09/18/16 14:48 PEP Interpretation see below (()) 09/18/16 14:48 Ceruloplasmin 24 mg/dL (18-36) 09/25/16 20:05 Salicylates < 0.3 mg/dL (2.8-20.0) L 09/18/16 08:08 Acetaminophen < 15.0 ug/mL (10.0-30.0) 09/18/16 08:08 Plasma/Serum Alcohol < 0.01 gm% (0-0.07) 09/18/16 08:08 Complement C3 141 mg/dL (90-180) 09/18/16 14:48 Complement C4 62 mg/dL (16-47) H 09/18/16 14:48 Hepatitis A IgM Ab -1 (NonReactive) 09/23/16 21:00 Hep Bs Antigen Non-reactive (Negative) 09/23/16 21:00 Hep B Core IgM Ab Non-reactive (NonReactive) 09/23/16 21:00 Hepatitis C Antibody Non-reactive (NonReactive) 09/23/16 21:00 Blood Type O POSITIVE 10/02/16 12:41 Antibody Screen Negative 10/02/16 12:41 Crossmatch See Detail 10/02/16 12:41
[2016-10-03 08:11] LABS: Hematocrit 22.1 % (35.5-45.6); Hemoglobin 7.6 gm/dl (11.8-15.2); Mean Corpuscular HGB Conc 34 % (32-34); Mean Corpuscular Hemoglobin 26 pg (28-32); Mean Corpuscular Volume 76 fl (84-94); Platelet Count 357 K/mm3 (140-440); Red Cell Distribution Width 15.4 % (13.2-15.2); White Blood Count 16.8 K/mm3 (4.5-11.0)
--- NOTE | 2016-10-03 09:31 | Progress Note ---
Assessment and Plan - Patient Problems (1) Acute renal failure due to rhabdomyolysis Current Visit: Yes Status: Acute Plan to address problem: GERALDINE with Rhabdo. Pt had urinary retention, after [facility] placement-urine output better--Nonoliguric. Follow up on labs. HD tomorrow if BUN/Cr remain high. Noted drop in Hb---consider PRBC Scr-7.4 today. Check labs in AM (2) Anemia Current Visit: Yes Status: Chronic (3) Leucocytosis Current Visit: Yes Status: Acute (4) DVT (deep venous thrombosis) Current Visit: Yes Status: Acute Plan to address problem: on Warfarin (5) Bipolar disorder Current Visit: Yes Status: Chronic (6) Physical deconditioning Current Visit: Yes Status: Acute Subjective Date of service: 10/03/16 Principal diagnosis: Severe Hyperkalemia; Rhabdomyolysis; GERALDINE on Hemodialysis Interval history: alert, oriented, still C/O right leg weakness, pain Objective - Vital Signs Vital signs: Vital Signs - 12hr 10/02/16 10/02/16 10/02/16 21:47 22:00 22:05 Temperature Pulse Rate [ From Monitor] Respiratory 16 16 Rate Respiratory 16 Rate [Right Thigh] Blood Pressure [Left Arm] O2 Sat by Pulse Oximetry 10/03/16 10/03/16 10/03/16 00:00 06:02 07:20 Temperature 99.5 F 98.4 F Pulse Rate [ 96 H 92 H From Monitor] Respiratory 20 16 12 Rate Respiratory Rate [Right Thigh] Blood Pressure 126/83 125/64 [Left Arm] O2 Sat by Pulse 100 98 Oximetry - General Appearance General appearance: chronically ill EENT: mucous membranes moist Neck: no JVD Respiratory: Present: Clear to Ascultation Cardiology: regular Gastrointestinal: normoactive bowel sounds Musculoskeletal: other (LE weakness-more prominent in right leg-same, no edema) - Lab 10/03/16 08:04 10/03/16 04:42 Most recent lab results Calcium 8.2 mg/dL (8.4-10.2) L 10/03/16 04:42
[2016-10-03] MEDS: COUMADIN PO SCH (16:37)
[2016-10-03] MEDS: FLEXERIL PO PRN (19:36)
[2016-10-04] MEDS: PERCOCET 5/325 PO PRN ×4 (00:55→23:17)
[2016-10-04 06:46] LABS: Basophils % (Auto) 0.3 % (0.0-1.8); Eosinophils % (Auto) 1.6 % (0.0-4.3); Hematocrit 22.4 % (35.5-45.6); Hemoglobin 7.5 gm/dl (11.8-15.2); Mean Corpuscular HGB Conc 33 % (32-34); Mean Corpuscular Volume 77 fl (84-94); Platelet Count 409 K/mm3 (140-440); Red Blood Count 2.93 M/mm3 (3.65-5.03); Red Cell Distribution Width 15.1 % (13.2-15.2); White Blood Count 13.1 K/mm3 (4.5-11.0)
[2016-10-04 06:47] LABS: Mean Corpuscular Hemoglobin 26 pg (28-32)
[2016-10-04 06:53] LABS: INR 2.09 (0.87-1.13)
[2016-10-04 06:54] LABS: BUN/Creatinine Ratio 6.37; Calcium 8.5 mg/dL (8.4-10.2); Chloride 96.2 mmol/L (98-107); Potassium 4.8 mmol/L (3.6-5.0)
--- NOTE | 2016-10-04 09:28 | Progress Note ---
Assessment and Plan - Patient Problems (1) Acute renal failure due to rhabdomyolysis Current Visit: Yes Status: Acute Plan to address problem: GERALDINE with Rhabdo. Pt had urinary retention, after [facility] placement-urine output better--Nonoliguric. Noted drop in Hb---consider PRBC HD today, hopefully pt may not need ch[facility] dialysis if renal function continues to improve. Monitor off dialysis over the weekend. (2) Anemia Current Visit: Yes Status: Chronic (3) Leucocytosis Current Visit: Yes Status: Acute (4) DVT (deep venous thrombosis) Current Visit: Yes Status: Acute Plan to address problem: on Warfarin (5) Bipolar disorder Current Visit: Yes Status: Chronic (6) Physical deconditioning Current Visit: Yes Status: Acute Subjective Date of service: 10/04/16 Principal diagnosis: Severe Hyperkalemia; Rhabdomyolysis; GERALDINE on Hemodialysis Interval history: alert, oriented, clinical condition same, but urine output is getting better, still C/O right leg weakness, pain Objective - Vital Signs Vital signs: Vital Signs - 12hr 10/03/16 10/04/16 10/04/16 22:00 00:00 00:55 Temperature 98.1 F Pulse Rate [ 89 From Monitor] Respiratory 18 16 Rate Respiratory 16 Rate [Right Thigh] Blood Pressure 125/76 [Left Arm] O2 Sat by Pulse 98 Oximetry 10/04/16 10/04/16 04:00 07:30 Temperature 98.6 F 98.0 F Pulse Rate [ 107 H 95 H From Monitor] Respiratory 18 16 Rate Respiratory Rate [Right Thigh] Blood Pressure 105/58 125/83 [Left Arm] O2 Sat by Pulse 93 99 Oximetry - General Appearance General appearance: chronically ill EENT: mucous membranes moist Neck: no JVD Respiratory: Present: Clear to Ascultation Cardiology: regular, systolic murmur Gastrointestinal: normoactive bowel sounds Neurologic: alert and oriented x3 Musculoskeletal: other (LE weakness same) - Lab 10/04/16 06:10 10/04/16 06:10 Most recent lab results Calcium 8.5 mg/dL (8.4-10.2) 10/04/16 06:10
[2016-10-04] MEDS ORDERED: NACL 0.9% 1000 ML 100 ML IV PRN (10:10)
[2016-10-04] MEDS: HEPARIN IV PRN (13:20)
--- NOTE | 2016-10-04 16:12 | Progress Note ---
Assessment and Plan Assessment and plan: Patient is a 31-year-old black man with a past medical history significant for schizophrenia , bipolar disorder, who presents to the emergency department via EMS after being found on the floor of his bathroom by his roommate. Acute rhabdomyolysis/tramautic was treated IVF and HD GERALDINE and hyperkalemia continue HD Will need prolonged renal replacement, needs outpatient HD set up Right lower extremity and LUE hemiparesis MRI unrevealing, Per Neurology neither fits the picture. More towards metabolic vs psychogenic with functional quadplegia, poa, now resolved,, RLE weakness most likely due to RLE DVT Right lower extremity DVT continue coumadin Urinary Retention sp damon placement, will need outpatient urology fup for urodynamics studies and TOV Anemia No signs of active bleeding, likely anemia of chronic disease due to ESRD sp post blood transfusion, if hg continues to drop, will consider GI consult Debility continue PT, needs placement History Interval history: continues to have R leg pain on and off, otherwise no complaints Hospitalist Physical - Physical exam Narrative exam: General: Patient appears well in no distress HEENT: MMM, EOMI cardiac: S1-S2 heard lungs: clear to auscultation, abdomen: soft, nontender, nondistended bowel sounds positive extremities: RLE edema Skin: no rash or lesion Neuro: no focal deficit Psych: appropriate behavior and mood, cognition intact - Constitutional Vitals: Temp Pulse Resp BP Pulse Ox 98.2 F 98 H 14 116/78 99 10/04/16 14:18 10/04/16 14:18 10/04/16 14:18 10/04/16 14:18 10/04/16 14:18 General appearance: Present: no acute distress Results - Labs CBC & Chem 7: 10/06/16 05:46 10/06/16 05:46 Labs: Laboratory Last Values WBC 13.1 K/mm3 (4.5-11.0) H 10/04/16 06:10 RBC 2.93 M/mm3 (3.65-5.03) L 10/04/16 06:10 Hgb 7.5 gm/dl (11.8-15.2) L 10/04/16 06:10 Hct 22.4 % (35.5-45.6) L 10/04/16 06:10 MCV 77 fl (84-94) L 10/04/16 06:10 MCH 26 pg (28-32) L 10/04/16 06:10 MCHC 33 % (32-34) 10/04/16 06:10 RDW 15.1 % (13.2-15.2) 10/04/16 06:10 Plt Count 409 K/mm3 (140-440) 10/04/16 06:10 Lymph % (Auto) 13.7 % (13.4-35.0) 10/04/16 06:10 [place] % (Auto) 9.3 % (0.0-7.3) H 10/04/16 06:10 Eos % (Auto) 1.6 % (0.0-4.3) 10/04/16 06:10 Baso % (Auto) 0.3 % (0.0-1.8) 10/04/16 06:10 Lymph # 1.8 K/mm3 (1.2-5.4) 10/04/16 06:10 Roosevelt # 1.2 K/mm3 (0.0-0.8) H 10/04/16 06:10 Eos # 0.2 K/mm3 (0.0-0.4) 10/04/16 06:10 Baso # 0.0 K/mm3 (0.0-0.1) 10/04/16 06:10 Add Manual Diff Complete 10/02/16 06:45 Total Counted 100 10/02/16 06:45 Seg Neutrophils % 75.1 % (40.0-70.0) H 10/04/16 06:10 Seg Neuts % (Manual) 83.0 % (40.0-70.0) H 10/02/16 06:45 Band Neutrophils % 0 % 10/02/16 06:45 Lymphocytes % (Manual) 8.0 % (13.4-35.0) L 10/02/16 06:45 Reactive Lymphs % (Man) 0 % 10/02/16 06:45 Monocytes % (Manual) 4.0 % (0.0-7.3) 10/02/16 06:45 Eosinophils % (Manual) 1.0 % (0.0-4.3) 10/02/16 06:45 Basophils % (Manual) 0 % (0.0-1.8) 10/02/16 06:45 Metamyelocytes % 3.0 % 10/02/16 06:45 Myelocytes % 1.0 % 10/02/16 06:45 Promyelocytes % 0 % 10/02/16 06:45 Blast Cells % 0 % 10/02/16 06:45 Nucleated RBC % Not Reportable 10/02/16 06:45 Seg Neutrophils # 9.9 K/mm3 (1.8-7.7) H 10/04/16 06:10 Seg Neutrophils # Man 15.8 K/mm3 (1.8-7.7) H 10/02/16 06:45 Band Neutrophils # 0.0 K/mm3 10/02/16 06:45 Lymphocytes # (Manual) 1.5 K/mm3 (1.2-5.4) 10/02/16 06:45 Abs React Lymphs (Man) 0.0 K/mm3 10/02/16 06:45 Monocytes # (Manual) 0.8 K/mm3 (0.0-0.8) 10/02/16 06:45 Eosinophils # (Manual) 0.2 K/mm3 (0.0-0.4) 10/02/16 06:45 Basophils # (Manual) 0.0 K/mm3 (0.0-0.1) 10/02/16 06:45 Metamyelocytes # 0.6 K/mm3 10/02/16 06:45 Myelocytes # 0.2 K/mm3 10/02/16 06:45 Promyelocytes # 0.0 K/mm3 10/02/16 06:45 Blast Cells # 0.0 K/mm3 10/02/16 06:45 WBC Morphology Not Reportable 10/02/16 06:45 Hypersegmented Neuts Not Reportable 10/02/16 06:45 Hyposegmented Neuts Not Reportable 10/02/16 06:45 Hypogranular Neuts Not Reportable 10/02/16 06:45 Smudge Cells Not Reportable 10/02/16 06:45 Toxic Granulation Not Reportable 10/02/16 06:45 Toxic Vacuolation Not Reportable 10/02/16 06:45 Dohle Bodies Not Reportable 10/02/16 06:45 Pelger-Huet Anomaly Not Reportable 10/02/16 06:45 Laila Rods Not Reportable 10/02/16 06:45 Platelet Estimate Appears normal 10/02/16 06:45 Clumped Platelets Not Reportable 10/02/16 06:45 Plt Clumps, EDTA Not Reportable 10/02/16 06:45 Large Platelets Not Reportable 10/02/16 06:45 Giant Platelets Not Reportable 10/02/16 06:45 Platelet Satelliting Not Reportable 10/02/16 06:45 Plt Morphology Comment Not Reportable 10/02/16 06:45 RBC Morphology Not Reportable 10/02/16 06:45 Dimorphic RBCs Not Reportable 10/02/16 06:45 Polychromasia Not Reportable 10/02/16 06:45 Hypochromasia 1+ 10/02/16 06:45 Poikilocytosis Not Reportable 10/02/16 06:45 Anisocytosis Not Reportable 10/02/16 06:45 Microcytosis Not Reportable 10/02/16 06:45 Macrocytosis Not Reportable 10/02/16 06:45 Spherocytes Not Reportable 10/02/16 06:45 Pappenheimer Bodies Not Reportable 10/02/16 06:45 Sickle Cells Not Reportable 10/02/16 06:45 Target Cells Not Reportable 10/02/16 06:45 Tear Drop Cells Not Reportable 10/02/16 06:45 Ovalocytes Not Reportable 10/02/16 06:45 Stomatocytes Few 09/19/16 05:30 Helmet Cells Not Reportable 10/02/16 06:45 [place] Bodies Not Reportable 10/02/16 06:45 [place] Rings Not Reportable 10/02/16 06:45 Marbin Cells Not Reportable 10/02/16 06:45 Bite Cells Not Reportable 10/02/16 06:45 Crenated Cell Not Reportable 10/02/16 06:45 Elliptocytes Not Reportable 10/02/16 06:45 Acanthocytes (Spur) Not Reportable 10/02/16 06:45 Rouleaux Not Reportable 10/02/16 06:45 Hemoglobin C Crystals Not Reportable 10/02/16 06:45 Schistocytes Not Reportable 10/02/16 06:45 Malaria parasites Not Reportable 10/02/16 06:45 Suhail Bodies Not Reportable 10/02/16 06:45 Hem Pathologist Commnt No 10/02/16 06:45 PT 23.5 Sec. (12.2-14.9) H 10/04/16 06:10 INR 2.09 (0.87-1.13) H 10/04/16 06:10 Sodium 140 mmol/L (137-145) 10/04/16 06:10 Potassium 4.8 mmol/L (3.6-5.0) 10/04/16 06:10 Chloride 96.2 mmol/L (98-107) L 10/04/16 06:10 Carbon Dioxide 28 mmol/L (22-30) 10/04/16 06:10 Anion Gap 21 mmol/L 10/04/16 06:10 BUN 51 mg/dL (9-20) H 10/04/16 06:10 Creatinine 8.0 mg/dL (0.8-1.5) H 10/04/16 06:10 Estimated GFR 9 ml/min 10/04/16 06:10 BUN/Creatinine Ratio 6.37 % 10/04/16 06:10 Glucose 97 mg/dL (75-100) 10/04/16 06:10 POC Glucose 115 (70-105) H 09/18/16 07:56 Lactic Acid 1.4 mmol/L (0.7-2.0) 09/20/16 12:12 Calcium 8.5 mg/dL (8.4-10.2) 10/04/16 06:10 Total Bilirubin 0.2 mg/dL (0.1-1.2) 09/19/16 06:20 Direct Bilirubin < 0.2 mg/dL (0-0.2) 09/19/16 06:20 Indirect Bilirubin 0.0 mg/dL 09/19/16 06:20 AST 1264 units/L (5-40) H 09/19/16 06:20 ALT 238 units/L (7-56) H 09/19/16 06:20 Alkaline Phosphatase 57 units/L (35-129) 09/19/16 06:20 Total Creatine Kinase 816 units/L (55-170) H 10/03/16 04:42 CK-MB (CK-2) 292.8 ng/mL (0.0-4.0) H 09/19/16 06:17 CK-MB (CK-2) Rel Index 0.3 (0-4) 09/19/16 06:17 Serum Total Protein 7.3 g/dL (6.1-8.1) 09/18/16 14:48 Total Protein 6.4 g/dL (6.3-8.2) D 09/19/16 06:20 Albumin 3.1 g/dL (3.9-5) L 09/19/16 06:20 Albumin/Globulin Ratio 0.9 % 09/19/16 06:20 Ktyas-2-Idharzrpv 0.3 g/dL (0.2-0.3) 09/18/16 14:48 Dpzds-6-Lenztpazd 0.9 g/dL (0.5-0.9) 09/18/16 14:48 Beta Globulins 0.5 g/dL (0.2-0.5) 09/18/16 14:48 Gamma Globulins 1.3 g/dL (0.8-1.7) 09/18/16 14:48 Abnorm Protein Band 1 see below (()) 09/18/16 14:48 PEP Interpretation see below (()) 09/18/16 14:48 Ceruloplasmin 24 mg/dL (18-36) 09/25/16 20:05 Salicylates < 0.3 mg/dL (2.8-20.0) L 09/18/16 08:08 Acetaminophen < 15.0 ug/mL (10.0-30.0) 09/18/16 08:08 Plasma/Serum Alcohol < 0.01 gm% (0-0.07) 09/18/16 08:08 Complement C3 141 mg/dL (90-180) 09/18/16 14:48 Complement C4 62 mg/dL (16-47) H 09/18/16 14:48 Hepatitis A IgM Ab -1 (NonReactive) 09/23/16 21:00 Hep Bs Antigen Non-reactive (Negative) 09/23/16 21:00 Hep B Core IgM Ab Non-reactive (NonReactive) 09/23/16 21:00 Hepatitis C Antibody Non-reactive (NonReactive) 09/23/16 21:00 Blood Type O POSITIVE 10/02/16 12:41 Antibody Screen Negative 10/02/16 12:41 Crossmatch See Detail 10/02/16 12:41
[2016-10-04] MEDS: COUMADIN PO SCH (16:52)
[2016-10-04] MEDS: FLEXERIL PO PRN (23:18)
[2016-10-05] MEDS: PERCOCET 5/325 PO PRN ×3 (05:49→22:30)
[2016-10-05 07:10] LABS: INR 2.53 (0.87-1.13)
[2016-10-05] MEDS: THERAGRAN Tab PO SCH (09:48)
[2016-10-05] MEDS: FLEXERIL PO PRN (09:52)
--- NOTE | 2016-10-05 11:13 | Progress Note ---
Assessment and Plan Impression: * geraldine with ATN due to acute rhabdomyolysis * Hyperkalemia * Acute Rhabdo * Muscle weakness * Elevated LFTS * Acidosis * Schizophrenia * seizure disorder * DVT * urinary retension Plan: * dialysis q MWF * lytes daily, monitor for renal recovery * off bicarbonate gtt * damon in place * strict i/os * avoid nephrotoxins Subjective Date of service: 10/05/16 Principal diagnosis: Severe Hyperkalemia; Rhabdomyolysis; GERALDINE on Hemodialysis Interval history: resting well in bed today Objective - Exam Narrative Exam: - General Limitations: Other General appearance: alert, in no apparent distress - Head Head exam: Present: atraumatic, normocephalic - Eye Eye exam: Present: normal appearance, PERRL, EOMI - ENT ENT exam: Present: normal exam, normal orophraynx, mucous membranes moist - Neck Neck exam: Present: normal inspection, full ROM. Absent: tenderness - Respiratory Respiratory exam: Present: normal lung sounds bilaterally. Absent: respiratory distress - Cardiovascular Cardiovascular Exam: Present: regular rate, normal rhythm, normal heart sounds - GI/Abdominal GI/Abdominal exam: Present: soft, normal bowel sounds. Absent: distended, tenderness - Extremities Exam Extremities exam: Present: normal inspection, decrease ROM. diffuse tenderness - Back Exam Back exam: Present: normal inspection, full ROM. Absent: tenderness - Neurological Exam Neurological exam: Present: alert, oriented X3. Absent: motor sensory deficit - Skin Skin exam: Present: warm, dry, intact - Vital Signs Vital signs: Vital Signs - 12hr 10/04/16 10/05/16 10/05/16 23:17 00:10 00:17 Temperature 98.3 F Pulse Rate [ 94 H Left Radial] Pulse Rate [ Right Radial] Respiratory 18 18 18 Rate Blood Pressure 130/86 [Left Arm] O2 Sat by Pulse 99 Oximetry 10/05/16 10/05/16 05:49 08:05 Temperature 98.7 F Pulse Rate [ Left Radial] Pulse Rate [ 86 Right Radial] Respiratory 18 18 Rate Blood Pressure 122/77 [Left Arm] O2 Sat by Pulse 99 Oximetry - Lab 10/04/16 06:10 10/04/16 06:10 Most recent lab results Calcium 8.5 mg/dL (8.4-10.2) 10/04/16 06:10
--- NOTE | 2016-10-05 11:28 | Progress Note ---
Assessment and Plan Assessment and plan: Patient is a 31-year-old black man with a past medical history significant for schizophrenia , bipolar disorder, who presents to the emergency department via EMS after being found on the floor of his bathroom by his roommate. Acute rhabdomyolysis/tramautic was treated IVF and HD GERALDINE and hyperkalemia continue HD Will need prolonged renal replacement, needs outpatient HD set up Right lower extremity and LUE hemiparesis MRI unrevealing, Per Neurology neither fits the picture. More towards metabolic vs psychogenic with functional quadplegia, poa, now resolved,, RLE weakness most likely due to RLE DVT Right lower extremity DVT continue coumadin Urinary Retention sp damon placement, will need outpatient urology fup for urodynamics studies and TOV Anemia No signs of active bleeding, likely anemia of chronic disease due to ESRD sp post blood transfusion, if hg continues to drop, will consider GI consult Debility continue PT, needs placement History Interval history: continues to have R leg pain on and off, otherwise no complaints Hospitalist Physical - Physical exam Narrative exam: General: Patient appears well in no distress HEENT: MMM, EOMI cardiac: S1-S2 heard lungs: clear to auscultation, abdomen: soft, nontender, nondistended bowel sounds positive extremities: RLE edema Skin: no rash or lesion Neuro: no focal deficit Psych: appropriate behavior and mood, cognition intact - Constitutional Vitals: Temp Pulse Resp BP Pulse Ox 98.7 F 86 18 122/77 99 10/05/16 08:05 10/05/16 08:05 10/05/16 08:05 10/05/16 08:05 10/05/16 08:05 General appearance: Present: no acute distress Results - Labs CBC & Chem 7: 10/06/16 05:46 10/06/16 05:46 Labs: Laboratory Last Values WBC 13.1 K/mm3 (4.5-11.0) H 10/04/16 06:10 RBC 2.93 M/mm3 (3.65-5.03) L 10/04/16 06:10 Hgb 7.5 gm/dl (11.8-15.2) L 10/04/16 06:10 Hct 22.4 % (35.5-45.6) L 10/04/16 06:10 MCV 77 fl (84-94) L 10/04/16 06:10 MCH 26 pg (28-32) L 10/04/16 06:10 MCHC 33 % (32-34) 10/04/16 06:10 RDW 15.1 % (13.2-15.2) 10/04/16 06:10 Plt Count 409 K/mm3 (140-440) 10/04/16 06:10 Lymph % (Auto) 13.7 % (13.4-35.0) 10/04/16 06:10 Maries % (Auto) 9.3 % (0.0-7.3) H 10/04/16 06:10 Eos % (Auto) 1.6 % (0.0-4.3) 10/04/16 06:10 Baso % (Auto) 0.3 % (0.0-1.8) 10/04/16 06:10 Lymph # 1.8 K/mm3 (1.2-5.4) 10/04/16 06:10 Maries # 1.2 K/mm3 (0.0-0.8) H 10/04/16 06:10 Eos # 0.2 K/mm3 (0.0-0.4) 10/04/16 06:10 Baso # 0.0 K/mm3 (0.0-0.1) 10/04/16 06:10 Add Manual Diff Complete 10/02/16 06:45 Total Counted 100 10/02/16 06:45 Seg Neutrophils % 75.1 % (40.0-70.0) H 10/04/16 06:10 Seg Neuts % (Manual) 83.0 % (40.0-70.0) H 10/02/16 06:45 Band Neutrophils % 0 % 10/02/16 06:45 Lymphocytes % (Manual) 8.0 % (13.4-35.0) L 10/02/16 06:45 Reactive Lymphs % (Man) 0 % 10/02/16 06:45 Monocytes % (Manual) 4.0 % (0.0-7.3) 10/02/16 06:45 Eosinophils % (Manual) 1.0 % (0.0-4.3) 10/02/16 06:45 Basophils % (Manual) 0 % (0.0-1.8) 10/02/16 06:45 Metamyelocytes % 3.0 % 10/02/16 06:45 Myelocytes % 1.0 % 10/02/16 06:45 Promyelocytes % 0 % 10/02/16 06:45 Blast Cells % 0 % 10/02/16 06:45 Nucleated RBC % Not Reportable 10/02/16 06:45 Seg Neutrophils # 9.9 K/mm3 (1.8-7.7) H 10/04/16 06:10 Seg Neutrophils # Man 15.8 K/mm3 (1.8-7.7) H 10/02/16 06:45 Band Neutrophils # 0.0 K/mm3 10/02/16 06:45 Lymphocytes # (Manual) 1.5 K/mm3 (1.2-5.4) 10/02/16 06:45 Abs React Lymphs (Man) 0.0 K/mm3 10/02/16 06:45 Monocytes # (Manual) 0.8 K/mm3 (0.0-0.8) 10/02/16 06:45 Eosinophils # (Manual) 0.2 K/mm3 (0.0-0.4) 10/02/16 06:45 Basophils # (Manual) 0.0 K/mm3 (0.0-0.1) 10/02/16 06:45 Metamyelocytes # 0.6 K/mm3 10/02/16 06:45 Myelocytes # 0.2 K/mm3 10/02/16 06:45 Promyelocytes # 0.0 K/mm3 10/02/16 06:45 Blast Cells # 0.0 K/mm3 10/02/16 06:45 WBC Morphology Not Reportable 10/02/16 06:45 Hypersegmented Neuts Not Reportable 10/02/16 06:45 Hyposegmented Neuts Not Reportable 10/02/16 06:45 Hypogranular Neuts Not Reportable 10/02/16 06:45 Smudge Cells Not Reportable 10/02/16 06:45 Toxic Granulation Not Reportable 10/02/16 06:45 Toxic Vacuolation Not Reportable 10/02/16 06:45 Dohle Bodies Not Reportable 10/02/16 06:45 Pelger-Huet Anomaly Not Reportable 10/02/16 06:45 Laila Rods Not Reportable 10/02/16 06:45 Platelet Estimate Appears normal 10/02/16 06:45 Clumped Platelets Not Reportable 10/02/16 06:45 Plt Clumps, EDTA Not Reportable 10/02/16 06:45 Large Platelets Not Reportable 10/02/16 06:45 Giant Platelets Not Reportable 10/02/16 06:45 Platelet Satelliting Not Reportable 10/02/16 06:45 Plt Morphology Comment Not Reportable 10/02/16 06:45 RBC Morphology Not Reportable 10/02/16 06:45 Dimorphic RBCs Not Reportable 10/02/16 06:45 Polychromasia Not Reportable 10/02/16 06:45 Hypochromasia 1+ 10/02/16 06:45 Poikilocytosis Not Reportable 10/02/16 06:45 Anisocytosis Not Reportable 10/02/16 06:45 Microcytosis Not Reportable 10/02/16 06:45 Macrocytosis Not Reportable 10/02/16 06:45 Spherocytes Not Reportable 10/02/16 06:45 Pappenheimer Bodies Not Reportable 10/02/16 06:45 Sickle Cells Not Reportable 10/02/16 06:45 Target Cells Not Reportable 10/02/16 06:45 Tear Drop Cells Not Reportable 10/02/16 06:45 Ovalocytes Not Reportable 10/02/16 06:45 Stomatocytes Few 09/19/16 05:30 Helmet Cells Not Reportable 10/02/16 06:45 Brand[place] Bodies Not Reportable 10/02/16 06:45 [place] Rings Not Reportable 10/02/16 06:45 Marbin Cells Not Reportable 10/02/16 06:45 Bite Cells Not Reportable 10/02/16 06:45 Crenated Cell Not Reportable 10/02/16 06:45 Elliptocytes Not Reportable 10/02/16 06:45 Acanthocytes (Spur) Not Reportable 10/02/16 06:45 Rouleaux Not Reportable 10/02/16 06:45 Hemoglobin C Crystals Not Reportable 10/02/16 06:45 Schistocytes Not Reportable 10/02/16 06:45 Malaria parasites Not Reportable 10/02/16 06:45 Suhail Bodies Not Reportable 10/02/16 06:45 Hem Pathologist Commnt No 10/02/16 06:45 PT 27.4 Sec. (12.2-14.9) H 10/05/16 06:45 INR 2.53 (0.87-1.13) H 10/05/16 06:45 Sodium 140 mmol/L (137-145) 10/04/16 06:10 Potassium 4.8 mmol/L (3.6-5.0) 10/04/16 06:10 Chloride 96.2 mmol/L (98-107) L 10/04/16 06:10 Carbon Dioxide 28 mmol/L (22-30) 10/04/16 06:10 Anion Gap 21 mmol/L 10/04/16 06:10 BUN 51 mg/dL (9-20) H 10/04/16 06:10 Creatinine 8.0 mg/dL (0.8-1.5) H 10/04/16 06:10 Estimated GFR 9 ml/min 10/04/16 06:10 BUN/Creatinine Ratio 6.37 % 10/04/16 06:10 Glucose 97 mg/dL (75-100) 10/04/16 06:10 POC Glucose 115 (70-105) H 09/18/16 07:56 Lactic Acid 1.4 mmol/L (0.7-2.0) 09/20/16 12:12 Calcium 8.5 mg/dL (8.4-10.2) 10/04/16 06:10 Total Bilirubin 0.2 mg/dL (0.1-1.2) 09/19/16 06:20 Direct Bilirubin < 0.2 mg/dL (0-0.2) 09/19/16 06:20 Indirect Bilirubin 0.0 mg/dL 09/19/16 06:20 AST 1264 units/L (5-40) H 09/19/16 06:20 ALT 238 units/L (7-56) H 09/19/16 06:20 Alkaline Phosphatase 57 units/L (35-129) 09/19/16 06:20 Total Creatine Kinase 816 units/L (55-170) H 10/03/16 04:42 CK-MB (CK-2) 292.8 ng/mL (0.0-4.0) H 09/19/16 06:17 CK-MB (CK-2) Rel Index 0.3 (0-4) 09/19/16 06:17 Serum Total Protein 7.3 g/dL (6.1-8.1) 09/18/16 14:48 Total Protein 6.4 g/dL (6.3-8.2) D 09/19/16 06:20 Albumin 3.1 g/dL (3.9-5) L 09/19/16 06:20 Albumin/Globulin Ratio 0.9 % 09/19/16 06:20 Yhuky-5-Twlffpwui 0.3 g/dL (0.2-0.3) 09/18/16 14:48 Rtjzq-0-Crhdadvwq 0.9 g/dL (0.5-0.9) 09/18/16 14:48 Beta Globulins 0.5 g/dL (0.2-0.5) 09/18/16 14:48 Gamma Globulins 1.3 g/dL (0.8-1.7) 09/18/16 14:48 Abnorm Protein Band 1 see below (()) 09/18/16 14:48 PEP Interpretation see below (()) 09/18/16 14:48 Ceruloplasmin 24 mg/dL (18-36) 09/25/16 20:05 Salicylates < 0.3 mg/dL (2.8-20.0) L 09/18/16 08:08 Acetaminophen < 15.0 ug/mL (10.0-30.0) 09/18/16 08:08 Plasma/Serum Alcohol < 0.01 gm% (0-0.07) 09/18/16 08:08 Complement C3 141 mg/dL (90-180) 09/18/16 14:48 Complement C4 62 mg/dL (16-47) H 09/18/16 14:48 Hepatitis A IgM Ab -1 (NonReactive) 09/23/16 21:00 Hep Bs Antigen Non-reactive (Negative) 09/23/16 21:00 Hep B Core IgM Ab Non-reactive (NonReactive) 09/23/16 21:00 Hepatitis C Antibody Non-reactive (NonReactive) 09/23/16 21:00 Blood Type O POSITIVE 10/02/16 12:41 Antibody Screen Negative 10/02/16 12:41 Crossmatch See Detail 10/02/16 12:41
[2016-10-05] MEDS: COUMADIN PO SCH (18:38)
[2016-10-06] MEDS: FLEXERIL PO PRN (02:50)
[2016-10-06 06:48] LABS: Basophils % (Auto) 0.6 % (0.0-1.8); Eosinophils % (Auto) 1.1 % (0.0-4.3); Hemoglobin 6.8 gm/dl (11.8-15.2); Mean Corpuscular HGB Conc 32 % (32-34); Mean Corpuscular Volume 77 fl (84-94); Platelet Count 452 K/mm3 (140-440); Red Blood Count 2.74 M/mm3 (3.65-5.03); Red Cell Distribution Width 15.1 % (13.2-15.2); White Blood Count 13.8 K/mm3 (4.5-11.0)
[2016-10-06 06:54] LABS: Mean Corpuscular Hemoglobin 25 pg (28-32)
[2016-10-06 06:56] LABS: INR 2.14 (0.87-1.13)
[2016-10-06 07:01] LABS: BUN/Creatinine Ratio 8.26; Calcium 8.8 mg/dL (8.4-10.2); Chloride 97.2 mmol/L (98-107); Potassium 4.1 mmol/L (3.6-5.0)
[2016-10-06] MEDS: PERCOCET 5/325 PO PRN ×2 (08:29→19:08)
--- NOTE | 2016-10-06 08:45 | Progress Note ---
Assessment and Plan Impression: * geraldine with ATN due to acute rhabdomyolysis * Hyperkalemia * Acute Rhabdo * Muscle weakness * Elevated LFTS * Acidosis * Schizophrenia * seizure disorder * DVT * urinary retension Plan: * dialysis qon hold for now, will follow up am lytes * lytes daily, monitor for renal recovery * off bicarbonate gtt * damon in place * strict i/os * avoid nephrotoxins Subjective Date of service: 10/06/16 Principal diagnosis: Severe Hyperkalemia; Rhabdomyolysis; GERALDINE on Hemodialysis Interval history: resting well in bed today Objective - Exam Narrative Exam: - General Limitations: Other General appearance: alert, in no apparent distress - Head Head exam: Present: atraumatic, normocephalic - Eye Eye exam: Present: normal appearance, PERRL, EOMI - ENT ENT exam: Present: normal exam, normal orophraynx, mucous membranes moist - Neck Neck exam: Present: normal inspection, full ROM. Absent: tenderness - Respiratory Respiratory exam: Present: normal lung sounds bilaterally. Absent: respiratory distress - Cardiovascular Cardiovascular Exam: Present: regular rate, normal rhythm, normal heart sounds - GI/Abdominal GI/Abdominal exam: Present: soft, normal bowel sounds. Absent: distended, tenderness - Extremities Exam Extremities exam: Present: normal inspection, decrease ROM. diffuse tenderness - Back Exam Back exam: Present: normal inspection, full ROM. Absent: tenderness - Neurological Exam Neurological exam: Present: alert, oriented X3. Absent: motor sensory deficit - Skin Skin exam: Present: warm, dry, intact - Vital Signs Vital signs: Vital Signs - 12hr 10/05/16 10/06/16 23:00 08:00 Temperature 98.6 F 98.4 F Pulse Rate [ 98 H Apical] Pulse Rate [ 101 H Right Radial] Respiratory 20 18 Rate Blood Pressure 127/84 [Left Arm] Blood Pressure 128/81 [Right Arm] O2 Sat by Pulse 98 98 Oximetry - Lab 10/06/16 05:46 10/06/16 05:46 Most recent lab results Calcium 8.8 mg/dL (8.4-10.2) 10/06/16 05:46
[2016-10-06] MEDS: THERAGRAN Tab PO SCH (11:41)
--- NOTE | 2016-10-06 12:51 | Progress Note ---
Assessment and Plan Assessment and plan: Patient is a 31-year-old black man with a past medical history significant for schizophrenia , bipolar disorder, who presents to the emergency department via EMS after being found on the floor of his bathroom by his roommate. Acute rhabdomyolysis/tramautic was treated IVF and HD GERALDINE and hyperkalemia continue HD Will need prolonged renal replacement, needs outpatient HD set up Right lower extremity and LUE hemiparesis MRI unrevealing, Per Neurology neither fits the picture. More towards metabolic vs psychogenic with functional quadplegia, poa, now resolved,, RLE weakness most likely due to RLE DVT Right lower extremity DVT continue coumadin Urinary Retention sp damon placement, will need outpatient urology fup for urodynamics studies and TOV Anemia No signs of active bleeding, likely anemia of chronic disease due to ESRD sp post blood transfusion, if hg continues to drop, will consider GI consult Debility continue PT, needs placement History Interval history: RLE pain and swelling is improved today Hospitalist Physical - Physical exam Narrative exam: General: Patient appears well in no distress HEENT: MMM, EOMI cardiac: S1-S2 heard lungs: clear to auscultation, abdomen: soft, nontender, nondistended bowel sounds positive extremities: RLE edema Skin: no rash or lesion Neuro: no focal deficit Psych: appropriate behavior and mood, cognition intact - Constitutional Vitals: Temp Pulse Resp BP Pulse Ox 98.4 F 101 H 18 128/81 98 10/06/16 08:00 10/06/16 08:00 10/06/16 08:00 10/06/16 08:00 10/06/16 08:00 General appearance: Present: no acute distress Results - Labs CBC & Chem 7: 10/06/16 05:46 10/06/16 05:46 Labs: Laboratory Last Values WBC 13.8 K/mm3 (4.5-11.0) H 10/06/16 05:46 RBC 2.74 M/mm3 (3.65-5.03) L 10/06/16 05:46 Hgb 6.8 gm/dl (11.8-15.2) L 10/06/16 05:46 Hct 21.0 % (35.5-45.6) L 10/06/16 05:46 MCV 77 fl (84-94) L 10/06/16 05:46 MCH 25 pg (28-32) L 10/06/16 05:46 MCHC 32 % (32-34) 10/06/16 05:46 RDW 15.1 % (13.2-15.2) 10/06/16 05:46 Plt Count 452 K/mm3 (140-440) H 10/06/16 05:46 Lymph % (Auto) 10.7 % (13.4-35.0) L 10/06/16 05:46 [place] % (Auto) 7.6 % (0.0-7.3) H 10/06/16 05:46 Eos % (Auto) 1.1 % (0.0-4.3) 10/06/16 05:46 Baso % (Auto) 0.6 % (0.0-1.8) 10/06/16 05:46 Lymph # 1.5 K/mm3 (1.2-5.4) 10/06/16 05:46 [place] # 1.0 K/mm3 (0.0-0.8) H 10/06/16 05:46 Eos # 0.1 K/mm3 (0.0-0.4) 10/06/16 05:46 Baso # 0.1 K/mm3 (0.0-0.1) 10/06/16 05:46 Add Manual Diff Complete 10/02/16 06:45 Total Counted 100 10/02/16 06:45 Seg Neutrophils % 80.0 % (40.0-70.0) H 10/06/16 05:46 Seg Neuts % (Manual) 83.0 % (40.0-70.0) H 10/02/16 06:45 Band Neutrophils % 0 % 10/02/16 06:45 Lymphocytes % (Manual) 8.0 % (13.4-35.0) L 10/02/16 06:45 Reactive Lymphs % (Man) 0 % 10/02/16 06:45 Monocytes % (Manual) 4.0 % (0.0-7.3) 10/02/16 06:45 Eosinophils % (Manual) 1.0 % (0.0-4.3) 10/02/16 06:45 Basophils % (Manual) 0 % (0.0-1.8) 10/02/16 06:45 Metamyelocytes % 3.0 % 10/02/16 06:45 Myelocytes % 1.0 % 10/02/16 06:45 Promyelocytes % 0 % 10/02/16 06:45 Blast Cells % 0 % 10/02/16 06:45 Nucleated RBC % Not Reportable 10/02/16 06:45 Seg Neutrophils # 11.0 K/mm3 (1.8-7.7) H 10/06/16 05:46 Seg Neutrophils # Man 15.8 K/mm3 (1.8-7.7) H 10/02/16 06:45 Band Neutrophils # 0.0 K/mm3 10/02/16 06:45 Lymphocytes # (Manual) 1.5 K/mm3 (1.2-5.4) 10/02/16 06:45 Abs React Lymphs (Man) 0.0 K/mm3 10/02/16 06:45 Monocytes # (Manual) 0.8 K/mm3 (0.0-0.8) 10/02/16 06:45 Eosinophils # (Manual) 0.2 K/mm3 (0.0-0.4) 10/02/16 06:45 Basophils # (Manual) 0.0 K/mm3 (0.0-0.1) 10/02/16 06:45 Metamyelocytes # 0.6 K/mm3 10/02/16 06:45 Myelocytes # 0.2 K/mm3 10/02/16 06:45 Promyelocytes # 0.0 K/mm3 10/02/16 06:45 Blast Cells # 0.0 K/mm3 10/02/16 06:45 WBC Morphology Not Reportable 10/02/16 06:45 Hypersegmented Neuts Not Reportable 10/02/16 06:45 Hyposegmented Neuts Not Reportable 10/02/16 06:45 Hypogranular Neuts Not Reportable 10/02/16 06:45 Smudge Cells Not Reportable 10/02/16 06:45 Toxic Granulation Not Reportable 10/02/16 06:45 Toxic Vacuolation Not Reportable 10/02/16 06:45 Dohle Bodies Not Reportable 10/02/16 06:45 Pelger-Huet Anomaly Not Reportable 10/02/16 06:45 Laila Rods Not Reportable 10/02/16 06:45 Platelet Estimate Appears normal 10/02/16 06:45 Clumped Platelets Not Reportable 10/02/16 06:45 Plt Clumps, EDTA Not Reportable 10/02/16 06:45 Large Platelets Not Reportable 10/02/16 06:45 Giant Platelets Not Reportable 10/02/16 06:45 Platelet Satelliting Not Reportable 10/02/16 06:45 Plt Morphology Comment Not Reportable 10/02/16 06:45 RBC Morphology Not Reportable 10/02/16 06:45 Dimorphic RBCs Not Reportable 10/02/16 06:45 Polychromasia Not Reportable 10/02/16 06:45 Hypochromasia 1+ 10/02/16 06:45 Poikilocytosis Not Reportable 10/02/16 06:45 Anisocytosis Not Reportable 10/02/16 06:45 Microcytosis Not Reportable 10/02/16 06:45 Macrocytosis Not Reportable 10/02/16 06:45 Spherocytes Not Reportable 10/02/16 06:45 Pappenheimer Bodies Not Reportable 10/02/16 06:45 Sickle Cells Not Reportable 10/02/16 06:45 Target Cells Not Reportable 10/02/16 06:45 Tear Drop Cells Not Reportable 10/02/16 06:45 Ovalocytes Not Reportable 10/02/16 06:45 Stomatocytes Few 09/19/16 05:30 Helmet Cells Not Reportable 10/02/16 06:45 [place] Bodies Not Reportable 10/02/16 06:45 [place] Rings Not Reportable 10/02/16 06:45 Marbin Cells Not Reportable 10/02/16 06:45 Bite Cells Not Reportable 10/02/16 06:45 Crenated Cell Not Reportable 10/02/16 06:45 Elliptocytes Not Reportable 10/02/16 06:45 Acanthocytes (Spur) Not Reportable 10/02/16 06:45 Rouleaux Not Reportable 10/02/16 06:45 Hemoglobin C Crystals Not Reportable 10/02/16 06:45 Schistocytes Not Reportable 10/02/16 06:45 Malaria parasites Not Reportable 10/02/16 06:45 Suhail Bodies Not Reportable 10/02/16 06:45 Hem Pathologist Commnt No 10/02/16 06:45 PT 24.0 Sec. (12.2-14.9) H 10/06/16 05:46 INR 2.14 (0.87-1.13) H 10/06/16 05:46 Sodium 138 mmol/L (137-145) 10/06/16 05:46 Potassium 4.1 mmol/L (3.6-5.0) 10/06/16 05:46 Chloride 97.2 mmol/L (98-107) L 10/06/16 05:46 Carbon Dioxide 27 mmol/L (22-30) 10/06/16 05:46 Anion Gap 18 mmol/L 10/06/16 05:46 BUN 43 mg/dL (9-20) H 10/06/16 05:46 Creatinine 5.2 mg/dL (0.8-1.5) H 10/06/16 05:46 Estimated GFR 16 ml/min 10/06/16 05:46 BUN/Creatinine Ratio 8.26 % 10/06/16 05:46 Glucose 91 mg/dL (75-100) 10/06/16 05:46 POC Glucose 115 (70-105) H 09/18/16 07:56 Lactic Acid 1.4 mmol/L (0.7-2.0) 09/20/16 12:12 Calcium 8.8 mg/dL (8.4-10.2) 10/06/16 05:46 Total Bilirubin 0.2 mg/dL (0.1-1.2) 09/19/16 06:20 Direct Bilirubin < 0.2 mg/dL (0-0.2) 09/19/16 06:20 Indirect Bilirubin 0.0 mg/dL 09/19/16 06:20 AST 1264 units/L (5-40) H 09/19/16 06:20 ALT 238 units/L (7-56) H 09/19/16 06:20 Alkaline Phosphatase 57 units/L (35-129) 09/19/16 06:20 Total Creatine Kinase 816 units/L (55-170) H 10/03/16 04:42 CK-MB (CK-2) 292.8 ng/mL (0.0-4.0) H 09/19/16 06:17 CK-MB (CK-2) Rel Index 0.3 (0-4) 09/19/16 06:17 Serum Total Protein 7.3 g/dL (6.1-8.1) 09/18/16 14:48 Total Protein 6.4 g/dL (6.3-8.2) D 09/19/16 06:20 Albumin 3.1 g/dL (3.9-5) L 09/19/16 06:20 Albumin/Globulin Ratio 0.9 % 09/19/16 06:20 Nnpbt-8-Vlayqqqmw 0.3 g/dL (0.2-0.3) 09/18/16 14:48 Nbijw-3-Jngvkhlff 0.9 g/dL (0.5-0.9) 09/18/16 14:48 Beta Globulins 0.5 g/dL (0.2-0.5) 09/18/16 14:48 Gamma Globulins 1.3 g/dL (0.8-1.7) 09/18/16 14:48 Abnorm Protein Band 1 see below (()) 09/18/16 14:48 PEP Interpretation see below (()) 09/18/16 14:48 Ceruloplasmin 24 mg/dL (18-36) 09/25/16 20:05 Salicylates < 0.3 mg/dL (2.8-20.0) L 09/18/16 08:08 Acetaminophen < 15.0 ug/mL (10.0-30.0) 09/18/16 08:08 Plasma/Serum Alcohol < 0.01 gm% (0-0.07) 09/18/16 08:08 Complement C3 141 mg/dL (90-180) 09/18/16 14:48 Complement C4 62 mg/dL (16-47) H 09/18/16 14:48 Hepatitis A IgM Ab -1 (NonReactive) 09/23/16 21:00 Hep Bs Antigen Non-reactive (Negative) 09/23/16 21:00 Hep B Core IgM Ab Non-reactive (NonReactive) 09/23/16 21:00 Hepatitis C Antibody Non-reactive (NonReactive) 09/23/16 21:00 Blood Type O POSITIVE 10/02/16 12:41 Antibody Screen Negative 10/02/16 12:41 Crossmatch See Detail 10/02/16 12:41
[2016-10-06] MEDS: COUMADIN PO SCH (19:05)
[2016-10-07] MEDS: PERCOCET 5/325 PO PRN ×2 (01:04→18:01)
[2016-10-07 06:02] LABS: Basophils % (Auto) 0.7 % (0.0-1.8); Eosinophils % (Auto) 2.3 % (0.0-4.3); Hemoglobin 7.3 gm/dl (11.8-15.2); Mean Corpuscular HGB Conc 35 % (32-34); Mean Corpuscular Hemoglobin 27 pg (28-32); Mean Corpuscular Volume 77 fl (84-94); Platelet Count 465 K/mm3 (140-440); Red Blood Count 2.73 M/mm3 (3.65-5.03); Red Cell Distribution Width 15.3 % (13.2-15.2)
[2016-10-07 06:11] LABS: BUN/Creatinine Ratio 9.8; Calcium 9.1 mg/dL (8.4-10.2); Chloride 98.2 mmol/L (98-107); Potassium 4.5 mmol/L (3.6-5.0)
[2016-10-07 06:13] LABS: INR 2.21 (0.87-1.13)
--- NOTE | 2016-10-07 08:34 | Progress Note ---
Assessment and Plan Assessment and plan: Patient is a 31-year-old black man with a past medical history significant for schizophrenia , bipolar disorder, who presents to the emergency department via EMS after being found on the floor of his bathroom by his roommate. Acute rhabdomyolysis/tramautic was treated IVF and HD, resolved GERALDINE and hyperkalemia, appears to now be ESRD continue HD Will need prolonged renal replacement, needs outpatient HD set up Right lower extremity and LUE hemiparesis MRI unrevealing, Per Neurology neither fits the picture. More towards metabolic vs psychogenic with functional quadplegia, poa, now resolved,, RLE weakness most likely due to RLE DVT Right lower extremity DVT continue coumadin Urinary Retention sp damon placement, will need outpatient urology fup for urodynamics studies and TOV Anemia No signs of active bleeding, likely anemia of chronic disease due to ESRD sp post blood transfusion, if hg continues to drop, will consider GI consult continue iron supplement Debility continue PT, needs placement History Interval history: RLE pain and swelling is improved today Hospitalist Physical - Physical exam Narrative exam: General: Patient appears well in no distress HEENT: MMM, EOMI cardiac: S1-S2 heard lungs: clear to auscultation, abdomen: soft, nontender, nondistended bowel sounds positive extremities: RLE edema Skin: no rash or lesion Neuro: no focal deficit Psych: appropriate behavior and mood, cognition intact - Constitutional Vitals: Temp Pulse Resp BP Pulse Ox 98.6 F 103 H 20 132/84 98 10/07/16 03:00 10/07/16 03:00 10/07/16 03:00 10/07/16 03:00 10/06/16 15:55 General appearance: Present: no acute distress Results - Labs CBC & Chem 7: 10/07/16 05:30 10/07/16 05:30 Labs: Laboratory Last Values WBC 10.0 K/mm3 (4.5-11.0) 10/07/16 05:30 RBC 2.73 M/mm3 (3.65-5.03) L 10/07/16 05:30 Hgb 7.3 gm/dl (11.8-15.2) L 10/07/16 05:30 Hct 21.0 % (35.5-45.6) L 10/07/16 05:30 MCV 77 fl (84-94) L 10/07/16 05:30 MCH 27 pg (28-32) L 10/07/16 05:30 MCHC 35 % (32-34) H 10/07/16 05:30 RDW 15.3 % (13.2-15.2) H 10/07/16 05:30 Plt Count 465 K/mm3 (140-440) H 10/07/16 05:30 Lymph % (Auto) 20.8 % (13.4-35.0) 10/07/16 05:30 [place] % (Auto) 8.5 % (0.0-7.3) H 10/07/16 05:30 Eos % (Auto) 2.3 % (0.0-4.3) 10/07/16 05:30 Baso % (Auto) 0.7 % (0.0-1.8) 10/07/16 05:30 Lymph # 2.1 K/mm3 (1.2-5.4) 10/07/16 05:30 [place] # 0.9 K/mm3 (0.0-0.8) H 10/07/16 05:30 Eos # 0.2 K/mm3 (0.0-0.4) 10/07/16 05:30 Baso # 0.1 K/mm3 (0.0-0.1) 10/07/16 05:30 Add Manual Diff Complete 10/02/16 06:45 Total Counted 100 10/02/16 06:45 Seg Neutrophils % 67.7 % (40.0-70.0) 10/07/16 05:30 Seg Neuts % (Manual) 83.0 % (40.0-70.0) H 10/02/16 06:45 Band Neutrophils % 0 % 10/02/16 06:45 Lymphocytes % (Manual) 8.0 % (13.4-35.0) L 10/02/16 06:45 Reactive Lymphs % (Man) 0 % 10/02/16 06:45 Monocytes % (Manual) 4.0 % (0.0-7.3) 10/02/16 06:45 Eosinophils % (Manual) 1.0 % (0.0-4.3) 10/02/16 06:45 Basophils % (Manual) 0 % (0.0-1.8) 10/02/16 06:45 Metamyelocytes % 3.0 % 10/02/16 06:45 Myelocytes % 1.0 % 10/02/16 06:45 Promyelocytes % 0 % 10/02/16 06:45 Blast Cells % 0 % 10/02/16 06:45 Nucleated RBC % Not Reportable 10/02/16 06:45 Seg Neutrophils # 6.8 K/mm3 (1.8-7.7) 10/07/16 05:30 Seg Neutrophils # Man 15.8 K/mm3 (1.8-7.7) H 10/02/16 06:45 Band Neutrophils # 0.0 K/mm3 10/02/16 06:45 Lymphocytes # (Manual) 1.5 K/mm3 (1.2-5.4) 10/02/16 06:45 Abs React Lymphs (Man) 0.0 K/mm3 10/02/16 06:45 Monocytes # (Manual) 0.8 K/mm3 (0.0-0.8) 10/02/16 06:45 Eosinophils # (Manual) 0.2 K/mm3 (0.0-0.4) 10/02/16 06:45 Basophils # (Manual) 0.0 K/mm3 (0.0-0.1) 10/02/16 06:45 Metamyelocytes # 0.6 K/mm3 10/02/16 06:45 Myelocytes # 0.2 K/mm3 10/02/16 06:45 Promyelocytes # 0.0 K/mm3 10/02/16 06:45 Blast Cells # 0.0 K/mm3 10/02/16 06:45 WBC Morphology Not Reportable 10/02/16 06:45 Hypersegmented Neuts Not Reportable 10/02/16 06:45 Hyposegmented Neuts Not Reportable 10/02/16 06:45 Hypogranular Neuts Not Reportable 10/02/16 06:45 Smudge Cells Not Reportable 10/02/16 06:45 Toxic Granulation Not Reportable 10/02/16 06:45 Toxic Vacuolation Not Reportable 10/02/16 06:45 Dohle Bodies Not Reportable 10/02/16 06:45 Pelger-Huet Anomaly Not Reportable 10/02/16 06:45 Laila Rods Not Reportable 10/02/16 06:45 Platelet Estimate Appears normal 10/02/16 06:45 Clumped Platelets Not Reportable 10/02/16 06:45 Plt Clumps, EDTA Not Reportable 10/02/16 06:45 Large Platelets Not Reportable 10/02/16 06:45 Giant Platelets Not Reportable 10/02/16 06:45 Platelet Satelliting Not Reportable 10/02/16 06:45 Plt Morphology Comment Not Reportable 10/02/16 06:45 RBC Morphology Not Reportable 10/02/16 06:45 Dimorphic RBCs Not Reportable 10/02/16 06:45 Polychromasia Not Reportable 10/02/16 06:45 Hypochromasia 1+ 10/02/16 06:45 Poikilocytosis Not Reportable 10/02/16 06:45 Anisocytosis Not Reportable 10/02/16 06:45 Microcytosis Not Reportable 10/02/16 06:45 Macrocytosis Not Reportable 10/02/16 06:45 Spherocytes Not Reportable 10/02/16 06:45 Pappenheimer Bodies Not Reportable 10/02/16 06:45 Sickle Cells Not Reportable 10/02/16 06:45 Target Cells Not Reportable 10/02/16 06:45 Tear Drop Cells Not Reportable 10/02/16 06:45 Ovalocytes Not Reportable 10/02/16 06:45 Stomatocytes Few 09/19/16 05:30 Helmet Cells Not Reportable 10/02/16 06:45 [place] Bodies Not Reportable 10/02/16 06:45 [place] Rings Not Reportable 10/02/16 06:45 [place] Cells Not Reportable 10/02/16 06:45 Bite Cells Not Reportable 10/02/16 06:45 Crenated Cell Not Reportable 10/02/16 06:45 Elliptocytes Not Reportable 10/02/16 06:45 Acanthocytes (Spur) Not Reportable 10/02/16 06:45 Rouleaux Not Reportable 10/02/16 06:45 Hemoglobin C Crystals Not Reportable 10/02/16 06:45 Schistocytes Not Reportable 10/02/16 06:45 Malaria parasites Not Reportable 10/02/16 06:45 Suhail Bodies Not Reportable 10/02/16 06:45 Hem Pathologist Commnt No 10/02/16 06:45 PT 24.6 Sec. (12.2-14.9) H 10/07/16 05:30 INR 2.21 (0.87-1.13) H 10/07/16 05:30 Sodium 138 mmol/L (137-145) 10/06/16 05:46 Potassium 4.1 mmol/L (3.6-5.0) 10/06/16 05:46 Chloride 97.2 mmol/L (98-107) L 10/06/16 05:46 Carbon Dioxide 27 mmol/L (22-30) 10/07/16 05:30 Anion Gap 18 mmol/L 10/06/16 05:46 BUN 50 mg/dL (9-20) H 10/07/16 05:30 Creatinine 5.1 mg/dL (0.8-1.5) H 10/07/16 05:30 Estimated GFR 16 ml/min 10/07/16 05:30 BUN/Creatinine Ratio 9.80 % 10/07/16 05:30 Glucose 98 mg/dL (75-100) 10/07/16 05:30 POC Glucose 115 (70-105) H 09/18/16 07:56 Lactic Acid 1.4 mmol/L (0.7-2.0) 09/20/16 12:12 Calcium 9.1 mg/dL (8.4-10.2) 10/07/16 05:30 Total Bilirubin 0.2 mg/dL (0.1-1.2) 09/19/16 06:20 Direct Bilirubin < 0.2 mg/dL (0-0.2) 09/19/16 06:20 Indirect Bilirubin 0.0 mg/dL 09/19/16 06:20 AST 1264 units/L (5-40) H 09/19/16 06:20 ALT 238 units/L (7-56) H 09/19/16 06:20 Alkaline Phosphatase 57 units/L (35-129) 09/19/16 06:20 Total Creatine Kinase 816 units/L (55-170) H 10/03/16 04:42 CK-MB (CK-2) 292.8 ng/mL (0.0-4.0) H 09/19/16 06:17 CK-MB (CK-2) Rel Index 0.3 (0-4) 09/19/16 06:17 Serum Total Protein 7.3 g/dL (6.1-8.1) 09/18/16 14:48 Total Protein 6.4 g/dL (6.3-8.2) D 09/19/16 06:20 Albumin 3.1 g/dL (3.9-5) L 09/19/16 06:20 Albumin/Globulin Ratio 0.9 % 09/19/16 06:20 Dshqs-7-Rlgavlicc 0.3 g/dL (0.2-0.3) 09/18/16 14:48 Ucajv-2-Hpeysuoxu 0.9 g/dL (0.5-0.9) 09/18/16 14:48 Beta Globulins 0.5 g/dL (0.2-0.5) 09/18/16 14:48 Gamma Globulins 1.3 g/dL (0.8-1.7) 09/18/16 14:48 Abnorm Protein Band 1 see below (()) 09/18/16 14:48 PEP Interpretation see below (()) 09/18/16 14:48 Ceruloplasmin 24 mg/dL (18-36) 09/25/16 20:05 Salicylates < 0.3 mg/dL (2.8-20.0) L 09/18/16 08:08 Acetaminophen < 15.0 ug/mL (10.0-30.0) 09/18/16 08:08 Plasma/Serum Alcohol < 0.01 gm% (0-0.07) 09/18/16 08:08 Complement C3 141 mg/dL (90-180) 09/18/16 14:48 Complement C4 62 mg/dL (16-47) H 09/18/16 14:48 Hepatitis A IgM Ab -1 (NonReactive) 09/23/16 21:00 Hep Bs Antigen Non-reactive (Negative) 09/23/16 21:00 Hep B Core IgM Ab Non-reactive (NonReactive) 09/23/16 21:00 Hepatitis C Antibody Non-reactive (NonReactive) 09/23/16 21:00 Blood Type O POSITIVE 10/02/16 12:41 Antibody Screen Negative 10/02/16 12:41 Crossmatch See Detail 10/02/16 12:41
--- NOTE | 2016-10-07 10:08 | Progress Note ---
Assessment and Plan acute kidney injury currently patient is nonoliguric has an indwelling [place] catheter creatinine is at 5.1 patient does have chronic kidney disease changes in the ultrasonogram his vitals are relatively stable His hemoglobin is only 7.3 please consider at least 1-2 units of packed red blood cell transfusion partly could be due to uremia as well as renal failure Patient needs further workup for anemia please do Rhabdomyolysis to be monitored by primary team Overall no acute emergent indication for renal replacement therapy today monitor renal function 24-hour creatinine clearance avoid nephrotoxic medications Subjective Principal diagnosis: Severe Hyperkalemia; Rhabdomyolysis; GERALDINE on Hemodialysis Interval history: seen today for follow up no acute complaints events of this hospitalization noted Vitals lab intake output medications were reviewed [place] affect Still has indwelling [place] catheter Objective - Vital Signs Vital signs: Vital Signs - 12hr 10/07/16 10/07/16 03:00 08:15 Temperature 98.6 F 97.9 F Pulse Rate [ 103 H 86 Apical] Respiratory 20 16 Rate Blood Pressure 132/84 120/70 [Left Arm] O2 Sat by Pulse 100 Oximetry - General Appearance General appearance: appears stated age EENT: mucous membranes moist Neck: no JVD Respiratory: Present: Clear to Ascultation Cardiology: regular, S1S2 (normal) Gastrointestinal: normal (nontender abdomen) - Lab 10/08/16 09:16 10/08/16 09:16 Most recent lab results Calcium 9.1 mg/dL (8.4-10.2) 10/07/16 05:30
[2016-10-07] MEDS: HEPARIN IV PRN (15:00)
[2016-10-07] MEDS: COUMADIN PO SCH (18:01)
[2016-10-07] MEDS: THERAGRAN Tab PO SCH (18:01)
[2016-10-08] MEDS: FLEXERIL PO PRN (00:05)
[2016-10-08] MEDS: PERCOCET 5/325 PO PRN ×2 (00:06→21:05)
[2016-10-08 09:33] LABS: Eosinophils % (Auto) 2.4 % (0.0-4.3); Hematocrit 23.4 % (35.5-45.6); Hemoglobin 7.7 gm/dl (11.8-15.2); Mean Corpuscular HGB Conc 33 % (32-34); Mean Corpuscular Volume 76 fl (84-94); Platelet Count 487 K/mm3 (140-440); Red Blood Count 3.07 M/mm3 (3.65-5.03); Red Cell Distribution Width 15.2 % (13.2-15.2); White Blood Count 8.8 K/mm3 (4.5-11.0)
[2016-10-08 09:38] LABS: Mean Corpuscular Hemoglobin 25 pg (28-32)
[2016-10-08 09:43] LABS: BUN/Creatinine Ratio 8.48; Calcium 9.1 mg/dL (8.4-10.2); Chloride 95.9 mmol/L (98-107); Potassium 4.6 mmol/L (3.6-5.0)
--- NOTE | 2016-10-08 09:46 | Progress Note ---
Assessment and Plan acute kidney injury currently patient is nonoliguric.monitor renal function closely patient needs to be observed without hemodialysis at this point strict intake and output If his creatinine clearance is over 25 cc/m at that point he can be safely discharged to be seen in the office next week as long as he will keep follow-up appointment Patient does have changes of chronic kidney disease on the current ultrasonogram Due to declining hemoglobin he has been seen by gastroenterology service partly his anemia could be due to severe renal failure that he had History of rhabdomyolysis to be monitored by primary team Observe without dialysis follow-up daily labs avoid nephrotoxic medication We'll continue to follow and make recommendation from renal standpoint Subjective Principal diagnosis: Severe Hyperkalemia; Rhabdomyolysis; GERALDINE on Hemodialysis Interval history: seen today for follow up no acute complaint does complain of dryness in his mouth Planning to drink more fluid today still continues to have [place] catheter due to urinary retention Events of 24 hours vitals labs intake output medications were reviewed Objective - Vital Signs Vital signs: Vital Signs - 12hr 10/07/16 10/07/16 10/08/16 22:55 22:56 00:00 Temperature 98.5 F Pulse Rate [ 88 Apical] Pulse Rate [ 86 Right Radial] Respiratory 20 Rate Respiratory 18 Rate [Right Thigh] Blood Pressure 127/77 [Left Arm] O2 Sat by Pulse 98 Oximetry 10/08/16 10/08/16 00:06 07:31 Temperature 98.2 F Pulse Rate [ 88 Apical] Pulse Rate [ Right Radial] Respiratory 18 16 Rate Respiratory Rate [Right Thigh] Blood Pressure 115/70 [Left Arm] O2 Sat by Pulse 98 Oximetry - General Appearance General appearance: well-developed EENT: mucous membranes moist (moderate pallor present) Neck: no JVD Respiratory: Present: Clear to Ascultation (no crackles or also wheezes) Cardiology: regular (S1 and S2 normal no S3-S4) Gastrointestinal: normal (no abdominal tenderness) - Lab 10/08/16 09:16 10/08/16 09:16 Most recent lab results Calcium 9.1 mg/dL (8.4-10.2) 10/08/16 09:16
[2016-10-08 09:53] LABS: INR 2.55 (0.87-1.13)
[2016-10-08] MEDS: THERAGRAN Tab PO SCH (10:33)
--- NOTE | 2016-10-08 11:40 | Progress Note ---
Assessment and Plan Assessment and plan: Patient is a 31-year-old black man with a past medical history significant for schizophrenia , bipolar disorder, who presents to the emergency department via EMS after being found on the floor of his bathroom by his roommate. Acute rhabdomyolysis/tramautic resolving, rx with IVF and HD, continue IVF GERALDINE and hyperkalemia, needing renal replacement renal input appreciated, Kidney function is recovering, has not needed HD in some days Right lower extremity and LUE hemiparesis MRI unrevealing, Per Neurology neither fits the picture. More towards metabolic vs psychogenic with functional quadplegia, poa, now resolved,, RLE weakness most likely due to RLE DVT Right lower extremity DVT continue coumadin Urinary Retention sp damon placement, will need outpatient urology fup for urodynamics studies and TOV Anemia continue iron supplement, transfuse 2 units prbc, GI consult for possible EGD Debility continue PT, needs placement History Interval history: RLE pain and swelling is improved today Hospitalist Physical - Physical exam Narrative exam: General: Patient appears well in no distress HEENT: MMM, EOMI cardiac: S1-S2 heard lungs: clear to auscultation, abdomen: soft, nontender, nondistended bowel sounds positive extremities: RLE edema Skin: no rash or lesion Neuro: no focal deficit Psych: appropriate behavior and mood, cognition intact - Constitutional Vitals: Temp Pulse Resp BP Pulse Ox 98.2 F 88 16 115/70 98 10/08/16 07:31 10/08/16 07:31 10/08/16 07:31 10/08/16 07:31 10/08/16 07:31 General appearance: Present: no acute distress Results - Labs CBC & Chem 7: 10/08/16 09:16 10/08/16 09:16 Labs: Laboratory Last Values WBC 8.8 K/mm3 (4.5-11.0) 10/08/16 09:16 RBC 3.07 M/mm3 (3.65-5.03) L 10/08/16 09:16 Hgb 7.7 gm/dl (11.8-15.2) L 10/08/16 09:16 Hct 23.4 % (35.5-45.6) L 10/08/16 09:16 MCV 76 fl (84-94) L 10/08/16 09:16 MCH 25 pg (28-32) L 10/08/16 09:16 MCHC 33 % (32-34) 10/08/16 09:16 RDW 15.2 % (13.2-15.2) 10/08/16 09:16 Plt Count 487 K/mm3 (140-440) H 10/08/16 09:16 Lymph % (Auto) 16.2 % (13.4-35.0) 10/08/16 09:16 [place] % (Auto) 9.5 % (0.0-7.3) H 10/08/16 09:16 Eos % (Auto) 2.4 % (0.0-4.3) 10/08/16 09:16 Baso % (Auto) 1.0 % (0.0-1.8) 10/08/16 09:16 Lymph # 1.4 K/mm3 (1.2-5.4) 10/08/16 09:16 [place] # 0.8 K/mm3 (0.0-0.8) 10/08/16 09:16 Eos # 0.2 K/mm3 (0.0-0.4) 10/08/16 09:16 Baso # 0.1 K/mm3 (0.0-0.1) 10/08/16 09:16 Add Manual Diff Complete 10/02/16 06:45 Total Counted 100 10/02/16 06:45 Seg Neutrophils % 70.9 % (40.0-70.0) H 10/08/16 09:16 Seg Neuts % (Manual) 83.0 % (40.0-70.0) H 10/02/16 06:45 Band Neutrophils % 0 % 10/02/16 06:45 Lymphocytes % (Manual) 8.0 % (13.4-35.0) L 10/02/16 06:45 Reactive Lymphs % (Man) 0 % 10/02/16 06:45 Monocytes % (Manual) 4.0 % (0.0-7.3) 10/02/16 06:45 Eosinophils % (Manual) 1.0 % (0.0-4.3) 10/02/16 06:45 Basophils % (Manual) 0 % (0.0-1.8) 10/02/16 06:45 Metamyelocytes % 3.0 % 10/02/16 06:45 Myelocytes % 1.0 % 10/02/16 06:45 Promyelocytes % 0 % 10/02/16 06:45 Blast Cells % 0 % 10/02/16 06:45 Nucleated RBC % Not Reportable 10/02/16 06:45 Seg Neutrophils # 6.3 K/mm3 (1.8-7.7) 10/08/16 09:16 Seg Neutrophils # Man 15.8 K/mm3 (1.8-7.7) H 10/02/16 06:45 Band Neutrophils # 0.0 K/mm3 10/02/16 06:45 Lymphocytes # (Manual) 1.5 K/mm3 (1.2-5.4) 10/02/16 06:45 Abs React Lymphs (Man) 0.0 K/mm3 10/02/16 06:45 Monocytes # (Manual) 0.8 K/mm3 (0.0-0.8) 10/02/16 06:45 Eosinophils # (Manual) 0.2 K/mm3 (0.0-0.4) 10/02/16 06:45 Basophils # (Manual) 0.0 K/mm3 (0.0-0.1) 10/02/16 06:45 Metamyelocytes # 0.6 K/mm3 10/02/16 06:45 Myelocytes # 0.2 K/mm3 10/02/16 06:45 Promyelocytes # 0.0 K/mm3 10/02/16 06:45 Blast Cells # 0.0 K/mm3 10/02/16 06:45 WBC Morphology Not Reportable 10/02/16 06:45 Hypersegmented Neuts Not Reportable 10/02/16 06:45 Hyposegmented Neuts Not Reportable 10/02/16 06:45 Hypogranular Neuts Not Reportable 10/02/16 06:45 Smudge Cells Not Reportable 10/02/16 06:45 Toxic Granulation Not Reportable 10/02/16 06:45 Toxic Vacuolation Not Reportable 10/02/16 06:45 Dohle Bodies Not Reportable 10/02/16 06:45 Pelger-Huet Anomaly Not Reportable 10/02/16 06:45 Laila Rods Not Reportable 10/02/16 06:45 Platelet Estimate Appears normal 10/02/16 06:45 Clumped Platelets Not Reportable 10/02/16 06:45 Plt Clumps, EDTA Not Reportable 10/02/16 06:45 Large Platelets Not Reportable 10/02/16 06:45 Giant Platelets Not Reportable 10/02/16 06:45 Platelet Satelliting Not Reportable 10/02/16 06:45 Plt Morphology Comment Not Reportable 10/02/16 06:45 RBC Morphology Not Reportable 10/02/16 06:45 Dimorphic RBCs Not Reportable 10/02/16 06:45 Polychromasia Not Reportable 10/02/16 06:45 Hypochromasia 1+ 10/02/16 06:45 Poikilocytosis Not Reportable 10/02/16 06:45 Anisocytosis Not Reportable 10/02/16 06:45 Microcytosis Not Reportable 10/02/16 06:45 Macrocytosis Not Reportable 10/02/16 06:45 Spherocytes Not Reportable 10/02/16 06:45 Pappenheimer Bodies Not Reportable 10/02/16 06:45 Sickle Cells Not Reportable 10/02/16 06:45 Target Cells Not Reportable 10/02/16 06:45 Tear Drop Cells Not Reportable 10/02/16 06:45 Ovalocytes Not Reportable 10/02/16 06:45 Stomatocytes Few 09/19/16 05:30 Helmet Cells Not Reportable 10/02/16 06:45 [place] Bodies Not Reportable 10/02/16 06:45 [place] Rings Not Reportable 10/02/16 06:45 [place] Cells Not Reportable 10/02/16 06:45 Bite Cells Not Reportable 10/02/16 06:45 Crenated Cell Not Reportable 10/02/16 06:45 Elliptocytes Not Reportable 10/02/16 06:45 Acanthocytes (Spur) Not Reportable 10/02/16 06:45 Rouleaux Not Reportable 10/02/16 06:45 Hemoglobin C Crystals Not Reportable 10/02/16 06:45 Schistocytes Not Reportable 10/02/16 06:45 Malaria parasites Not Reportable 10/02/16 06:45 Suhail Bodies Not Reportable 10/02/16 06:45 Hem Pathologist Commnt No 10/02/16 06:45 PT 27.5 Sec. (12.2-14.9) H 10/08/16 09:16 INR 2.55 (0.87-1.13) H 10/08/16 09:16 Sodium 139 mmol/L (137-145) 10/08/16 09:16 Potassium 4.6 mmol/L (3.6-5.0) 10/08/16 09:16 Chloride 95.9 mmol/L (98-107) L 10/08/16 09:16 Carbon Dioxide 30 mmol/L (22-30) 10/08/16 09:16 Anion Gap 18 mmol/L 10/08/16 09:16 BUN 28 mg/dL (9-20) H 10/08/16 09:16 Creatinine 3.3 mg/dL (0.8-1.5) H 10/08/16 09:16 Estimated GFR 26 ml/min 10/08/16 09:16 BUN/Creatinine Ratio 8.48 % 10/08/16 09:16 Glucose 87 mg/dL (75-100) 10/08/16 09:16 POC Glucose 115 (70-105) H 09/18/16 07:56 Lactic Acid 1.4 mmol/L (0.7-2.0) 09/20/16 12:12 Calcium 9.1 mg/dL (8.4-10.2) 10/08/16 09:16 Total Bilirubin 0.2 mg/dL (0.1-1.2) 09/19/16 06:20 Direct Bilirubin < 0.2 mg/dL (0-0.2) 09/19/16 06:20 Indirect Bilirubin 0.0 mg/dL 09/19/16 06:20 AST 1264 units/L (5-40) H 09/19/16 06:20 ALT 238 units/L (7-56) H 09/19/16 06:20 Alkaline Phosphatase 57 units/L (35-129) 09/19/16 06:20 Total Creatine Kinase 816 units/L (55-170) H 10/03/16 04:42 CK-MB (CK-2) 292.8 ng/mL (0.0-4.0) H 09/19/16 06:17 CK-MB (CK-2) Rel Index 0.3 (0-4) 09/19/16 06:17 Serum Total Protein 7.3 g/dL (6.1-8.1) 09/18/16 14:48 Total Protein 6.4 g/dL (6.3-8.2) D 09/19/16 06:20 Albumin 3.1 g/dL (3.9-5) L 09/19/16 06:20 Albumin/Globulin Ratio 0.9 % 09/19/16 06:20 Jmjvp-6-Hhyruwfbm 0.3 g/dL (0.2-0.3) 09/18/16 14:48 Hwbkr-8-Vxiwlmwgq 0.9 g/dL (0.5-0.9) 09/18/16 14:48 Beta Globulins 0.5 g/dL (0.2-0.5) 09/18/16 14:48 Gamma Globulins 1.3 g/dL (0.8-1.7) 09/18/16 14:48 Abnorm Protein Band 1 see below (()) 09/18/16 14:48 PEP Interpretation see below (()) 09/18/16 14:48 Ceruloplasmin 24 mg/dL (18-36) 09/25/16 20:05 Salicylates < 0.3 mg/dL (2.8-20.0) L 09/18/16 08:08 Acetaminophen < 15.0 ug/mL (10.0-30.0) 09/18/16 08:08 Plasma/Serum Alcohol < 0.01 gm% (0-0.07) 09/18/16 08:08 Complement C3 141 mg/dL (90-180) 09/18/16 14:48 Complement C4 62 mg/dL (16-47) H 09/18/16 14:48 Hepatitis A IgM Ab -1 (NonReactive) 09/23/16 21:00 Hep Bs Antigen Non-reactive (Negative) 09/23/16 21:00 Hep B Core IgM Ab Non-reactive (NonReactive) 09/23/16 21:00 Hepatitis C Antibody Non-reactive (NonReactive) 09/23/16 21:00 Blood Type O POSITIVE 10/02/16 12:41 Antibody Screen Negative 10/02/16 12:41 Crossmatch See Detail 10/02/16 12:41
--- NOTE | 2016-10-08 13:17 | Gastroenterology Consultation ---
History of Present Illness - Reason for Consult Consult date: 10/08/16 Anemia Requesting physician: DONAVON WORRELL - History of Present Illness Asked to see this 31yo man with hx of Bipolar/Schizophrenia for evaluation of declining Hb. He was admitted with GERALDINE/rhabdo after being found at home; he required emergent HD. In addition, he was found to have a RLE DVT, for which he is on therapeutic A/C. I am asked to evaluate him for a slowly declining Hb ; there are no reports of hematemesis, melena or BRBPR. He is w/o any abdominal pain. No nausea/vomiting, CP/SOB. Past History Past Medical History: other (schizophrenia, bipolar d/o) Past Surgical History: No surgical history Social history: Lives alone Family history: no significant family history Medications and Allergies Allergies Allergy/AdvReac Type Severity Reaction Status Date / Time No Known Allergies Allergy Unverified 09/18/16 07:50 Home Medications Medication Instructions Recorded Confirmed Last Taken Type Benztropine [Cogentin] 2 mg PO DAILY 09/18/16 09/18/16 Unknown History Haloperidol [Haldol] 2 mg PO DAILY 09/18/16 09/18/16 Unknown History Hydroxyzine HCl [hydrOXYzine] 50 mg PO DAILY 09/18/16 09/18/16 Unknown History Active Meds: Active Medications Acetaminophen (Tylenol) 650 mg PO Q6H PRN PRN Reason: Pain, Mild (1-3) Last Admin: 09/23/16 05:54 Dose: 650 mg Bisacodyl (Dulcolax) 10 mg IN QDAY PRN PRN Reason: Constipation unrelieved by MOM Cyclobenzaprine HCl (Flexeril) 5 mg PO Q8H PRN PRN Reason: Muscle Spasm Last Admin: 10/08/16 00:05 Dose: 5 mg Heparin Sodium (Porcine) (Heparin) 5,000 unit IV TINA PRN PRN Reason: hemodialysis Last Admin: 10/07/16 15:00 Dose: 5,000 unit Sodium Chloride (Nacl 0.9% 1000 Ml) 100 mls @ 999 mls/hr IV TINA PRN PRN Reason: Hypotension Sodium Chloride (Nacl 0.9% 500 Ml) 500 mls @ 0 mls/hr IV ONCE ONE PRN Reason: As Directed Stop: 01/17/17 14:01 Multivitamins (Theragran Tab) 1 each PO QDAY [facility] Last Admin: 10/08/16 10:33 Dose: 1 each Ondansetron HCl (Zofran) 4 mg IV Q4H PRN PRN Reason: N/V unrelieved by Reglan Last Admin: 09/20/16 20:50 Dose: 4 mg Oxycodone/Acetaminophen (Percocet 5/325) 2 tab PO Q6H PRN PRN Reason: Pain, Moderate (4-6) Last Admin: 10/08/16 00:06 Dose: 2 tab Warfarin Sodium (Coumadin Pharmacy To Dose) 1 each PO PKCONSULT [facility] Warfarin Sodium (Coumadin) 2.5 mg PO DAILY@1700 [facility] Last Admin: 10/07/16 18:01 Dose: 2.5 mg Review of Systems - Review of Systems All systems: negative (rhabdo, bipolar/schizophrenia, anemia, right leg swelling ) Exam - Constitutional Vital Signs: Temp Pulse Resp BP Pulse Ox 98.2 F 88 16 115/70 98 10/08/16 07:31 10/08/16 07:31 10/08/16 07:31 10/08/16 07:31 10/08/16 07:31 General appearance: no acute distress - EENT Eyes: PERRL - Neck Neck: supple - Respiratory Respiratory: bilateral: CTA - Cardiovascular Rhythm: regular Heart Sounds: Present: S1 & S2 Extremity abnormal: edema (rle) - Gastrointestinal General gastrointestinal: Present: soft, non-tender, non-distended, normal bowel sounds - Neurologic Neurological: alert and oriented x3 - Labs CBC & Chem 7: 10/08/16 09:16 10/08/16 09:16 Lab Results: Laboratory Results - last 24 hr 10/08/16 10/08/16 10/08/16 09:16 09:16 09:16 WBC 8.8 RBC 3.07 L Hgb 7.7 L Hct 23.4 L MCV 76 L MCH 25 L MCHC 33 RDW 15.2 Plt Count 487 H Lymph % (Auto) 16.2 [place] % (Auto) 9.5 H Eos % (Auto) 2.4 Baso % (Auto) 1.0 Lymph # 1.4 Bee # 0.8 Eos # 0.2 Baso # 0.1 Seg Neutrophils % 70.9 H Seg Neutrophils # 6.3 PT 27.5 H INR 2.55 H Sodium 139 Potassium 4.6 Chloride 95.9 L Carbon Dioxide 30 Anion Gap 18 BUN 28 H Creatinine 3.3 H Estimated GFR 26 BUN/Creatinine Ratio 8.48 Glucose 87 Calcium 9.1 Blood Type Crossmatch 10/08/16 11:50 WBC RBC Hgb Hct MCV MCH MCHC RDW Plt Count Lymph % (Auto) [place] % (Auto) Eos % (Auto) Baso % (Auto) Lymph # Bee # Eos # Baso # Seg Neutrophils % Seg Neutrophils # PT INR Sodium Potassium Chloride Carbon Dioxide Anion Gap BUN Creatinine Estimated GFR BUN/Creatinine Ratio Glucose Calcium Blood Type O POSITIVE Crossmatch See Detail Assessment and Plan 31yo man with above medical hx, whom I have been asked to evaluate for slowly declining Hb. He has no overt evidence of GIB. Rec: 1) Monitor stools 2) Monitor Hb 3) Can give empiric PPI and re-assess response 4) Given that he is on therapeutic A/C, if endoscopic procedures are to be performed, he would have to be bridged to Heparin, which would be held 6 hours prior to procedure. In addition, INR would have to be <1.5. Thank you for allowing me to participate in the care of your patient. Please do not hesitate to contact me with any questions.
[2016-10-08 13:30] LABS: Total Iron Binding Capacity 278.6 mcg/dL (250-450)
[2016-10-08] MEDS ORDERED: NACL 0.9% 500 ML 500 ML IV ONE (14:00)
[2016-10-08] MEDS: COUMADIN PO SCH (18:33)
[2016-10-08] MEDS: PEPCID PO SCH (21:05)
[2016-10-09 07:14] LABS: Basophils % (Auto) 1.1 % (0.0-1.8); Eosinophils % (Auto) 1.5 % (0.0-4.3); Hematocrit 28.6 % (35.5-45.6); Hemoglobin 9.5 gm/dl (11.8-15.2); Mean Corpuscular HGB Conc 33 % (32-34); Mean Corpuscular Hemoglobin 26 pg (28-32); Mean Corpuscular Volume 79 fl (84-94); Platelet Count 454 K/mm3 (140-440); Red Blood Count 3.61 M/mm3 (3.65-5.03); Red Cell Distribution Width 16.1 % (13.2-15.2); White Blood Count 9.9 K/mm3 (4.5-11.0)
[2016-10-09 07:20] LABS: BUN/Creatinine Ratio 11.66; Calcium 9.5 mg/dL (8.4-10.2); Chloride 96.9 mmol/L (98-107)
[2016-10-09 07:23] LABS: INR 2.05 (0.87-1.13)
--- NOTE | 2016-10-09 07:33 | Gastroenterology Progress Note ---
Assessment and Plan 31yo man with above medical hx, whom I have been asked to evaluate for slowly declining Hb. He has no overt evidence of GIB. Rec: 1) Cont Pepcid x 2 weeks, then d/c 2) Monitor stools; if he overtly bleeds, would then proceed with endoscopic w/u I will stop following daily, but please do not hesitate to re-call with any questions. Thank you! Subjective Date of service: 10/09/16 Principal diagnosis: Anemia Interval history: Pt seen/examined today. S/P PRBC transfusion overnight; Hb up to 9.5 this AM. No signs of bleeding. Pt c/o penile discomfort from damon. Otherwise, no abdominal complaints. No CP/SOB. Objective - Constitutional Vitals: Temp Pulse Resp BP Pulse Ox 98.2 F 86 14 119/78 98 10/09/16 07:26 10/09/16 07:26 10/09/16 07:26 10/09/16 07:26 10/09/16 07:26 General appearance: no acute distress - Neck Neck: supple - Respiratory Respiratory: bilateral: CTA - Cardiovascular Rhythm: regular Heart Sounds: Present: S1 & S2 - Extremities Extremities: No edema - Gastrointestinal General gastrointestinal: Present: soft, non-tender, non-distended, normal bowel sounds - Neurologic Neurological: alert and oriented x3 - Labs CBC & Chem 7: 10/09/16 06:33 10/09/16 06:33 Labs: Laboratory Results - last 24 hr 10/08/16 10/08/16 10/08/16 09:16 09:16 09:16 WBC 8.8 RBC 3.07 L Hgb 7.7 L Hct 23.4 L MCV 76 L MCH 25 L MCHC 33 RDW 15.2 Plt Count 487 H Lymph % (Auto) 16.2 [place] % (Auto) 9.5 H Eos % (Auto) 2.4 Baso % (Auto) 1.0 Lymph # 1.4 [place] # 0.8 Eos # 0.2 Baso # 0.1 Seg Neutrophils % 70.9 H Seg Neutrophils # 6.3 PT 27.5 H INR 2.55 H Sodium 139 Potassium 4.6 Chloride 95.9 L Carbon Dioxide 30 Anion Gap 18 BUN 28 H Creatinine 3.3 H Estimated GFR 26 BUN/Creatinine Ratio 8.48 Glucose 87 Calcium 9.1 Iron TIBC % Saturation Transferrin Ferritin Vitamin B12 Folate Blood Type Antibody Screen Crossmatch 10/08/16 10/08/16 10/08/16 11:50 12:44 12:44 WBC RBC Hgb Hct MCV MCH MCHC RDW Plt Count Lymph % (Auto) [place] % (Auto) Eos % (Auto) Baso % (Auto) Lymph # [place] # Eos # Baso # Seg Neutrophils % Seg Neutrophils # PT INR Sodium Potassium Chloride Carbon Dioxide Anion Gap BUN Creatinine Estimated GFR BUN/Creatinine Ratio Glucose Calcium Iron 50 TIBC 278.60 % Saturation 17.95 Transferrin 199 Ferritin 789.4 H Vitamin B12 Folate Blood Type O POSITIVE Antibody Screen Negative Crossmatch See Detail 10/08/16 10/08/16 10/09/16 12:44 12:44 06:33 WBC 9.9 RBC 3.61 L Hgb 9.5 L Hct 28.6 L MCV 79 L D MCH 26 L MCHC 33 RDW 16.1 H Plt Count 454 H Lymph % (Auto) 17.0 [place] % (Auto) 8.8 H Eos % (Auto) 1.5 Baso % (Auto) 1.1 Lymph # 1.7 [place] # 0.9 H Eos # 0.1 Baso # 0.1 Seg Neutrophils % 71.6 H Seg Neutrophils # 7.1 PT INR Sodium Potassium Chloride Carbon Dioxide Anion Gap BUN Creatinine Estimated GFR BUN/Creatinine Ratio Glucose Calcium Iron TIBC % Saturation Transferrin Ferritin Vitamin B12 427.3 Folate 20.00 Blood Type Antibody Screen Crossmatch 10/09/16 10/09/16 06:33 06:33 WBC RBC Hgb Hct MCV MCH MCHC RDW Plt Count Lymph % (Auto) [place] % (Auto) Eos % (Auto) Baso % (Auto) Lymph # [place] # Eos # Baso # Seg Neutrophils % Seg Neutrophils # PT 23.2 H INR 2.05 H Sodium 139 Potassium 5.0 Chloride 96.9 L Carbon Dioxide 29 Anion Gap 18 BUN 35 H Creatinine 3.0 H Estimated GFR 29 BUN/Creatinine Ratio 11.66 Glucose 76 Calcium 9.5 Iron TIBC % Saturation Transferrin Ferritin Vitamin B12 Folate Blood Type Antibody Screen Crossmatch
[2016-10-09] MEDS: PEPCID PO SCH (09:08)
[2016-10-09] MEDS: THERAGRAN Tab PO SCH (09:08)
--- NOTE | 2016-10-09 10:53 | Discharge Summary ---
Providers - Providers Date of Admission: 09/18/16 10:12 Attending physician: DONAVON WORRELL MD 09/22/16 09:23 Consult Acute Rehabilitation [CONS] Routine Consulting Provider: ARLETTE MENDEZ Reason For Exam: cva Occupational Therapy Evaluate and Treat [CONS] Routine Comment: Reason For Exam: debility, cva Physical Therapy Evaluation and Treat [CONS] Routine Comment: Reason For Exam: debility, cva 09/25/16 09:54 Consult to Physician [CONS] Routine Consulting Provider: MIKAL ALARCON Reason For Exam: converting to permacath for dilaysis access Place consult to:: ANKIT Notified:: RAMIREZ Phone number called:: INHOUSE Was contact made?: Yes If yes, spoke with:: RAMIREZ Edwards called:: 10:36 10/02/16 17:02 Physical Therapy Evaluation and Treat [CONS] Routine Comment: Reason For Exam: debility 10/08/16 11:38 Consult to Physician [CONS] Routine Consulting Provider: LIBRA MENDOZA Reason For Exam: anemia, concerned for GI bleed Place consult to:: Office Notified:: yes Phone number called:: [phone] Was contact made?: Yes If yes, spoke with:: Shalia Edwards called:: 11:51 09/18/16 12:46 Consult to Physician [CONS] Routine Consulting Provider: CRISTA BANUELOS Reason For Exam: severe hyperkalemia with renal failure Place consult to:: cc historical guide Notified:: y Was contact made?: Yes If yes, spoke with:: roberto Edwards called:: 13:15 09/20/16 10:16 Consult to Mental Health [CONS] Routine Reason For Exam: BIPOLAR disorder Place consult to:: mental health Notified:: yes Phone number called:: [phone] Was contact made?: Yes If yes, spoke with:: talia Edwards called:: 11:29 Consult to Physician [CONS] Routine Consulting Provider: PHU KENT Reason For Exam: right lower ext weakness and LUE weakness Place consult to:: neuro Notified:: office Phone number called:: [phone] Was contact made?: Yes If yes, spoke with:: simi Edwards called:: 10:07 Comment:: RECALL FOR POSITIVE CVA (09/22/16) @ 10:11am - MITALI/STEVE Primary care physician: HV[employer] MECH[employer]ICAL ENGINEER Hospitalization Condition: Stable Hospital course: Patient is a 31-year-old black man with a past medical history significant for schizophrenia , bipolar disorder, who presents to the emergency department via EMS after being found on the floor of his bathroom by his roommate. He was found to have acute traumatic Rhabdomylysis, acute kidney failure and RLE DVT. FOr acute rhabdomylysis, he received IVF he had GERALDINE requiring HD rx. His kidney function improved and HD was discontinued. He complained of RLE weakness, but MRI was negative and he was found to have swelling and DVT in that LE, For DVT, he was placed on anticoagulation, and he was therapeutic on warfarin prior to dc. He was also found to have acute urinary retention for which damon cath was placed, he is to follow up with urology for urodynamics and TOV. He had anemia that appeared to be from AOCD and iron deficiency, he was transfused and started on Iron supplements. DC Diagnosis Acute rhabdomyolysis/tramautic GERALDINE and hyperkalemia, needing renal replacement Right lower extremity DVT continue coumadin Urinary Retention sp damon placement, will need outpatient urology fup for urodynamics studies and TOV Anemia transfused and started on iron supplements Debility rx with PT Disposition: DISCHARGED TO HOME OR SELFCARE Time spent for discharge: 35 minutes Core Measure Documentation - Palliative Care Palliative Care/ Comfort Measures: Not Applicable - Core Measures Any of the following diagnoses?: DVT/PE - VTE Discharge Requirements Deep Vein Thrombosis/Pulmonary Embolism Present on Admission: Yes Has pt received <5 days of overlap therapy or INR<2.0: Yes Anticoagulant overlap therapy prescribed at discharge: No Contraindication No Overlap Therapy order at DC: Not Indicated Exam - Physical Exam Narrative exam: General: Patient appears well in no distress HEENT: MMM, EOMI cardiac: S1-S2 heard lungs: clear to auscultation, abdomen: soft, nontender, nondistended bowel sounds positive extremities: RLE edema Skin: no rash or lesion Neuro: no focal deficit Psych: appropriate behavior and mood, cognition intact - Constitutional Vitals: Temp Pulse Resp BP Pulse Ox 98.2 F 86 14 119/78 98 10/09/16 07:26 10/09/16 07:26 10/09/16 07:26 10/09/16 07:26 10/09/16 07:26 Plan Diet: renal Follow up with: PRIMARY CAREMD [Primary Care Provider] - 3-5 Days SAWYER PEREZ MD [Staff Physician] - 7 Days IAN PEACE MD [Staff Physician] - 7 Days Forms: Warfarin Discharge Instruction Prescriptions: Warfarin [Coumadin] 2.5 mg PO DAILY@1700 #7 tablet Multivitamin Tab [Multiple Vitamin TAB (Theragran)] 1 each PO QDAY #30 tablet Famotidine [Pepcid] 20 mg PO BID #30 tablet oxyCODONE /ACETAMINOPHEN [Percocet 5/325 mg] 2 tab PO Q6H PRN #20 tablet PRN Reason: Pain, Moderate (4-6)
--- NOTE | 2016-10-09 13:08 | Progress Note ---
Assessment and Plan acute kidney injury currently patient is nonoliguric urinary retention patient currently still does have a [place] catheter,he will need a urological follow-up He is making significant amount of urine 24 hour urine collection report currently pending Rhabdomyolysis clinically doing better at this time Needs follow-up lab since his creatinine clearance is satisfactory can be discharged to follow-up in the office next week Will need to avoid any follow-up nonsteroidal drugs We'll continue to follow and make recommendation from renal standpoint Subjective Principal diagnosis: Anemia Objective - Vital Signs Vital signs: Vital Signs - 12hr 10/09/16 07:26 Temperature 98.2 F Pulse Rate [ 86 Apical] Respiratory 14 Rate Blood Pressure 119/78 [Left Arm] O2 Sat by Pulse 98 Oximetry - Lab 10/09/16 06:33 10/09/16 06:33 Most recent lab results Calcium 9.5 mg/dL (8.4-10.2) 10/09/16 06:33
[2016-10-09 14:37] VITALS: BP 119/72
[2016-10-09] MEDS: COUMADIN PO SCH (17:12)
[2016-10-09] MEDS ORDERED: PEPCID PO SCH (22:00)
== END 2016-10-09 17:40 | disposition home or self-care (01) | DRG 564 ==
LOC: ED 06:46 → 4A 10:12 → CC1 12:56 → 3A 09-19 20:15
PROVIDERS: ADMIT Internal Medicine; ATTEND Internal Medicine
PROC: 05HM33Z Insertion of Infusion Device into Right Internal Jugular Vein, Percutaneous Approach (ICD-10-PCS; principal; 2016-09-18)
PROC: B543ZZA Ultrasonography of Right Jugular Veins, Guidance (ICD-10-PCS; 2016-09-18)
PROC: B5131ZA Fluoroscopy of Right Jugular Veins using Low Osmolar Contrast, Guidance (ICD-10-PCS; 2016-09-18)
PROC: 06PY33Z Removal of Infusion Device from Lower Vein, Percutaneous Approach (ICD-10-PCS; 2016-09-26)
PROC: B2141ZZ Fluoroscopy of Right Heart using Low Osmolar Contrast (ICD-10-PCS; 2016-09-26)
PROC: 02H633Z Insertion of Infusion Device into Right Atrium, Percutaneous Approach (ICD-10-PCS; 2016-09-26)
PROC: B2141ZZ Fluoroscopy of Right Heart using Low Osmolar Contrast (ICD-10-PCS; 2016-09-26)
PROC: 5A1D60Z (ICD-10-PCS; 2016-09-26)
PROC: 30233N1 Transfusion of Nonautologous Red Blood Cells into Peripheral Vein, Percutaneous Approach (ICD-10-PCS; 2016-10-08)
DX: T79.6XXA Traumatic ischemia of muscle, initial encounter (principal); N17.0 Acute kidney failure with tubular necrosis; G93.41 Metabolic encephalopathy; I82.491 Acute embolism and thrombosis of other specified deep vein of right lower extremity; E87.2 Acidosis; E87.1 Hypo-osmolality and hyponatremia; G81.91 Hemiplegia, unspecified affecting right dominant side; G81.94 Hemiplegia, unspecified affecting left nondominant side; F20.9 Schizophrenia, unspecified; E87.5 Hyperkalemia; F17.200 Nicotine dependence, unspecified, uncomplicated; R74.0 Nonspecific elevation of levels of transaminase and lactic acid dehydrogenase [LDH]; D72.829 Elevated white blood cell count, unspecified; F31.9 Bipolar disorder, unspecified; D64.9 Anemia, unspecified; R33.9 Retention of urine, unspecified; M62.81 Muscle weakness (generalized); G40.909 Epilepsy, unspecified, not intractable, without status epilepticus
CPT/HCPCS: 36415; 36430; 36556; 36558; 70450; 70551; 71020; 76770; 76937; 77001; 80048; 80053; 80074; 80320; 82140; 82390; 82550; 82553; 82607; 82728; 82747; 82962; 83550; 84165; 85007; 85025; 85027; 85610; 86160; 86706; 86803; 86850; 86900; 86901; 86920; 93005; 93010; 93306; 93880; 93970; 94760; 95819; 99406; C1750; C1752; C1769; G0480; J0610; J0690; J1644; J1650; J1815; J2250; J2405; J3010; J7030; J7040; J7050; J7070; P9016

== ENCOUNTER 2016-10-28 01:20 | Emergency (ER) | payer OTHER ==
[2016-10-28 01:32] VITALS: BP 119/81
[2016-10-28] MEDS ORDERED: ATIVAN PO ONE (03:53)
[2016-10-28 04:23] LABS: INR 1.16 (0.87-1.13)
--- NOTE | 2016-10-28 04:38 | Emergency Department Report ---
ED General Adult HPI - General Chief complaint: Extremity Injury, Lower Stated complaint: NUMBNESS RT FOOT Time Seen by Provider: 10/28/16 03:44 Source: patient Mode of arrival: Ambulatory Limitations: No Limitations - History of Present Illness Initial comments: This is a young man who apparently had a DVT approximately 2 or 3 weeks ago he was hospitalized for this. He did have a subsequent rhabdomyolysis and acute renal injury as well. Upon discharge she was sent home with warfarin therapy and referrals for follow-up. Patient is to follow-up. He indicates that he's had increased pain over his foot in the past couple of days. He describes it as being throbbing-type sensation. He denies any swelling of his foot or leg. He states that initial swelling he had has resolved. She denies any new trauma. As report compliance on his medications. Onset/Timin -: days(s) Location: right, lower extremity Radiation: non-radiation Severity scale (0 -10): 5 Quality: sharp Improves with: none Worsens with: none Associated Symptoms: denies other symptoms Treatments Prior to Arrival: none - Related Data Previous Rx's Medication Instructions Recorded Last Taken Type Famotidine [Pepcid] 20 mg PO BID #30 tablet 10/09/16 Unknown Rx Multivitamin Tab [Multiple Vitamin 1 each PO QDAY #30 tablet 10/09/16 Unknown Rx TAB (Theragran)] oxyCODONE /ACETAMINOPHEN [Percocet 2 tab PO Q6H PRN #20 tablet 10/09/16 Unknown Rx 5/325 mg] Gabapentin [Neurontin] 300 mg PO Q8HR #90 capsule 10/28/16 Unknown Rx Warfarin [Coumadin] 2.5 mg PO DAILY@1700 #30 tablet 10/28/16 Unknown Rx Allergies Allergy/AdvReac Type Severity Reaction Status Date / Time No Known Allergies Allergy Unverified 09/18/16 07:50 ED Review of Systems ROS: Stated complaint: NUMBNESS RT FOOT Other details as noted in HPI Constitutional: denies: chills, fever Eyes: denies: eye pain, eye discharge, vision change ENT: denies: ear pain, throat pain Respiratory: denies: cough, shortness of breath, wheezing Cardiovascular: denies: chest pain, palpitations Endocrine: no symptoms reported Gastrointestinal: denies: abdominal pain, nausea, diarrhea Genitourinary: denies: urgency, dysuria Musculoskeletal: arthralgia. denies: back pain, joint swelling Skin: denies: rash, lesions Neurological: denies: headache, weakness, paresthesias Psychiatric: denies: anxiety, depression Hematological/Lymphatic: denies: easy bleeding, easy bruising ED Past Medical Hx - Past Medical History Previous Medical History?: Yes Hx Congestive Heart Failure: No Hx Diabetes: No Hx Psychiatric Treatment: Yes (BIP[facility] SCHIZOP[facility]) Hx Asthma: No Hx COPD: No Hx HIV: No - Surgical History Past Surgical History?: No - Social History Smoking Status: Never Smoker Substance Use Type: None - Medications Home Medications: Home Medications Medication Instructions Recorded Confirmed Last Taken Type Famotidine [Pepcid] 20 mg PO BID #30 tablet 10/09/16 Unknown Rx Multivitamin Tab [Multiple Vitamin 1 each PO QDAY #30 tablet 10/09/16 Unknown Rx TAB (Theragran)] oxyCODONE /ACETAMINOPHEN [Percocet 2 tab PO Q6H PRN #20 tablet 10/09/16 Unknown Rx 5/325 mg] Gabapentin [Neurontin] 300 mg PO Q8HR #90 capsule 10/28/16 Unknown Rx Warfarin [Coumadin] 2.5 mg PO DAILY@1700 #30 tablet 10/28/16 Unknown Rx ED Physical Exam - General Limitations: No Limitations General appearance: alert, in distress (appears uncomfortable) - Head Head exam: Present: atraumatic, normocephalic - Eye Eye exam: Present: normal appearance - ENT ENT exam: Present: mucous membranes moist - Neck Neck exam: Present: normal inspection - Respiratory Respiratory exam: Present: normal lung sounds bilaterally. Absent: respiratory distress - Cardiovascular Cardiovascular Exam: Present: regular rate, normal rhythm. Absent: systolic murmur, diastolic murmur, rubs, gallop - GI/Abdominal GI/Abdominal exam: Present: soft, normal bowel sounds - Rectal Rectal exam: Present: deferred - Extremities Exam Extremities exam: Present: normal inspection, other (minimal tenderness to palpation. Pain not reproducible. Good distal pedal and dorsalis pedis pulses and equal bilaterally. Foot. Proprioception is intact. Light touch is intact. Dorsi and plantar flexion.) - Back Exam Back exam: Present: normal inspection - Neurological Exam Neurological exam: Present: alert, oriented X3 - Psychiatric Psychiatric exam: Present: normal mood, other (and affect noted. Some mild mental delay appreciated as well.) - Skin Skin exam: Present: warm, dry, intact, normal color. Absent: rash ED Course Vital Signs 10/28/16 10/28/16 10/28/16 01:28 01:30 03:20 Temperature 98.9 F Pulse Rate 95 H 95 H Respiratory 20 20 20 Rate Blood Pressure 119/81 Blood Pressure 119/81 [Left] O2 Sat by Pulse 100 100 100 Oximetry - Reevaluation(s) Reevaluation #1: 10/28/16 05:55 I did consider trauma but due to not being able to reproduce the pain nor seeing any sign of edema I elected not to do x-rays. I did consider arterial disease but patient has excellent pulses and has a warm foot. In regards to the prior DVT the calf is soft at this time as his thigh. I doubt that is planning an acute role in this process. The pain seemed to be subjective only. It is plausible that the DVT may have caused some type of neurologic damage that is now getting the paresthesia sensation that Patient is having. I feel at I am stretching it with this type of thought process. INR is noted to be normal. I seriously doubt whether the patient is being compliant with his warfarin. According to the discharge paperwork he was only given a week's supply of warfarin. And instruction to follow up with his doctor. He did indicate he was therapeutic prior to leaving the hospital now. Patient was given another prescription for warfarin I did give him referrals back to nephrology as well as a primary doctor for follow-up. I did strictly instructed regarding the importance of follow-up as warfarin can be a dangerous medicine. From a DVT standpoint are not overly concerned with this gentleman. She does not demonstrate any clot burden right now looking at his leg. He is a fairly low risk in general in my opinion. Regardless I know he needs 6 months of anticoagulation. Pain despite he'll get started back on that today. I did try to impress upon him how important this was today. He does acknowledge understanding. Still specifically how he takes his pills and he is able to give me an accounting how he has a special pill boxes and has his medications he takes at different times during the day. Critical care attestation.: If time is entered above; I have spent that time in minutes in the direct care of this critically ill patient, excluding procedure time. ED Disposition Clinical Impression: Paresthesia and pain of right extremity Disposition: DISCHARGED TO HOME OR SELFCARE Is pt being admited?: No Does the pt Need Aspirin: No Condition: Stable Additional Instructions: You need to be following up with a doctor regarding your warfarin. It should be tested every 2 weeks to make sure you are staying in the appropriate level. You could If you do not check it regularly. Try the gabapentin for your pain. Prescriptions: Gabapentin [Neurontin] 300 mg PO Q8HR #90 capsule Warfarin [Coumadin] 2.5 mg PO DAILY@1700 #30 tablet Referrals: SAWYER PEREZ MD [Staff Physician] - 3-5 Days ROMULO PALOMARES MD [Staff Physician] - 3-5 Days Time of Disposition: 04:38
== END 2016-10-28 04:48 | disposition home or self-care (01) ==
LOC: ED 01:20
DX: M79.671 Pain in right foot (principal); R20.9 Unspecified disturbances of skin sensation; I82.4Z1 Acute embolism and thrombosis of unspecified deep veins of right distal lower extremity
CPT/HCPCS: 36415; 85610; 99283